=== PATIENT | male | born 1950 | race Caucasian/White ===

== ENCOUNTER → 2023-10-17 10:10 | Outpatient (REF) | payer MEDICARE, OTHER, SELFPAY ==
[2023-10-17 10:50] LABS: % Basophils 1.1 % (0-2); % Immature Granulocytes 0.3 % (0-0.5); % Lymphocytes 30.4 % (20.5-51.1); % Monocytes 10.3 % (1.7-9.3); % Neutrophils 55.9 % (42.2-75.2); Absolute Basophils 0.1 10^3/uL (0-0.2); Absolute Eosinophils 0.2 10^3/uL (0-0.7); Absolute Lymphocytes 2.2 10^3/uL (1.2-3.4); Absolute Monocytes 0.8 10^3/uL (0.1-0.6); Absolute Neutrophils 4.1 10^3/uL (1.4-6.5); Hematocrit 43.7 % (39.0-52.0); Hemoglobin 14.2 g/dL (13.0-18.0); Mean Corp Hgb Conc. 32.5 g/dL (33.0-37.0); Mean Corpuscular Hgb 28.7 pg (27.0-31.0); Mean Corpuscular Volume 88.5 fL (80.0-94.0); Mean Platelet Volume 11.5 fL (7.4-10.4); Nucleated Red Blood Cells % 0 % (-); Platelet Count 167 10^3/uL (130-400); Red Blood Cell Count 4.94 10^6/uL (4.70-6.10); Red Cell Dist. Width 14.4 % (11.5-14.5); White Blood Cell Count 7.4 10^3/uL (4.8-10.8)
[2023-10-17 11:21] LABS: Urine Albumin Negative (Neg - Trace); Urine Bilirubin Negative (Negative); Urine Color Yellow; Urine Glucose Negative (Negative); Urine Ketone Negative (Negative); Urine Leukocyte Negative (Negative); Urine Nitrite Negative (Negative); Urine Occult Blood Negative (Negative); Urine Specific Gravity 1.015 (<1.030); Urine Urobilinogen Negative (Neg - 1+)
[2023-10-17 12:15] LABS: Glycohemoglobin (HgbA1c) 6.5 % (4.0-5.6)
[2023-10-17 12:29] LABS: Urine Character Clear (Clear)
[2023-10-17 12:31] LABS: ALT (SGPT) 18 U/L (0-50); AST (SGOT) 31 U/L (17-59); Albumin 4.8 g/dl (3.5-5.0); Alkaline Phosphatase 62 U/L (38-126); Blood Urea Nitrogen 19 mg/dl (9-20); Calcium 10.4 mg/dl (8.4-10.2); Carbon Dioxide 28 mmol/L (22-30); Chloride 101 mmol/L (98-107); Glucose 103 mg/dl (70-99); HDL Cholesterol 46 mg/dl; LDL Cholesterol, Calculated 62 mg/dl; Phosphorus 4.3 mg/dl (2.5-4.5); Potassium 4.3 mmol/L (3.5-5.1); Sodium 140 mmol/L (135-145); Total Cholesterol 142 mg/dl (50-199); Total Protein 8.2 g/dl (6.3-8.2); Triglyceride 174 mg/dl (10-149); Very Low Density Lipoprotein 34 mg/dl (0-30); eGFR > 60.00
[2023-10-17 12:37] LABS: Vitamin D, 25-OH*** 59.8 ng/mL (30-80)
[2023-10-17 12:51] LABS: PSA, Total - Screen 1.89 ng/ml (0.0-4.0)
== END ==
LOC: REG 10:10
PROVIDERS: ATTENDING PHYSICIAN Internal Medicine
DX: E11.9 Type 2 diabetes mellitus without complications (principal); E78.2 Mixed hyperlipidemia; E78.00 Pure hypercholesterolemia, unspecified; I10 Essential (primary) hypertension; I48.91 Unspecified atrial fibrillation; D50.0 Iron deficiency anemia secondary to blood loss (chronic); Z00.00 Encounter for general adult medical examination without abnormal findings; Z12.5 Encounter for screening for malignant neoplasm of prostate
CPT/HCPCS: 36415; 80053; 80061; 81003; 82306; 83036; 84100; 85025; G0103

== ENCOUNTER 2024-10-23 15:18 | Inpatient (IN) | payer MEDICARE, OTHER, SELFPAY ==
[2024-10-23] VITALS (7 sets, daily range): BP systolic 88–145; BP diastolic 55–95
[2024-10-23 11:00] LABS: Glucose - Point of Care 266 mg/dl (70-99)
[2024-10-23 11:07] LABS: Hematocrit 48.4 % (39.0-52.0); Hemoglobin 15.3 g/dL (13.0-18.0); Mean Corp Hgb Conc. 31.6 g/dL (33.0-37.0); Mean Corpuscular Hgb 28.6 pg (27.0-31.0); Mean Corpuscular Volume 90.5 fL (80.0-94.0); Mean Platelet Volume 11.6 fL (7.4-10.4); Platelet Count 218 10^3/uL (130-400); Red Blood Cell Count 5.35 10^6/uL (4.70-6.10); White Blood Cell Count 15.2 10^3/uL (4.8-10.8)
--- NOTE | 2024-10-23 11:08 | CON.CAR ---
Addendum entered and electronically signed by Cherri Gutierrez PA-C 10/23/24 11:57:
also has history of KS in 1994 with stenting of unknown artery.
Addendum entered and electronically signed by Jorge Arita MD 10/23/24 11:53:
I saw and examined the patient.
The Shoder Filler's note was reviewed and I agree with the note.
Comment:
GEN: No distress, intubated/sedated
HEENT: supple, anicteric, mmm
LUNGS: CTA, no wheezes/rales
CV: Reg, S1/S2, 1/6 syst LSB, no gallop
ABD: soft, BS+, NT/ND
EXT: No edema
NEURO: unable to assess
SKIN: No rash
Plan:
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
Patient was having chest pain, called 911 and became unresponsive. Medics then arrived at his house and he was found to be in VF and received shocked x 1. He also received epinephrine and lidocaine at that time with return to spontaneous
circulation and was intubated.
Initial EKG with new right bundle branch block and marked ST abnormalities in the anterior leads and inferior leads.
Head CT with preliminary read of no acute bleed.
Repeat EKG reveals 1 to [address] elevation in the inferior leads with continued anterior ST depression.
Patient will now be urgently transferred to cardiac [facility] for coronary angiography. He is already on aspirin and Plavix chronically.
Will start IV heparin since head CT with no evidence of acute bleed.
Continue Coreg, ramipril, and rosuvastatin.
Check lipids.
Patient will be need to be admitted to hospitalist/ service for further management of ventilator.
Further cardiac care will be dependent upon patient's neurological status. ?ICD
Repeat Echo.
Original Note:
Consultation
Consultation Request
Date/Time Consultation Performed: 10/23/24
Requesting Provider: Dr. Figueroa
Performing Provider: Cherri Gutierrez PA-C for Dr. Arita
Reason for Consultation: cardiac arrest
Medical History
-
Chief Complaint: cardiac arrest
History of Present Illness:
Patient is a 73-year-old male with past medical history of CAD status post LAD PCI x 2, circumflex PCI in 2013, known ischemic cardiomyopathy with EF 35 to 40%, hypertension, hyperlipidemia, obesity, ELVIRA on CPAP, diabetes who presented to [place] [facility] as a cardiac arrest. Per patient's son he has been going to the [facility] several times per week for the last 5 years. He has not complained to patient of any recent chest pain or shortness of breath. Today patient called 911 on his own
complaining of chest tightness and shortness of breath. While on the phone, he stopped talking/responding and he was upgraded to a cardiac arrest. Medics feel as though he had limited downtime. Upon their arrival he was noted to be in VF and
underwent shock x 1. He received epi x 2 as well as 100 of lido. He had return of spontaneous circulation and remains in sinus rhythm at this time. He was intubated in the field. EKG with possible ST elevation in inferior leads with reciprocal
lateral ST depressions. Cardiology consulted urgently for evaluation.
PMH:
CAD s/p LAD PCI x2 2011, circ PCI 2013
ICM, EF 35-40%
HTN
HLD
DM2
Obesity
ELVIRA on CPAP
Past Medical History
Past Medical History: Other (in HPI)
Social History
Tobacco: Non-Smoker
Alcohol: None
Living: Alone
Family History
Family History: Unable to Obtain
Allergies / Home Medications
Allergy/AdvReac Type Severity Reaction Status Date / Time
levofloxacin Allergy Swelling Verified 02/02/22 19:03
Mold Allergy Unknown Unknown Uncoded 02/02/22 19:03
Dust, dog hair Allergy Sneezing, Uncoded 02/02/22 19:03
watery eyes
�Medication �Instructions �Recorded �Confirmed �Type
carvedilol 12.5 mg tablet 12.5 mg PO BID 01/26/11 02/02/18 History
tadalafil 20 mg tablet (Cialis) 20 mg PO DAILYPRN PRN erectile 12/07/11 02/02/18 History
dsyfunction
metformin 1,000 mg tablet 1,000 mg PO BID 05/18/12 02/02/18 History
clopidogrel 75 mg tablet 75 mg PO DAILY 05/05/13 02/02/18 History
aspirin 81 mg tablet,delayed 81 mg PO DAILY #30 tabs 05/07/13 02/02/18 Rx
release
rosuvastatin 40 mg tablet (Crestor) 40 mg PO DAILY 02/02/18 02/02/18 History
empagliflozin 10 mg tablet 10 mg PO DAILY 10/23/24 History
(Jardiance)
ramipril 5 mg capsule 10 mg PO DAILY 10/23/24 History
Review of Systems
-
Unable to obtain full review of systems at this time due to: Patient Intubation
Physical Exam
Vital Signs
Pulse Resp BP Pulse Ox
79 20 118/95 99
10/23/24 11:03 10/23/24 11:03 10/23/24 11:03 10/23/24 10:42
Lab Results
10/23/24 10:54
Physical Exam
General: No Apparent Distress and Intubated
HEENT: Normocephalic and Moist Mucous Membranes
Respiratory: Clear and Non Labored Respirations
Cardiac: S1/S2 and Regular Rhythm
GI: Soft, Non Tender and Non Distended
Musculoskeletal: No Clubbing, No Cyanosis and No Edema
Skin: Warm and Dry
Neuro: Sedated
Impression / Plan
-
Primary Communications Designer: Dr. Lui
Assessment:
Presentation with VF arrest s/p shock x1 with ROSC
Intubated in field
Chest tightness/SOB
CAD s/p LAD PCI x2 2011, circ PCI 2013
ICM, EF 35-40%
HTN
HLD
DM2
Obesity
ELVIRA on CPAP
ECHO 10/05/21: TDS, EF 35 to 40%, basal to mid inferior, inferolateral and basal septal akinesis, left atrial enlargement, mild MR
Plan:
- Patient presented with cardiac arrest, reported VF requiring shock x 1 as well as epi x 2 and 100 mg lidocaine with subsequent ROSC. felt to have limited downtime per EMS.
- Presently in sinus rhythm on review of telemetry
- He is intubated and sedated
- initiating lidocaine drip given good response in field
- EKG with concern for inferior ST elevation in 3 and aVF with reciprocal depression in lateral leads. Will repeat EKG now
- Awaiting labs. Trend troponin
- Head CT pending. If negative for bleed, would initiate IV heparin
- Chronically on aspirin and Plavix as an outpatient given history of stenting as above
- He has history of known ischemic cardiomyopathy with a EF by most recent echo in 2021 35 to 40%. It is noted that he previously refused ICD. repeat echo
- will plan for urgent cardiac catheterization
- d/w nursing and ER physician
- d/w patient's sons and significant others in family waiting area
- CCT 32 minutes
Data Reviewed
-
EKG: Tracing Personally Visualized and interpreted
CT Scan: Report Reviewed by me
Medical Tests (Nuc Med, Echo etc): Report Reviewed by me
Old Records: Reviewed
--- NOTE | 2024-10-23 11:08 | ED.GENMED ---
History of Present Illness
General
Chief Complaint: CODE
Source: ambulance crew
Time Seen by Provider: 10/23/24 10:46
History of Present Illness
History of Present Illness:
73-year-old male brought to the emergency by ambulance after suffering a cardiac arrest. Patient called 911 complaining of chest pain and shortness of breath. 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 When paramedics arrived they found
him down with agonal respirations and into V-fib. He was shocked into a perfusing rhythm which at 1 point degraded to asystole. He was given lidocaine in the 100 mg, at the end ultimately had return of spontaneous circulation which persisted. He
arrived to the emergency room in sinus rhythm with a good blood pressure. He has spontaneous respiratory effort. He has some movement of his hands and feet bilaterally. No further history available at this time.
Past History
Past History
ED Past Medical History: CAD, HTN, Hypercholesterolemia, NIDDM, RI and Other
ED Past Surgical History: Cardiac and Other
Social History
Tobacco: Non-smoker
Alcohol: Occasional
Drug: None
Personal:
Living: with family
Employment: Employed
Family History
Family History: Hypertension and CAD
Phy Exam
Physical Exam
Physical Exam:
General: Spontaneous respiratory effort but otherwise not responsive
Vitals: Sinus rhythm, adequate blood pressure
Head: Contusion right forehead
Eyes: Pupils equal at 4 mm
Throat: Intubated at 27 cm
Neck: Trachea midline
Lungs: Coarse breath sounds bilaterally
Heart: Regular rate, no murmurs
Abd: Soft, Nontender, No pulsatile mass
Neuro: Not responsive to verbal commands but appears to have some minimal movement bilaterally
Skin: Warm, dry, no rash
Extremities: pulses equal b/l, no edema
Course
Orders/Labs/Results
Orders:
Orders
10/23/24 10:41
Electrocardiogram (*1) Urgent
Reason for Study: Other
Other Reason for Exam: cardiac arrest-b ROSC
CXR Port [CR Chest Portable - 1 View] Urgent
Comment:
Reason For Exam: cardiac arrest
Reason Study Needs to be Portable: Unable to Transport
10/23/24 10:42
EKG- Treatment ONCE
10/23/24 10:[address] [CT Head W/o Iv Contrast] Stat
Comment:
Reason For Exam: post ROSC- hit head
10/23/24 10:53
CMP [Comprehensive Metabolic Panel] Urgent
PT/INR [Prothrombin Time] Urgent
Troponin I Urgent
10/23/24 10:54
Complete Blood Count/With Diff Urgent
Lactic Acid Urgent
10/23/24 10:56
Fentanyl Citrate/Pf [Sublimaze] 100 mcg .ROUTE .STK-MED ONE
10/23/24 11:02
Fentanyl Citrate/Pf [Sublimaze] 100 mcg IV NOW STA
10/23/24 11:15
Lidocaine 2 Gram/500 ml [Xylocaine 2 Gram] 2,000 mg in 500 ml IV ORDERED RATE
Propofol 1,000,000 Mcg/100 ml [Diprivan] 1,000,000 mcg in 100 ml IV PER PROTOCOL
10/23/24 11:20
Electrocardiogram (*1) Stat
Reason for Study: Abnormal EKG
10/23/24 11:22
PTT Urgent
Comment: Obtain baseline before beginning heparin infusion if not already collected
Heparin 4,000 units IV NOW STA
Nursing to Place Non Medication Order As Directed
Physician Order: PTT 6 hours after initial start of Heparin infusion
10/23/24 11:23
Aspirin Chewable [Low Strength Aspirin] 324 mg TUBE NOW STA
10/23/24 11:24
Add On- LAB Urgent
Tests Added?: ptt
10/23/24 11:28
Electrocardiogram (*1) Urgent
Reason for Study: Chest Pain
EKG- Treatment ONCE
Venous Blood Gas Urgent
%Oxygen/Room Air: 50
10/23/24 11:30
Heparin 22626 Units/250 ml 25,000 units in 250 ml IV PER PROTOCOL
Weight to be used for heparin protocol in kilograms (kg):: 107.9
Protocol:: Cardiac Tx/Acute Coronary
PTT Goal Range to be used:: PTT 73 to 111 seconds
Order type:: Initial
INITIAL Infusion Dose (UNITS/KG/hr) & then follow protocol:: 12 units/kg/hr
Infusion Dose in UNITS/hr & then follow protocol (UNITS/hr):: 1,000
INFUSION RATE in mL/hr & then follow protocol (mL/hr):: 10
PTT less than or equal to 64 seconds:: Increase rate by 200 units/hr (+ 2 mL/hr)
PTT 64.1 to 72.9 seconds:: Increase rate by 100 units/hr (+ 1 mL/hr)
PTT 73 to 111 seconds:: Target Range. No change in rate.
PTT 111.1 to 130.9 seconds:: Decrease rate by 100 units/hr (- 1 mL/hr)
PTT 131 to 199.9 seconds:: HOLD for 1 hr. Then decrease rate by 200 units/hr (- 2 mL/hr)
PTT greater than or equal to 200 seconds:: HOLD for 2 hrs & Notify Provider. Then decrease by 200 units/hr (-
2 mL/hr)
Lab follow-up:: Each change, PTT q6h until 2 consecutive are therapeutic. Then PTT
daily.
10/23/24 11:38
Fentanyl Citrate/Pf [Sublimaze] 100 mcg .ROUTE .STK-MED ONE
10/23/24 11:42
Heparin 1000 Units/500 ml [Heparin] 1,000 units in 500 ml .ROUTE .STK-MED
Heparin Sodium,Porcine/Ns/Pf [Heparin 2000 Units/1000 ml] 2,000 unit in 1,000 ml .ROUTE .STK-MED
Lidocaine HCl/Pf [Xylocaine-Mpf 1% Vial] 100 mg .ROUTE .STK-MED ONE
Nitroglycerin [Tridil] 1,500 mcg .ROUTE .STK-MED ONE
Verapamil Injectable [Isoptin/Verapamil Injection] 5 mg .ROUTE .STK-MED ONE
10/23/24 11:45
Fentanyl Citrate/Pf [Sublimaze] 100 mcg IV NOW STA
10/23/24 12:03
Fentanyl Citrate/Pf [Sublimaze] 100 mcg .ROUTE .STK-MED ONE
Heparin 10,000 units .ROUTE .STK-MED ONE
Midazolam HCl [Versed] 2 mg .ROUTE .STK-MED ONE
10/23/24 12:15
FentaNYL 1,000 MCG/100 ML [Sublimaze] 1,000 mcg in 100 ml IV ORDERED RATE
10/23/24 12:31
Arterial Blood Gas with Lytes Urgent
Comment: STEMI
Lactic Acid Urgent
Comment: STEMI
10/23/24 12:35
Eptifibatide [Integrilin] 20 ml .ROUTE .STK-MED
10/23/24 12:44
Heparin Sodium,Porcine/Ns/Pf [Heparin 2000 Units/1000 ml] 2,000 unit in 1,000 ml .ROUTE .STK-MED
Abnormal Lab Results
10/23/24 10/23/24 10/23/24
10:53 10:54 10:58
WBC 15.2 H 10^3/uL
(4.8-10.8)
MCHC 31.6 L g/dL
(33.0-37.0)
RDW 15.0 H %
(11.5-14.5)
MPV 11.6 H fL
(7.4-10.4)
Abs Immat Gran (auto) 0.3 H 10^3/uL
(0-0.05)
Absolute Neuts (auto) 7.3 H 10^3/uL
(1.4-6.5)
Absolute Lymphs (auto) 6.6 H 10^3/uL
(1.2-3.4)
Absolute Monos (auto) 0.8 H 10^3/uL
(0.1-0.6)
Immature Gran % 2.0 H %
(0-0.5)
pH
pCO2
pO2
ABG O2 Sat (Measured)
Sodium
Carbon Dioxide 18 L mmol/L
(22-30)
Glucose 278 H mg/dl
(70-99)
Lactic Acid 8.6 H* mmol/L
(0.7-2.0)
AST 206 H U/L
(17-59)
ALT 160 H U/L
(0-50)
Troponin I 0.061 H* ng/ml
POC Glucose 266 H mg/dl
(70-99)
POC ACT Low Range
10/23/24 10/23/24 10/23/24
12:13 12:31 12:48
WBC
MCHC
RDW
MPV
Abs Immat Gran (auto)
Absolute Neuts (auto)
Absolute Lymphs (auto)
Absolute Monos (auto)
Immature Gran %
pH 7.26 L
(7.35-7.45)
pCO2 49 H mmHg
(35-48)
pO2 213 H mmHg
(83-108)
ABG O2 Sat (Measured) 100.0 H %
(94-98)
Sodium 130 L mMOL/L
(136-145)
Carbon Dioxide
Glucose
Lactic Acid 4.0 H* mmol/L
(0.7-2.0)
AST
ALT
Troponin I
POC Glucose
POC ACT Low Range 263 H Seconds 244 H Seconds
(116-155) (116-155)
10/23/24
13:25
WBC
MCHC
RDW
MPV
Abs Immat Gran (auto)
Absolute Neuts (auto)
Absolute Lymphs (auto)
Absolute Monos (auto)
Immature Gran %
pH
pCO2
pO2
ABG O2 Sat (Measured)
Sodium
Carbon Dioxide
Glucose
Lactic Acid
AST
ALT
Troponin I
POC Glucose
POC ACT Low Range 221 H Seconds
(116-155)
10/23/24 10:54
10/23/24 10:53
Vital Signs
Initial and Last Documented VS:
Initial Vital Signs
Pulse Resp BP Pulse Ox
79 20 145/87 99
10/23/24 10:42 10/23/24 10:42 10/23/24 10:42 10/23/24 10:42
Last Documented Vital Signs
Pulse Resp BP Pulse Ox
81 17 88/55 99
10/23/24 11:45 10/23/24 11:45 10/23/24 11:45 10/23/24 10:42
MDM/Problems Addressed
Differential Diagnosis Includes:
STEMI, NSTEMI, primary ventricular dysrhythmia from previous scar
MDM/Problems Addressed:
Patient presents via ambulance after having a cardiac arrest at home. EKG here is clearly abnormal. Not clearly STEMI criteria. Sent an image of the EKG to Dr. Ballard who is on-call for interventional cardiology. Also included Dr. Doug hong who
is on-call for the patient's cardiology group. They will evaluate the patient now. Likely patient will go to the Business Excellence [facility] when the table is available. Patient has evidence of bumping his head and so we will obtain a head CT prior to starting
anticoagulation. Patient was given 100 mg of lidocaine as a bolus by medics. Will initiate a lidocaine drip at 1 mg/min.
Repeat EKG was obtained which now shows ST elevation in the inferior leads. Cardiology was down here in the emergency room and they alerted the Business Excellence Manager that the patient now has a STEMI. He was taken to the Business Excellence [facility] after receiving 5000 units of
heparin and 324 mg of baby aspirin. Consultation with cardiology will hold off on Brilinta because he does have a high likelihood of having multivessel disease and needing bypass surgery, additionally he took Plavix today.
Chronic conditions affecting care: DM, HTN, CAD and Cardiomyopathy
*Radiology
Radiology exam reviewed: preliminary read by ED provider (ET tube in adequate position, poor inspiratory effort)
*Pulse Oximetry
Patient hypoxic: no
*EKG
Interpreted by ED Provider?: Yes
Interpretation: abnormal
Comparison EKG: changes noted (New right bundle branch block)
Heart Rate: 92
Rate: normal
Rhythm: sinus and PVC's
QRS Pattern: right bundle branch block
Ischemia: other (There are ST abnormalities noted in 3 and aVF. Lead III certainly has potential ST elevation. aVF is less than 1 mm, lead to less than 1 mm. There is potential [address] depression laterally.)
*Boiler Setter Interpretation
Rate: normal
Interpretation: abnormal
Rhythm: sinus
*Critical Care Note
Total Time (30-74mins, 75-104mins- exclusive of procedures): 35 min
comment:
Critical care statement: A total of 35 minutes of critical care time was provided for this patient. This includes management of unstable vital signs, evaluation of the patient at bedside, reviewing the patient's pertinent medical records, discussion
with consultants, review of old EKGs and review of pertinent medical records. This time with separate from time utilized to perform the aforementioned documented procedures
Update Note
Update Note:
EKG 11:31 nsr @ 78, ST elevation no evident leads II, III and aVF with reciprocal changes.
ED Attending Note
-
Portions of this chart may have been created with voice recognition software.� Occasional wrong word or��sound alike� substitutions may have occurred due to the inherent limitations of voice recognition software.
Discharge Plan
Departure
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
Presentation/result/management discussed w/ accepting MD/DO: Hospitalist
Condition: Serious
Discharge Problem:
Cardiac arrest, Acute RI, inferior wall, Head injury
Interventions
Interventions:
*ED- Fall Risk Assessment Last Done: 10/23/24 11:01
*ED COVID-19 Vaccine History Last Done: 10/23/24 11:01
*Nursing Disposition Last Done: 10/23/24 11:54
ED- Cardiac Assessment Last Done: 10/23/24 11:00
ED- Pulmonary Assessment Last Done: 10/23/24 10:45
Discharge Date and Time
Discharge Date/Time: 10/23/24 11:55
[2024-10-23 11:14] LABS: INR 1.09; PT 14.6 Sec (11.4-14.6)
[2024-10-23 11:16] LABS: AST (SGOT) 206 U/L (17-59); Albumin 4.5 g/dl (3.5-5.0); Alkaline Phosphatase 92 U/L (38-126); Blood Urea Nitrogen 18 mg/dl (9-20); Calcium 9.4 mg/dl (8.4-10.2); Carbon Dioxide 18 mmol/L (22-30); Chloride 103 mmol/L (98-107); Glucose 278 mg/dl (70-99); Potassium 4.9 mmol/L (3.5-5.1); Sodium 140 mmol/L (135-145); Total Protein 7.6 g/dl (6.3-8.2); eGFR > 60.00
[2024-10-23] MEDS: DIPRIVAN 100 IV ×3 (11:22→22:14)
[2024-10-23] MEDS: SUBLIMAZE 100 MCG IV (11:22)
[2024-10-23 11:24] LABS: Lactic Acid 8.6 mmol/L (0.7-2.0)
[2024-10-23] MEDS: XYLOCAINE 2 GRAM 500 IV (11:25)
[2024-10-23 11:32] LABS: Troponin I 0.061 ng/ml
--- NOTE | 2024-10-23 11:36 | EDRN ---
Cherri speaking to family and pt is to go to laboratory clerk. Dr. Walsh at bedside.
[2024-10-23 11:46] LABS: ALT (SGPT) 160 U/L (0-50)
[2024-10-23 11:48] LABS: % Basophils 0.6 % (0-2); % Eosinophils 1.1 % (0-6); % Lymphocytes 43.3 % (20.5-51.1); % Monocytes 5.3 % (1.7-9.3); % Neutrophils 47.7 % (42.2-75.2); Absolute Basophils 0.1 10^3/uL (0-0.2); Absolute Eosinophils 0.2 10^3/uL (0-0.7); Absolute Immature Granulocytes 0.3 10^3/uL (0-0.05); Absolute Lymphocytes 6.6 10^3/uL (1.2-3.4); Absolute Monocytes 0.8 10^3/uL (0.1-0.6); Absolute Neutrophils 7.3 10^3/uL (1.4-6.5); Nucleated Red Blood Cells % 0 % (-)
--- NOTE | 2024-10-23 11:53 | EDRN ---
See STEMI SHEET for additional administered meds-
[2024-10-23 12:18] LABS: ACT-LR - POC 263 Seconds (116-155)
[2024-10-23 12:36] LABS: B.E. -5.4 mmol/L; PCO2 49 mmHg (35-48); PO2 213 mmHg (83-108); Sodium 130 mMOL/L (136-145); pH 7.26 (7.35-7.45)
[2024-10-23 12:54] LABS: ACT-LR - POC 244 Seconds (116-155)
[2024-10-23 13:30] LABS: ACT-LR - POC 221 Seconds (116-155)
[2024-10-23 13:52] LABS: ACT-LR - POC 190 Seconds (116-155)
[2024-10-23 14:19] LABS: ACT-LR - POC 181 Seconds (116-155)
[2024-10-23 14:24] LABS: B.E. -6.9 mmol/L; HCO3 21.9 mmol/L (21-28); O2 Saturation % 90.3 % (94-98); PCO2 56 mmHg (35-48); PO2 63 mmHg (83-108)
[2024-10-23 14:36] LABS: ACT-LR - POC 269 Seconds (116-155)
[2024-10-23 14:44] LABS: B.E. - POC -5.6 mmol/L; Blood Urea Nitrogen - POC 23 mg/dl (3-120); Chloride - POC 106 mmol/L (96-111); Creatinine - POC 1.11 mg/dl (0.3-1.0); Glucose - POC 230 mg/dl (70-99); HCO3 - POC 21 mmol/L (21-28); Hematocrit - POC 49 % PCV (42-52); Hemodilution- POC No; Hemoglobin Calculated - POC 16.6; Ionized Calcium - POC 1.16 mmol/L (1.15-1.33); Lactate - POC 3.12 mmol/L (0.36-0.75); O2 Saturation %Calculated-POC 97.3 % (94-98); PCO2 - POC 44 mmHg (35-48); PO2 - POC 105 mmHg (83-108); Potassium - POC 4.8 mmol/L (3.5-5.1); Sodium - POC 137 mmol/L (136-145); Specimen Type - POC Arterial; pH - POC 7.29 (7.35-7.45)
--- NOTE | 2024-10-23 14:45 | CON.INTV ---
Addendum entered and electronically signed by Rm Bright MD 10/23/24 16:35:
Temp >100 noted
- TTM already ordered
- Tylenol KS
- Blood cultures
- f/u CXR
- Start Broad spectrum antibiotics
- Fever likely due to arrest, CPR and infarction. Aspiration can not be ruled out.
Original Note:
Consultation
Consultation Request
Date/Time Consultation Requested: 10/23/2024
Date/Time Consultation Performed: 10/23/2024
Requesting Provider: Gretel Meng
Performing Provider: Rm Bright
Reason for Consultation: cardiac arrest
Medical History
-
Chief Complaint: Cardiac arrest
History of Present Illness:
Patient currently intubated, mechanically ventilated sedated. Reportedly patient is a 70-year-old gentleman with known history of coronary artery disease with previous PCI in the past, known ischemic cardiomyopathy with baseline EF 35 to 40%,
obstructive sleep apnea on CPAP, who called 911 for having chest pain and shortness of breath. While he was on the phone apparently he stopped talking and had a cardiac arrest. Once EMS arrived, patient was noted to be in ventricular fibrillation
and was shocked x 1, he also received epi and Afrin as well as lidocaine and had return of spontaneous circulation. He was intubated in the field and EKG was concerning for ST elevation in the inferior leads. Cardiology service evaluated the
patient in the emergency room and he was emergently taken to Patient Support Associate for further intervention. I initially saw the patient in the Patient Support Associate for persistent hypoxia despite being mechanically ventilated and later reevaluated again in CVICU.
PMH:
CAD s/p LAD PCI x2 2011, circ PCI 2013
ICM, EF 35-40%
HTN
HLD
DM2
Obesity
ELVIRA on CPAP
Past Medical History
Past Medical History: Other (in HPI)
Social History
Tobacco: Non-Smoker
Alcohol: None
Living: Alone
Family History
Family History: Unable to Obtain
Allergies / Home Medications
Allergies
Allergy/AdvReac Type Severity Reaction Status Date / Time
levofloxacin Allergy Swelling Verified 02/02/22 19:03
Mold Allergy Unknown Unknown Uncoded 02/02/22 19:03
Dust, dog hair Allergy Sneezing, Uncoded 02/02/22 19:03
watery eyes
Home Medications
�Medication �Instructions �Recorded �Confirmed �Last Taken �Type
carvedilol 12.5 mg tablet 12.5 mg PO BID 01/26/11 02/02/18 05/11/13 History
tadalafil 20 mg tablet (Cialis) 20 mg PO DAILYPRN PRN erectile 12/07/11 02/02/18 04/28/13 22:00 History
dsyfunction
metformin 1,000 mg tablet 1,000 mg PO BID 05/18/12 02/02/18 05/11/13 History
clopidogrel 75 mg tablet 75 mg PO DAILY 05/05/13 02/02/18 05/11/13 History
aspirin 81 mg tablet,delayed 81 mg PO DAILY #30 tabs 05/07/13 02/02/18 05/11/13 Rx
release
rosuvastatin 40 mg tablet (Crestor) 40 mg PO DAILY 02/02/18 02/02/18 Unknown History
empagliflozin 10 mg tablet 10 mg PO DAILY 10/23/24 Unknown History
(Jardiance)
ramipril 5 mg capsule 10 mg PO DAILY 10/23/24 Unknown History
Review of Systems
-
Unable to Obtain full review of systems at this time due to: Patient Intubation
Vitals / Labs / Diagnostic Testing
Vital Signs
Pulse Resp BP Pulse Ox
81 17 88/55 99
10/23/24 11:45 10/23/24 11:45 10/23/24 11:45 10/23/24 10:42
Lab Data
10/23/24 10:54
Laboratory Results
10/23/24 10/23/24 10/23/24
10:53 12:31 14:11
PT 14.6
INR 1.09
pH 7.26 L 7.20 L
pCO2 49 H 56 H
pO2 213 H 63 L
HCO3 22.0 21.9
O2 Delivery Level Not Reportable Not Reportable
10/23/24
14:15
PT
INR
pH Cancelled
pCO2 Cancelled
pO2 Cancelled
HCO3 Cancelled
O2 Delivery Level Cancelled
Diagnostic Testing:
Physical Exam
-
HEENT: Normocephalic
Cardiovascular: S1/S2
Respiratory: Rales
GI: Soft and Non Distended
Neurology: Other (On propofol, breathing above the vent )
Assessment
-
#1. STEMI complicated by out of hospital Cardiac Arrest, initial rhythm V. Fib
- S/p defibrillation x 1, ROSC achieved in the field. Estimated downtime reportedly around 15 minutes
- Patient emergently taken to Patient Support Associate, known history of coronary artery disease, s/p PCI more than 10 years ago
- Cardiology and cardiothoracic surgery service on case, s/p IABP. On ASA, heparin infusion and Statins
- CT head unremarkable, chest x-ray suggestive of pulmonary edema
- Target normothermia, avoid fever, avoid hypoglycemia, d/w Cardiology attending, start TTM
- Stat ABG, lactate, monitor electrolytes closely, continue telemetry monitoring
- Monitor renal and hepatic function
- Wean off sedation to evaluate patient's mental status
#2. Acute hypoxic respiratory failure
- Suspect related to pulmonary edema due to cardiogenic shock
- Continue levo as needed to keep MAP above 65
- Patient emergently evaluated in [facility] Support [facility] for hypoxia, PEEP increased up to 14, tidal volume 480 mL, patient breathing above the vent at around 30/min, peripheral saturation improved to 99%
- Stat chest x-ray to evaluate further, continue high PEEP for now
- Continue mechanical ventilation, volume assist-control 480/26/100%/14, will follow-up ABG and make adjustments accordingly
- Propofol and fentanyl for sedation, wean off to evaluate mental status
- X-ray not suggestive of pneumonia, hold off antibiotics for now. Will repeat chest x-ray to evaluate for any infiltrates
- If blood pressure tolerates, will initiate diuresis
- PE felt to be less likely with normal-appearing RV on echocardiogram. Patient anticoagulated with heparin
#3. Acute on chronic HFrEF with Cardiogenic Shock
- Management as #2
- Serial ABG, Lactate
#4. Acute encephalopathy
- Unclear if patient has any underlying anoxic brain injury
- Currently patient is sedated on propofol, recommend weaning it off
- Patient is triggering the ventilator and breathing above the set rate
- No meaningful response to stimulation or communication
- EEG
- CT head unremarkable
- Will reevaluate again once the patient is off sedation
- TTM being initiated after discussion with cardiology attending
Other medical diagnoses:
- h/o ELVIRA, on CPAP at home
- HTN
- HLD
- DM, type II
- Obesity
Critical Care time 65 mins -- The patient is admitted for acute critical illness for the treatment of vital organ failure and/or prevention of further life-threatening conditions. Total care includes time spent in review of history, physical exam,
medications, hemodynamic/ventilator parameters, laboratory data, imaging and discussion with house staff, pharmacy, respiratory therapy, supervisor finishing, and nursing.
Data:
CT Head 10/2024: Unremarkable
CXR. 10/2024: Suggestive of Pulmonary edema
ECHO 09/2021: Top normal left ventricular chamber size. Moderately reduced left ventricular
systolic function. Left ventricular ejection fraction is 35-40% by visual
assessment with basal - mid inferior, inferolateral and basal septal akinesis.
Top normal left ventricular wall thickness.
Left atrial enlargement.
Mild mitral regurgitation.
Compared to previous echo from September 2017, there is no significant change
Technically difficult study, consider Definity for better evaluation.
[facility] 04/2013: 1: 2 vessel coronary artery disease as described, patent RCA and LAD stents, new severe midcircumflex lesion.
2: Moderate to severe left ventricular dysfunction, EF 30%
3: Successful complex 3.0/12 mm Xience V drug eluting stent to the mid circumflex.
[2024-10-23 14:53] LABS: Lactic Acid 2.9 mmol/L (0.7-2.0)
[2024-10-23 15:52] LABS: Urine Albumin 3+ (Neg - Trace); Urine Bilirubin Negative (Negative); Urine Character Clear (Clear); Urine Color Yellow; Urine Glucose 4+ (Negative); Urine Ketone Negative (Negative); Urine Leukocyte Negative (Negative); Urine Nitrite Negative (Negative); Urine Occult Blood 3+ (Negative); Urine Urobilinogen Negative (Neg - 1+)
[2024-10-23 15:58] LABS: Urine Bacteria Moderate (Negative)
[2024-10-23 16:02] LABS: ALT (SGPT) 158 U/L (0-50); AST (SGOT) 208 U/L (17-59); Albumin 4.5 g/dl (3.5-5.0); Alkaline Phosphatase 98 U/L (38-126); Blood Urea Nitrogen 24 mg/dl (9-20); Calcium 8.8 mg/dl (8.4-10.2); Carbon Dioxide 15 mmol/L (22-30); Chloride 108 mmol/L (98-107); Glucose 214 mg/dl (70-99); Potassium 4.8 mmol/L (3.5-5.1); Sodium 140 mmol/L (135-145); Total Bilirubin 1.2 mg/dl (0.2-1.3); Total Protein 7.6 g/dl (6.3-8.2); eGFR > 60.00
--- NOTE | 2024-10-23 16:22 | HPS.HSE ---
Family Physician
-
Family Physician: INTERVIEWE UNKNOWN - PT NOT
Chief Complaint
-
post cath/code
History of Present Illness
73-year-old male with past medical history of ischemic cardiomyopathy, EF 35 to 40%, hypertension, lipidemia, diabetes mellitus, obesity, ELVIRA on CPAP, history of CAD status post PCI came to the hospital today after calling 911 for chest pain and
shortness of breath. Per documentation, patient was on the phone and apparently he stopped talking and had a cardiac arrest. When EMS arrived patient was noted to be in V-fib arrest and required shock and epinephrine. Patient was also intubated.
When arrived to the hospital patient was emergently taken to the [facility]. Per cardiology unable to stent RCA. Patient now has IVPA.
Medical History
Past Medical History
Past Medical History: Reports CAD, HTN, Hypercholesterolemia, NIDDM and Other (obesity,ELVIRA)
Past Surgical History: Reports Cardiac
Social History
Unable to obtain full social history at this time due to: Patient Intubation
Family History
Family History: Not pertinent
Allergies / Home Medications
Allergies reflects when Allergies were last updated in [employer].
Home Medications with original date entered in [employer]
Allergy/Medication List:
Allergies
Allergy/AdvReac Type Severity Reaction Status Date / Time
levofloxacin Allergy Swelling Verified 02/02/22 19:03
Mold Allergy Unknown Unknown Uncoded 02/02/22 19:03
Dust, dog hair Allergy Sneezing, Uncoded 02/02/22 19:03
watery eyes
Home Medications
carvedilol 12.5 mg tablet 12.5 mg PO BID 01/26/11
tadalafil 20 mg tablet (Cialis) 20 mg PO DAILYPRN PRN erectile dsyfunction 12/07/11
metformin 1,000 mg tablet 1,000 mg PO BID 05/18/12
clopidogrel 75 mg tablet 75 mg PO DAILY 05/05/13
aspirin 81 mg tablet,delayed release 81 mg PO DAILY #30 tabs 05/07/13
rosuvastatin 40 mg tablet (Crestor) 40 mg PO DAILY 02/02/18
empagliflozin 10 mg tablet (Jardiance) 10 mg PO DAILY 10/23/24
ramipril 5 mg capsule 10 mg PO DAILY 10/23/24
Review of Systems
-
Unable to obtain full review of systems at this time due to: Patient Intubation
History Source: Physician
Physical Exam
Vital Signs
Vital Signs
Temp Pulse Resp BP Pulse Ox
100.5 F H 81 26 88/55 95
10/23/24 16:00 10/23/24 11:45 10/23/24 16:00 10/23/24 11:45 10/23/24 16:00
Physical Exam
General: Intubated
HEENT: Anicteric
Respiratory: Rales
GI: Soft, Non Tender and Non Distended
Neuro: Sedated
Laboratory Results
-
10/23/24 10:54
10/23/24 14:15
Laboratory Results
PT 14.6 Sec (11.4-14.6) 10/23/24 10:53
INR 1.09 10/23/24 10:53
pH Cancelled 10/23/24 14:15
pCO2 Cancelled 10/23/24 14:15
pO2 Cancelled 10/23/24 14:15
HCO3 Cancelled 10/23/24 14:15
Lactic Acid 2.9 mmol/L (0.7-2.0) H 10/23/24 14:15
Total Bilirubin 1.2 mg/dl (0.2-1.3) 10/23/24 14:15
AST 208 U/L (17-59) H 10/23/24 14:15
ALT 158 U/L (0-50) H 10/23/24 14:15
Alkaline Phosphatase 98 U/L (38-126) 10/23/24 14:15
Troponin I 1.060 ng/ml H* D 10/23/24 14:15
Data Reviewed
-
Lab Data: Labs Reviewed by me and Discussed with Physician
Impression/Plan
-
STEMI [id number] cardiac arrest
Initial rhythm V-fib status post shock
Emergent cardiac catheterization, appears multivessel disease. Status post PCI in the past. Previous documentation had stenting to the LAD. Has refused AICD in the past
CT surgery consulted. Cardiology following. Status post IABP
On aspirin, statin, heparin
Initial chest x-ray with pulmonary edema, repeat chest x-ray per project builder
Cooling protocol. Target normothermia.
Trend lactate; improving
Wean off sedation as tolerated
Vent management per project builder
Unclear if developed anoxic brain injury, consulted neurology. EEG
initial CT unremarkable
Continue to trend troponin
Sepsis (fever,leukocytosis)
Could be secondary to postarrest, infarction
However cannot rule out aspiration, start broad-spectrum empiric antibiotics
Check blood culture
UA not suggestive of UTI
Follow fever curve
Acute hypoxic respiratory failure secondary to pulmonary edema with cardiogenic shock
Wean sedation as tolerated
Management per cardiology
started pressors; wean as tolerated
Elevated LFTs
Secondary to shock
Monitor
History of ELVIRA on CPAP
History of hypertension
Hyperlipidemia
Diabetes mellitus
ISS,accuchecks
morbid Obesity
DVTppx
heparin
Full code
Total Critical Care Time__52___ minutes. I was immediately available to the patient and staff. I personally examined, reviewed labs, diagnostic images/reports, interpretations, treatment plans, discussed patient care with other providers and
family or caregivers (if patient is unable to make decisions), entered orders as appropriate and documented the medical record.
[2024-10-23] MEDS: SODIUM CHLORIDE IV ×4 (16:30→19:33)
[2024-10-23] MEDS: [UNRECOGNIZED DRUG - OTHER] IV ×4 (16:30→19:33)
--- NOTE | 2024-10-23 16:33 | W.PN.INTV ---
Addendum entered and electronically signed by Rm Bright MD 10/24/24 13:39:
Levophed requirement up to 22 now. ABG 7.44/35/123
- Hold additional Diuresis (Saturating >95% on 40% FiO2)
- Add Vasopressin
- Continue Antibiotics, broad spectrum, f/u on cultures
- Add stress dose steroids, hydrocortisone 50 mg IV q 6hr
Original Note:
Today's Communication / Plan
Recommendations
- Lower PEEP to 8, target saturations 90 to 92%
- Wean FiO2 as tolerated
- Continue TTM
- Wean sedation once TTM completed
Assessment
-
Patient currently intubated, mechanically ventilated sedated. Reportedly patient is a 70-year-old gentleman with known history of coronary artery disease with previous PCI in the past, known ischemic cardiomyopathy with baseline EF 35 to 40%,
obstructive sleep apnea on CPAP, who called 911 for having chest pain and shortness of breath. While he was on the phone apparently he stopped talking and had a cardiac arrest. Once EMS arrived, patient was noted to be in ventricular fibrillation
and was shocked x 1, he also received epi and Afrin as well as lidocaine and had return of spontaneous circulation. He was intubated in the field and EKG was concerning for ST elevation in the inferior leads. Cardiology service evaluated the
patient in the emergency room and he was emergently taken to Guest Services Director for further intervention. I initially saw the patient in the Guest Services Director for persistent hypoxia despite being mechanically ventilated and later reevaluated again in CVICU.
#1. STEMI complicated by out of hospital Cardiac Arrest, initial rhythm V. Fib (10/23)
- S/p defibrillation x 1, ROSC achieved in the field. Estimated downtime reportedly around 15 minutes
- Patient emergently taken to Guest Services Director, balloon angioplasty performed, IABP placed. CT surgery consulted for possible CABG
- Known history of coronary artery disease, s/p PCI more than 10 years ago
- On ASA, heparin infusion and Statins
- CT head unremarkable, chest x-ray suggestive of pulmonary edema, follow-up x-ray this morning improving
- Target normothermia, avoid fever, avoid hypoglycemia, d/w Cardiology attending (10/23), continue TTM
- Monitor renal and hepatic function
- Once TTM completed, will wean down fentanyl and propofol to evaluate for patient's mental status
#2. Acute hypoxic respiratory failure
- Do to pulmonary edema due to cardiogenic shock
- 10/23, Patient emergently evaluated in Guest Services Director for hypoxia, PEEP was increased up to 14, tidal volume 480 mL, patient breathing above the vent at around 30/min, peripheral saturation improved to 99%
- Responded well to diuretics, follow-up chest x-ray this morning improved
- Continue volume assist mechanical ventilation, ABG, 7.44, 35, 123. On 480/28/50%/8.
- Propofol and fentanyl for sedation, wean off to evaluate mental status once TTM completed
- PE felt to be less likely with normal-appearing RV on echocardiogram. Patient anticoagulated with heparin
#3. Acute on chronic HFrEF with Cardiogenic Shock
- IABP on 121
- Continue Levophed at 11
- Follow-up chest x-ray shows improving pulmonary edema, fluid balance -1.2 L. 3 L urine output last 24 hours.
- Serial lactate improving, ABG reassuring
- Goal to keep even to slightly negative fluid balance
#4. Acute encephalopathy
- Unclear if patient has any underlying anoxic brain injury
- Currently patient is sedated on propofol, and fentanyl. Patient was having shivering on TTM and sedated
- Patient is triggering the ventilator and breathing above the set rate
- No meaningful response to stimulation or communication
- EEG
- CT head unremarkable
- Will reevaluate again once the patient is off sedation
- Currently on TTM
- Neurology consult
#5. CKD.
- Good urine output, stable creatinine
#6. Fever, 10/24
- X-ray is more suggestive of pulmonary edema rather than pneumonia
- Fever could be related to cardiac arrest, CPR and acute myocardial infarction
- Continue empiric antibiotics for now and follow-up on cultures
- TTM to be continued, avoid fever
Other medical diagnoses:
- h/o ELVIRA, on CPAP at home. Will resume CPAP once extubated
- HTN. Currently in shock so antihypertensives on hold
- HLD. On statins
- DM, type II. Low threshold to initiate insulin infusion if needed
- Obesity
Critical Care time 55 mins -- The patient is admitted for acute critical illness for the treatment of vital organ failure and/or prevention of further life-threatening conditions. Total care includes time spent in review of history, physical exam,
medications, hemodynamic/ventilator parameters, laboratory data, imaging and discussion with house staff, pharmacy, respiratory therapy, repair department manager, and nursing.
Data:
CT Head 10/2024: Unremarkable
CXR. 10/2024: Suggestive of Pulmonary edema
ECHO 09/2021: Top normal left ventricular chamber size. Moderately reduced left ventricular
systolic function. Left ventricular ejection fraction is 35-40% by visual
assessment with basal - mid inferior, inferolateral and basal septal akinesis.
Top normal left ventricular wall thickness.
Left atrial enlargement.
Mild mitral regurgitation.
Compared to previous echo from September 2017, there is no significant change
Technically difficult study, consider Definity for better evaluation.
[facility] 04/2013: 1: 2 vessel coronary artery disease as described, patent RCA and LAD stents, new severe midcircumflex lesion.
2: Moderate to severe left ventricular dysfunction, EF 30%
3: Successful complex 3.0/12 mm Xience V drug eluting stent to the mid circumflex.
Subjective Dataa
Subjective Data
Date of Service:
Date of Service: October 23, 2024
Subjective:
Patient currently intubated, mechanically ventilated and sedated
Review of Systems
General: Unobtainable - Sedation
Objective Data
Data Reviewed
Vital Signs / I&O / Oxygen:
Vital Signs
Temp Pulse Resp BP Pulse Ox
100.5 F H 81 26 88/55 95
10/23/24 16:00 10/23/24 11:45 10/23/24 16:00 10/23/24 11:45 10/23/24 16:00
Intake and Output
10/22/24 10/23/24 10/24/24
06:59 06:59 06:59
Intake Total 63.1 / 63.1
Output Total 135 / 135
Balance -71.9 / -71.9
SaO2 [A/C] 95
SaO2 95
Physical Exam
General: Comfortable
HEENT: Normocephalic
Cardiovascular: S1-S2
Respiratory: Clear
GI: Soft and Distended
Neurology: Other (Currently sedated on propofol and fentanyl. Brainstem reflexes preserved, triggering and breathing above the vent)
Skin: Warm
Labs/Micro/Reports
Laboratory Results
10/23/24 10/23/24 10/23/24
10:53 12:31 14:11
PT 14.6
INR 1.09
pH 7.26 L 7.20 L
pCO2 49 H 56 H
pO2 213 H 63 L
HCO3 22.0 21.9
O2 Delivery Level Not Reportable Not Reportable
10/23/24
14:15
PT
INR
pH Cancelled
pCO2 Cancelled
pO2 Cancelled
HCO3 Cancelled
O2 Delivery Level Cancelled
--- NOTE | 2024-10-23 16:51 | PTCARENOTE ---
Patient received from clinical laboratory aide at 1530; Sedated and intubated; Pupils +2 B/L and equal, reactive; NSR on monitor; VSS; IABP on 1:1 timing, max augmentation; +1 B/L DP and radial pulses; ETT 7.5 at 24 cm right lip; Ventilator settings A/C 26/480/14
FiO2 100%; Lungs diminished at bases; NGT at 65 cm at right nare draining brown drainage - connected to continuous low suction; Clear, yellow urine draining through hurt catheter; PIVx2; Lidocaine, propofol, levo, fentanyl, heparin, and tegarilin
infusing - see nursing flowsheets for further details; See nursing documentation for further information
[2024-10-23 16:58] LABS: Hematocrit 44.4 % (39.0-52.0); Hemoglobin 15.2 g/dL (13.0-18.0); Mean Corp Hgb Conc. 34.2 g/dL (33.0-37.0); Mean Corpuscular Hgb 29.3 pg (27.0-31.0); Mean Corpuscular Volume 85.7 fL (80.0-94.0); Mean Platelet Volume 11.3 fL (7.4-10.4); Platelet Count 218 10^3/uL (130-400); Red Blood Cell Count 5.18 10^6/uL (4.70-6.10); White Blood Cell Count 16.8 10^3/uL (4.8-10.8)
[2024-10-23 17:00] LABS: APTT 136.9 Sec (23.4-35.0)
[2024-10-23 17:02] LABS: ALT (SGPT) 155 U/L (0-50); AST (SGOT) 199 U/L (17-59); Albumin 4.2 g/dl (3.5-5.0); Alkaline Phosphatase 90 U/L (38-126); Blood Urea Nitrogen 27 mg/dl (9-20); Calcium 8.7 mg/dl (8.4-10.2); Carbon Dioxide 20 mmol/L (22-30); Chloride 106 mmol/L (98-107); Glucose 199 mg/dl (70-99); Magnesium 1.8 mg/dl (1.6-2.3); Potassium 4.5 mmol/L (3.5-5.1); Sodium 138 mmol/L (135-145); Total Bilirubin 1.5 mg/dl (0.2-1.3); Total Protein 7.2 g/dl (6.3-8.2); eGFR 58.01
--- NOTE | 2024-10-23 17:11 | W.PN.UPDATE ---
Update Note
Progress Note Update
Radial arterial line placement
A time-out was completed verifying correct patient, procedure, site, patient positioning, and special equipment. Patient was monitored with continuous bedside EKG, blood pressure, pulse ox readings.
Sean's test was performed to ensure adequate perfusion. The patient's left wrist was prepped and draped in sterile fashion.
Ultrasound was used in real time to localize the radial artery and guide introducer needle into the arterial lumen. The catheter was threaded over the guide wire and the needle was removed with appropriate pulsatile blood return. The catheter was
then secured in place to the skin and a biopatch and sterile dressing applied.
Perfusion to the extremity distal to the point of catheter insertion was checked and found to be unchanged.
Estimated Blood Loss: 3 mL
The patient tolerated the procedure well and there were no complications.
Remains in critical condition.
[2024-10-23 17:14] LABS: Lactic Acid 1.8 mmol/L (0.7-2.0)
[2024-10-23 17:21] LABS: B.E. -1.8 mmol/L; HCO3 23.1 mmol/L (21-28); Ionized Calcium 1.06 mMOL/L (1.15-1.33); PCO2 39 mmHg (35-48); PO2 220 mmHg (83-108); Potassium 4.2 mMOL/L (3.5-5.1); Sodium 134 mMOL/L (136-145); pH 7.38 (7.35-7.45)
--- NOTE | 2024-10-23 17:36 | PHA.VAN.IN ---
Assessment
- Assessment
Renal Function: SCR Appears Elevated from baseline (0.9)
Maximum Temperature: 100.6 F core 10/23 @ 1700
Concomitant Antimicrobials: piperacillin/tazobactam
Plan
- Plan
Initial / Loading Dose: vanc 2000mg pending administration
Maintenance Regimen: dosing by level
Monitoring: random level 6/6 AM
Pharmacokinetics Vancomycin I
- -
Patient Age: 73
Patient Sex: Male
Vancomycin Day #: 1
Indication: Bacteremia
Requesting Provider: Dr. Pearce
Pertinent Antimicrobial Allergies:
levofloxacin - ankle swelling
Height / Weight:
Actual Weight 107.9 kg
- Vital Signs / Lab Results
Temp Pulse Resp BP Pulse Ox
100.6 F H 92 26 88/55 100
10/23/24 17:00 10/23/24 16:45 10/23/24 17:00 10/23/24 11:45 10/23/24 17:00
Lab Results - Hematology
10/23/24 10/23/24
10:54 16:31
WBC 15.2 H 16.8 H
Lab Results - Chemistry
10/23/24 10/23/24 10/23/24
10:53 14:15 16:30
BUN 18 24 H 27 H
Creatinine 1.2 1.1 1.3
Albumin 4.5 4.5 4.2
10/23/24 10/23/24 10/23/24
10:54 12:31 14:15
Lactic Acid 8.6 H* 4.0 H* 2.9 H
10/23/24
16:34
Lactic Acid 1.8
Lab Results - Urine
10/23/24
15:44
Urine Nitrite (Reflex) Negative
Leukocyte Esterase Rfl Negative
Urine WBC (Reflex) 3-5
Ur Squamous Epith Cells 3-5
Urine Bacteria (Reflex) Moderate A
[2024-10-23] MEDS: SUBLIMAZE 50 MCG IV ×4 (17:56→20:22)
[2024-10-23] MEDS: INTEGRILIN 100 IV (18:17)
[2024-10-23] MEDS: NSS 500 VEN SHEATH (18:20)
[2024-10-23 18:27] LABS: ACT-LR - POC 179 Seconds (116-155)
--- NOTE | 2024-10-23 18:37 | W.PN.UPDATE ---
Update Note
Progress Note Update
Central line A time-out was completed verifying correct patient, procedure, site, patient positioning, and special equipment. Patient was monitored with continuous bedside EKG, blood pressure, pulse ox readings.
The patient was placed in a dependent position appropriate for central line placement based on the vein to be cannulated. The patient's left neck was prepped and draped in sterile fashion using chlorhexidine, maximum barrier precautions, sterile
gloves, Gown drapes and mask.
1% Lidocaine was used to anesthetize the surrounding skin area. Ultrasound was used in real time to localize vein and guide introducer needle. An introducer needle was placed into the left internal jugular vein using ultrasound guidance. A
guidewire was introduced without resistance. Under ultrasound guidance, confirmation of guidewire in vein was performed before dilation. Dilation was done over guidewire without complications. The 7 [place]ana 16 cm triple-lumen catheter was then
threaded smoothly over the guide wire and into the central venous system. The guidewire was removed and appropriate blood return was obtained from each lumen. Each lumen of the catheter was evacuated of any remaining air and flushed freely with
sterile saline. The catheter was then secured with a stat lock to the skin and a sterile occlusive dressing with Biopatch applied. An upright chest film was obtained after the procedure to assess for complications of insertion.
Estimated blood loss: 0 mL
Patient tolerated procedure well. Remains in critical condition.
Pre-procedure diagnosis
post procedure diagnosis
CPT code 21596
[2024-10-23] MEDS: VANCOCIN 540 MG IV (19:05)
[2024-10-23] MEDS: ZOSYN 50 IV ×2 (19:25→23:22)
--- NOTE | 2024-10-23 19:29 | PTCARENOTE ---
RIJ Triple lumen and left radial A-line inserted by KAYLA Chandler at bedside; TTM started at 1740; Fentanyl and Propofol infusions started; BC x2 drawn; Ventilator adjusted to FiO2 60% following ABG by Larry VALADEZ; IABP right femoral site oozing blood,
PTT out of range - MD Ballard notified and heparin restarted, Tegralin gtt time of infusion reduced, and hourly ACT's ordered; Report given to Dez AGUILAR
[2024-10-23 19:31] LABS: ACT-LR - POC 174 Seconds (116-155)
[2024-10-23 19:33] LABS: Mixed Venous O2 Saturation 66.1 %
[2024-10-23 19:33] LABS: Glucose - Point of Care 158 mg/dl (70-99)
[2024-10-23] MEDS: PROTONIX IV 40 MG IV (19:36)
[2024-10-23] MEDS: NSS (PRESERVATIVE FREE) 10 ML IV (19:37)
--- NOTE | 2024-10-23 19:57 | PTCARENOTE ---
act 174, heparin to [address] murrell. titrating off ACT while integrillin is on, then will switch to PTT
[2024-10-23] MEDS: CALCIUM CHLORIDE 10% SYRINGE 500 MG IV (20:00)
--- NOTE | 2024-10-23 20:00 | PTCARENOTE ---
assumed care of patient @ 1900. pt undergoing sedation vacation at shift change, did not appear to have any purposeful movements. does have contracted hands. shivering occasionally, titrating sedation back up. pupils reactive size 2 equal and round,
sluggish. NSR on tele with PVCs. Pt on artic sun with goal 96.8. BP unstable on/off levo. PAPs 70s/40s. Lungs diminished on ventilator AC 60 percent, 26, 480, 14. satting 97 percent. BS hypoactive. NGT at 65 thru R nare to suction with hurt
draining clear yellow urine. IABP through right groin 1:1 max augmentation. R fem arterial and venous sheath present, swan floated through right groin. R IJ triple lumen intact, PIV x2 intact. see flowsheet for meds and titrations.
--- NOTE | 2024-10-23 20:13 | ITS.CL.CATH ---
[employer] - Catheterization
Cardiac Catheterization
Procedure Report:
LEFT HEART CATHETERIZATION
Date of Procedure: October 23, 2024
Referring: [place] emergency department
PROCEDURES:
1. Coronary angiogram.
2. Moderate sedation.
3. Right heart catheterization with leaving [place]-Danial catheter.
4. Placement of intra-aortic balloon plan.
5. Plain old balloon angioplasty (POBA) of 3 serial 90% stenosis in the proximal, mid and distal RCA with KEYONA-3 flow restored into the distal vessel.
6. CPR
INDICATION: Post VF cardiac arrest, ROSC obtained, concern for inferior ST elevation NM
ACCESS: Right radial artery, 6Fr. sheath, under US guidance.
HEMODYNAMICS : (mmHg)
RA (m) : 23
RV (s/d,m) : 70/15, 22
PA (s/d, m) : 70/38, 50
PCWP (m) : 36
PA saturation: 52.0% on PEEP of 8, FiO2 of 100%
AO saturation: 88.0% on PEEP of 8, FiO2 of 100%
Mean arterial pressure: 89 mmHg
Cardiac Output : 3.7 L/min
Cardiac Index : 1.7 L/min/m-2
Systemic vascular resistance: 1427 dsc^(-5)
Pulmonary vascular resistance: 4 arias unit
AO (s/d) : 107/67
CORONARY FINDINGS
Dominance: Right
Left Main Trunk (LMT): The left main is a large-caliber vessel that gives off the left major descending artery and the left circumflex artery. The left main is severely calcified and hazy in appearance and diffusely disease with up to 70% stenosis.
Left Anterior Descending Artery (LAD): Large caliber vessel that gives off multiple small caliber diagonal branches as it courses along the anterior inter-ventricular groove before wrapping around the cardiac apex. There is mild diffuse
atherosclerotic plaque.
Left Circumflex Artery (LCx): The left circumflex artery is a medium caliber vessel which gives rise to 1 major obtuse marginal branch with moderate tortuosity in the midportion. Mid left circumflex just proximal to the takeoff of OM 1, proximal to
prior stent has heavily calcified 70 to 80% stenosis with OM1 appearing like a good bypass target.
Right Coronary Artery (RCA): The RCA is a large-caliber, dominant vessel that has diffuse severe calcified disease with 3 lesions up to 90% in the proximal, mid and distal vessel with a large thrombotic burden in the distal vessel. This is the
likely culprit for presenting ACS. POBA was performed as described below.
CORONARY INTERVENTION: The right coronary artery was selectively engaged using a JR4 guide initially with additional heparin given to maintain a therapeutic ACT throughout the case. Given a high thrombotic burden lesion in the distal RCA thought to
be the culprit for presenting ACS, Integrilin boluses were also given. Patient suddenly went into monomorphic ventricular tachycardia warranting a 200 J biphasic shock with successful return of normal sinus rhythm. We initially attempted
navigating the diffusely diseased RCA with a 190 cm 0.014 run-through wire however we could not be on the mid RCA tortuosity. At this point we brought in a second 300 cm airplane patrol pilot 50 coronary wire and with some difficulty we were eventually able to
navigate into the RPL branch. We tried to deliver a 2.5 x 12 mm Euphora semicompliant balloon over this into the distal vessel and could not advance past the mid RCA tortuosity. We reattempted using a 6 Angolan guide liner for support and despite
this we could not succeed and the guide liner could not be advanced past the obstructive proximal stenosis. We tried to bring in a fine cross microcatheter over the airplane patrol pilot 50 wire and the attempt to switch it out for a extra support wire however we
could not advance the microcatheter across the mid RCA tortuosity. At this point we decided to take everything out and put in a more supportive guide. We now brought in a 6 Angolan AL 0.75 guide catheter to selectively engage the RCA providing
additional support. We navigated the RCA using a 300 cm airplane patrol pilot 50 wire through the fine cross microcatheter and were able to successfully parked the wire in the RPDA and were able to successfully cross with the microcatheter. At this point we
brought out the airplane patrol pilot 50 wire and introduced the extra-support wire into the RPDA. Over this we brought in a 6 Angolan guide liner for additional support and reintroduced a 2.5 x 12 mm semicompliant balloon, initially performing plain old balloon
angioplasty to the proximal RCA stenosis which was 90% to allow for the guide liner to be brought in into the mid vessel for additional support. We were able to write the guideline over the balloon into the midportion and we dilated the mid RCA
with the same 2.5 x 12 mm Euphora semicompliant balloon at 14 carl with good expansion. Despite this we could not advance the 2.5 balloon into the distal RCA. Leaving the guide liner in the mid RCA we now brought in a 2.0 x 15 mm Euphora
semicompliant balloon and were able to navigate into the distal RCA performing serial balloon dilatations with full expansions at high pressures attaining KEYONA-3 flow into the distal vessel. However we could not further bring in any additional
equipment or larger balloons. At this time I had an offline discussion with my senior interventional partners as well as Dr. Amaury Briones from CT surgery and given KEYONA-3 flow was restored into the distal vessel with patient otherwise being
hemodynamically stable with concomitant severe left main stenosis, decision was made to abort any further attempts at PCI with overall plan being to optimize medications and mechanical support as warranted based on hemodynamics, await meaningful
neurologic recovery to then offer coronary artery bypass grafting with grafts to LAD, OM1, RPDA +/- RPL branches.
IABP PLACEMENT: Under fluoroscopic guidance after the 6 Angolan right common femoral arterial access was upsized to 8 Angolan sheath, a 50 cc intra-aortic balloon pump was successfully placed at one-to-one with an augmented blood pressure of 117 mmHg.
SEDATION: 106 minutes of procedural sedation was utilized. IV Midazolam and IV Fentanyl were administered. An independent medical assistant prn was present to assist with and help manage the patient's level of consciousness and physiologic status.
RADIATION SUMMARY: Fluoro Time (min): 28.0, Dose (mGy): 1412.7, DAP (Gy.cm2) : 95.57
Closure Device: There were no immediate intra-procedural complications. The sheath was pulled in the laboratory asst and a vascular-band applied to the right wrist for radial artery hemostasis using the patent hemostasis technique.
CONCLUSIONS
1. Successful Plain old balloon angioplasty (POBA) of 3 serial 90% stenosis in the proximal, mid and distal RCA with KEYONA-3 flow restored into the distal vessel.
2. Significantly elevated right and left-sided filling pressures with reduced cardiac output, consistent with cardiogenic shock and severe pulmonary hypertension.
3. Severe multivessel coronary artery disease with heavily calcified coronary arteries.
4. Successful placement of 50cc intra-aortic balloon pump.
RECOMMENDATIONS
1. Plan to continue daily baby aspirin via NG tube, IV unfractionated heparin drip, Integrilin drip along with high intensity statin.
2. Continue aggressive IV diuresis and mechanical ventilatory support.
3. Discussed with double backer in regards to TTM management to avoid hyperthermia
4. Aggressive management of cardiovascular risk factors.
5. Management of cardiogenic shock with intra-aortic balloon pump support and monitoring of lab work every 6 hours with pressors as warranted depending on hemodynamics.
6. Close monitoring for neurologic recovery with consideration for coronary artery bypass grafting if neurologic recovery is attained.
Gisell Ballard MD, FAC, [facility]
Copy to: Dr. Tra Lui
[2024-10-23 20:16] LABS: ALT (SGPT) 131 U/L (0-50); AST (SGOT) 178 U/L (17-59); Alkaline Phosphatase 80 U/L (38-126); Blood Urea Nitrogen 26 mg/dl (9-20); Calcium 8.4 mg/dl (8.4-10.2); Carbon Dioxide 19 mmol/L (22-30); Chloride 108 mmol/L (98-107); Glucose 208 mg/dl (70-99); Potassium 4.2 mmol/L (3.5-5.1); Sodium 140 mmol/L (135-145); Total Bilirubin 1.5 mg/dl (0.2-1.3); Total Protein 6.8 g/dl (6.3-8.2); eGFR > 60.00
[2024-10-23] MEDS: CALCIUM GLUCONATE 100 IV (20:20)
--- NOTE | 2024-10-23 20:30 | PTCARENOTE ---
integrillin turned off per CTPA
[2024-10-23 20:57] LABS: Lactic Acid 2.1 mmol/L (0.7-2.0)
[2024-10-23 21:09] LABS: Magnesium 1.7 mg/dl (1.6-2.3)
[2024-10-23 21:10] LABS: B.E. -6.5 mmol/L; HCO3 20.6 mmol/L (21-28); Ionized Calcium 1.31 mMOL/L (1.15-1.33); O2 Saturation % 98.8 % (94-98); PCO2 46 mmHg (35-48); PO2 107 mmHg (83-108); pH 7.26 (7.35-7.45)
[2024-10-23 21:11] LABS: Hematocrit 40.8 % (39.0-52.0); Hemoglobin 13.9 g/dL (13.0-18.0); Platelet Count 207 10^3/uL (130-400)
[2024-10-23] MEDS: REFRESH CELLUVISC GEL 1 DROPS BOTH EYES (21:14)
[2024-10-23 21:23] LABS: INR 1.19; PT 15.7 Sec (11.4-14.6)
[2024-10-23] MEDS: SODIUM BICARBONATE 100 MEQ IV (21:24)
[2024-10-23 21:28] LABS: APTT 85.1 Sec (23.4-35.0)
--- NOTE | 2024-10-23 21:44 | PTCARENOTE ---
integrillin restarted at [address] murrell, will check ACTs
--- NOTE | 2024-10-23 21:46 | PTCARENOTE ---
temp now 94.9, pt shivering, titrating sedation see worklist. Christopher hugger applied on low on skin to help stop shivering. will initiate paralytic if pt keeps shivering
[2024-10-23 21:53] LABS: ACT-LR - POC 174 Seconds (116-155)
[2024-10-23] MEDS: LASIX 80 MG IV (22:22)
[2024-10-23 22:57] LABS: B.E. -4.7 mmol/L; HCO3 20.4 mmol/L (21-28); O2 Saturation % 99.4 % (94-98); PCO2 37 mmHg (35-48); PO2 138 mmHg (83-108); Potassium 3.8 mMOL/L (3.5-5.1); pH 7.35 (7.35-7.45)
[2024-10-23 23:01] LABS: ACT-LR - POC 174 Seconds (116-155)
--- NOTE | 2024-10-23 23:20 | PTCARENOTE ---
heparin to 1200 per ctpa for repeat act 174
[2024-10-23] MEDS: MAGNESIUM SULFATE 50 IV (23:21)
[2024-10-23] MEDS: KCL 100 IV (23:21)
[2024-10-23] MEDS: SODIUM BICARBONATE 50 MEQ IV (23:21)
[2024-10-23] MEDS: BUSPAR 30 MG TUBE (23:22)
[2024-10-23] MEDS: NOVOLOG FLEXPEN-MODERATE RESISTANCE SC (23:22)
[2024-10-23] MEDS: TYLENOL ORAL SOLUTION 650 MG TUBE (23:22)
[2024-10-24] VITALS (23 sets, daily range): BP systolic 95–141; BP diastolic 47–108
[2024-10-24 00:39] LABS: ACT-LR - POC 176 Seconds (116-155)
[2024-10-24 00:41] LABS: B.E. -2.8 mmol/L; HCO3 21.9 mmol/L (21-28); Ionized Calcium 1.15 mMOL/L (1.15-1.33); O2 Saturation % 99.9 % (94-98); PCO2 37 mmHg (35-48); PO2 152 mmHg (83-108); pH 7.38 (7.35-7.45)
[2024-10-24 00:43] LABS: Glucose - Point of Care 220 mg/dl (70-99)
[2024-10-24] MEDS: DIPRIVAN 100 IV ×8 (00:57→22:59)
[2024-10-24 01:11] LABS: Lactic Acid 2.4 mmol/L (0.7-2.0)
[2024-10-24 01:12] LABS: ACT-LR - POC 187 Seconds (116-155)
[2024-10-24] MEDS: INTEGRILIN 100 IV (01:17)
[2024-10-24] MEDS: NOVOLOG FLEXPEN-MODERATE RESISTANCE 3 UNITS SC ×2 (01:21→05:57)
[2024-10-24] MEDS: CALCIUM GLUCONATE 100 IV (01:29)
[2024-10-24 01:39] LABS: ALT (SGPT) 104 U/L (0-50); AST (SGOT) 126 U/L (17-59); Albumin 3.5 g/dl (3.5-5.0); Alkaline Phosphatase 65 U/L (38-126); Blood Urea Nitrogen 28 mg/dl (9-20); Carbon Dioxide 20 mmol/L (22-30); Chloride 107 mmol/L (98-107); Glucose 222 mg/dl (70-99); Potassium 4.7 mmol/L (3.5-5.1); Sodium 141 mmol/L (135-145); Total Bilirubin 1.7 mg/dl (0.2-1.3); Total Protein 5.8 g/dl (6.3-8.2); eGFR 58.01
[2024-10-24] MEDS: SUBLIMAZE 100 IV ×3 (02:58→21:41)
[2024-10-24] MEDS: LEVOPHED 250 IV ×5 (03:00→20:12)
--- NOTE | 2024-10-24 03:00 | PTCARENOTE ---
labs drawn and sent . titrating heparin per ACTS per ctpa. now on 50 % fio2, rate 28. no shivering. no other change in assessment .
[2024-10-24 03:01] LABS: B.E. -3.8 mmol/L; HCO3 21.5 mmol/L (21-28); O2 Saturation % 99.1 % (94-98); PCO2 39 mmHg (35-48); PO2 95 mmHg (83-108); pH 7.35 (7.35-7.45)
[2024-10-24 03:06] LABS: Hematocrit 37.8 % (39.0-52.0); Mean Corp Hgb Conc. 34.4 g/dL (33.0-37.0); Mean Corpuscular Hgb 29.6 pg (27.0-31.0); Mean Corpuscular Volume 86.1 fL (80.0-94.0); Mean Platelet Volume 11.8 fL (7.4-10.4); Platelet Count 213 10^3/uL (130-400); Red Blood Cell Count 4.39 10^6/uL (4.70-6.10); Red Cell Dist. Width 14.7 % (11.5-14.5); White Blood Cell Count 22.1 10^3/uL (4.8-10.8)
[2024-10-24 03:30] LABS: ALT (SGPT) 98 U/L (0-50); AST (SGOT) 116 U/L (17-59); Albumin 3.6 g/dl (3.5-5.0); Alkaline Phosphatase 60 U/L (38-126); Blood Urea Nitrogen 28 mg/dl (9-20); Calcium 9.4 mg/dl (8.4-10.2); Carbon Dioxide 21 mmol/L (22-30); Chloride 107 mmol/L (98-107); Glucose 231 mg/dl (70-99); Sodium 141 mmol/L (135-145); Total Bilirubin 1.8 mg/dl (0.2-1.3); Total Protein 6.2 g/dl (6.3-8.2); eGFR 58.01
[2024-10-24 03:34] LABS: ACT-LR - POC 179 Seconds (116-155)
[2024-10-24 05:45] LABS: Glucose - Point of Care 222 mg/dl (70-99)
[2024-10-24 05:50] LABS: Mixed Venous O2 Saturation 68.2 %
[2024-10-24 05:54] LABS: ACT-LR - POC 187 Seconds (116-155)
[2024-10-24] MEDS: TYLENOL ORAL SOLUTION 650 MG TUBE ×3 (05:59→17:50)
[2024-10-24] MEDS: ZOSYN 50 IV ×3 (06:00→17:51)
[2024-10-24 06:08] LABS: INR 1.23
[2024-10-24 06:19] LABS: Lactic Acid 2.6 mmol/L (0.7-2.0)
[2024-10-24 06:22] LABS: Vancomycin Random 16.7 ug/ml
[2024-10-24 06:27] LABS: APTT 194.1 Sec (23.4-35.0)
[2024-10-24 06:30] LABS: NT-proBNP 2120 pg/ml
--- NOTE | 2024-10-24 06:30 | PTCARENOTE ---
integrillin off per ctpa
--- NOTE | 2024-10-24 07:23 | CONSULT.CT ---
Consultation
-
Date/Time Consultation Requested: 10/23/24 1515
Date/Time Consultation Performed: 10/24/24 725
Requesting Provider: Beto GRULLON
Performing Provider: Oracio GRULLON for Anali CASTANEDA
Reason for Consultation: CABG eval
Patient History
Physicians
Family Physician: unknown
Outpatient Receptionist/Telephone Operator: Dr. Tra Lui
Inpatient Receptionist/Telephone Operator: Juan J
History of Present Illness
73-year-old male with past medical history significant for CAD s/p PCI to LAD and circumflex, ICM with EF 35-40%, HTN, HLD, ELVIRA on CPAP, obesity presented to [facility] as a cardiac arrest. Yesterday patient was complaining of some chest
tightness and shortness of breath and called 911. However while on the phone patient stopped talking/responding and medics found him down on the field. Upon their arrival patient was found to be in V-fib and received 1 defibrillation. He also
received epinephrine and 100 mg of lidocaine and was intubated in the field. ROSC was achieved and patient was taken to the [employer] upon arrival to the emergency room. While in the cardiac [employer], patient was hypoxic and vent changes were made
by the windows server specialist and he received a POBA 3 serial 90% stenosis in the proximal, mid and distal RCA with KEYONA-3 flow restored into the distal vessel. LHC/RHC showed a reduced Cardiac output and MVD. A IABP was placed for cardiogenic shock and
patient was transferred to CVICU for the remainder of his management and TTM. CT Surgery was consulted for CABG evaluation.
Past Medical History
Past Medical History: Other
CAD s/p LAD PCI x2 2011, circ PCI 2013
ICM, EF 35-40%
HTN
HLD
DM2
Obesity
ELVIRA on CPAP
Past Surgical History
unknown d/t patient is sedated and intubated
Dental History
unable to obtain
Family History
Family Medical History: Unable to Obtain
Social History
Alcohol: Other (unknown)
Drug: Other (unknown)
Tobacco: Other (unknown)
Personal: Single
Living: Alone
Employment: Other (unknown)
Allergies
Allergy/AdvReac Type Severity Reaction Status Date / Time
dog dander Allergy Sneezing, Verified 10/23/24 22:24
watery eyes
house dust Allergy Sneezing, Verified 10/23/24 22:24
watery eyes
levofloxacin Allergy Swelling/ankle Verified 10/23/24 22:24
swelling
mold Allergy Unknown Verified 10/23/24 22:24
Home Medications
�Medication �Instructions �Recorded �Confirmed �Type
carvedilol 12.5 mg tablet 12.5 mg PO BID 01/26/11 02/02/18 History
tadalafil 20 mg tablet (Cialis) 20 mg PO DAILYPRN PRN erectile 12/07/11 02/02/18 History
dsyfunction
metformin 1,000 mg tablet 1,000 mg PO BID 05/18/12 02/02/18 History
clopidogrel 75 mg tablet 75 mg PO DAILY 05/05/13 02/02/18 History
aspirin 81 mg tablet,delayed 81 mg PO DAILY #30 tabs 05/07/13 02/02/18 Rx
release
rosuvastatin 40 mg tablet (Crestor) 40 mg PO DAILY 02/02/18 02/02/18 History
empagliflozin 10 mg tablet 10 mg PO DAILY 10/23/24 History
(Jardiance)
ramipril 5 mg capsule 10 mg PO DAILY 10/23/24 History
Review of Systems
-
Unable to obtain full review of systems at this time due to: Patient Intubation
Physical Exam
Vital Signs
Temp 96.5 F L 10/24/24 06:00
Temp route: Core 10/24/24 06:00
Pulse 59 10/24/24 06:20
Rhythm: Normal sinus rhythm 10/24/24 06:00
With- PVC's Monomorphic 10/23/24 20:00
Resp Rate 20 10/24/24 06:20
Blood pressure 140/86 10/24/24 06:00
Blood pressure extremity used: Right thigh 10/23/24 17:00
Position: Lying 10/24/24 06:00
MAP (cuff-Trever Monitor) 101 10/24/24 06:00
SaO2 100 10/24/24 06:20
Oxygen Mode of Delivery Ventilator 10/24/24 06:00
% Oxygen delivered 50 10/24/24 06:00
Can the patient verbally communicate their pain? No 10/23/24 20:00
Arterial Systolic Pressure 99 10/24/24 06:20
Arterial Diastolic Pressure 44 10/24/24 06:20
MAP (W-Agir-Guzxdzn Monitor) 66 10/24/24 06:20
Pulmonary Artery Systolic Pressure 41 10/24/24 06:20
Pulmonary Artery Diastolic Pressure 23 10/24/24 06:20
Right Atrial Pressure (RA) 10 10/24/24 06:20
Assisted Systolic Pressure 71 10/24/24 06:00
Assisted end diastolic pressure 42 10/24/24 06:00
Augmented Diastolic Pressure 98 10/24/24 06:00
IABP Augmentation max 10/24/24 06:00
Actual Weight 104.3 kg 10/24/24 06:00
etC02 value 25 10/24/24 06:20
Labs
10/24/24 02:53
PT 16.0 Sec (11.4-14.6) H 10/24/24 05:44
APTT 194.1 Sec (23.4-35.0) H* 10/24/24 05:44
Troponin I 5.010 ng/ml H* 10/24/24 05:44
Tmn-N-Oaviocxgink Pept 2120 pg/ml 10/24/24 05:44
Arterial Blood Gases
pH 7.35 (7.35-7.45) 10/24/24 02:53
pCO2 39 mmHg (35-48) 10/24/24 02:53
pO2 95 mmHg (83-108) 10/24/24 02:53
HCO3 21.5 mmol/L (21-28) 10/24/24 02:53
Base Excess -3.8 mmol/L 10/24/24 02:53
ABG O2 Sat (Measured) 99.1 % (94-98) H 10/24/24 02:53
Sodium 134 mMOL/L (136-145) L 10/23/24 17:05
Potassium 4.0 mMOL/L (3.5-5.1) 10/24/24 02:53
O2 Delivery Level 10/24/24 02:53
Urinalysis
Urine Color Yellow 10/23/24 15:44
Urine Clarity Clear (Clear) 10/23/24 15:44
Urine pH 6.0 (5.0-9.0) 10/23/24 15:44
Ur Specific [place] 1.010 (<1.030) 10/23/24 15:44
Urine Ketones Negative (Negative) 10/23/24 15:44
Ur Occult Blood Reflex 3+ (Negative) A 10/23/24 15:44
Urine Bilirubin Negative (Negative) 10/23/24 15:44
Leukocyte Esterase Rfl Negative (Negative) 10/23/24 15:44
Urine RBC 3-6 /HPF (0-2) A 10/23/24 15:44
Urine WBC (Reflex) 3-5 /HPF (0-5) 10/23/24 15:44
Ur Squamous Epith Cells 3-5 /LPF (Few) 10/23/24 15:44
Urine Bacteria (Reflex) Moderate (Negative) A 10/23/24 15:44
Urine Glucose 4+ (Negative) A 10/23/24 15:44
Urine Albumin (Reflex) 3+ (Neg - Trace) A 10/23/24 15:44
Exam
General: Intubated
HEENT: PERRLA (2RR)
Respiratory: Crackles, Rhonchi and Other (ventilated)
Cardiac: S1/S2
GI: Distended and Other (Obese)
Rectal: Deferred by Provider
Skin: Warm
Neuro: Other (intubated and sedated)
Lymph: No Lymphadenopathy
Psych: Other (sedated)
Assessment / Plan
-
73 y/o male with PMHX listed above presented to [facility] ER s/p cardiac arrest. LHC revealed MVD and CT surgery was consulted for CABG evaluation.
#CAD
#ICM
#Cardiac Arrest
- Cont IABP 1:1 and TTM protocol
- if patient achieves neuro recovery, CT will iniate CT workup for CABG. Until then, continue supportive care.
[2024-10-24 07:29] LABS: ALT (SGPT) 107 U/L (0-50); AST (SGOT) 125 U/L (17-59); Albumin 3.8 g/dl (3.5-5.0); Alkaline Phosphatase 71 U/L (38-126); Blood Urea Nitrogen 30 mg/dl (9-20); Calcium 9.3 mg/dl (8.4-10.2); Carbon Dioxide 21 mmol/L (22-30); Chloride 106 mmol/L (98-107); Glucose 218 mg/dl (70-99); Potassium 4.4 mmol/L (3.5-5.1); Sodium 141 mmol/L (135-145); Total Bilirubin 1.8 mg/dl (0.2-1.3); Total Protein 6.4 g/dl (6.3-8.2); eGFR 53.07
[2024-10-24 07:52] LABS: Prealbumin (Transthyretin) 24.9 mg/dl (17.6-36.0)
[2024-10-24] MEDS: LOW STRENGTH ASPIRIN 81 MG TUBE (07:52)
[2024-10-24] MEDS: BUSPAR 30 MG TUBE ×2 (07:52→16:30)
[2024-10-24] MEDS: CRESTOR 40 MG TUBE (07:52)
[2024-10-24] MEDS: PROTONIX IV 40 MG IV (07:53)
[2024-10-24] MEDS: NSS (PRESERVATIVE FREE) 10 ML IV (07:53)
[2024-10-24] MEDS: REFRESH CELLUVISC GEL 1 DROPS BOTH EYES ×2 (07:53→20:34)
--- NOTE | 2024-10-24 08:00 | PTCARENOTE ---
Assumed care of patient. Walking rounds completed with previous RN. Pt assessed while he was lying in bed. Pt intubated and sedated on fentanyl and propofol gtts. PERRLA 2mm sluggish. BIS 74. No movement at this time. BSAS 0 currently. +cough, No
gag. SB on tele with PVCs with rates in the 50s. BP supported with levophed gtt. Bilateral radial and DP pulses present with doppler. No edema noted. CVP 12 PA pressures 40s/20s. POX 100% 7.5 ETT 23cm at the lip. AC 50% 28 480 8. Not over breathing
the vent. Scant blood tinged secretions orally and through ETT. Lungs clear anteriorly. Abdomen soft, round, obese. Hypoactive BS. NGT to right nare to 66cm to LIS draining green/brown drainage. Singh catheter intact draining adequate amounts of
clear yellow urine. Right forehead lump and ecchymosis. Right IJ triple lumen CVC intact with CVP monitoring and propofol infusion. Right femoral arterial sheath with IABP intact set to 1:1 MAX augmentation. Left radial blanca intact. Right femoral
venous sheath infusing Fentanyl, Levo, Heparin & NSS KVO. Right AC 20g PIV intact infusing Lido. Right hand 18g PIV intact. Left forearm 18g PIV intact. All lines flushed, leveled, zeroed. See MAR for medication administration. See worklist for
complete nursing assessment. [id number] updated on overnight events and unchanged plan of care.
[2024-10-24 08:09] LABS: ACT-LR - POC 189 Seconds (116-155)
[2024-10-24] MEDS: NSS 500 VEN SHEATH (08:11)
[2024-10-24 08:24] LABS: B.E. 0.1 mmol/L; HCO3 23.8 mmol/L (21-28); O2 Saturation % 99.1 % (94-98); PCO2 35 mmHg (35-48); PO2 123 mmHg (83-108); pH 7.44 (7.35-7.45)
[2024-10-24 08:56] LABS: ACT-LR - POC > 397 Seconds (116-155)
[2024-10-24 08:56] LABS: ACT-LR - POC > 397 Seconds (116-155)
[2024-10-24 08:56] LABS: ACT-LR - POC > 397 Seconds (116-155)
[2024-10-24 09:00] LABS: Creatine Phosphokinase 378 U/L (55-170); Phosphorus 4.9 mg/dl (2.5-4.5)
--- NOTE | 2024-10-24 09:10 | PTCARENOTE ---
Dr. Bright notified of magnesium level of 2.0. No new orders at this time.
[2024-10-24 09:17] LABS: CKMB 16.7 ng/ml (0.0-3.4)
[2024-10-24 09:46] LABS: Glycohemoglobin (HgbA1c) 6.7 % (4.0-5.6)
--- NOTE | 2024-10-24 10:00 | PTCARENOTE ---
Confirmed with Dr. Ballard to use PTT to titrate heparin gtt rather than ACT since pt is off integrilin gtt. Next PTT due 1200.
--- NOTE | 2024-10-24 10:15 | PTCARENOTE ---
Per Verbal Order from Dr. Ballard, d/c lidocaine gtt at this time and monitor ectopy for possible need for amio infusion. Lidocain gtt d/c.
--- NOTE | 2024-10-24 10:35 | W.PN.CARDCBS ---
Today's Communication / Plan
-
Recommendations:
- Patient presented with cardiac arrest, reported VF requiring shock x 1 as well as epi x 2 and 100 mg lidocaine with subsequent ROSC. Unclear downtime, possibly 10 to 15 minutes per EMS. 1 shock for monomorphic VT during heart catheterization
- Status post plain old balloon angioplasty of 3 serial up to 90% heavily calcified stenoses in the proximal, mid and distal RCA with KEYONA-3 flow restored into the distal vessel aborting the inferior ST elevation CO. Concomitant significant left
main stenosis and mid left circumflex stenosis noted.
- He is intubated and sedated sedation per primary team. He is undergoing TTM protocol with plan to rewarm at 9 PM and therefore continues to remain sedated while under this protocol.
In regards to his cardiogenic shock,-his PA pressures are mid to high 40s over low to mid 20s, CVP of 11, maps of 65-67 with calculated cardiac output and cardiac index of 5.0 and 2.2, SVR of about 900, cardiac power output of 0.75.
- This is under one-to-one IABP support and 10 to 14 mcg of Levophed drip which we will continue.
- Concern based on numbers especially with low SVR despite 14 mcg of Levophed support is for possible septic shock in addition to cardiogenic shock especially in the setting of a WBC count of 22,000 and slow rising lactate when it had normalized
last night. Blood cultures were sent and agree with broad-spectrum antibiotics for now. Appreciate input from primary team and public address servicer.
- Continue to wean pressors for now. Will remain intubated especially while under TTM protocol.
-Continue with diuresis but we will slow down and aim for 80 mg IV Lasix daily for now to try and attain RA pressures of 7-10 and PA diastolic pressures of 15-20 while concern for septic shock.
- Though creatinine is slowly rising, no true RUSSELL yet but we will closely monitor. Keep electrolytes repleted with K over 4, mag over 2.
- Given amish of KEYONA-3 flow in the RCA, plan to discontinue lidocaine with close monitoring for ventricular ectopy and initiating either repeat lidocaine or amiodarone drip as needed for increased ventricular ectopy or NSVT.
- Continue daily aspirin via NG tube. IV heparin drip. He completed 12 hours of Integrilin drip. We discontinued at this morning. Will aim for PTTs per ACS protocol while on heparin.
- Main Future decisions hinge on meaningful neurologic recovery once he is rewarmed to assess if we could get him to possible coronary artery bypass grafting. CT surgery is involved.
- Formal full echocardiogram today given very limited views yesterday.
- Continue to check every 6 hour lab work including mixed venous sats and lactate.
- Chest x-ray reviewed with IABP and [place]-Danial catheter in good position.
- Discussed all of the above with nursing.
Gisell Ballard MD, [facility], [facility]
Total critical care time: 57 minutes
Impression / Plan
-
Primary Audio Visual Tech: Dr. Lui
Assessment:
Presentation with VF arrest s/p shock x1 with ROSC
Intubated in field
Chest tightness/SOB
CAD s/p LAD PCI x2 2011, circ PCI 2013
ICM, EF 35-40%
HTN
HLD
DM2
Obesity
ELVIRA on CPAP
ECHO 10/05/21: TDS, EF 35 to 40%, basal to mid inferior, inferolateral and basal septal akinesis, left atrial enlargement, mild MR
Limited bedside echocardiogram along the heart catheterization lab on 2024: Very limited views but RV function appears to be preserved. LV systolic function appears close to baseline with EF of about 35%, no pericardial effusion
Cath 10/23/2024: Plain old balloon angioplasty of 3 serial up to 90% stenoses in the proximal, mid and distal RCA which was heavily calcified. Successful placement of 50 cc intra-aortic balloon pump and [place]-Danial catheter via right common femoral
artery and vein, respectively. 1 shock for monomorphic VT during heart catheterization
Recommendations:
- Patient presented with cardiac arrest, reported VF requiring shock x 1 as well as epi x 2 and 100 mg lidocaine with subsequent ROSC. Unclear downtime, possibly 10 to 15 minutes per EMS. 1 shock for monomorphic VT during heart catheterization
- Status post plain old balloon angioplasty of 3 serial up to 90% heavily calcified stenoses in the proximal, mid and distal RCA with KEYONA-3 flow restored into the distal vessel aborting the inferior ST elevation CO. Concomitant significant left
main stenosis and mid left circumflex stenosis noted.
- He is intubated and sedated sedation per primary team. He is undergoing TTM protocol with plan to rewarm at 9 PM and therefore continues to remain sedated while under this protocol.
In regards to his cardiogenic shock,-his PA pressures are mid to high 40s over low to mid 20s, CVP of 11, maps of 65-67 with calculated cardiac output and cardiac index of 5.0 and 2.2, SVR of about 900, cardiac power output of 0.75.
- This is under one-to-one IABP support and 10 to 14 mcg of Levophed drip which we will continue.
- Concern based on numbers especially with low SVR despite 14 mcg of Levophed support is for possible septic shock in addition to cardiogenic shock especially in the setting of a WBC count of 22,000 and slow rising lactate when it had normalized
last night. Blood cultures were sent and agree with broad-spectrum antibiotics for now. Appreciate input from primary team and public address servicer.
- Continue to wean pressors for now. Will remain intubated especially while under TTM protocol.
-Continue with diuresis but we will slow down and aim for 80 mg IV Lasix daily for now to try and attain RA pressures of 7-10 and PA diastolic pressures of 15-20 while concern for septic shock.
- Though creatinine is slowly rising, no true RUSSELL yet but we will closely monitor. Keep electrolytes repleted with K over 4, mag over 2.
- Given amish of KEYONA-3 flow in the RCA, plan to discontinue lidocaine with close monitoring for ventricular ectopy and initiating either repeat lidocaine or amiodarone drip as needed for increased ventricular ectopy or NSVT.
- Continue daily aspirin via NG tube. IV heparin drip. He completed 12 hours of Integrilin drip. We discontinued at this morning. Will aim for PTTs per ACS protocol while on heparin.
- Main Future decisions hinge on meaningful neurologic recovery once he is rewarmed to assess if we could get him to possible coronary artery bypass grafting. CT surgery is involved.
- Formal full echocardiogram today given very limited views yesterday.
- Continue to check every 6 hour lab work including mixed venous sats and lactate.
- Chest x-ray reviewed with IABP and [place]-Danial catheter in good position.
- Discussed all of the above with nursing.
Gisell Ballard MD, [facility], [facility]
Total critical care time: 57 minutes
Progress Note - Audio Visual Tech
Subjective
Date of Service: October 24, 2024
Stable overnight with mildly uptrending lactate
Objective
Labs:
Labs
Hgb 13.0 g/dL (13.0-18.0) 10/24/24 02:53
Hct 37.8 % (39.0-52.0) L 10/24/24 02:53
Plt Count 213 10^3/uL (130-400) 10/24/24 02:53
PT 16.0 Sec (11.4-14.6) H 10/24/24 05:44
INR 1.23 10/24/24 05:44
APTT 194.1 Sec (23.4-35.0) H* 10/24/24 05:44
Sodium 141 mmol/L (135-145) 10/24/24 05:44
Potassium 4.4 mmol/L (3.5-5.1) 10/24/24 05:44
BUN 30 mg/dl (9-20) H 10/24/24 05:44
Creatinine 1.4 mg/dL (0.7-1.3) H 10/24/24 05:44
Glucose 218 mg/dl (70-99) H 10/24/24 05:44
Troponins
10/23/24 10/23/24 10/23/24
10:53 14:15 16:35
Troponin I 0.061 H* 1.060 H* D 3.210 H* D
10/24/24 10/24/24
02:53 05:44
Troponin I 5.020 H* 5.010 H*
Vital Signs and I&O:
Vital Signs
Temp Pulse Resp BP Pulse Ox
96.1 F L 62 28 100/52 99
10/24/24 10:00 10/24/24 10:05 10/24/24 10:00 10/24/24 10:00 10/24/24 10:05
Vital Signs
Temp Pulse Resp BP Pulse Ox
96.1 F L 62 28 100/52 99
10/24/24 10:00 10/24/24 10:05 10/24/24 10:00 10/24/24 10:00 10/24/24 10:05
Intake & Output
10/22/24 10/23/24 10/24/24 10/25/24
06:59 06:59 06:59 06:59
Intake Total 1535.9 / 1653.1 553.5 / 553.5
Output Total 2840 / 2925 360 / 360
Balance -1304.1 / -1271.9 193.5 / 193.5
Physical Exam
Physical Exam
Patient is intubated and sedated, on TTM protocol with [place] sun
Right IJ triple-lumen in place with CVP being transfused secured in place
Lungs with decreased breath sounds anteriorly
Regular rate, normal S1 and S2, no murmurs, rubs or gallops
Abdomen is obese, soft, nontender, nondistended with active bowel sounds
Right groin femoral artery and venous sheaths are in place, no hematoma
Warm extremities without significant edema
Singh catheter is in place
--- NOTE | 2024-10-24 10:53 | PTCARENOTE ---
Dr. Bright notified of elevated blood sugars. Orders to start insulin gtt.
[2024-10-24] MEDS: VANCOCIN 200 IV (10:58)
[2024-10-24] MEDS: HEPARIN 25000 UNITS/250 ML IV (10:59)
--- NOTE | 2024-10-24 11:25 | CM ---
Chart reviewed. Patient currently in critical condition. I spoke to patient's sister, Courtney, patient is independent of ADLS, lives alone in a apartment, elevator access, 0 DME. Patient has 5 sons. CM to assess patient's functional needs when
patient becomes stable. CM to follow
--- NOTE | 2024-10-24 11:39 | CARDSERVLU ---
Echocardiogram with Lumason completed after protocol screening completed. Allergies verified.
Patent IV site: _left FA____
IV site flushed with 0.9% NaCl pre and post administration.
Diluted bolus method utilized to enhance visualization of ventricular josé.
Total volume given: _5.0___ mL
Patient tolerated all procedures well without complications.
[2024-10-24 11:57] LABS: Glucose - Point of Care 234 mg/dl (70-99)
[2024-10-24] MEDS: NOVOLIN R INSULIN INFUSION 100 IV (11:58)
--- NOTE | 2024-10-24 12:00 | PTCARENOTE ---
Pt reassessed SR with frequent PVCs with rates in the 50s-60s. BP supported with levophed. POX 100%. AC 40% 28 480 8. Singh draining adequate amounts of clear yellow urine. IABP to right groin remains at 1:1, no alarms. Right groin oozy. Pulses
present via doppler. Right IJ CVC dressing changed. Lines remain intact. Turned per protocol. Gtts: Heparin, Fentany, Propofol, Levo. NGT continues to drain small amounts of green/brown fluid. Intermittent shivering noted via BSAS, protocol
followed. During one episode, pt lifted bilateral arms off the bed. Did not respond to commands. Sedation titrated per protocol.
[2024-10-24] MEDS: NOVOLIN R 4 UNITS IV (12:01)
[2024-10-24 12:06] LABS: Mixed Venous O2 Saturation 72.3 %
[2024-10-24 12:20] LABS: Hematocrit 36.6 % (39.0-52.0); Hemoglobin 12.7 g/dL (13.0-18.0); Mean Corp Hgb Conc. 34.7 g/dL (33.0-37.0); Mean Corpuscular Hgb 29.2 pg (27.0-31.0); Mean Corpuscular Volume 84.1 fL (80.0-94.0); Mean Platelet Volume 11.2 fL (7.4-10.4); Platelet Count 197 10^3/uL (130-400); Red Blood Cell Count 4.35 10^6/uL (4.70-6.10); Red Cell Dist. Width 15.1 % (11.5-14.5)
--- NOTE | 2024-10-24 12:22 | EEG.RPT ---
Electroencephalogram Report
Recording
Date of EE10/24/24
Type of EEG: Routine
Length of EEG recordin mins
Patient Status: Inpatient
Hyperventilation Performed: No
Photic Stimulation Performed: Yes
Report
Clinical Background:�cardiac arrest
Introduction: A routine bedside EEG was done using International 10-20 electrode placement protocol.
Background: In the most alert state, there is continuous generalized slowing, predominantly polymorphic theta with some admixed delta. there is spontaneous variability.
Sleep: No sleep architecture is seen.�
Focal/epileptiform: There were no focal or epileptiform discharges. No clinical or electrographic seizures occurred during this recording.
Photic stimulation: resulted in no change. There was no photo myogenic or photoparoxysmal response.�
Impression: mild generalized cerebral dysfunction
[2024-10-24 12:36] LABS: APTT 158.1 Sec (23.4-35.0)
[2024-10-24 12:44] LABS: Lactic Acid 2.5 mmol/L (0.7-2.0)
[2024-10-24 12:47] LABS: ALT (SGPT) 86 U/L (0-50); AST (SGOT) 95 U/L (17-59); Albumin 3.5 g/dl (3.5-5.0); Alkaline Phosphatase 58 U/L (38-126); Blood Urea Nitrogen 30 mg/dl (9-20); Calcium 8.8 mg/dl (8.4-10.2); Carbon Dioxide 25 mmol/L (22-30); Chloride 104 mmol/L (98-107); Estimated Creatinine Clearance 59 ml/min; Glucose 257 mg/dl (70-99); Magnesium 1.9 mg/dl (1.6-2.3); Phosphorus 4.1 mg/dl (2.5-4.5); Potassium 3.5 mmol/L (3.5-5.1); Sodium 137 mmol/L (135-145); Total Bilirubin 1.3 mg/dl (0.2-1.3); Total CK 302 U/L (55-170); Total Protein 6.4 g/dl (6.3-8.2); eGFR 53.07
--- NOTE | 2024-10-24 12:52 | W.PN.HOSP.TC ---
Today's Communication/Plan
-
Monitor vital signs and see plan
Echo
cw IABP per cardiology
wean pressors as tolerated
cw empiric abx for now; follow bcx
TTM protocol
cardiogenic shock
maintain hurt; monitor urine output
Monitor renal function
Assessment / Plan
Assessment / Plan
General: Intubated
HEENT: Anicteric,PEERL
Respiratory: Rales
GI: Soft, Non Tender and Non Distended
:hurt
Neuro: Sedated
STEMI [id number] cardiac arrest
Initial rhythm V-fib status post shock
Emergent cardiac catheterization, appears multivessel disease. Status post PCI in the past. Previous documentation had stenting to the LAD. Has refused AICD in the past
CT surgery consulted. Cardiology following. Status post IABP
On aspirin, statin, heparin
Initial chest x-ray with pulmonary edema, repeat chest x-ray noted
TTM protocol with plan to rewarm at 9 PM
Trend lactate
Wean off sedation as tolerated after TTM protocol
Vent management per screen printing machine operator helper
Unclear if developed anoxic brain injury, consulted neurology. EEG
initial CT unremarkable
Continue to trend troponin
Shock suspect cardiogenic
CT surgery involved; will initiate workup for CABG if patient achieves neurorecovery.
per cardiology; Status post plain old balloon angioplasty of 3 serial up to 90% heavily calcified stenoses in the proximal, mid and distal RCA with KEYONA-3 flow restored into the distal vessel aborting the inferior ST elevation CA. Concomitant
significant left main stenosis and mid left circumflex stenosis noted.
cw IABP per cardiology
diuresis as needed
Sepsis (fever,leukocytosis)
Could be secondary to postarrest, infarction
However cannot rule out aspiration, cw broad-spectrum empiric antibiotics for now
Check blood culture pending
UA not suggestive of UTI
Follow fever curve
currently on levophed; wean as tolerated
Acute hypoxic respiratory failure secondary to pulmonary edema with cardiogenic shock
Wean sedation as tolerated
Management per cardiology
started pressors; wean as tolerated
Elevated LFTs
Secondary to shock
Monitor
Renal insufficiency
Continue to monitor
Maintain Hurt, monitor urine output
History of ELVIRA on CPAP
History of hypertension
Hyperlipidemia
Diabetes mellitus
ISS,accuchecks
insulin gtt for now
A1c 6.7
morbid Obesity
DVTppx
heparin
Full code
I spent a total of 54 minutes with the patient or on the floor. More than 50% of this time involved counseling and coordination of care.
Anticipated Discharge: > 48 hours
Subjective/Interval History
-
Date of Service: October 24, 2024
Intubated and sedated
Objective Data
-
Labs:
Laboratory Results
10/24/24 10/24/24 10/24/24
00:22 01:00 02:53
WBC 22.1 H
Hgb 13.0
Hct 37.8 L
Plt Count 213
PT
INR
APTT Cancelled
HCO3 21.5
Sodium 141 141
Potassium 4.7 4.0
Chloride 107 107
Carbon Dioxide 20 L 21 L
BUN 28 H 28 H
Creatinine 1.3 1.3
Glucose 222 H 231 H
Calcium 9.0 9.4
Total Bilirubin 1.7 H 1.8 H
AST 126 H 116 H
ALT 104 H 98 H
Alkaline Phosphatase 65 60
10/24/24 10/24/24 10/24/24
05:44 08:03 11:55
WBC 21.0 H
Hgb 12.7 L
Hct 36.6 L
Plt Count 197
PT 16.0 H
INR 1.23
APTT 194.1 H* 158.1 H*
HCO3 23.8
Sodium 141 137
Potassium 4.4 3.5
Chloride 106 104
Carbon Dioxide 21 L 25
BUN 30 H 30 H
Creatinine 1.4 H 1.4 H
Glucose 218 H 257 H
Calcium 9.3 8.8
Total Bilirubin 1.8 H 1.3
AST 125 H 95 H
ALT 107 H 86 H
Alkaline Phosphatase 71 58
10/24/24
18:00
WBC Pending
Hgb Pending
Hct Pending
Plt Count Pending
PT
INR
APTT
HCO3
Sodium
Potassium
Chloride
Carbon Dioxide
BUN
Creatinine
Glucose
Calcium
Total Bilirubin
AST
ALT
Alkaline Phosphatase
Vital Signs:
Vital Signs
Temp Pulse Resp BP Pulse Ox
97.1 F 62 28 95/48 100
10/24/24 12:00 10/24/24 12:05 10/24/24 12:05 10/24/24 12:00 10/24/24 12:05
I&O
10/23/24 10/24/24 10/25/24
06:59 06:59 06:59
Intake Total 1535.9 / 1653.1 1124.8 / 1124.8
Output Total 2840 / 2925 520 / 520
Balance -1304.1 / -1271.9 604.8 / 604.8
--- NOTE | 2024-10-24 13:00 | PTCARENOTE ---
Heparin gtt paused per protocol and will resume at 1300units/hour in 1 hour.
--- NOTE | 2024-10-24 13:00 | PTCARENOTE ---
Dr. Bright notified of magnesium level 1.9 and potassium level 3.5, replacement orders received. Administered per orders. Also notified of increased levo requirements, orders to start vaso. Medication received and hung.
[2024-10-24 13:02] LABS: Absolute Neutrophils -Man Diff 16.1 10^3/uL (1.4-6.5); Band Neutrophils 18 % (0-3); Lymphocytes 18 % (20-51); Monocytes 5 % (2-9); Platelets Checked Yes; Segmented Neutrophils 59 % (42-75)
[2024-10-24 13:03] LABS: Normal RBC Morphology Yes; Total Cells Counted 100
--- NOTE | 2024-10-24 13:18 | PHA.VAN.FU ---
Vancomycin Assessment / Plan
- Assessment
Renal Function: SCR Increasing
WBC's are: Trending Up
In the past 24 hrs, patient has been: Afebrile
Concomitant Antimicrobials: piperacillin/tazobactam
- Assessment - Therapeutic Drug Monitoring
Random Level: R=16.7
- Dosing Plan
Dosing by Level: Re-dose today (vancomycin 1000mg x 1)
- Monitoring Plan
Random Level: 6 @ 0600
- Follow Up
Pharmacy will continue to follow.
Vancomycin Follow UP
- -
Patient Age: 73
Patient Sex: Male
Vancomycin Day #: 2
Indication: Bacteremia
Requesting Provider: Dr. Pearce
Pertinent Antimicrobial Allergies:
levofloxacin - ankle swelling
Height / Weight:
Height 6 ft
Actual Weight 104.3 kg
- Vital Signs / Lab Results
Temp Pulse Resp BP Pulse Ox
97.1 F 62 28 95/48 100
10/24/24 12:00 10/24/24 12:05 10/24/24 12:05 10/24/24 12:00 10/24/24 12:05
Lab Results - Hematology
10/23/24 10/23/24 10/24/24
10:54 16:31 02:53
WBC 15.2 H 16.8 H 22.1 H
Band Neutrophils
10/24/24
11:55
WBC 21.0 H
Band Neutrophils 18 H
Lab Results - Chemistry
10/23/24 10/23/24 10/23/24
10:53 14:15 16:30
BUN 18 24 H 27 H
Creatinine 1.2 1.1 1.3
Estimated Creat Clear
Albumin 4.5 4.5 4.2
10/23/24 10/24/24 10/24/24
19:24 00:22 02:53
BUN 26 H 28 H 28 H
Creatinine 1.2 1.3 1.3
Estimated Creat Clear
Albumin 4.0 3.5 3.6
10/24/24 10/24/24
05:44 11:55
BUN 30 H 30 H
Creatinine 1.4 H 1.4 H
Estimated Creat Clear 59
Albumin 3.8 3.5
10/23/24 10/23/24 10/23/24
10:54 12:31 14:15
Lactic Acid 8.6 H* 4.0 H* 2.9 H
10/23/24 10/23/24 10/24/24
16:34 19:24 00:22
Lactic Acid 1.8 2.1 H 2.4 H
10/24/24 10/24/24
05:44 11:55
Lactic Acid 2.6 H 2.5 H
Lab Results - Urine
10/23/24
15:44
Urine Nitrite (Reflex) Negative
Leukocyte Esterase Rfl Negative
Ur Squamous Epith Cells 3-5
Microbiology Results
10/23/24 15:44 Urine Culture - Final
Urine NO GROWTH
Therapeutic Drug Monitoring
Random Vancomycin 16.7 ug/ml 10/24/24 05:44
[2024-10-24] MEDS: SUBLIMAZE 50 MCG IV ×2 (13:23→21:08)
[2024-10-24] MEDS: SOLU-CORTEF 50 MG IV ×2 (13:28→17:50)
[2024-10-24] MEDS: KCL 100 IV (13:29)
[2024-10-24] MEDS: MAGNESIUM SULFATE 102 GRAMS IV (13:41)
[2024-10-24] MEDS: PITRESSIN 100 IV (13:41)
--- NOTE | 2024-10-24 13:45 | PTCARENOTE ---
Cardiology PA notified of increased pressor requirements, addition of vaso, holing lasix per Dr. Bright d/t increased pressor requirements. Notified of increased ectopy including 7 beat run VT. Amio gtt ordered. Augustine per orders. Also notified of
right groin oozing.
[2024-10-24 13:55] LABS: Glucose - Point of Care 185 mg/dl (70-99)
[2024-10-24] MEDS: CORDARONE 518 MG IV (13:59)
--- NOTE | 2024-10-24 14:30 | PTCARENOTE ---
Cardiology PA notified of bleeding from right groin iabp/sheath sites. Redressed in sterile fashion. Orders to hold heparin gtt at this time and to resume at 1600.
[2024-10-24 15:08] LABS: CKMB 14.2 ng/ml (0.0-3.4)
[2024-10-24 15:25] LABS: Glucose - Point of Care 157 mg/dl (70-99)
--- NOTE | 2024-10-24 15:30 | PTCARENOTE ---
CT SENIOR WIND ENERGY CONSULTANT, Cardiology SENIOR WIND ENERGY CONSULTANT, Dr. Arita, and 2 RNs at bedside, observing leaking from right venous sheath. Per Dr. Arita, remove PA/swan line. CT SENIOR WIND ENERGY CONSULTANT removed. No additional leaking noted. Oozing noted from arterial sheath, IABP secured in arterial
sheath, no additional bleeding noted. CT SENIOR WIND ENERGY CONSULTANT placed 2 sutures to ensure stability of IABP. Cleansed with CHG and new dressing applied. Per CT PA, resume heparin infusion at previous dose at 1600.
--- NOTE | 2024-10-24 15:31 | W.PN.UPDATE ---
Update Note
Progress Note Update
Called to bedside by nursing about back bleed from hemostasis valve on venous sheath. SGC was through the valve and was positional. Discussed with cardiology and it was decided that it would be best to remove. I removed the swan and did not observe
any further bleeding. Site was cleanesed.
Patient was also noted to have bleeding from the arterial sheath from the IABP. This was likely due to movement of the IABP, so 2 sutures were added to keep the device in place.
--- NOTE | 2024-10-24 16:00 | PTCARENOTE ---
Pt reassessed. Pt remains intubated and sedated on propofol, and fentanyl. PERRLA 2mm sluggish. No shivering per BSAS. SB with frequent PVCs, increasing ectopy. BP supported with levo gtt, titrating down as able. IABP remains 1:1. POX 99% Singh
draining adequate amounts of clear yellow urine. Gtts: Levo, Heparin, Propofol, Fentanyl, Amio, Insulin. PIV x3. Right IJ triple lumen CVC, Left radial blanca, right femoral arterial sheath with IABP, right femoral venous sheath intact.
[2024-10-24 16:18] LABS: Glucose - Point of Care 137 mg/dl (70-99)
--- NOTE | 2024-10-24 17:00 | PTCARENOTE ---
square dance caller Termite Control Technician notified of increasing ectopy, PVCs, ventricular rhythms. 1830 Dr. Mckeon at bedside. Orders to d/c amio gtt and Resume lidocaine gtt at 1 (previous dose).
--- NOTE | 2024-10-24 17:12 | PN.CDI ---
CDI
- -
CDI:
Physician Documentation Request
Admit Date: 10/23/24 15:18
Dear Doctor Ramses,
Please review the following and provide your response in the progress notes.
Clinical Indicators:
Pt admitted with Cardiac arrest out of hospital/Ventricular fibrillation /STEMI /Vented in field /Cardiogenic Shock on Levophed
Documented per H&P and progress note 10/24 ,' Elevated LFTs Secondary to shock Monitor...'
10/23/24 10/23/24 10/23/24
10:53 14:15 16:30
AST 206 H 208 H 199 H
ALT 160 H 158 H 155 H
10/23/24 10/24/24 10/24/24
19:24 00:22 02:53
AST 178 H 126 H 116 H
ALT 131 H 104 H 98 H
10/24/24 10/24/24
05:44 11:55
AST 125 H 95 H
ALT 107 H 86 H
Based on the above, could you clarify in the progress notes, the appropriate diagnosis, if significant, that supports the above abnormalities and additional evaluation, monitoring and/or treatment rendered:
Shock Liver
Elevated LFTs only
Other ( please specify)
Use of terms such as suspected, likely, concern for, or probable (associated with a specific diagnosis that is being evaluated, monitored, or treated as if it exists) are acceptable and can be coded in the inpatient setting, when documented at the
time of discharge.
Thank you,
Estela Calvillo RN
CDI Specialist
[place] [facility]
Please use your independent medical judgment in providing your response.
--- NOTE | 2024-10-24 17:16 | PN.CDI ---
CDI
- -
CDI:
Physician Documentation Request
Admit Date: 10/23/24 15:18
Dear Doctor Ramses,
Please review the following and provide your response in the progress notes.
Clinical Indicators:
Pt admitted with Cardiac arrest out of hospital/Ventricular fibrillation /STEMI /Vented in field /Cardiogenic Shock on Levophed
Documented per h&P and progress note 10/24,' Sepsis (fever,leukocytosis) Could be secondary to postarrest, infarction However cannot rule out aspiration, cw broad-spectrum empiric antibiotics for now...'
CXR 10/24,' Increased central pulmonary opacities bilaterally which although may be inflammatory/infectious...'
Please further specify the suspected infection that you are treating :
Aspiration Pneumonia
Aspiration Pneumonitis
Other ( please specify)
Use of terms such as suspected, likely, concern for, or probable (associated with a specific diagnosis that is being evaluated, monitored, or treated as if it exists) are acceptable and can be coded in the inpatient setting, when documented at the
time of discharge.
Thank you,
Estela Calvillo RN
CDI Specialist
[place] [facility]
Please use your independent medical judgment in providing your response.
--- NOTE | 2024-10-24 18:00 | PTCARENOTE ---
[place]/PA line no longer present. MVO2 drawn from right femoral venous sheath.
[2024-10-24 18:17] LABS: Glucose - Point of Care 155 mg/dl (70-99)
[2024-10-24 18:23] LABS: Mixed Venous O2 Saturation 55.4 %
[2024-10-24 18:24] LABS: Hematocrit 34.1 % (39.0-52.0); Hemoglobin 11.9 g/dL (13.0-18.0); Mean Corp Hgb Conc. 34.9 g/dL (33.0-37.0); Mean Corpuscular Hgb 29.5 pg (27.0-31.0); Mean Corpuscular Volume 84.4 fL (80.0-94.0); Mean Platelet Volume 11.8 fL (7.4-10.4); Platelet Count 188 10^3/uL (130-400); Red Blood Cell Count 4.04 10^6/uL (4.70-6.10); Red Cell Dist. Width 14.9 % (11.5-14.5); White Blood Cell Count 20.8 10^3/uL (4.8-10.8)
--- NOTE | 2024-10-24 18:29 | W.PN.UPDATE ---
Update Note
Progress Note Update
Called to evaluate patient at bedside by CVICU nurse due to rhythm change
IV lidocaine discontinued
Patient then having more PVCs on telemetry this afternoon and amiodarone drip was started
Since that time has been largely in AIVR on review telemetry
No change in pressor requirement or need to increase Impella support
Remains intubated and sedated on cooling protocol
As patient was previously tolerating lidocaine plan to stop amiodarone and start lidocaine at prior rate of 1 mg/min
Replete K>4 and Mg>2
Monitor on telemetry
ZOLL pads in place
Discussed with nursing and rounding electronic sales and service technician
CC: 32 minutes
[2024-10-24 18:36] LABS: Lactic Acid 2.1 mmol/L (0.7-2.0)
[2024-10-24 18:38] LABS: Absolute Neutrophils -Man Diff 18.7 10^3/uL (1.4-6.5); Band Neutrophils 25 % (0-3); Lymphocytes 7 % (20-51); Metamyelocytes 1 % (-); Monocytes 2 % (2-9); Platelets Checked Yes; Segmented Neutrophils 65 % (42-75)
[2024-10-24 18:39] LABS: Normal RBC Morphology Yes; Total Cells Counted 100
[2024-10-24] MEDS: XYLOCAINE 2 GRAM 500 IV (18:41)
[2024-10-24 19:50] LABS: ALT (SGPT) 78 U/L (0-50); AST (SGOT) 75 U/L (17-59); Albumin 3.3 g/dl (3.5-5.0); Alkaline Phosphatase 58 U/L (38-126); Blood Urea Nitrogen 29 mg/dl (9-20); Calcium 8.6 mg/dl (8.4-10.2); Carbon Dioxide 23 mmol/L (22-30); Chloride 107 mmol/L (98-107); Estimated Creatinine Clearance 63 ml/min; Glucose 151 mg/dl (70-99); Magnesium 2.3 mg/dl (1.6-2.3); Phosphorus 3.1 mg/dl (2.5-4.5); Potassium 4.2 mmol/L (3.5-5.1); Sodium 139 mmol/L (135-145); Total Bilirubin 1.2 mg/dl (0.2-1.3); Total CK 274 U/L (55-170); Total Protein 5.8 g/dl (6.3-8.2); eGFR 58.01
--- NOTE | 2024-10-24 20:00 | PTCARENOTE ---
assumed care of patient @ 1900. received pt intubated, sedated. Pupils 2 and reactive, sluggish. GCS 3. Sinus alissa on tele with frequent polymorphic PVCs and occasional accelerated idioventricular rhythm. BP 100s/50s MAP ~70. CVP ~ 10-12. doppler
pulses present. no edema noted. Heart tones distant. IABP present through R groin on 1:1 timing, max augmentation. Balloon working appropriately. 7.5 ET tube present 24 @ lip. 40% , 28, 480, 5 psv 8 peep. Synchronous with ventilator, satting 99
percent. suctioned for thin bloody secretions. NGT present in R nare to low intermittent wall suction with brown/green drainage. temperature sensing indwelling hurt catheter present draining clear yellow urine. R IJ triple lumen, L radial A line, R
femoral venous and arterial sheaths all patent. central lines zeroed and flushed. R arterial sheath apparently clotted, OK to not be transduced per nurse staff community health. Arterial sheath stopcock closed. No bleeding noted from IABP site, dressing clean dry
and intact. Artic sun present and intact, cooling patient to 96.6. Artic sun with low work to cool. no shivering noted. Pt will be rewarmed per protocol starting at 2100. Reieved on Fent, prop, heparin, lido, levo. insulin. see worklist for drips
and detailed assessment. family updated on plan of care, emotional support provided.
[2024-10-24 20:01] LABS: Glucose - Point of Care 152 mg/dl (70-99)
[2024-10-24 20:11] LABS: CKMB 11.8 ng/ml (0.0-3.4)
--- NOTE | 2024-10-24 21:00 | PTCARENOTE ---
pt switched from cooling to rewarming per protocol at 2100. rewarming by .33 f every hour for a goal temp of 97.4. fentanyl bolus given for shivering.
[2024-10-24 22:17] LABS: Glucose - Point of Care 122 mg/dl (70-99)
[2024-10-24 22:25] LABS: APTT 110.4 Sec (23.4-35.0)
[2024-10-25] VITALS (24 sets, daily range): BP systolic 118–143; BP diastolic 42–90; BMI 31.8
--- NOTE | 2024-10-25 | PTCARENOTE ---
labs drawn and sent, no change in patient assessment .
[2024-10-25 00:06] LABS: Glucose - Point of Care 115 mg/dl (70-99)
[2024-10-25 00:20] LABS: Mixed Venous O2 Saturation 60.5 %
[2024-10-25] MEDS: TYLENOL ORAL SOLUTION 650 MG TUBE ×4 (00:34→18:19)
[2024-10-25] MEDS: SOLU-CORTEF 50 MG IV ×2 (00:34→06:15)
[2024-10-25] MEDS: ZOSYN 50 IV ×4 (00:34→18:19)
[2024-10-25] MEDS: BUSPAR 30 MG TUBE ×3 (00:34→15:53)
[2024-10-25 00:50] LABS: % Basophils 0.3 % (0-2); % Eosinophils 0.1 % (0-6); % Immature Granulocytes 1.8 % (0-0.5); % Lymphocytes 8.7 % (20.5-51.1); % Monocytes 5.6 % (1.7-9.3); % Neutrophils 83.5 % (42.2-75.2); Absolute Basophils 0.1 10^3/uL (0-0.2); Absolute Immature Granulocytes 0.3 10^3/uL (0-0.05); Absolute Lymphocytes 1.7 10^3/uL (1.2-3.4); Absolute Monocytes 1.1 10^3/uL (0.1-0.6); Absolute Neutrophils 16.1 10^3/uL (1.4-6.5); Hematocrit 33.5 % (39.0-52.0); Hemoglobin 11.6 g/dL (13.0-18.0); Mean Corp Hgb Conc. 34.6 g/dL (33.0-37.0); Mean Corpuscular Hgb 29.5 pg (27.0-31.0); Mean Corpuscular Volume 85.2 fL (80.0-94.0); Mean Platelet Volume 11.6 fL (7.4-10.4); Nucleated Red Blood Cells % 0 % (-); Platelet Count 170 10^3/uL (130-400); Red Blood Cell Count 3.93 10^6/uL (4.70-6.10); Red Cell Dist. Width 15.3 % (11.5-14.5); White Blood Cell Count 19.3 10^3/uL (4.8-10.8)
[2024-10-25 00:52] LABS: ALT (SGPT) 75 U/L (0-50); AST (SGOT) 78 U/L (17-59); Albumin 3.5 g/dl (3.5-5.0); Alkaline Phosphatase 54 U/L (38-126); Blood Urea Nitrogen 29 mg/dl (9-20); Calcium 8.8 mg/dl (8.4-10.2); Carbon Dioxide 27 mmol/L (22-30); Chloride 106 mmol/L (98-107); Estimated Creatinine Clearance 63 ml/min; Glucose 145 mg/dl (70-99); Magnesium 2.4 mg/dl (1.6-2.3); Phosphorus 3.6 mg/dl (2.5-4.5); Potassium 3.5 mmol/L (3.5-5.1); Sodium 141 mmol/L (135-145); Total Bilirubin 1.1 mg/dl (0.2-1.3); Total CK 210 U/L (55-170); Total Protein 6.5 g/dl (6.3-8.2); eGFR 58.01
[2024-10-25] MEDS: KCL 100 IV ×2 (01:14→21:34)
[2024-10-25 01:20] LABS: CKMB 8.7 ng/ml (0.0-3.4)
[2024-10-25] MEDS: LEVOPHED 250 IV ×2 (03:03→15:02)
[2024-10-25 03:07] LABS: Glucose - Point of Care 135 mg/dl (70-99)
[2024-10-25] MEDS: DIPRIVAN 100 IV ×4 (03:29→21:34)
--- NOTE | 2024-10-25 04:00 | PTCARENOTE ---
pt reached normothermia goal of 97.4 at 0400. titrating down on levo and sedation as BP and shivering allow. no other change in assessment
[2024-10-25 04:41] LABS: APTT 128.1 Sec (23.4-35.0)
[2024-10-25] MEDS: NSS 500 VEN SHEATH ×2 (05:02→18:19)
[2024-10-25 05:24] LABS: Glucose - Point of Care 112 mg/dl (70-99)
[2024-10-25 06:08] LABS: Hematocrit 32.2 % (39.0-52.0); Hemoglobin 11.2 g/dL (13.0-18.0); Mean Corp Hgb Conc. 34.8 g/dL (33.0-37.0); Mean Corpuscular Hgb 29.5 pg (27.0-31.0); Mean Corpuscular Volume 84.7 fL (80.0-94.0); Mean Platelet Volume 11.3 fL (7.4-10.4); Platelet Count 166 10^3/uL (130-400); Red Cell Dist. Width 15.3 % (11.5-14.5); White Blood Cell Count 18.7 10^3/uL (4.8-10.8)
[2024-10-25 06:39] LABS: ALT (SGPT) 66 U/L (0-50); AST (SGOT) 61 U/L (17-59); Albumin 3.2 g/dl (3.5-5.0); Alkaline Phosphatase 60 U/L (38-126); Blood Urea Nitrogen 27 mg/dl (9-20); Calcium 8.5 mg/dl (8.4-10.2); Carbon Dioxide 25 mmol/L (22-30); Chloride 109 mmol/L (98-107); Estimated Creatinine Clearance 64 ml/min; Glucose 143 mg/dl (70-99); Magnesium 2.2 mg/dl (1.6-2.3); Phosphorus 3.2 mg/dl (2.5-4.5); Potassium 3.8 mmol/L (3.5-5.1); Sodium 142 mmol/L (135-145); Total Bilirubin 1.1 mg/dl (0.2-1.3); Total CK 181 U/L (55-170); Total Protein 5.8 g/dl (6.3-8.2); Triglycerides 141 mg/dl (10-149); eGFR 58.01
[2024-10-25 06:42] LABS: NT-proBNP 861 pg/ml
[2024-10-25 06:46] LABS: Vancomycin Random 11.8 ug/ml
[2024-10-25 06:47] LABS: Prealbumin (Transthyretin) 18.9 mg/dl (17.6-36.0)
[2024-10-25 07:10] LABS: Glucose - Point of Care 148 mg/dl (70-99)
[2024-10-25] MEDS: SUBLIMAZE 100 IV ×3 (07:14→22:38)
[2024-10-25] MEDS: NOVOLIN R INSULIN INFUSION 100 IV (07:15)
--- NOTE | 2024-10-25 07:27 | PHA.VAN.FU ---
Vancomycin Assessment / Plan
- Assessment
Renal Function: Stable
WBC's are: Trending Down
Concomitant Antimicrobials: piperacillin/tazobactam
- Assessment - Therapeutic Drug Monitoring
Random Level: 11.8 - drawn ~19H after previous dose of 1g
specimen not protected from light - may have had additional degradation of sample
- Dosing Plan
Dosing by Level: Re-dose today (Vanc 1000mg)
- Monitoring Plan
Random Level: 10/26 599
- Follow Up
Pharmacy will continue to follow.
Vancomycin Follow UP
- -
Patient Age: 73
Patient Sex: Male
Vancomycin Day #: 3
Indication: Bacteremia
Requesting Provider: Dr. Pearce
Pertinent Antimicrobial Allergies:
levofloxacin - ankle swelling
Height / Weight:
Height 6 ft
Actual Weight 106.2 kg
Pertinent Past Medical History: BMI ~32
- Vital Signs / Lab Results
Temp Pulse Resp BP Pulse Ox
97.7 F 55 28 129/65 99
10/25/24 07:00 10/25/24 07:10 10/25/24 07:00 10/25/24 07:00 10/25/24 07:10
Lab Results - Hematology
10/23/24 10/23/24 10/24/24
10:54 16:31 02:53
WBC 15.2 H 16.8 H 22.1 H
Band Neutrophils
10/24/24 10/24/24 10/25/24
11:55 18:04 00:13
WBC 21.0 H 20.8 H 19.3 H
Band Neutrophils 18 H 25 H D
10/25/24
05:50
WBC 18.7 H
Band Neutrophils
Lab Results - Chemistry
10/23/24 10/23/24 10/23/24
10:53 14:15 16:30
BUN 18 24 H 27 H
Creatinine 1.2 1.1 1.3
Estimated Creat Clear
Albumin 4.5 4.5 4.2
10/23/24 10/24/24 10/24/24
19:24 00:22 02:53
BUN 26 H 28 H 28 H
Creatinine 1.2 1.3 1.3
Estimated Creat Clear
Albumin 4.0 3.5 3.6
10/24/24 10/24/24 10/24/24
05:44 11:55 18:04
BUN 30 H 30 H 29 H
Creatinine 1.4 H 1.4 H 1.3
Estimated Creat Clear 59 63
Albumin 3.8 3.5 3.3 L
10/25/24 10/25/24 10/25/24
00:13 05:50 05:50
BUN 29 H Cancelled 27 H
Creatinine 1.3 Cancelled
Estimated Creat Clear 63
Albumin 3.5
10/25/24 10/25/24 10/25/24
05:50 05:50 05:50
BUN
Creatinine 1.3
Estimated Creat Clear Cancelled 64
Albumin Cancelled 3.2 L
10/23/24 10/23/24 10/23/24
10:54 12:31 14:15
Lactic Acid 8.6 H* 4.0 H* 2.9 H
10/23/24 10/23/24 10/24/24
16:34 19:24 00:22
Lactic Acid 1.8 2.1 H 2.4 H
10/24/24 10/24/24 10/24/24
05:44 11:55 18:04
Lactic Acid 2.6 H 2.5 H 2.1 H
Microbiology Results
10/23/24 17:19 Blood Culture - Preliminary
Blood/Venous No Growth in 24 hours- Final report to follow
10/23/24 17:24 Blood Culture - Preliminary
Blood/Venous No Growth in 24 hours- Final report to follow
10/23/24 15:44 Urine Culture - Final
Urine NO GROWTH
Therapeutic Drug Monitoring
Random Vancomycin 11.8 ug/ml 10/25/24 05:50
--- NOTE | 2024-10-25 08:00 | PTCARENOTE ---
assumed care of pt from previous shift RN, pt sedated w fentanyl and propofol, Pupils +2 equally reactive to light, + cough +gag, CPOT 0, RASS-5, BIS 48. Sinus rhythm on tele w HR 50's, + peripheral pulses, +1 edema to bilateral upper and lower
extremities. Left radial blanca leveled and zeroed, Bp 120-130/ 50-60, CVP 14-18, Right femoral IABP maintained 1:1. #7.5 ETT/24cm at right lip, VENT SETTINGS: AC 40%/28/480/+8 PEEP, pox 100%. Right subclavian CVC flushing easily w slight ooze at
site, PIVs flush easily. Singh catheter draining yellow. TTM maintained in rewarm phase. Care provided and pt repositioned. Son updated via telephone.
[2024-10-25] MEDS: PROTONIX IV 40 MG IV (08:53)
[2024-10-25] MEDS: CRESTOR 40 MG TUBE (08:53)
[2024-10-25] MEDS: REFRESH CELLUVISC GEL 1 DROPS BOTH EYES ×2 (08:53→21:35)
[2024-10-25] MEDS: NSS (PRESERVATIVE FREE) 10 ML IV (08:53)
[2024-10-25] MEDS: LOW STRENGTH ASPIRIN 81 MG TUBE (08:53)
[2024-10-25 09:03] LABS: Glucose - Point of Care 104 mg/dl (70-99)
[2024-10-25] MEDS: HEPARIN 25000 UNITS/250 ML IV (09:13)
--- NOTE | 2024-10-25 09:21 | W.PN.CARDCBS ---
Today's Communication / Plan
-
Remains relatively stable and is finished cooling and is now being warmed.
Continue to replete electrolytes K greater than 4 and Mg greater than 2
Continue Levophed and vasopressin as needed for pressure support.
He is making excellent urine and creatinine overall stable at 1.3.
Will give Lasix 40 mg IV today and follow.
Hopeful to remove intra-aortic balloon pump on Sunday. Continue IV heparin
Continue neurologic exam regarding mental status and cardiac arrest.
Long-term plan depends on his ability to wake up.
Impression / Plan
-
Primary Grain Merchandiser: Dr. Lui
Assessment:
Presentation with VF arrest s/p shock x1 with ROSC
Intubated in field
Chest tightness/SOB
CAD s/p LAD PCI x2 2011, circ PCI 2013
ICM, EF 35-40%
HTN
HLD
DM2
Obesity
ELVIRA on CPAP
ECHO 10/05/21: TDS, EF 35 to 40%, basal to mid inferior, inferolateral and basal septal akinesis, left atrial enlargement, mild MR
Limited bedside echocardiogram along the heart catheterization lab on 2024: Very limited views but RV function appears to be preserved. LV systolic function appears close to baseline with EF of about 35%, no pericardial effusion
Echo October 24, 2024, EF 30 to 35%, moderate global hypokinesis, technically difficult study but no clear significant valve disease.
Cath 10/23/2024: Plain old balloon angioplasty of 3 serial up to 90% stenoses in the proximal, mid and distal RCA which was heavily calcified. Successful placement of 50 cc intra-aortic balloon pump and Patterson-Danial catheter via right common femoral
artery and vein, respectively. 1 shock for monomorphic VT during heart catheterization
Recommendations:
- Patient presented with cardiac arrest, reported VF requiring shock x 1 as well as epi x 2 and 100 mg lidocaine with subsequent ROSC. Unclear downtime, possibly 10 to 15 minutes per EMS. 1 shock for monomorphic VT during heart catheterization
- Status post plain old balloon angioplasty of 3 serial up to 90% heavily calcified stenoses in the proximal, mid and distal RCA with KEYONA-3 flow restored into the distal vessel aborting the inferior ST elevation AK. Concomitant significant left
main stenosis and mid left circumflex stenosis noted.
- He has finished the cooling protocol and is now being warmed. He had bleeding from his right femoral groin yesterday and Patterson-Danial catheter had to be removed. His bleeding has stopped.
- This is under one-to-one IABP support and 10 to 14 mcg of Levophed drip which we will continue. He is back on IV heparin.
- Blood pressure is overall stable. Continue support with Levophed and wean as tolerated. Continue vasopressin as needed.
- He was having more ventricular ectopy. He is now back on lidocaine we will continue for another 24 hours in the setting of AK. He had less rhythm issues on lidocaine then amiodarone.
- Creatinine overall stable at 1.3. We will continue diuresis. Due to bleeding we no longer have Patterson-Danial catheter to follow filling pressures but he is making excellent urine.
- Continue daily aspirin via NG tube. IV heparin drip. He completed 12 hours of Integrilin drip.
- Main Future decisions hinge on meaningful neurologic recovery once he is rewarmed to assess if we could get him to possible coronary artery bypass grafting. CT surgery is involved.
-LVEF by echo remains approximately 30%. No clear valve disease. Eventually start guideline directed medical therapy once off pressors.
- Plan will be to try to remove intrauterine balloon pump on Sunday.
- Discussed all of the above with nursing.
CC time 44 min
Progress Note - Grain Merchandiser
Subjective
Date of Service: October 25, 2024
Remains intubated but according to nursing somewhat responsive. He is now being warmed. Remains in sinus rhythm. On ventilator
Objective
Labs:
10/25/24 05:50
Labs
Hgb 11.2 g/dL (13.0-18.0) L 10/25/24 05:50
Hct 32.2 % (39.0-52.0) L 10/25/24 05:50
Plt Count 166 10^3/uL (130-400) 10/25/24 05:50
PT 16.0 Sec (11.4-14.6) H 10/24/24 05:44
INR 1.23 10/24/24 05:44
APTT 128.1 Sec (23.4-35.0) H 10/25/24 04:04
Sodium 142 mmol/L (135-145) 10/25/24 05:50
Sodium Cancelled 10/25/24 05:50
Potassium 3.8 mmol/L (3.5-5.1) 10/25/24 05:50
Potassium Cancelled 10/25/24 05:50
BUN 27 mg/dl (9-20) H 10/25/24 05:50
BUN Cancelled 10/25/24 05:50
Creatinine 1.3 mg/dL (0.7-1.3) 10/25/24 05:50
Creatinine Cancelled 10/25/24 05:50
Glucose 143 mg/dl (70-99) H 10/25/24 05:50
Glucose Cancelled 10/25/24 05:50
Troponins
10/23/24 10/23/24 10/23/24
10:53 14:15 16:35
Troponin I 0.061 H* 1.060 H* D 3.210 H* D
10/24/24 10/24/24 10/24/24
02:53 05:44 11:55
Troponin I 5.020 H* 5.010 H* 4.060 H*
10/24/24 10/25/24 10/25/24
18:04 00:13 05:50
Troponin I 3.360 H* 2.680 H* 2.070 H*
Vital Signs and I&O:
Vital Signs
Temp Pulse Resp BP Pulse Ox
97.2 F 58 25 130/63 97
10/25/24 09:00 10/25/24 09:01 10/25/24 09:01 10/25/24 09:01 10/25/24 09:01
Vital Signs
Temp Pulse Resp BP Pulse Ox
97.2 F 58 25 130/63 97
10/25/24 09:00 10/25/24 09:01 10/25/24 09:01 10/25/24 09:01 10/25/24 09:01
Intake & Output
10/23/24 10/24/24 10/25/24 10/26/24
06:59 06:59 06:59 06:59
Intake Total 1535.9 / 1653.1 4041.7 / 4142.8 305.7 / 305.7
Output Total 2840 / 2925 3155 / 3230 200 / 200
Balance -1304.1 / -1271.9 886.7 / 912.8 105.7 / 105.7
Physical Exam
Physical Exam
GEN: No distress, intubated and sedated
HEENT: supple, anicteric, mmm, et tube
LUNGS: scatt rhonchi
CV: Reg, S1/S2, 1/6 syst LSB, S3+
ABD: soft, BS+, NT/ND
EXT: No edema, RIABP
NEURO: unable to assess
SKIN: No rash
[2024-10-25] MEDS: KCL 20 MEQ PO (09:56)
[2024-10-25] MEDS: VANCOCIN 200 IV (09:57)
[2024-10-25] MEDS: LASIX 40 MG IV (09:57)
--- NOTE | 2024-10-25 10:35 | W.PN.INTV ---
Today's Communication / Plan
Recommendations
- DC stress dose steroids
- Continue to wean Levophed as tolerated
- Start Precedex infusion as needed and stay off propofol and fentanyl infusions
- If mental status continues to improve, will attempt SAT/SBT later today or tomorrow with the goal to extubate
Assessment
-
Patient currently intubated, mechanically ventilated sedated. Reportedly patient is a 70-year-old gentleman with known history of coronary artery disease with previous PCI in the past, known ischemic cardiomyopathy with baseline EF 35 to 40%,
obstructive sleep apnea on CPAP, who called 911 for having chest pain and shortness of breath. While he was on the phone apparently he stopped talking and had a cardiac arrest. Once EMS arrived, patient was noted to be in ventricular fibrillation
and was shocked x 1, he also received epi and Afrin as well as lidocaine and had return of spontaneous circulation. He was intubated in the field and EKG was concerning for ST elevation in the inferior leads. Cardiology service evaluated the
patient in the emergency room and he was emergently taken to [facility] for further intervention. I initially saw the patient in the [facility] for persistent hypoxia despite being mechanically ventilated and later reevaluated again in CVICU.
10/25 overview. Patient currently on mechanical ventilation, 480/28/40%/8, ABG 7.44, 35, 123. PF ratio more than 300
Currently MAP of 78, only on Levophed at 5, off vasopressin.
Currently on lidocaine infusion as well as insulin infusion along with heparin drip.
IABP on 1 is to 1
Off all sedation, saturating 99%
Patient actively being warmed, good urine output, 2.9 L over last 24 hours
#1. STEMI complicated by out of hospital Cardiac Arrest, initial rhythm V. Fib (10/23)
- S/p defibrillation x 1, ROSC achieved in the field. Estimated downtime reportedly around 15 minutes
- Patient emergently taken to [facility], balloon angioplasty performed, IABP placed. CT surgery consulted for possible CABG
- Known history of coronary artery disease, s/p PCI more than 10 years ago
- On ASA, heparin infusion and Statins
- CT head unremarkable, chest x-ray suggestive of pulmonary edema
- Completed TTM, currently rewarmed
- Monitor renal and hepatic function
- Once TTM completed, will wean down fentanyl and propofol to evaluate for patient's mental status
#2. Acute hypoxic respiratory failure
- Do to pulmonary edema due to cardiogenic shock
- 10/23, Patient emergently evaluated in [facility] for hypoxia, PEEP was increased up to 14, tidal volume 480 mL, patient breathing above the vent at around 30/min, peripheral saturation improved to 99%
- Responded well to diuretics, follow-up chest x-ray reviewed
- Currently on volume assist mechanical ventilation, FiO2 40% PEEP of 8, PO2 of 123, PF ratio 300, pulmonary mechanics significantly improved
- Weaned off propofol and fentanyl infusion. Start Precedex as needed and use as needed fentanyl pushes. Avoid propofol drip.
- PE felt to be less likely with normal-appearing RV on echocardiogram. Patient anticoagulated with heparin
#3. Acute on chronic HFrEF with Cardiogenic Shock
- IABP on 1:1
- Off vasopressin, Levophed down to 5, MAP of 78
- Good urine output, 2.9 L over last 24 hours
- Serial lactate improved
- IV Lasix started, agree with IV potassium supplementation
- DC stress dose steroids
#4. Acute encephalopathy
- Unclear if patient has any underlying anoxic brain injury
- Patient off all sedation now
- Wakes up with little stimulation, briefly made eye contact, moving all 4 extremities however no meaningful conversation for now
- EEG
- CT head unremarkable
- Will reevaluate again later today
- Completing TTM
- Neurology consult
#5. CKD.
- Good urine output, stable creatinine
#6. Fever, 10/24
- X-ray is more suggestive of pulmonary edema rather than pneumonia
- Fever could be related to cardiac arrest, CPR and acute myocardial infarction
- Continue empiric antibiotics for now and follow-up on cultures
- TTM completing
Other medical diagnoses:
- h/o ELVIRA, on CPAP at home. Will resume CPAP once extubated
- HTN. Currently in shock so antihypertensives on hold
- HLD. On statins
- DM, type II. Insulin infusion
- Obesity
Critical Care time 52 mins -- The patient is admitted for acute critical illness for the treatment of vital organ failure and/or prevention of further life-threatening conditions. Total care includes time spent in review of history, physical exam,
medications, hemodynamic/ventilator parameters, laboratory data, imaging and discussion with house staff, pharmacy, respiratory therapy, recreation program coordinator, and nursing.
Data:
CT Head 10/2024: Unremarkable
CXR. 10/2024: Suggestive of Pulmonary edema
ECHO 09/2021: Top normal left ventricular chamber size. Moderately reduced left ventricular
systolic function. Left ventricular ejection fraction is 35-40% by visual
assessment with basal - mid inferior, inferolateral and basal septal akinesis.
Top normal left ventricular wall thickness.
Left atrial enlargement.
Mild mitral regurgitation.
Compared to previous echo from September 2017, there is no significant change
Technically difficult study, consider Definity for better evaluation.
[facility] 04/2013: 1: 2 vessel coronary artery disease as described, patent RCA and LAD stents, new severe midcircumflex lesion.
2: Moderate to severe left ventricular dysfunction, EF 30%
3: Successful complex 3.0/12 mm Xience V drug eluting stent to the mid circumflex.
Subjective Dataa
Subjective Data
Date of Service:
Date of Service: October 25, 2024
Subjective:
Patient currently intubated, mechanically ventilated, off sedation, waking up
Review of Systems
General: Other (Patient intubated)
Objective Data
Data Reviewed
Vital Signs / I&O / Oxygen:
Vital Signs
Temp Pulse Resp BP Pulse Ox
97.2 F 55 0 143/52 100
10/25/24 09:00 10/25/24 10:00 10/25/24 10:00 10/25/24 10:00 10/25/24 10:00
Intake and Output
10/24/24 10/25/24 10/26/24
06:59 06:59 06:59
Intake Total 1535.9 / 1653.1 4041.7 / 4142.8 305.7 / 305.7
Output Total 2840 / 2925 3155 / 3230 200 / 200
Balance -1304.1 / -1271.9 886.7 / 912.8 105.7 / 105.7
SaO2 [A/C] 100
SaO2 100
Physical Exam
General: Comfortable
HEENT: Normocephalic
Cardiovascular: S1-S2
Respiratory: Clear
GI: Soft and Distended
Neurology: Other (Wakes up with little stimulation)
Skin: Warm
Labs/Micro/Reports
Lab Data
10/25/24 05:50
Laboratory Results
10/24/24 10/24/24 10/25/24
11:55 22:03 04:04
APTT 158.1 H* 110.4 H 128.1 H
Microbiology
10/23/24 17:19 Blood/Venous Blood Culture - Preliminary
No Growth in 24 hours- Final report to follow
10/23/24 17:24 Blood/Venous Blood Culture - Preliminary
No Growth in 24 hours- Final report to follow
10/23/24 15:44 Urine Urine Culture - Final
NO GROWTH
[2024-10-25 10:43] LABS: Glucose - Point of Care 105 mg/dl (70-99)
--- NOTE | 2024-10-25 10:50 | PTCARENOTE ---
sedation vacation preformed, pt spontaneously opened eyes, BA, unable to follow commands. Pt became agitated, resedated.
[2024-10-25] MEDS: SUBLIMAZE 50 MCG IV ×3 (11:08→20:54)
[2024-10-25] MEDS: PRECEDEX 100 IV (11:12)
--- NOTE | 2024-10-25 11:56 | W.PN.HOSP.TC ---
Today's Communication/Plan
-
Monitor vital signs see plan
Wean pressors as tolerated
Wean sedation as tolerated
Remains intubated
Monitor mental status closely
Intra-aortic balloon pump per cardiology
IV heparin
IV Lasix today
Monitor renal function
Assessment / Plan
Assessment / Plan
General: Intubated
HEENT: Anicteric,PEERL
Respiratory: Rales
GI: Soft, Non Tender and Non Distended
:hurt
Neuro: Sedated
STEMI [id number] cardiac arrest
Initial rhythm V-fib status post shock
Emergent cardiac catheterization, appears multivessel disease. Status post PCI in the past. Previous documentation had stenting to the LAD. Has refused AICD in the past
CT surgery consulted. Cardiology following. Status post IABP
On aspirin, statin, heparin
Initial chest x-ray with pulmonary edema, repeat chest x-ray noted
s/p TTM protocol; now being warmed
Trend lactate
Wean off sedation as tolerated after TTM protocol
Vent management per utility worker film processing
Unclear if developed anoxic brain injury, consulted neurology. EEG per neurology benign; wean sedation as tolerated.
initial CT unremarkable
Continue to trend troponin
Shock suspect cardiogenic
CT surgery involved; will initiate workup for CABG if patient achieves neurorecovery.
per cardiology; Status post plain old balloon angioplasty of 3 serial up to 90% heavily calcified stenoses in the proximal, mid and distal RCA with KEYONA-3 flow restored into the distal vessel aborting the inferior ST elevation NE. Concomitant
significant left main stenosis and mid left circumflex stenosis noted.
cw IABP per cardiology
diuresis as needed
Sepsis (fever,leukocytosis)
Could be secondary to postarrest, infarction
However cannot rule out aspiration pneumonitis, cw broad-spectrum empiric antibiotics for now. given severity of his symptoms will treat
Check blood culture pending
UA not suggestive of UTI
Follow fever curve
currently on levophed; wean as tolerated
Acute hypoxic respiratory failure secondary to pulmonary edema with cardiogenic shock
Wean sedation as tolerated
Management per cardiology;
started pressors; wean as tolerated
also on lidocaine
IV lasix
Elevated LFTs 2/2 cardiogenic shock and post code
Monitor
Renal insufficiency
Continue to monitor
Maintain Hurt, monitor urine output
History of ELVIRA on CPAP
History of hypertension
Hyperlipidemia
Diabetes mellitus
ISS,accuchecks
insulin gtt for now
A1c 6.7
morbid Obesity
DVTppx
heparin
Full code
I spent a total of 52 minutes with the patient or on the floor. More than 50% of this time involved counseling and coordination of care.
Anticipated Discharge: > 48 hours
Subjective/Interval History
-
Date of Service: October 25, 2024
Intubated
Objective Data
-
Labs:
Laboratory Results
10/25/24 10/25/24 10/25/24
00:13 04:04 05:50
WBC 19.3 H 18.7 H
Hgb 11.6 L 11.2 L
Hct 33.5 L 32.2 L
Plt Count 170 166
PT
INR
APTT 128.1 H
Sodium 141 Cancelled
Potassium 3.5
Chloride 106
Carbon Dioxide 27
BUN 29 H
Creatinine 1.3
Glucose 145 H
Calcium 8.8
Total Bilirubin 1.1
AST 78 H
ALT 75 H
Alkaline Phosphatase 54
10/25/24 10/25/24 10/25/24
05:50 05:50 05:50
WBC
Hgb
Hct
Plt Count
PT
INR
APTT
Sodium 142
Potassium Cancelled 3.8
Chloride Cancelled 109 H
Carbon Dioxide Cancelled
BUN
Creatinine
Glucose
Calcium
Total Bilirubin
AST
ALT
Alkaline Phosphatase
10/25/24 10/25/24 10/25/24
05:50 05:50 05:50
WBC
Hgb
Hct
Plt Count
PT
INR
APTT
Sodium
Potassium
Chloride
Carbon Dioxide 25
BUN Cancelled 27 H
Creatinine Cancelled 1.3
Glucose Cancelled
Calcium
Total Bilirubin
AST
ALT
Alkaline Phosphatase
10/25/24 10/25/24 10/25/24
05:50 05:50 05:50
WBC
Hgb
Hct
Plt Count
PT
INR
APTT
Sodium
Potassium
Chloride
Carbon Dioxide
BUN
Creatinine
Glucose 143 H
Calcium Cancelled 8.5
Total Bilirubin Cancelled 1.1
AST Cancelled
ALT
Alkaline Phosphatase
10/25/24 10/25/24 10/25/24
05:50 05:50 05:50
WBC
Hgb
Hct
Plt Count
PT
INR
APTT
Sodium
Potassium
Chloride
Carbon Dioxide
BUN
Creatinine
Glucose
Calcium
Total Bilirubin
AST 61 H
ALT Cancelled 66 H
Alkaline Phosphatase Cancelled 60
10/25/24 10/25/24 10/25/24
06:00 11:00 12:00
WBC Pending
Hgb Pending
Hct Pending
Plt Count Pending
PT Pending Pending
INR Pending Pending
APTT Pending Pending
Sodium
Potassium
Chloride
Carbon Dioxide
BUN
Creatinine
Glucose
Calcium
Total Bilirubin
AST
ALT
Alkaline Phosphatase
10/25/24
18:00
WBC Pending
Hgb Pending
Hct Pending
Plt Count Pending
PT
INR
APTT
Sodium
Potassium
Chloride
Carbon Dioxide
BUN
Creatinine
Glucose
Calcium
Total Bilirubin
AST
ALT
Alkaline Phosphatase
Vital Signs:
Vital Signs
Temp Pulse Resp BP Pulse Ox
97.7 F 76 28 141/76 99
10/25/24 11:00 10/25/24 11:00 10/25/24 11:00 10/25/24 11:00 10/25/24 11:01
I&O
10/24/24 10/25/24 10/26/24
06:59 06:59 06:59
Intake Total 1535.9 / 1653.1 4041.7 / 4142.8 504.5 / 504.5
Output Total 2840 / 2925 3155 / 3230 650 / 650
Balance -1304.1 / -1271.9 886.7 / 912.8 -145.5 / -145.5
--- NOTE | 2024-10-25 12:15 | PTCARENOTE ---
propofol discontinued, precedex started and titrated. PRN fentanyl administered as ordered. pt agitated, thrashing in the bed. Dr. Bright made aware. Precedex discontinued, Propofol restarted with good result.
[2024-10-25 12:31] LABS: Hematocrit 31.3 % (39.0-52.0); Hemoglobin 10.9 g/dL (13.0-18.0); Mean Corp Hgb Conc. 34.8 g/dL (33.0-37.0); Mean Corpuscular Hgb 29.4 pg (27.0-31.0); Mean Corpuscular Volume 84.4 fL (80.0-94.0); Mean Platelet Volume 11.8 fL (7.4-10.4); Platelet Count 152 10^3/uL (130-400); Red Blood Cell Count 3.71 10^6/uL (4.70-6.10); Red Cell Dist. Width 15.3 % (11.5-14.5); White Blood Cell Count 17.5 10^3/uL (4.8-10.8)
[2024-10-25 12:32] LABS: INR 1.23; PT 15.7 Sec (11.4-14.6)
[2024-10-25 12:34] LABS: APTT 88.5 Sec (23.4-35.0)
[2024-10-25 12:35] LABS: Lactic Acid 1.6 mmol/L (0.7-2.0)
[2024-10-25 12:45] LABS: Magnesium 2.2 mg/dl (1.6-2.3); Total CK 158 U/L (55-170)
[2024-10-25 12:58] LABS: Glucose - Point of Care 115 mg/dl (70-99)
[2024-10-25 13:06] LABS: % Basophils 0.2 % (0-2); % Eosinophils 0.1 % (0-6); % Immature Granulocytes 0.9 % (0-0.5); % Lymphocytes 6.3 % (20.5-51.1); % Monocytes 5.8 % (1.7-9.3); % Neutrophils 86.7 % (42.2-75.2); Absolute Immature Granulocytes 0.2 10^3/uL (0-0.05); Absolute Lymphocytes 1.1 10^3/uL (1.2-3.4); Absolute Neutrophils 15.2 10^3/uL (1.4-6.5); Nucleated Red Blood Cells % 0 % (-)
[2024-10-25 13:07] LABS: CKMB 3.9 ng/ml (0.0-3.4)
[2024-10-25 13:23] LABS: Phosphorus 3.7 mg/dl (2.5-4.5)
[2024-10-25 14:18] LABS: Glucose - Point of Care 137 mg/dl (70-99)
--- NOTE | 2024-10-25 14:43 | CON.NEURO ---
Neuro Assessment/Plan
Assessment
head CT imgs rev'd, normal for age
EEG gen slow
spoke with family that the EEG slowing is effect of anesthesia, the fact that he is requiring so much anesthetics is a very good sign as being hypothermic is very uncomfortable, and the neurological response would be shivering which would be
counterproductive, will only know extent after he is rewarmed 24 hrs
will follow
Consultation
Order
Date of Consultation: 10/25/24
Requesting Provider: Rm Bright
Reason for Consult: anoxic brain injury
Subjective/Objective
Subjective Data
Date of Service: October 24, 2024
seen yesterday and spoke with family, late note
from h&p:
73-year-old male with past medical history of ischemic cardiomyopathy, EF 35 to 40%, hypertension, lipidemia, diabetes mellitus, obesity, ELVIRA on CPAP, history of CAD status post PCI came to the hospital today after calling 911 for chest pain and
shortness of breath. Per documentation, patient was on the phone and apparently he stopped talking and had a cardiac arrest. When EMS arrived patient was noted to be in V-fib arrest and required shock and epinephrine. Patient was also intubated.
When arrived to the hospital patient was emergently taken to the Sleep Medicine Physician. Per cardiology unable to stent RCA. Patient now has IVPA.
patient seen during hypothermia, requiring propofol 50, fentanyl 150
Objective Data
Vital Signs
Temp Pulse Resp BP Pulse Ox
36.4 C 63 28 139/61 98
10/25/24 14:00 10/25/24 14:00 10/25/24 14:00 10/25/24 14:00 10/25/24 14:00
Lab Results
10/25/24 05:50
PT 15.7 Sec (11.4-14.6) H 10/25/24 12:02
INR 1.23 10/25/24 12:02
APTT 88.5 Sec (23.4-35.0) H 10/25/24 12:02
Sodium 142 mmol/L (135-145) 10/25/24 05:50
Sodium Cancelled 10/25/24 05:50
Potassium 3.8 mmol/L (3.5-5.1) 10/25/24 05:50
Potassium Cancelled 10/25/24 05:50
BUN 27 mg/dl (9-20) H 10/25/24 05:50
BUN Cancelled 10/25/24 05:50
Glucose 143 mg/dl (70-99) H 10/25/24 05:50
Glucose Cancelled 10/25/24 05:50
Calcium 8.5 mg/dl (8.4-10.2) 10/25/24 05:50
Calcium Cancelled 10/25/24 05:50
Phosphorus 3.7 mg/dl (2.5-4.5) 10/25/24 12:02
Oji-Q-Btbtcmganuu Pept 861 pg/ml 10/25/24 05:50
Patient Allergies
dog dander Allergy (Verified 10/23/24 22:24)
Sneezing, watery eyes
house dust Allergy (Verified 10/23/24 22:24)
Sneezing, watery eyes
levofloxacin Allergy (Verified 10/23/24 22:24)
Swelling/ankle swelling
mold Allergy (Verified 10/23/24 22:24)
Unknown
Physical Exam
-
coma hypothermic
pupils sluggish, +cough
no response noxious stim x4
Medications
-
Active Medications
Generic Name Dose Route Start Last Admin
Trade Name Freq PRN Reason Stop Dose Admin
Acetaminophen 650 mg 10/24/24 00:00 10/25/24 12:21
Acetaminophen (Oral Solution) 650 Mg/20.3 Ml Cup TUBE 11/21/24 00:00 650 mg
Q6 MELANY Administration
Acetaminophen 650 mg 10/23/24 16:25
Acetaminophen 650 Mg Rectal Suppository RECTAL 10/27/24 16:24
Q6HPRN PRN
if cannot be given via tube
Aspirin 81 mg 10/24/24 08:00 10/25/24 08:53
Aspirin 81 Mg Chewable Tablet TUBE 11/21/24 07:59 81 mg
DAILY MELANY Administration
Buspirone HCl 30 mg 10/24/24 00:00 10/25/24 08:53
Buspirone 15 Mg Tablet TUBE 11/21/24 00:00 30 mg
Q8 MELANY Administration
Carboxymethylcellulose Sodium 1 drops 10/23/24 20:00 10/25/24 08:53
Carboxymethylcellulose Ophth Gel (Celluvisc) Droperette BOTH EYES 11/20/24 19:59 1 drops
BID MELANY Administration
Dextrose 12.5 grams 10/24/24 12:00
Dextrose 50% (0.5 Grams/Ml) 50 Ml Syringe IV 11/21/24 11:59
[id number] PRN
Blood Glucose < 70 mg/dL
Fentanyl Citrate 50 mcg 10/23/24 16:25 10/25/24 14:15
Fentanyl (50 Mcg/Ml) 100 Mcg/2 Ml Ampul IV 11/06/24 16:24 50 mcg
[id number] PRN Administration
see protocol
Protocol
Furosemide 40 mg 10/25/24 10:00 10/25/24 09:57
Furosemide 40 Mg (10 Mg/Ml) 4 Ml Vial IV 11/22/24 09:59 40 mg
DAILY MELANY Administration
Sodium Chloride 500 mls @ 30 mls/hr 10/23/24 16:00 10/25/24 05:02
Nss OSWALDO SHEATH 500 mls
[id number] MELANY Administration
Vecuronium [place] 60 mg/ 250 mls @ 0 mls/hr 10/23/24 17:00
Sodium Chloride IV
PER PROTOCOL MELANY
Protocol
Per Protocol
Heparin Sodium 25,000 units in 250 mls @ 0 mls/hr 10/23/24 16:45 10/25/24 09:13
Heparin 14625 Units/250 Ml IV 250 mls
PER PROTOCOL MELANY Administration
Protocol
Per Protocol
Vancomycin HCl 1 each/ Device 0 mls @ 0 mls/hr 10/23/24 16:40
IV
PER PROTOCOL MELANY
Protocol
As Directed
Piperacillin Sod/Tazobactam Sod 3.375 gram in 50 mls @ 100 mls/hr 10/23/24 18:00 10/25/24 12:21
Zosyn IV 50 mls
Q6H MELANY Administration
Fentanyl Citrate 1,000 mcg in 100 mls @ 0 mls/hr 10/23/24 18:00 10/25/24 07:14
Sublimaze IV 100 mls
PER PROTOCOL MELANY Administration
Protocol
Per Protocol
Propofol 1,000,000 mcg in 100 mls @ 0 mls/hr 10/23/24 18:30 10/25/24 09:12
Diprivan IV 100 mls
PER PROTOCOL MELANY Administration
Protocol
Per Protocol
Vasopressin 20 units in 100 mls @ 0 mls/hr 10/23/24 22:30 10/24/24 13:41
Pitressin IV 100 mls
PER PROTOCOL MELANY Administration
Protocol
Per Protocol
Norepinephrine Bitartrate 4 mg in 250 mls @ 0 mls/hr 10/24/24 01:30 10/25/24 03:03
Levophed IV 250 mls
PER PROTOCOL MELANY Administration
Protocol
Per Protocol
Insulin Human Regular 100 units in 100 mls @ 0 mls/hr 10/24/24 12:00 10/25/24 07:15
Novolin R Insulin Infusion IV 100 mls
PER PROTOCOL MELANY Administration
Protocol
Per Protocol
Lidocaine HCl/Dextrose 2,000 mg in 500 mls @ 15 mls/hr 10/24/24 18:45 10/24/24 18:41
Xylocaine 2 Gram IV 500 mls
ORDERED RATE MELANY Administration
1 MG/MIN
Potassium Chloride 40 meq in 100 mls @ 50 mls/hr 10/25/24 09:56
Kcl IV 11/22/24 09:55
PRN PRN
Hypokalemia
Dexmedetomidine HCl 400 mcg in 100 mls @ 0 mls/hr 10/25/24 10:45 10/25/24 11:12
Precedex IV 100 mls
PER PROTOCOL MELANY Administration
Protocol
Per Protocol
Insulin Aspart 0 units 10/24/24 16:30 10/25/24 09:57
Insulin Aspart (Novolog) 100 Units/Ml 3 Ml Flexpen SC 11/21/24 16:29 Not Given
AC MELANY
Protocol
Pantoprazole Sodium 40 mg 10/23/24 17:00 10/25/24 08:53
Pantoprazole Sodium 40 Mg/10 Ml Vial IV 11/20/24 16:59 40 mg
DAILY MELANY Administration
Rosuvastatin Calcium 40 mg 10/24/24 08:00 10/25/24 08:53
Rosuvastatin (Crestor) 40 Mg Tablet TUBE 11/21/24 07:59 40 mg
DAILY MELANY Administration
Sodium Chloride 0 flush 10/23/24 16:00
Sodium Chloride 0.9% (Flush) Syringe IV 11/20/24 15:59
PER PROTOCOL MELANY
Sodium Chloride 10 ml 10/23/24 17:00 10/25/24 08:53
Sodium Chloride 0.9% (Preservative Free) 10 Ml Vial IV 11/20/24 16:59 10 ml
DAILY MELANY Administration
Vecuronium [place] 10 mg 10/23/24 16:25
Vecuronium [place] (1 Mg/Ml) 10 Mg/10 Ml IV 10/26/24 16:27
Q1HPRN PRN
BSAS >/= 1
Protocol
Home Medications
�Medication �Instructions �Recorded
carvedilol 12.5 mg tablet 12.5 mg PO BID Heart Failure 01/26/11
tadalafil 20 mg tablet (Cialis) 20 mg PO DAILYPRN PRN erectile 12/07/11
dsyfunction
metformin 1,000 mg tablet 1,000 mg PO BID Diabetes 05/18/12
clopidogrel 75 mg tablet 75 mg PO DAILY Blood Clot 05/05/13
Prevention/Tx
rosuvastatin 40 mg tablet (Crestor) 40 mg PO DAILY High Cholesterol 02/02/18
empagliflozin 10 mg tablet 10 mg PO DAILY Heart Failure 10/23/24
(Jardiance)
ramipril 5 mg capsule 10 mg PO DAILY Heart Failure 10/23/24
aspirin 81 mg tablet,delayed 81 mg PO DAILY Blood Clot 10/24/24
release Prevention/Tx
--- NOTE | 2024-10-25 14:50 | W.PN.NEURO.1 ---
Today's Communication / Plan
-
will follow for assessing neuro function
Neuro Assessment/Plan
Assessment
head CT imgs rev'd, normal for age
EEG gen slow
starting to wake up, will need to see how he does over the next 24 hrs
will follow
Subjective/Objective
Subjective Data
Date of Service: October 25, 2024
seen this morning, now rewarmed. propofol 0-20, fentanyl 150-->prn
Objective Data
Vital Signs
Temp Pulse Resp BP Pulse Ox
36.4 C 63 28 139/61 98
10/25/24 14:00 10/25/24 14:00 10/25/24 14:00 10/25/24 14:00 10/25/24 14:00
Lab Results
10/25/24 05:50
PT 15.7 Sec (11.4-14.6) H 10/25/24 12:02
INR 1.23 10/25/24 12:02
APTT 88.5 Sec (23.4-35.0) H 10/25/24 12:02
Sodium 142 mmol/L (135-145) 10/25/24 05:50
Sodium Cancelled 10/25/24 05:50
Potassium 3.8 mmol/L (3.5-5.1) 10/25/24 05:50
Potassium Cancelled 10/25/24 05:50
BUN 27 mg/dl (9-20) H 10/25/24 05:50
BUN Cancelled 10/25/24 05:50
Glucose 143 mg/dl (70-99) H 10/25/24 05:50
Glucose Cancelled 10/25/24 05:50
Calcium 8.5 mg/dl (8.4-10.2) 10/25/24 05:50
Calcium Cancelled 10/25/24 05:50
Phosphorus 3.7 mg/dl (2.5-4.5) 10/25/24 12:02
Bvu-T-Buczikbusgp Pept 861 pg/ml 10/25/24 05:50
Patient Allergies
dog dander Allergy (Verified 10/23/24 22:24)
Sneezing, watery eyes
house dust Allergy (Verified 10/23/24 22:24)
Sneezing, watery eyes
levofloxacin Allergy (Verified 10/23/24 22:24)
Swelling/ankle swelling
mold Allergy (Verified 10/23/24 22:24)
Unknown
Physical Exam
-
intubated on MV
awake eyes open, attends bilaterally, some nonpurposeful movements
does not follow commands
--- NOTE | 2024-10-25 15:06 | PTCARENOTE ---
patient woke spontaneously, was able to squeeze my hands using his bilateral hands. Family at bedside and updated.
[2024-10-25 16:18] LABS: Glucose - Point of Care 135 mg/dl (70-99)
--- NOTE | 2024-10-25 16:37 | PTCARENOTE ---
pt noted to have shivering VS seizure activity. Pt remains arousable to verbal stimuli, no change in pupil assessment. Dr. Euceda from neurology notified and to bedside to assess patient. Per Dr. Euceda this is shivering activity and pt needs to be sedated.
Sedation adjusted. Will monitor.
[2024-10-25 18:19] LABS: Glucose - Point of Care 103 mg/dl (70-99)
[2024-10-25 18:40] LABS: % Basophils 0.2 % (0-2); % Eosinophils 0.1 % (0-6); % Immature Granulocytes 0.9 % (0-0.5); % Lymphocytes 8.7 % (20.5-51.1); % Monocytes 5.9 % (1.7-9.3); % Neutrophils 84.2 % (42.2-75.2); Absolute Immature Granulocytes 0.2 10^3/uL (0-0.05); Absolute Lymphocytes 1.5 10^3/uL (1.2-3.4); Absolute Neutrophils 14.8 10^3/uL (1.4-6.5); Hematocrit 31.1 % (39.0-52.0); Hemoglobin 10.9 g/dL (13.0-18.0); Mean Corpuscular Hgb 29.8 pg (27.0-31.0); Nucleated Red Blood Cells % 0 % (-); Platelet Count 158 10^3/uL (130-400); Red Blood Cell Count 3.66 10^6/uL (4.70-6.10); Red Cell Dist. Width 15.5 % (11.5-14.5); White Blood Cell Count 17.6 10^3/uL (4.8-10.8)
[2024-10-25 18:47] LABS: APTT 82.6 Sec (23.4-35.0)
[2024-10-25 19:00] LABS: Magnesium 2.3 mg/dl (1.6-2.3); Phosphorus 3.2 mg/dl (2.5-4.5); Total CK 140 U/L (55-170)
[2024-10-25 19:22] LABS: CKMB 2.6 ng/ml (0.0-3.4)
--- NOTE | 2024-10-25 20:00 | PTCARENOTE ---
assumed care of patient @ 1900. received pt intubated, sedated. Pupils 2 and reactive, sluggish. GCS 3. occasionally opens eyes however does not follow commands. Sinus alissa on tele with frequent polymorphic PVCs and occasional accelerated
idioventricular rhythm. BP 110s/50s map ~ 80.. CVP ~ 10-12. doppler pulses present. +1 edema to uppers and lowers.. Heart tones distant. IABP present through R groin on 1:1 timing, max augmentation. Balloon working appropriately. 7.5 ET tube present
24 @ lip. 40% , 28, 480, 5 psv 5 peep. Synchronous with ventilator, satting 99 percent. suctioned for thin bloody secretions. NGT present in R nare to low intermittent wall suction with brown/green drainage. temperature sensing indwelling hurt
catheter present draining clear yellow urine. R IJ triple lumen, L radial A line, R femoral venous and arterial sheaths all patent. central lines zeroed and flushed. R arterial sheath apparently clotted, OK to not be transduced per heating unit installer.
Arterial sheath stopcock closed. No bleeding noted from IABP site, dressing clean dry and intact. Artic sun present and intact, controlling patient at 97.4. Artic sun with low work to cool. no shivering noted. pt will continue at this setting untill
10/27 0400. Reieved on Fent, prop, heparin, lido, levo. insulin. see worklist for drips and detailed assessment.
[2024-10-25 20:09] LABS: Glucose - Point of Care 107 mg/dl (70-99)
[2024-10-25 20:38] LABS: Ionized Calcium 1.08 mMOL/L (1.15-1.33)
[2024-10-25 21:26] LABS: Blood Urea Nitrogen 25 mg/dl (9-20); Calcium 8.3 mg/dl (8.4-10.2); Carbon Dioxide 25 mmol/L (22-30); Chloride 109 mmol/L (98-107); Estimated Creatinine Clearance 64 ml/min; Glucose 148 mg/dl (70-99); Magnesium 2.2 mg/dl (1.6-2.3); Potassium 3.3 mmol/L (3.5-5.1); Sodium 141 mmol/L (135-145); eGFR 58.01
[2024-10-25] MEDS: CALCIUM GLUCONATE 290 MG IV (22:04)
--- NOTE | 2024-10-25 22:16 | PTCARENOTE ---
pt with frequent PVCs and 1 run of VT - electrolytes checked, K and Ca repleted
--- NOTE | 2024-10-25 23:24 | PTCARENOTE ---
levo titrated off . no other change in patient assessment
[2024-10-26] VITALS (25 sets, daily range): BP systolic 107–137; BP diastolic 42–80; BMI 31.8
[2024-10-26] MEDS: BUSPAR 30 MG TUBE ×4 (00:56→23:51)
[2024-10-26] MEDS: ZOSYN 50 IV ×5 (00:56→23:51)
[2024-10-26] MEDS: TYLENOL ORAL SOLUTION 650 MG TUBE ×5 (00:56→23:51)
[2024-10-26 01:07] LABS: Glucose - Point of Care 105 mg/dl (70-99)
[2024-10-26 01:07] LABS: Glucose - Point of Care 97 mg/dl (70-99)
[2024-10-26 01:19] LABS: Glucose - Point of Care 85 mg/dl (70-99)
[2024-10-26] MEDS: SUBLIMAZE 50 MCG IV (01:30)
--- NOTE | 2024-10-26 01:49 | PTCARENOTE ---
pt arousing and shivering/biting on tube making sats go to low 90s. fentanyl bolus given and bite block placed by RT.
[2024-10-26] MEDS: DIPRIVAN 100 IV ×5 (02:20→23:45)
[2024-10-26 02:26] LABS: Glucose - Point of Care 87 mg/dl (70-99)
[2024-10-26 02:58] LABS: Glucose - Point of Care 93 mg/dl (70-99)
[2024-10-26] MEDS: XYLOCAINE 2 GRAM 500 IV (03:23)
[2024-10-26 04:11] LABS: Glucose - Point of Care 79 mg/dl (70-99)
--- NOTE | 2024-10-26 04:21 | PTCARENOTE ---
pt still having oxygenation issues , requiring frequent suctioning brining up thick blood tinged secretions and plugs by this RN and CTPA. 02 sats coming up to 100 with suctioning and temporary 100% fi02 however dipping back down to high 80s/low 90s
with good pleth. will do ABG this AM
[2024-10-26 05:08] LABS: Glucose - Point of Care 129 mg/dl (70-99)
[2024-10-26 05:13] LABS: Glucose - Point of Care 90 mg/dl (70-99)
[2024-10-26 05:18] LABS: B.E. 0.2 mmol/L; Ionized Calcium 1.21 mMOL/L (1.15-1.33); O2 Saturation % 98.4 % (94-98); PCO2 46 mmHg (35-48); PO2 88 mmHg (83-108); pH 7.36 (7.35-7.45)
[2024-10-26] MEDS: SUBLIMAZE 100 IV ×3 (05:27→18:37)
[2024-10-26] MEDS: HEPARIN 25000 UNITS/250 ML IV (05:28)
[2024-10-26 05:35] LABS: INR 1.17; PT 15.2 Sec (11.4-14.6)
[2024-10-26 05:37] LABS: APTT 64.9 Sec (23.4-35.0)
[2024-10-26 05:52] LABS: NT-proBNP 751 pg/ml
[2024-10-26 05:57] LABS: Prealbumin (Transthyretin) 18.7 mg/dl (17.6-36.0)
[2024-10-26 06:06] LABS: ALT (SGPT) 46 U/L (0-50); AST (SGOT) 35 U/L (17-59); Albumin 3.2 g/dl (3.5-5.0); Alkaline Phosphatase 57 U/L (38-126); Blood Urea Nitrogen 26 mg/dl (9-20); Calcium 8.7 mg/dl (8.4-10.2); Carbon Dioxide 22 mmol/L (22-30); Chloride 112 mmol/L (98-107); Estimated Creatinine Clearance 69 ml/min; Glucose 127 mg/dl (70-99); Potassium 3.8 mmol/L (3.5-5.1); Sodium 143 mmol/L (135-145); Total Bilirubin 0.9 mg/dl (0.2-1.3); Total Protein 5.7 g/dl (6.3-8.2); eGFR > 60.00
[2024-10-26] MEDS: KCL 100 IV ×2 (06:20→14:36)
[2024-10-26 07:12] LABS: Glucose - Point of Care 100 mg/dl (70-99)
--- NOTE | 2024-10-26 07:18 | PTCARENOTE ---
assumed care of pt from previous shift RN, pt sedated w fentanyl and propofol, Pupils +2 equally reactive to light, + cough +gag, CPOT 0, RASS-3, Sinus rhythm on tele w HR 70's, + peripheral pulses, +1 edema to bilateral upper and lower extremities.
Left radial blanca leveled and zeroed, Bp 120-130/ 50-60, CVP 14-18, Right femoral IABP maintained 1:1. #7.5 ETT/24cm at left lip, VENT SETTINGS: AC 40%/28/480/+5 PEEP, pox 100%. Right subclavian CVC flushing easily w slight ooze at site, PIVs flush
easily. Singh catheter draining yellow. TTM maintained in rewarm phase. Care provided and pt repositioned.
DRIPS:
Fentanyl 150 mcg
Heparin 1300 unit
Levophed 2mcg
Insulin off per glycemic protocol
Propofol 30mcg
Lidocaine 1 mg
[2024-10-26] MEDS: LOW STRENGTH ASPIRIN 81 MG TUBE (08:08)
[2024-10-26] MEDS: CRESTOR 40 MG TUBE (08:08)
[2024-10-26] MEDS: NSS (PRESERVATIVE FREE) 10 ML IV (08:08)
[2024-10-26] MEDS: REFRESH CELLUVISC GEL 1 DROPS BOTH EYES ×2 (08:08→19:34)
[2024-10-26] MEDS: PROTONIX IV 40 MG IV (08:09)
[2024-10-26] MEDS: LASIX 40 MG IV (08:09)
[2024-10-26 09:15] LABS: Glucose - Point of Care 94 mg/dl (70-99)
--- NOTE | 2024-10-26 09:42 | W.PN.CARDCBS ---
Today's Communication / Plan
-
Continue to wean Levophed. His pressor requirement has decreased significantly.
Continue intra-aortic balloon pump at one-to-one. Continue IV heparin. Hopefully DC balloon pump in a.m.
Continue IV Lasix. He is diuresing well. Creatinine stable at 1.2.
If blood pressure stable would try to add low-dose carvedilol 3.125 q12 via tube tonight.
Continue aspirin
Appreciate neurology's continued evaluation. It remains unclear whether he will wake up from this event or will have significant anoxic encephalopathy.
K>4
Impression / Plan
-
Primary Measurement Advisor: Dr. Lui
Assessment:
Presentation with VF arrest s/p shock x1 with ROSC
Intubated in field
Chest tightness/SOB
CAD s/p LAD PCI x2 2011, circ PCI 2013
ICM, EF 35-40%
HTN
HLD
DM2
Obesity
ELVIRA on CPAP
ECHO 10/05/21: TDS, EF 35 to 40%, basal to mid inferior, inferolateral and basal septal akinesis, left atrial enlargement, mild MR
Limited bedside echocardiogram along the heart catheterization lab on 2024: Very limited views but RV function appears to be preserved. LV systolic function appears close to baseline with EF of about 35%, no pericardial effusion
Echo October 24, 2024, EF 30 to 35%, moderate global hypokinesis, technically difficult study but no clear significant valve disease.
Cath 10/23/2024: Plain old balloon angioplasty of 3 serial up to 90% stenoses in the proximal, mid and distal RCA which was heavily calcified. Successful placement of 50 cc intra-aortic balloon pump and [place]-Danial catheter via right common femoral
artery and vein, respectively. 1 shock for monomorphic VT during heart catheterization
Recommendations:
- Patient presented with cardiac arrest, reported VF requiring shock x 1 as well as epi x 2 and 100 mg lidocaine with subsequent ROSC. Unclear downtime, possibly 10 to 15 minutes per EMS. 1 shock for monomorphic VT during heart catheterization
- Status post plain old balloon angioplasty of 3 serial up to 90% heavily calcified stenoses in the proximal, mid and distal RCA with KEYONA-3 flow restored into the distal vessel aborting the inferior ST elevation ND. Concomitant significant left
main stenosis and mid left circumflex stenosis noted.
- He has finished the cooling protocol and is now warmed. He had bleeding from his right femoral groin yesterday and [place]-Danial catheter had to be removed. His bleeding has stopped.
- This is under one-to-one IABP support. Would likely remove balloon pump on Sunday. He is back on IV heparin.
- Blood pressure is overall stable. Now almost completely off Levophed.
- Still having some occasional nonsustained VT and AIVR. Continue IV lidocaine for another 24 hours then start decreasing dose. He had less rhythm issues on lidocaine then amiodarone.
- Creatinine overall stable at 1.2. We will continue diuresis. He continues to make excellent urine
- Continue daily aspirin via NG tube. IV heparin drip. He completed 12 hours of Integrilin drip.
- Main Future decisions hinge on meaningful neurologic recovery once he is rewarmed to assess if we could get him to possible coronary artery bypass grafting. CT surgery is involved. Neurology is following.
-LVEF by echo remains approximately 30%. No clear valve disease. Eventually start guideline directed medical therapy once off pressors.
- Plan will be to try to remove intrauterine balloon pump on Sunday.
CC time 33 min
Progress Note - Measurement Advisor
Subjective
Date of Service: October 26, 2024
Remains intubated and sedated. He is now warmed. Still having some AIVR and brief nonsustained VT on telemetry
Objective
Labs:
10/25/24 18:13
10/26/24 05:07
Labs
Hgb 10.9 g/dL (13.0-18.0) L 10/25/24 18:13
Hct 31.1 % (39.0-52.0) L 10/25/24 18:13
Plt Count 158 10^3/uL (130-400) 10/25/24 18:13
PT 15.2 Sec (11.4-14.6) H 10/26/24 05:07
INR 1.17 10/26/24 05:07
APTT 64.9 Sec (23.4-35.0) H 10/26/24 05:07
Sodium 143 mmol/L (135-145) 10/26/24 05:07
Potassium 3.8 mmol/L (3.5-5.1) 10/26/24 05:07
BUN 26 mg/dl (9-20) H 10/26/24 05:07
Creatinine 1.2 mg/dL (0.7-1.3) 10/26/24 05:07
Glucose 127 mg/dl (70-99) H 10/26/24 05:07
Troponins
10/23/24 10/23/24 10/23/24
10:53 14:15 16:35
Troponin I 0.061 H* 1.060 H* D 3.210 H* D
10/24/24 10/24/24 10/24/24
02:53 05:44 11:55
Troponin I 5.020 H* 5.010 H* 4.060 H*
10/24/24 10/25/24 10/25/24
18:04 00:13 05:50
Troponin I 3.360 H* 2.680 H* 2.070 H*
10/25/24 10/25/24
12:02 18:13
Troponin I 2.240 H* 1.860 H*
Vital Signs and I&O:
Vital Signs
Temp Pulse Resp BP Pulse Ox
98.1 F 74 18 119/47 98
10/26/24 09:00 10/26/24 09:00 10/26/24 09:00 10/26/24 09:00 10/26/24 09:00
Vital Signs
Temp Pulse Resp BP Pulse Ox
98.1 F 74 18 119/47 98
10/26/24 09:00 10/26/24 09:00 10/26/24 09:00 10/26/24 09:00 10/26/24 09:00
Intake & Output
10/24/24 10/25/24 10/26/24 10/27/24
06:59 06:59 06:59 06:59
Intake Total 1535.9 / 1653.1 4041.7 / 4142.8 2854.8 / 2965.0 328.6 / 328.6
Output Total 2840 / 2925 3155 / 3230 2670 / 2770 475 / 475
Balance -1304.1 / -1271.9 886.7 / 912.8 184.8 / 195.0 -146.4 / -146.4
Physical Exam
Physical Exam
GEN: No distress, intubated/sedated
HEENT: supple, anicteric, mmm
LUNGS: scatt rhonchi
CV: Reg, S1/S2, 1/6 syst LSB, S3+
ABD: soft, BS+, NT/ND
EXT: No edema
NEURO: sedated
SKIN: No rash
--- NOTE | 2024-10-26 10:00 | PTCARENOTE ---
pt's family updated via telephone. Emotional support provided.
--- NOTE | 2024-10-26 10:11 | W.PN.INTV ---
Today's Communication / Plan
Recommendations
- Start Precedex after completing TTM on 10/27
- SAT/SBT on 10/27
- If cultures stay negative, plan to discontinue antibiotics on 10/27
Assessment
-
Patient currently intubated, mechanically ventilated sedated. Reportedly patient is a 70-year-old gentleman with known history of coronary artery disease with previous PCI in the past, known ischemic cardiomyopathy with baseline EF 35 to 40%,
obstructive sleep apnea on CPAP, who called 911 for having chest pain and shortness of breath. While he was on the phone apparently he stopped talking and had a cardiac arrest. Once EMS arrived, patient was noted to be in ventricular fibrillation
and was shocked x 1, he also received epi and Afrin as well as lidocaine and had return of spontaneous circulation. He was intubated in the field and EKG was concerning for ST elevation in the inferior leads. Cardiology service evaluated the
patient in the emergency room and he was emergently taken to [facility] for further intervention. I initially saw the patient in the [facility] for persistent hypoxia despite being mechanically ventilated and later reevaluated again in CVICU.
10/26 overview. Patient currently on mechanical ventilation, 480/28/40%/8, ABG 7.36, 46, 88.
Currently MAP of 67, off all pressors
Currently on lidocaine infusion and heparin drip. Insulin infusion on hold
IABP on 1 is to 1
Fentanyl and propofol infusing at 150 and 30 respectively
Patient in the warming phase of TTM, good urine output 2.6 L over last 24 hours
#1. STEMI complicated by out of hospital Cardiac Arrest, initial rhythm V. Fib (10/23)
- S/p defibrillation x 1, ROSC achieved in the field. Estimated downtime reportedly around 15 minutes
- Patient emergently taken to [facility], balloon angioplasty performed, IABP placed. CT surgery consulted for possible CABG
- Known history of coronary artery disease, s/p PCI more than 10 years ago
- On ASA, heparin infusion and Statins
- CT head unremarkable, chest x-ray suggestive of pulmonary edema
- Completed TTM, currently rewarmed
- Monitor renal and hepatic function
#2. Acute hypoxic respiratory failure
- Do to pulmonary edema due to cardiogenic shock
- 10/23, Patient emergently evaluated in [facility] for hypoxia, PEEP was increased up to 14, tidal volume 480 mL, patient breathing above the vent at around 30/min, peripheral saturation improved to 99%
- Responded well to diuretics, follow-up chest x-ray improving
- Currently on volume assist mechanical ventilation, FiO2 40% pO2 88, PF ratio more than 200, pulmonary mechanics significantly improved
- PE felt to be less likely with normal-appearing RV on echocardiogram. Patient anticoagulated with heparin
- Once TTM finishes on 10/27, will start Precedex infusion and perform SAT SBT
#3. Acute on chronic HFrEF with Cardiogenic Shock
- IABP on 1:1
- Off vasopressin, Levophed weaned off
- Good urine output,
- Serial lactate improved
- Intermittent IV Lasix
- Off stress dose steroids
- Broad-spectrum antibiotics were started empirically, if no growth on cultures by 608 will favor discontinuing antibiotics
#4. Acute encephalopathy
- CT head negative. Patient waking up.
- Completing TTM
- Neurology consult
- Plan for SAT SBT on 10/27
#5. CKD.
- Good urine output, stable creatinine
#6. Fever, 10/24
- X-ray is more suggestive of pulmonary edema rather than pneumonia
- Fever could be related to cardiac arrest, CPR and acute myocardial infarction
- Continue empiric antibiotics for now and follow-up on cultures, if negative consider discontinuing antibiotic 10/27
- TTM completing
Other medical diagnoses:
- h/o ELVIRA, on CPAP at home. Will resume CPAP once extubated
- HTN. Currently in shock so antihypertensives on hold
- HLD. On statins
- DM, type II. Insulin infusion
- Obesity
Critical Care time 42 mins -- The patient is admitted for acute critical illness for the treatment of vital organ failure and/or prevention of further life-threatening conditions. Total care includes time spent in review of history, physical exam,
medications, hemodynamic/ventilator parameters, laboratory data, imaging and discussion with house staff, pharmacy, respiratory therapy, lead tinner, and nursing.
Data:
CT Head 10/2024: Unremarkable
CXR. 10/2024: Suggestive of Pulmonary edema
ECHO 09/2021: Top normal left ventricular chamber size. Moderately reduced left ventricular
systolic function. Left ventricular ejection fraction is 35-40% by visual
assessment with basal - mid inferior, inferolateral and basal septal akinesis.
Top normal left ventricular wall thickness.
Left atrial enlargement.
Mild mitral regurgitation.
Compared to previous echo from September 2017, there is no significant change
Technically difficult study, consider Definity for better evaluation.
[facility] 04/2013: 1: 2 vessel coronary artery disease as described, patent RCA and LAD stents, new severe midcircumflex lesion.
2: Moderate to severe left ventricular dysfunction, EF 30%
3: Successful complex 3.0/12 mm Xience V drug eluting stent to the mid circumflex.
Subjective Dataa
Subjective Data
Date of Service:
Date of Service: October 26, 2024
Subjective:
Patient currently mechanically ventilated, intubated and sedated, in the rewarming phase of TTM
Review of Systems
General: Unobtainable - Sedation
Objective Data
Data Reviewed
Vital Signs / I&O / Oxygen:
Vital Signs
Temp Pulse Resp BP Pulse Ox
98.1 F 74 18 119/47 98
10/26/24 09:00 10/26/24 09:00 10/26/24 09:00 10/26/24 09:00 10/26/24 09:00
Intake and Output
10/25/24 10/26/24 10/27/24
06:59 06:59 06:59
Intake Total 4041.7 / 4142.8 2854.8 / 2965.0 328.6 / 328.6
Output Total 3155 / 3230 2670 / 2770 475 / 475
Balance 886.7 / 912.8 184.8 / 195.0 -146.4 / -146.4
SaO2 [A/C] 98
SaO2 98
Physical Exam
General: Comfortable
HEENT: Normocephalic
Cardiovascular: S1-S2
Respiratory: Clear
GI: Soft and Distended
Neurology: Other (Sedated)
Skin: Warm
Labs/Micro/Reports
Lab Data
10/25/24 18:13
10/26/24 05:07
Laboratory Results
10/25/24 10/25/24 10/25/24
06:00 12:02 18:13
PT Cancelled 15.7 H
INR Cancelled 1.23
APTT Cancelled 88.5 H 82.6 H
pH
pCO2
pO2
HCO3
O2 Delivery Level
10/26/24
05:07
PT 15.2 H
INR 1.17
APTT 64.9 H
pH 7.36
pCO2 46
pO2 88
HCO3 26.0
O2 Delivery Level
Microbiology
10/23/24 17:24 Blood/Venous Blood Culture - Preliminary
No Growth in 48 hours- Final report to follow
10/23/24 17:19 Blood/Venous Blood Culture - Preliminary
No Growth in 48 hours- Final report to follow
10/23/24 15:44 Urine Urine Culture - Final
NO GROWTH
--- NOTE | 2024-10-26 11:00 | SUR.PHASEI ---
ETT repostioned w RT, Bedside rounds completed with Dr. Bright, plan of care discussed.
--- NOTE | 2024-10-26 11:00 | PHA.VAN.FU ---
Vancomycin Assessment / Plan
- Assessment
Renal Function: Stable
WBC's are: Stable
Concomitant Antimicrobials: piperacillin/tazobactam
- Dosing Plan
Dosing by Level: Re-dose today (Vanc 1000mg)
- Monitoring Plan
Random Level: 10/27 599
- Follow Up
Pharmacy will continue to follow.
Vancomycin Follow UP
- -
Patient Age: 73
Patient Sex: Male
Vancomycin Day #: 4
Indication: Bacteremia
Requesting Provider: Dr. Pearce
Pertinent Antimicrobial Allergies:
levofloxacin - ankle swelling
Height / Weight:
Height 6 ft
Actual Weight 106.3 kg
Pertinent Past Medical History: BMI ~32
- Vital Signs / Lab Results
Temp Pulse Resp BP Pulse Ox
97.7 F 69 28 117/52 97
10/26/24 10:00 10/26/24 10:00 10/26/24 10:00 10/26/24 10:00 10/26/24 10:00
Lab Results - Hematology
10/23/24 10/23/24 10/24/24
10:54 16:31 02:53
WBC 15.2 H 16.8 H 22.1 H
Band Neutrophils
10/24/24 10/24/24 10/25/24
11:55 18:04 00:13
WBC 21.0 H 20.8 H 19.3 H
Band Neutrophils 18 H 25 H D
10/25/24 10/25/24 10/25/24
05:50 12:02 18:13
WBC 18.7 H 17.5 H 17.6 H
Band Neutrophils
Lab Results - Chemistry
10/23/24 10/23/24 10/23/24
10:53 14:15 16:30
BUN 18 24 H 27 H
Creatinine 1.2 1.1 1.3
Estimated Creat Clear
Albumin 4.5 4.5 4.2
10/23/24 10/24/24 10/24/24
19:24 00:22 02:53
BUN 26 H 28 H 28 H
Creatinine 1.2 1.3 1.3
Estimated Creat Clear
Albumin 4.0 3.5 3.6
10/24/24 10/24/24 10/24/24
05:44 11:55 18:04
BUN 30 H 30 H 29 H
Creatinine 1.4 H 1.4 H 1.3
Estimated Creat Clear 59 63
Albumin 3.8 3.5 3.3 L
10/25/24 10/25/24 10/25/24
00:13 05:50 05:50
BUN 29 H Cancelled 27 H
Creatinine 1.3 Cancelled
Estimated Creat Clear 63
Albumin 3.5
10/25/24 10/25/24 10/25/24
05:50 05:50 05:50
BUN
Creatinine 1.3
Estimated Creat Clear Cancelled 64
Albumin Cancelled 3.2 L
10/25/24 10/26/24
20:29 05:07
BUN 25 H 26 H
Creatinine 1.3 1.2
Estimated Creat Clear 64 69
Albumin 3.2 L
10/23/24 10/23/24 10/23/24
10:54 12:31 14:15
Lactic Acid 8.6 H* 4.0 H* 2.9 H
10/23/24 10/23/24 10/24/24
16:34 19:24 00:22
Lactic Acid 1.8 2.1 H 2.4 H
10/24/24 10/24/24 10/24/24
05:44 11:55 18:04
Lactic Acid 2.6 H 2.5 H 2.1 H
10/25/24
12:06
Lactic Acid 1.6
Microbiology Results
10/25/24 18:13 Nasal Screen MRSA (PCR) - Final
Nose MRSA not detected - performed by PCR methodology.
10/23/24 17:24 Blood Culture - Preliminary
Blood/Venous No Growth in 48 hours- Final report to follow
10/23/24 17:19 Blood Culture - Preliminary
Blood/Venous No Growth in 48 hours- Final report to follow
10/23/24 15:44 Urine Culture - Final
Urine NO GROWTH
Therapeutic Drug Monitoring
Random Vancomycin 11.8 ug/ml 10/25/24 05:50
[2024-10-26 11:08] LABS: Glucose - Point of Care 93 mg/dl (70-99)
[2024-10-26] MEDS: VANCOCIN 200 IV (11:14)
[2024-10-26] MEDS: NSS 500 VEN SHEATH (12:13)
--- NOTE | 2024-10-26 12:14 | W.PN.HOSP.TC ---
Today's Communication/Plan
-
Monitor vitals
See plan
Continues to be intubated and sedated
IV Lasix
Antibiotics for now
Monitor renal function
Assessment / Plan
Assessment / Plan
General: Intubated
HEENT: Anicteric,PEERL
Respiratory: Rales
GI: Soft, Non Tender and Non Distended
:hurt
Neuro: Sedated
STEMI [id number] cardiac arrest
Initial rhythm V-fib status post shock
Emergent cardiac catheterization, appears multivessel disease. Status post PCI in the past. Previous documentation had stenting to the LAD. Has refused AICD in the past
CT surgery consulted. Cardiology following. Status post IABP
On aspirin, statin, heparin
Initial chest x-ray with pulmonary edema, repeat chest x-ray noted
TTM protocol
Trend lactate; improving
Wean off sedation as tolerated after TTM protocol
Vent management per inspector eyeglass
Unclear if developed anoxic brain injury, consulted neurology. EEG per neurology benign; wean sedation as tolerated.
initial CT unremarkable
Continue to trend troponin
Shock suspect cardiogenic
CT surgery involved; will initiate workup for CABG if patient achieves neurorecovery.
per cardiology; Status post plain old balloon angioplasty of 3 serial up to 90% heavily calcified stenoses in the proximal, mid and distal RCA with KEYONA-3 flow restored into the distal vessel aborting the inferior ST elevation SD. Concomitant
significant left main stenosis and mid left circumflex stenosis noted.
cw IABP per cardiology
diuresis as needed
Sepsis (fever,leukocytosis)
Could be secondary to postarrest, infarction
However cannot rule out aspiration pneumonitis, cw broad-spectrum empiric antibiotics for now. Agree with inspector eyeglass, if continues to be afebrile tomorrow and culture stays negative then can discontinue antibiotics and observe
Check blood culture NGTD
UA not suggestive of UTI
Follow fever curve
currently on levophed; wean as tolerated
Acute hypoxic respiratory failure secondary to pulmonary edema with cardiogenic shock
Wean sedation as tolerated
Management per cardiology;
started pressors; wean as tolerated
also on lidocaine
IV lasix
Elevated LFTs 2/2 cardiogenic shock and post code
Monitor
Renal insufficiency
Continue to monitor
Maintain Hurt, monitor urine output
History of ELVIRA on CPAP
History of hypertension
Hyperlipidemia
Diabetes mellitus
ISS,accuchecks
insulin gtt for now
A1c 6.7
morbid Obesity
DVTppx
heparin
Full code
I spent a total of 53 minutes with the patient or on the floor. More than 50% of this time involved counseling and coordination of care.
Anticipated Discharge: > 48 hours
Subjective/Interval History
-
Date of Service: October 26, 2024
Continues to be intubated
Objective Data
-
Labs:
Laboratory Results
10/26/24 10/26/24
05:07 12:00
PT 15.2 H
INR 1.17
APTT 64.9 H Pending
HCO3 26.0
Sodium 143
Potassium 3.8
Chloride 112 H
Carbon Dioxide 22
BUN 26 H
Creatinine 1.2
Glucose 127 H
Calcium 8.7
Total Bilirubin 0.9
AST 35
ALT 46
Alkaline Phosphatase 57
Vital Signs:
Vital Signs
Temp Pulse Resp BP Pulse Ox
97.1 F 78 19 125/48 98
10/26/24 12:00 10/26/24 12:00 10/26/24 12:00 10/26/24 12:00 10/26/24 12:00
I&O
10/25/24 10/26/24 10/27/24
06:59 06:59 06:59
Intake Total 4041.7 / 4142.8 2854.8 / 2957.5 861.2 / 861.2
Output Total 3155 / 3230 2670 / 2770 1225 / 1225
Balance 886.7 / 912.8 184.8 / 187.5 -363.8 / -363.8
[2024-10-26 13:15] LABS: Glucose - Point of Care 106 mg/dl (70-99)
--- NOTE | 2024-10-26 13:28 | PTCARENOTE ---
F/U labs drawn and sent.
[2024-10-26 13:42] LABS: APTT 87.8 Sec (23.4-35.0)
[2024-10-26 13:58] LABS: Blood Urea Nitrogen 25 mg/dl (9-20); Carbon Dioxide 23 mmol/L (22-30); Chloride 110 mmol/L (98-107); Estimated Creatinine Clearance 64 ml/min; Glucose 158 mg/dl (70-99); Sodium 142 mmol/L (135-145); eGFR 58.01
[2024-10-26 14:06] LABS: Potassium 3.8 mmol/L (3.5-5.1)
[2024-10-26 15:08] LABS: % Basophils 0.4 % (0-2); % Eosinophils 0.9 % (0-6); % Immature Granulocytes 0.7 % (0-0.5); % Lymphocytes 16.2 % (20.5-51.1); % Monocytes 6.4 % (1.7-9.3); % Neutrophils 75.4 % (42.2-75.2); Absolute Eosinophils 0.1 10^3/uL (0-0.7); Absolute Immature Granulocytes 0.1 10^3/uL (0-0.05); Absolute Lymphocytes 1.7 10^3/uL (1.2-3.4); Absolute Monocytes 0.7 10^3/uL (0.1-0.6); Absolute Neutrophils 8.1 10^3/uL (1.4-6.5); Hematocrit 30.3 % (39.0-52.0); Hemoglobin 10.3 g/dL (13.0-18.0); Mean Corpuscular Hgb 29.5 pg (27.0-31.0); Mean Corpuscular Volume 86.8 fL (80.0-94.0); Nucleated Red Blood Cells % 0 % (-); Platelet Count 141 10^3/uL (130-400); Red Blood Cell Count 3.49 10^6/uL (4.70-6.10); Red Cell Dist. Width 15.6 % (11.5-14.5); White Blood Cell Count 10.7 10^3/uL (4.8-10.8)
[2024-10-26 19:50] LABS: APTT 79.3 Sec (23.4-35.0)
--- NOTE | 2024-10-26 20:00 | PTCARENOTE ---
Assumed care of patient at 1900. Patient found resting in bed at time of assessment. Patient is sedated and intubated arouses to verbal stimulus withdraws from painful tactile stimulus. Lung sounds are diminished throughout with rhonci present in
the bases. Deep suctioning provided large thick neal sputum. There is a 7.5 ETT sitting 24 cm at the lip with volume ac settings see worklist item for details. Heart sounds are audible, patient has IABP in placed provided 1:1 max augmentation.
Patient is SR with frequent pvcs on the monitor. Patient has normal palpable pulses and +1 edema present in BLE and bilateral hands. Patient has TTM post rewarming with goal temperature of 97.4 machine to be discontinued at 0400. Patient has
hypoactive BS throughout, there is an NGT sitting 66cm at the nares set to low intermittent suction with brown drainage. Patient has hurt catheter draining clear yellow urine. Patient has a sterile dressing over R groin site where IABP and venous
sheath are present that is CDI. Patient has bruise on the R forehead that purple/black ecchymotic, swollen and DOLORES. There is some ecchymosis around R eye as well. Patient has fiber filled boots and sacral foam for preventive measures. Patient has R
IJ triple lumen, R FA blanca, R FV venous sheath, L radial blanca, R hand 18G, R AC 20G and L arm 18G for lines. Patient receiving the following gtts: R IJ KVO, Venous sheath KVO, Fentanyl@150, Heparin@1300, Propofol@30, Lidocaine@1, Levo@4. Vital
signs as follows: P-70, CVP-14, BP-133/61, RR-28, saO2-98%, T-97.6 etCO2-36.
[2024-10-27] VITALS (26 sets, daily range): BP systolic 101–150; BP diastolic 42–125; BMI 32.0
[2024-10-27 00:14] LABS: Glucose - Point of Care 92 mg/dl (70-99)
--- NOTE | 2024-10-27 01:09 | PTCARENOTE ---
Patient reassessed. Remains SR with PVCs on the monitor. Levo tapered to off BP stable MAP>65.
[2024-10-27] MEDS: HEPARIN 25000 UNITS/250 ML IV (01:15)
[2024-10-27] MEDS: SUBLIMAZE 100 IV ×2 (02:14→18:30)
[2024-10-27 03:29] LABS: B.E. 0.7 mmol/L; HCO3 25.4 mmol/L (21-28); Ionized Calcium 1.15 mMOL/L (1.15-1.33); PCO2 40 mmHg (35-48); PO2 112 mmHg (83-108); pH 7.41 (7.35-7.45)
[2024-10-27 03:55] LABS: APTT 88.5 Sec (23.4-35.0)
[2024-10-27 04:20] LABS: % Basophils 0.5 % (0-2); % Eosinophils 1.7 % (0-6); % Immature Granulocytes 0.8 % (0-0.5); % Lymphocytes 16.8 % (20.5-51.1); % Monocytes 9.2 % (1.7-9.3); Absolute Eosinophils 0.1 10^3/uL (0-0.7); Absolute Immature Granulocytes 0.1 10^3/uL (0-0.05); Absolute Lymphocytes 1.4 10^3/uL (1.2-3.4); Absolute Monocytes 0.8 10^3/uL (0.1-0.6); Hematocrit 29.4 % (39.0-52.0); Hemoglobin 9.9 g/dL (13.0-18.0); Mean Corp Hgb Conc. 33.7 g/dL (33.0-37.0); Mean Corpuscular Hgb 29.4 pg (27.0-31.0); Mean Corpuscular Volume 87.2 fL (80.0-94.0); Mean Platelet Volume 11.5 fL (7.4-10.4); Nucleated Red Blood Cells % 0 % (-); Platelet Count 127 10^3/uL (130-400); Red Blood Cell Count 3.37 10^6/uL (4.70-6.10); Red Cell Dist. Width 15.2 % (11.5-14.5); White Blood Cell Count 8.4 10^3/uL (4.8-10.8)
[2024-10-27 04:24] LABS: ALT (SGPT) 38 U/L (0-50); AST (SGOT) 33 U/L (17-59); Alkaline Phosphatase 55 U/L (38-126); Blood Urea Nitrogen 24 mg/dl (9-20); Calcium 8.1 mg/dl (8.4-10.2); Carbon Dioxide 22 mmol/L (22-30); Chloride 111 mmol/L (98-107); Estimated Creatinine Clearance 69 ml/min; Glucose 117 mg/dl (70-99); Potassium 3.8 mmol/L (3.5-5.1); Sodium 141 mmol/L (135-145); Total Bilirubin 1.1 mg/dl (0.2-1.3); Total Protein 5.6 g/dl (6.3-8.2); eGFR > 60.00
[2024-10-27] MEDS: NSS VEN SHEATH ×2 (05:04→19:38)
[2024-10-27] MEDS: KCL 100 IV (05:16)
[2024-10-27] MEDS: ZOSYN 50 IV ×2 (05:16→12:11)
[2024-10-27] MEDS: TYLENOL ORAL SOLUTION 650 MG TUBE ×3 (05:16→18:31)
--- NOTE | 2024-10-27 05:26 | PTCARENOTE ---
Addendum entered by Raman Fragoso RN 10/27/24 05:28:
K to be repleted
Original Note:
Patient reassessed. Remains in SR with PVCs on the monitor. AM labs obtained. AM hygiene care provided. TTM discontinued at 0400 per protocol patient's temperature currently 97.9.
[2024-10-27 05:35] LABS: Glucose - Point of Care 90 mg/dl (70-99)
[2024-10-27 07:39] LABS: Vancomycin Random 10.1 ug/ml
--- NOTE | 2024-10-27 07:48 | W.PN.HOSP.TC ---
Documented by User: Arlen Jerome MD, Resident 10/27/24 13:20
Today's Communication/Plan
-
;/
Assessment / Plan
Assessment / Plan
#STEMI erh-pz-rduccmma cardiac arrest
-Initial rhythm V-fib status post shock
-Emergent cardiac catheterization, appears multivessel disease. Status post PCI in the past. Previous documentation had stenting to the LAD. Has refused AICD in the past
-CT surgery consulted. Cardiology following. Status post IABP
-On aspirin, statin, heparin
-Initial chest x-ray with pulmonary edema, repeat chest x-ray today
-Completed TTM, currently rewarmed
-Trend lactate; improving
-Wean off sedation as tolerated
-Vent management per talent consultant
-Unclear if developed anoxic brain injury, consulted neurology. EEG per neurology benign; wean sedation as tolerated.
-initial CT unremarkable
-CT surgery involved; will initiate workup for CABG if patient achieves neurorecovery.
-per cardiology; Status post plain old balloon angioplasty of 3 serial up to 90% heavily calcified stenoses in the proximal, mid and distal RCA with KEYONA-3 flow restored into the distal vessel aborting the inferior ST elevation NC. Concomitant
significant left main stenosis and mid left circumflex stenosis noted.
-cw IABP per cardiology
-diuresis as needed
- SBT trial
#Sepsis (fever on 10/23, leukocytosis)
-Could be secondary to postarrest, infarction
-Continue with broad-spectrum empiric antibiotics for now. If culture stays negative then can discontinue antibiotics and observe
-Check blood culture NGTD
-UA not suggestive of UTI
-Monitor temperature, follow fever curve
-Weaned off pressors
#Acute hypoxic respiratory failure secondary to pulmonary edema with cardiogenic shock
-Wean sedation as tolerated
-Management per cardiology;
-Weaned off pressors
-IV lasix
#Transaminitis secondary to cardiogenic shock and post code
-Resolved
#Renal insufficiency
-Continue to monitor
-Maintain Singh, monitor urine output
#History of ELVIRA on CPAP
#History of hypertension
#Hyperlipidemia
#Diabetes mellitus
ISS,accuchecks
insulin gtt for now
A1c 6.7
#morbid Obesity
CODE STATUS full code
DVT prophylaxis heparin
Anticipated Discharge: > 48 hours
Subjective/Interval History
-
Date of Service: October 27, 2024
Objective Data
-
Labs:
Laboratory Results
10/26/24 10/27/24
19:28 03:21
WBC 8.4
Hgb 9.9 L
Hct 29.4 L
Plt Count 127 L
APTT 79.3 H 88.5 H
HCO3 25.4
Sodium 141
Potassium 3.8
Chloride 111 H
Carbon Dioxide 22
BUN 24 H
Creatinine 1.2
Glucose 117 H
Calcium 8.1 L
Total Bilirubin 1.1
AST 33
ALT 38
Alkaline Phosphatase 55
Vital Signs:
Vital Signs
Temp Pulse Resp BP Pulse Ox
97.5 F 63 28 128/52 98
10/27/24 07:00 10/27/24 07:30 10/27/24 07:30 10/27/24 07:00 10/27/24 07:30
I&O
10/26/24 10/27/24 10/28/24
06:59 06:59 06:59
Intake Total 2854.8 / 2957.5 2951.9 / 3053.6 101.7 / 101.7
Output Total 2670 / 2770 2445 / 2650 205 / 205
Balance 184.8 / 187.5 506.9 / 403.6 -103.3 / -103.3
Review of Systems
-
Unable to obtain full review of systems at this time due to: Acuity
Physical Exam
-
General: Intubated
Respiratory: Rales
Cardiac: S1/S2
GI: Soft and Nondistended
Genito-urinary: Singh
Skin: Warm
Neuro: Sedated

Documented by User: Tra Khan DO 10/27/24 14:10
Subjective/Interval History
-
Date of Service: October 27, 2024
Seen and examined at the bedside. ROS limited by intubated status
--- NOTE | 2024-10-27 08:00 | PTCARENOTE ---
Resumed care of patient from previous RN. Walking rounds completed. Patient is sedated and intubated. Occasionally opens eyes when moved or touched. moving arms and head. responds to painful tactile stimulus. NSR on monitor with PVCs. HR 60-70s.
IABP remains in place. and set to 1:1 max augmentation. + pulses and +1 edema. hypoactive BS. NGT in R nare set to low intermittent suction with brown drainage. hurt draining clear yellow urine. forehead with purple/black bruise and swollen.
Patient has R IJ triple lumen, R FA blanca, R FV venous sheath, L radial blanca, and PIVx3. Fentanyl@125, Heparin@1300, Propofol@30, Lidocaine@1. VSS on these. Not requiring levo at this time. steve continue to monitor.
--- NOTE | 2024-10-27 08:09 | W.PN.NEURO.1 ---
Today's Communication / Plan
-
Continue supportive care
No indication for antiseizure medication
Neuro Assessment/Plan
Assessment
head CT imgs rev'd, normal for age
EEG gen slow
Anoxic encephalopathy with toxic metabolic encephalopathy
Plan
Continue supportive care
No indication for antiseizure medication
We will follow as needed
Subjective/Objective
Subjective Data
Date of Service: October 27, 2024
Objective Data
Vital Signs
Temp Pulse Resp BP Pulse Ox
36.4 C 63 28 128/52 98
10/27/24 07:00 10/27/24 07:30 10/27/24 07:30 10/27/24 07:00 10/27/24 07:30
Lab Results
10/27/24 03:21
10/27/24 03:21
PT 15.2 Sec (11.4-14.6) H 10/26/24 05:07
INR 1.17 10/26/24 05:07
APTT 88.5 Sec (23.4-35.0) H 10/27/24 03:21
Sodium 141 mmol/L (135-145) 10/27/24 03:21
Potassium 3.8 mmol/L (3.5-5.1) 10/27/24 03:21
BUN 24 mg/dl (9-20) H 10/27/24 03:21
Glucose 117 mg/dl (70-99) H 10/27/24 03:21
Calcium 8.1 mg/dl (8.4-10.2) L 10/27/24 03:21
Phosphorus 3.2 mg/dl (2.5-4.5) 10/25/24 18:13
Mbd-V-Pyzxwsobihg Pept 751 pg/ml 10/26/24 05:07
Patient Allergies
dog dander Allergy (Verified 10/23/24 22:24)
Sneezing, watery eyes
house dust Allergy (Verified 10/23/24 22:24)
Sneezing, watery eyes
levofloxacin Allergy (Verified 10/23/24 22:24)
Swelling/ankle swelling
mold Allergy (Verified 10/23/24 22:24)
Unknown
Data Reviewed
-
CT Head: Report Reviewed
Reviewed with: Physician
Old Records: Summarized
--- NOTE | 2024-10-27 08:17 | W.PN.INTV ---
Today's Communication / Plan
Recommendations
Would start SAT + SBT once IABP has been removed
Defer IABP removal to interventional cardiology
Continue with IV Lasix and maintain net negative fluid balance as tolerated
Strict I/O with daily weight
Narrow antibiotics from Vanco/Zosyn to Unasyn
Continue course sensing temperature probe for at least 48 hours after reaching normothermia to ensure no fevers occur
Once patient can have sedation holiday, monitor for appropriate awakening otherwise will need brain imaging with repeat CT head +/- MRI brain
Defer surgical coronary revascularization to CT surgery
Continue ICU level of care for this critically ill patient
Assessment
-
Patient currently intubated, mechanically ventilated sedated. Reportedly patient is a 70-year-old gentleman with known history of coronary artery disease with previous PCI in the past, known ischemic cardiomyopathy with baseline EF 35 to 40%,
obstructive sleep apnea on CPAP, who called 911 for having chest pain and shortness of breath. While he was on the phone apparently he stopped talking and had a cardiac arrest. Once EMS arrived, patient was noted to be in ventricular fibrillation
and was shocked x 1, he also received epi and Afrin as well as lidocaine and had return of spontaneous circulation. He was intubated in the field and EKG was concerning for ST elevation in the inferior leads. Cardiology service evaluated the
patient in the emergency room and he was emergently taken to [facility] for further intervention. I initially saw the patient in the [facility] for persistent hypoxia despite being mechanically ventilated and later reevaluated again in CVICU.
#1. Inferior wall STEMI complicated by out of hospital Cardiac Arrest, initial rhythm V. Fib (10/23)
- S/p defibrillation x 1, ROSC achieved in the field. Estimated downtime reportedly around 15 minutes
- Patient emergently taken to [facility], s/p POBA x3 in the RCA - -> IABP placed. CT surgery consulted for possible CABG --> following peripherally and will intervene depending on patient's neurological recovery
- Known history of coronary artery disease, s/p PCI more than 10 years ago
- On ASA, heparin infusion and crestor
- Continue lidocaine gtt
- CT head unremarkable, chest x-ray suggestive of pulmonary edema
- Completed TTM, currently rewarmed -maintain course and send temperature probe for at least 48 hours s/p reaching normothermia to ensure no fevers occur
- Monitor renal and hepatic function
#2. Acute hypoxic respiratory failure requiring mechanical ventilator (intubated in the field)
- Do to pulmonary edema from cardiogenic shock
- Unable to rule out component of pneumonia especially given the retrocardiac opacification which was not seen on initial CXR from this admission
- 10/23, Patient emergently evaluated in [facility] for hypoxia, PEEP was increased up to 14, tidal volume 480 mL, patient breathing above the vent at around 30/min, peripheral saturation improved to 99%
- Responded well to diuretics, follow-up chest x-ray improving
- Currently on volume assist mechanical ventilation, FiO2 40% PEEP of 5 with pulmonary mechanics significantly improved
- PE felt to be less likely with normal-appearing RV on echocardiogram. Patient anticoagulated with heparin
- TTM now complete - ideally want to do SAT and SBT, but need to first have the IABP removed as per the RN, when sedation lowered or when the pt is stimulated he gets very agitated and is not redirectable. Hence, a SAT would not be safe with the
IABP in place.
#3. Acute on chronic HFrEF with Cardiogenic Shock
- IABP on 1:1 augmentation
- Keep MAP>65
- Monitor urine output with goal >0.5-1cc/kg/hr; continues on IV lasix; cardiology following
- Defer removal of IABP to interventional cardiology
- Lactic acidosis resolved since 10/25
- Continue with 40 mg IV Lasix daily (since 10/25)
- Off stress dose steroids (s/p solu-cortef 10/24 - 10/25)
- Broad-spectrum antibiotics were started empirically with vanc/zosyn --> patient has been afebrile with normal WBC since 10/26; all cultures have also been negative. Given concern for left-sided basilar pneumonia, would not stop antibiotics
entirely, but will change Vanco/Zosyn to Unasyn and stop IV vancomycin given negative MRSA swab
- Would plan for 10-14 days antibiotics given shock state with pneumonia
#4. Acute encephalopathy
- CT head negative. Patient waking up per RN but still unclear if he is following commands; per the RN, the patient does get agitated when he is stimulated. Due to IABP, would not awaken yet
- s/p TTM (rewarmed to normothermia overnight at 430AM on 10/27/2024)
- Neurology consulted - recs appreciated
#5. CKD.
- Good urine output, stable creatinine
Other medical diagnoses:
- h/o ELVIRA, on CPAP at home. Will resume CPAP once extubated
- HTN. Need to confirm home medications; would resume as BP tolerates: 4
- HLD. On statin
- DM, type II. s/p Insulin infusion; would now use ISS and continue BG q6hr with goal BG 140-180
- Obesity
Critical care statement: A total of 38 minutes of critical care time was provided for this patient today. This includes management of unstable vital signs, evaluation of the patient at bedside, reviewing the patient's pertinent medical records
including radiographs, microbiology, laboratory evaluations, and discussion with primary team, consultants, pharmacy, nutrition, physical therapy, case management, charge nurse, critical care nursing, and respiratory therapy.
Data:
CT Head 10/23/2024: Unremarkable
CXR. 10/23/2024: Suggestive of Pulmonary edema
CXR 10/27/2024: There is slightly increased size of the left basilar opacity which likely represents a moderate pleural effusion with adjacent atelectasis, however pneumonia cannot be excluded. Stable appearance of the support lines and tubes.
ECHO 09/2021: Top normal left ventricular chamber size. Moderately reduced left ventricular
systolic function. Left ventricular ejection fraction is 35-40% by visual
assessment with basal - mid inferior, inferolateral and basal septal akinesis.
Top normal left ventricular wall thickness.
Left atrial enlargement.
Mild mitral regurgitation.
Compared to previous echo from September 2017, there is no significant change
Technically difficult study, consider Definity for better evaluation.
[facility] 04/2013: 1: 2 vessel coronary artery disease as described, patent RCA and LAD stents, new severe midcircumflex lesion.
2: Moderate to severe left ventricular dysfunction, EF 30%
3: Successful complex 3.0/12 mm Xience V drug eluting stent to the mid circumflex.
Subjective Dataa
Subjective Data
Date of Service:
Date of Service: October 27, 2024
Chief Complaint: [employer] Doc[employer] Follow Up and Vent Management Follow Up
Subjective:
Patient seen and evaluated this morning. Remains intubated on AC/CMV at 28/480/40%/5, with PIP 25 cmH2O, VTe 476 cc and breathing at 20 breaths/min. IABP in place at 1: 1 augmentation. BP via IABP: 82/46 (although on box stapler BP reads
108/47). Heart rate 69, BP via left radial A-line: 101/47, BP via NIBP: 120/69, SPO2 96% with end-tidal CO2: 27. Currently on lidocaine drip at 1 mg/min, and sedated with fentanyl drip at 125 mcg/hr + propofol at 30 mcg/kg/min. Singh catheter in
place.
Review of Systems
General: Unobtainable - Sedation (+ Intubated)
Objective Data
Data Reviewed
Vital Signs / I&O / Oxygen:
Vital Signs
Temp Pulse Resp BP Pulse Ox
97.9 F 66 28 109/50 98
10/27/24 08:00 10/27/24 08:41 10/27/24 08:00 10/27/24 08:41 10/27/24 08:00
Intake and Output
10/26/24 10/27/24 10/28/24
06:59 06:59 06:59
Intake Total 2854.8 / 2957.5 2951.9 / 3053.6 183.4 / 183.4
Output Total 2670 / 2770 2445 / 2650 275 / 275
Balance 184.8 / 187.5 506.9 / 403.6 -91.6 / -91.6
SaO2 [A/C] 98
SaO2 98
Physical Exam
General: Respiratory Distress (negative), Comfortable and Other (Intubated/sedated)
HEENT: Normocephalic, Anicteric and Other (ETT in place)
Cardiovascular: S1-S2 and Peripheral Edema (negative)
Respiratory: Wheeze (negative), Rhonchi (negative), Non-Labored Respirations and ET Tube (Mechanical breath sounds heard bilaterally)
GI: Soft, Non Distended, Non Tender and Normal Bowel Sounds
Neurology: Tremors (negative) and Other (Sedated; pupils 2 mm bilaterally and brisk; intact gag + corneal reflexes)
Skin: Warm, Dry, Cyanosis (negative) and Jaundice (negative)
Labs/Micro/Reports
Lab Data
10/27/24 03:21
10/27/24 03:21
Laboratory Results
10/26/24 10/26/24 10/27/24
13:21 19:28 03:21
APTT 87.8 H 79.3 H 88.5 H
pH 7.41
pCO2 40
pO2 112 H
HCO3 25.4
O2 Delivery Level
Microbiology
10/23/24 17:24 Blood/Venous Blood Culture - Preliminary
No Growth in 72 hours- Final report to follow
10/23/24 17:19 Blood/Venous Blood Culture - Preliminary
No Growth in 72 hours- Final report to follow
10/25/24 18:13 Nose Nasal Screen MRSA (PCR) - Final
MRSA not detected - performed by PCR methodology.
10/23/24 15:44 Urine Urine Culture - Final
NO GROWTH
[2024-10-27] MEDS: LASIX 40 MG IV (08:41)
[2024-10-27] MEDS: REFRESH CELLUVISC GEL 1 DROPS BOTH EYES (08:41)
[2024-10-27] MEDS: CRESTOR 40 MG TUBE (08:43)
[2024-10-27] MEDS: BUSPAR 30 MG TUBE (08:43)
[2024-10-27] MEDS: LOW STRENGTH ASPIRIN 81 MG TUBE (08:43)
[2024-10-27] MEDS: PROTONIX IV 40 MG IV (08:50)
[2024-10-27] MEDS: NSS (PRESERVATIVE FREE) 10 ML IV (08:51)
[2024-10-27] MEDS: DIPRIVAN 100 IV ×3 (08:59→23:11)
--- NOTE | 2024-10-27 09:18 | W.PN.CARDCBS ---
Addendum entered and electronically signed by Junie Allen DO 10/27/24 11:58:
I saw and examined the patient.
The Access Consultant's note was reviewed and I agree with the note.
Comment: Patient was seen and examined. Chart/telemetry reviewed. Remains intubated and sedated status post targeted temperature protocol rewarmed at 4 AM. Levophed discontinued this morning at 1 AM. Lidocaine drip remains at 1mg/min remaining
in sinus rhythm with PVC/NSVT. Patient remains with balloon pump at one-to-one with IV heparin drip. Current vitals: Heart rate 69, [place] 105/48 with a MAP of 75, CVP 8. u.o had been around 60 cc/h now 450 cc after in last hour after IV Lasix this
morning
General: Sedated and intubated. ET tube. OGT
Heart: Regular. Positive S1-S2. Balloon pump click
Lungs: Ventilated. Clear to auscultation
Abd: Distended. Positive bowel sounds. Positive balloon pump sounds.
Ext: + edema. R femoral IABP
Neuro: sedated
Plan:
Critically ill, medically complex 73-year-old gentleman who presented 10/23/2024 initially with chest pain/shortness of breath with [id number] VF arrest status post shock followed by asystole. ROSC achieved by EMS in the field after
approximately 10 minutes of resuscitation efforts and intubated in the field. Patient brought to [facility] ER in [place] with BP 145/87. ECG on arrival did not meet STEMI criteria. Patient taken to solar lab technician and had POBA of RCA lesion and IABP was placed for
cardiogenic shock.
-TTM protocol initiated 10/23/24 and patient rewarmed to normothermia by early AM 10/27/24. Neurology is following closely
-Ventilator/sedation management per cafeteria counter attendant.
-Levophed discontinued around 1 AM this morning.
-IABP remains at one-to-one with IV heparin. Call placed to interventional cardiology and will work to discontinue balloon pump today
- [place] Danial removed for bleeding 10/24/24.
-Will repeat limited 2D echocardiogram once balloon pump has been discontinued either later today or tomorrow morning.
-Lactic acid was 8.6 on admission and at last check on 10/25/24 it was 1.6
-Cre peaked at 1.4 on 10/24/24 and improved to 1.2 on labs reviewed by me 10/27/24
-CK-MB peaked at 16.7, TCK 302 on 10/24/24. No Troponin levels.
-Patient is s/p POBA of 3 serial up to 90% heavily calcified stenoses in the proximal, mid and distal RCA with KEYONA-3 flow restored into the distal vessel aborting the inferior ST elevation [place]. Concomitant significant left main stenosis and mid
left circumflex stenosis noted. CT surgery consulted and if patient achieves neurologic recovery then he can be evaluated for CABG
-Last dose of Plavix was 10/23/24.
-Aspirin 81 mg daily via NT tube
-LDL 62 and outpatient dose of Crestor 40 mg daily has been continued
-Patient with known ICM and EF was 35-40% by echo 10/05/21 and now 30-35% by echo 10/24/24
-Outpatient dose of Coreg 12.5 mg BID has been on hold since admission due to hypotension
-Outpatient dose of ramipril 10 mg daily has been on hold since admission due to RUSSELL and hypotension
-pro-BNP 2120 on 10/24/24 and improved to 751 on 10/26/24. Patient was not taking a loop diuretic prior to admission and now ordered Lasix 40 mg IV daily. Overall weight is up 6 lbs from admission. Follow weights and pending SBT might need to more
aggressively diurese
- CT surgery consulted and following peripherally
Original Note:
Today's Communication / Plan
-
IABP running at 1:1
Levo off
Normothermia since early AM
Work to remove IABP today and then hopefully SBT and extubation
Pending neurologic recovery will pursue CABG evaluation
Impression / Plan
-
PCP: Dr. Dye
Primary Project Archivist: Dr. Lui
Assessment:
Presentation with VF arrest s/p shock x1 with ROSC 10/23/24
VDRF
Intubated in field 10/23/24
Cardiogenic shock
Chest pain
CAD
h/o [place] and unknown vessel PCI 1994
s/p LAD PCI x2 2011
s/p Circ PCI 2013
s/p POBA RCA 10/23/24
ICM, EF 35-40% by echo 10/05/21 and then EF 30-35% by echo 10/24/24
HTN
HLD
DM2
Obesity
ELVIRA on CPAP
Cath 10/23/2024: Plain old balloon angioplasty of 3 serial up to 90% stenoses in the proximal, mid and distal RCA which was heavily calcified. Successful placement of 50 cc intra-aortic balloon pump and [place]-Danial catheter via right common femoral
artery and vein, respectively. 1 shock for monomorphic VT during heart catheterization
ECHO 10/05/21: TDS, EF 35 to 40%, basal to mid inferior, inferolateral and basal septal akinesis, left atrial enlargement, mild MR
Echo 10/23/24: Limited bedside echo at time of [facility], very limited views but RV function appears to be preserved. LV systolic function appears close to baseline with EF of about 35%, no pericardial effusion
Echo 10/24/24: EF 30 to 35%, moderate global hypokinesis, technically difficult study but no clear significant valve disease.
Plan:
-Summary of admission thus far: Patient called 911 with chest pain and SOB 10/23/24 and then unresponsive on the phone with 911 operators and when paramedics arrived to find patient with agonal respirations and VF. Patient shocked x1 and then asystole
and given lidocaine bolus with ROSC. Patient intubated in the field. Patient brought to [facility] ER in [place] with BP 145/87. ECG on arrival did not meet STEMI criteria. Patient taken to solar lab technician and had POBA of RCA lesion and IABP was placed for
cardiogenic shock. Case was referred to CT surgery service for evaluation for CABG. Patient admitted to CVICU and radial artery line placed along with central line. TTM protocol initiated 10/23/24 and patient rewarmed to normothermia by early AM
10/27/24. On 10/24/24 patient's Lidocaine gtt was stopped and patient started to have frequent PVCs and amiodarone gtt was started and then AIVR so amio gtt was stopped and Lidocaine gtt restarted and has been running since 10/24/24. Neurology following
and EEG waves slow due to sedation. [place] Danial removed for bleeding 10/24/24.
-Yard Supervisor [employer] Gin and neurology notes reviewed by ct. Yard Supervisor [employer] G[employer] plan as of 10/26/24 was to change to Precedex 10/27/24 and SBT 10/27/24.
-Will work to d/c IABP 10/27/24. IABP running at 1:[address] 10/27/24. Levo gtt off since early AM 10/27/24 and IABP 103/[address] on [address] reviewed by ct 10/27/24
-Eventually repeat echo once IABP d/c'd
-Lactic acid was 8.6 on admission and at last check on 10/25/24 it was 1.6
-Cre peaked at 1.4 on 10/24/24 and improved to 1.2 on labs reviewed by ct 10/27/24
-CK-MB peaked at 16.7, TCK 302 on 10/24/24. No Troponin levels.
-Patient is s/p POBA of 3 serial up to 90% heavily calcified stenoses in the proximal, mid and distal RCA with KEYONA-3 flow restored into the distal vessel aborting the inferior ST elevation [place]. Concomitant significant left main stenosis and mid
left circumflex stenosis noted. CT surgery consulted and if patient achieves neurologic recovery then he can be evaluated for CABG
-Last dose of Plavix was 10/23/24.
-Aspirin 81 mg daily via NT tube
-LDL 62 and outpatient dose of Crestor 40 mg daily has been continued
-Patient with known ICM and EF was 35-40% by echo 10/05/21 and now 30-35% by echo 10/24/24
-Outpatient dose of Coreg 12.5 mg BID has been on hold since admission due to hypotension
-Outpatient dose of ramipril 10 mg daily has been on hold since admission due to RUSSELL and hypotension
-pro-BNP 2120 on 10/24/24 and improved to 751 on 10/26/24. Patient was not taking a loop diuretic prior to admission and now ordered Lasix 40 mg IV daily. Overall weight is up 6 lbs from admission. Follow weights and pending SBT might need to more
aggressively diurese
Progress Note - Project Archivist
Subjective
Date of Service: October 27, 2024
Intubated and sedated
Objective
Labs:
10/27/24 03:21
10/27/24 03:21
Labs
Hgb 9.9 g/dL (13.0-18.0) L 10/27/24 03:21
Hct 29.4 % (39.0-52.0) L 10/27/24 03:21
Plt Count 127 10^3/uL (130-400) L 10/27/24 03:21
PT 15.2 Sec (11.4-14.6) H 10/26/24 05:07
INR 1.17 10/26/24 05:07
APTT 88.5 Sec (23.4-35.0) H 10/27/24 03:21
Sodium 141 mmol/L (135-145) 10/27/24 03:21
Potassium 3.8 mmol/L (3.5-5.1) 10/27/24 03:21
BUN 24 mg/dl (9-20) H 10/27/24 03:21
Creatinine 1.2 mg/dL (0.7-1.3) 10/27/24 03:21
Glucose 117 mg/dl (70-99) H 10/27/24 03:21
Troponins
10/24/24 10/24/24 10/25/24
11:55 18:04 00:13
Troponin I 4.060 H* 3.360 H* 2.680 H*
10/25/24 10/25/24 10/25/24
05:50 12:02 18:13
Troponin I 2.070 H* 2.240 H* 1.860 H*
Vital Signs and I&O:
Vital Signs
Temp Pulse Resp BP Pulse Ox
97.9 F 66 28 109/50 98
10/27/24 08:00 10/27/24 08:41 10/27/24 08:00 10/27/24 08:41 10/27/24 08:00
Vital Signs
Temp Pulse Resp BP Pulse Ox
97.9 F 66 28 109/50 98
10/27/24 08:00 10/27/24 08:41 10/27/24 08:00 10/27/24 08:41 10/27/24 08:00
Intake & Output
10/25/24 10/26/24 10/27/24 10/28/24
06:59 06:59 06:59 06:59
Intake Total 4041.7 / 4142.8 2854.8 / 2957.5 2951.9 / 3053.6 183.4 / 183.4
Output Total 3155 / 3230 2670 / 2770 2445 / 2650 275 / 275
Balance 886.7 / 912.8 184.8 / 187.5 506.9 / 403.6 -91.6 / -91.6
Physical Exam
Physical Exam
GEN: Intubated and sedated
LUNGS: Intubated and on the ventilator, coarse BS anterolaterally
CV: SR on tele. Reg, S1/S2, 1/6 syst LSB
ABD: ND
EXT: Right groin access without hematoma or bleeding. Trace B/L LE edema. Overgrown and thickened toenails
NEURO: Sedated
SKIN: No rash
--- NOTE | 2024-10-27 11:22 | CM ---
CM following for DC planning needs.
Reviewed initial assessment. Pt. resides alone in an apartment with elevator access. Pt. is functionally indep. at baseline w/ ADLs, mobility.
At this time, patient remains intubated/sedated.
Will cont. to follow closely. DC needs will depend on medical progress and functional status.
I anticipate that patient may require some rehab (?acute rehab) upon DC. Will need PT-OT evaluations once medically stable to participate.
Will follow.
--- NOTE | 2024-10-27 12:07 | PTCARENOTE ---
placed patient on 1:2 per orders. bedside cxr done. pt opening eyes and moving arms
[2024-10-27 12:48] LABS: Lactic Acid 1.1 mmol/L (0.7-2.0)
[2024-10-27 13:38] LABS: Glucose - Point of Care 130 mg/dl (70-99)
[2024-10-27] MEDS: XYLOCAINE 2 GRAM 500 IV (14:20)
[2024-10-27 14:47] LABS: Triglycerides 287 mg/dl (10-149)
--- NOTE | 2024-10-27 15:55 | W.PN.UPDATE ---
Update Note
Progress Note Update
Updated patient's sons in the atrium. Reviewed admission thus far and plans for today including weaning IABP and how we plan to do that, explaining monitoring of labs and hemodynamics. Also reviewed plans for eventual extubation and longer terms
plans for possible coronary revascularization pending neurologic status. Ongoing management of lactic acid and titration of IABP. 31 min critical care time.
[2024-10-27 16:55] LABS: ACT-LR - POC 152 Seconds (116-155)
--- NOTE | 2024-10-27 17:12 | W.PN.CARD.SR ---
Sheath/IABP Sheath Removal
IABP Sheath Removal
Right Arterial Femoral:
Site appearance prior to IABP sheath removal: Intact
Size of hematoma in cm: 0
IABP sheath removed by:: Registered nurse (Nurse Practitioner)
Name of associate removing IABP sheath: Jewell GRULLON
Time of IABP sheath removal: 17:05
Site appearance post IABP sheath removal: Intact
Size of hematoma in cm: 0
Method of Hemostasis Post IABP Sheath Removal: Manual Pressure
Name of device: IABP
Dressing dry and intact?: Yes
Comment: IABP was removed by me and 5 mins of manual pressure was applied by me. After that manual pressure was applied by cath labs RNs
[2024-10-27] MEDS: UNASYN IV (18:00)
--- NOTE | 2024-10-27 18:05 | PTCARENOTE ---
IABP pulled by XUAN Lawson and concrete laborer RNs holding pressure. VSS. will continue to monitor.
[2024-10-27] MEDS: NOVOLOG FLEXPEN-MODERATE RESISTANCE SC (18:41)
[2024-10-27 18:42] LABS: Glucose - Point of Care 119 mg/dl (70-99)
--- NOTE | 2024-10-27 20:00 | PTCARENOTE ---
Assumed care of patient @1900. Patient remains sedated and intubated 7.5 ETT 24 @lip, Vent settings Rate 28 TV 480 Peep 5 40% O2 A/C. Lung sounds course and diminished at bases. Has minimal secretions on suction. Patien is flat s/p right
femoral Sheath removal. Site check completed per protocol. Dressing CDI. Has R IJ TLC, on Propofol @ 35 mcg/kg/min, Lidocaine 1 mg/min and Fentanyl 120 mcg/hr. Pulses normal and palpitated. +1 edema in hands and feet. BP stable. patient opens
eye spontaneously. Pupils are sluggish 1mm, PERRLA, does not follow commands at this time. Moves upper extremities, Soft restraints in place. Abdomen is round and distended. NG tube in Right nare, Tube feeds running at 20cl/hr with hourly 25 ml
water flushes. minimal residual noted in NG tube. Bowel sounds hypoactive. Patient has hurt in place voiding clear yellow urine. Hurt care completed, CHG bath done. skin tear noted in mid sternum. cleaned and open to air. SCD in place. skin
CDI. Large bruise on forehead and right eye healing. please see worklist for full assessment and details.
[2024-10-28] VITALS (52 sets, daily range): BP systolic 102–175; BP diastolic 48–105; BMI 31.2
[2024-10-28] MEDS: TYLENOL ORAL SOLUTION 650 MG TUBE ×4 (00:03→17:10)
[2024-10-28] MEDS: UNASYN IV ×3 (00:04→11:47)
--- NOTE | 2024-10-28 00:14 | PTCARENOTE ---
patient remains sedated and intubated, suctioned small amount of neal suptum, patient tolerated well. moves upper extremities, opens eyes, vital sign stable. RASS -2 will grimace to pain and withdrawal.
[2024-10-28 00:21] LABS: Glucose - Point of Care 110 mg/dl (70-99)
[2024-10-28] MEDS: NOVOLOG FLEXPEN-MODERATE RESISTANCE SC ×3 (00:23→18:48)
[2024-10-28] MEDS: SUBLIMAZE 100 IV ×2 (02:59→12:54)
[2024-10-28] MEDS: DIPRIVAN 100 IV ×3 (03:37→12:31)
[2024-10-28 03:57] LABS: B.E. 1.9 mmol/L; HCO3 25.5 mmol/L (21-28); Ionized Calcium 1.12 mMOL/L (1.15-1.33); O2 Saturation % 98.8 % (94-98); PCO2 35 mmHg (35-48); PO2 87 mmHg (83-108); pH 7.47 (7.35-7.45)
--- NOTE | 2024-10-28 04:03 | PTCARENOTE ---
Addendum entered by Linsey Luz RN 10/28/24 06:56:
80 residual from tube feed.
Addendum entered by Linsey Luz RN 10/28/24 04:45:
K+ 3.8 , replace with 40 Meq of KCL, all line and tubing changed.
Original Note:
pTIENT OPENING EYE MORE FREQUENTLY, MOVING ARMS AND HANDS. STILL NOT FOLLOWING CAM[place]ANDS.LABS DRAWN,
[2024-10-28 04:11] LABS: APTT 33.2 Sec (23.4-35.0)
[2024-10-28 04:21] LABS: ALT (SGPT) 28 U/L (0-50); AST (SGOT) 28 U/L (17-59); Albumin 2.9 g/dl (3.5-5.0); Alkaline Phosphatase 50 U/L (38-126); Blood Urea Nitrogen 20 mg/dl (9-20); Calcium 8.1 mg/dl (8.4-10.2); Carbon Dioxide 26 mmol/L (22-30); Chloride 111 mmol/L (98-107); Estimated Creatinine Clearance 64 ml/min; Glucose 135 mg/dl (70-99); Magnesium 1.9 mg/dl (1.6-2.3); Potassium 3.2 mmol/L (3.5-5.1); Sodium 141 mmol/L (135-145); Total Bilirubin 0.8 mg/dl (0.2-1.3); Total Protein 5.4 g/dl (6.3-8.2); eGFR 58.01
[2024-10-28] MEDS: KCL 100 IV (04:36)
[2024-10-28] MEDS: CALCIUM GLUCONATE 100 IV (05:59)
[2024-10-28 06:02] LABS: Glucose - Point of Care 128 mg/dl (70-99)
--- NOTE | 2024-10-28 07:06 | W.PN.HOSP.TC ---
Today's Communication/Plan
-
;/
Assessment / Plan
Assessment / Plan
#STEMI [id number] cardiac arrest
-Initial rhythm V-fib status post shock
-Emergent cardiac catheterization, appears multivessel disease. Status post PCI in the past. Previous documentation had stenting to the LAD. Has refused AICD in the past
-CT surgery consulted. Cardiology following. s/p IABP
-On aspirin, statin, heparin
-Initial chest x-ray with pulmonary edema
-repeat chest x-ray New findings concerning for mild right upper lobe pneumonia. Stable findings concerning for moderate left lower lobe pneumonia.
-Completed TTM, currently rewarmed
-Trend lactate; improving
-Wean off sedation as tolerated
-Vent management per barrel rib matting machine operator
-Unclear if developed anoxic brain injury, consulted neurology. EEG per neurology benign; wean sedation as tolerated.
-initial CT unremarkable
-CT surgery involved; will initiate workup for CABG if patient achieves neurorecovery.
-per cardiology; Status post plain old balloon angioplasty of 3 serial up to 90% heavily calcified stenoses in the proximal, mid and distal RCA with KEYONA-3 flow restored into the distal vessel aborting the inferior ST elevation MD. Concomitant
significant left main stenosis and mid left circumflex stenosis noted.
-diuresis as needed
- SBT trial
#Sepsis (fever on 10/23, leukocytosis)
-Could be secondary to postarrest, infarction
-MRSA negative. Antibiotics narrowed to Unasyn 3g every 6 hour. If culture stays negative then can discontinue antibiotics and observe
-Check blood culture NGTD
-UA not suggestive of UTI
-Monitor temperature, follow fever curve
-Weaned off pressors
#Acute hypoxic respiratory failure secondary to pulmonary edema with cardiogenic shock
-Wean sedation as tolerated
-Management per cardiology, barrel rib matting machine operator;
-Weaned off pressors
-IV lasix
#Hypocalcemia
#Hypokalemia
-Replete
#Transaminitis secondary to cardiogenic shock and post code
-Resolved
#Renal insufficiency
-Continue to monitor
-Maintain Singh, monitor urine output
#History of ELVIRA on CPAP
#History of hypertension
#Hyperlipidemia
#Diabetes mellitus
ISS,accuchecks
A1c 6.7
#morbid Obesity
Tube feeds with Jevity
CODE STATUS full code
DVT prophylaxis heparin
Anticipated Discharge: > 48 hours
Subjective/Interval History
-
Seen and examined at bedside
Objective Data
-
Labs:
Laboratory Results
10/28/24
03:12
APTT 33.2
HCO3 25.5
Sodium 141
Potassium 3.2 L
Chloride 111 H
Carbon Dioxide 26
BUN 20
Creatinine 1.3
Glucose 135 H
Calcium 8.1 L
Total Bilirubin 0.8
AST 28
ALT 28
Alkaline Phosphatase 50
Vital Signs:
Vital Signs
Temp Pulse Resp BP Pulse Ox
100.2 F 87 25 135/69 96
10/28/24 06:57 10/28/24 06:10 10/28/24 06:10 10/28/24 06:10 10/28/24 06:57
I&O
10/27/24 10/28/24 10/29/24
06:59 06:59 06:59
Intake Total 2951.9 / 3053.6 2817.3 / 2817.3
Output Total 2445 / 2650 3895 / 3895
Balance 506.9 / 403.6 -1077.7 / -1077.7
Review of Systems
-
Unable to obtain full review of systems at this time due to: Patient Intubation
Physical Exam
-
General: Intubated
Respiratory: Rales
Cardiac: S1/S2
GI: Soft and Nondistended
Genito-urinary: Singh
Skin: Warm
Neuro: Sedated
--- NOTE | 2024-10-28 08:00 | PTCARENOTE ---
Resumed care of patient from previous RN. Walking rounds completed. Patient is sedated and intubated. opens eyes to sound of his name being called. drowsy. moving arms and head. responds to painful stimulus. NSR on monitor with PVCs. HR 80s. +
pulses and +1-2 edema. scrotal and scleral edema noted as well. hypoactive BS. NGT in R nare with TF infusing at ordered rate. residual 125. hurt draining clear yellow urine. R groin IABP site c/d/i. no hematoma. Sacral foam for protective
measures. Patient has R IJ triple lumen, L radial blanca, and PIVx4. Fentanyl@120, Propofol@30, Lidocaine@1. VSS. will lighten sedatives for attempt to SBT. steve continue to monitor.
--- NOTE | 2024-10-28 08:10 | W.PN.INTV ---
Addendum entered and electronically signed by Patrick Whippel MD 10/28/24 19:43:
CDI inquiry response: CKD stage 3a
Original Note:
Today's Communication / Plan
Recommendations
SAT/SBT today
Check CT chest to assess retrocardiac opacity to see if effusion versus atelectasis versus pneumonia
Having large amounts of thick secretions from ETT � send off respiratory culture
IABP removed yesterday by CT surgery WHEEL POLISHER
Continue with IV Lasix and maintain net negative fluid balance as tolerated
Give additional dose of Lasix today given concern for worsening volume overload per CXR today (10/28)
Strict I/O with daily weight
Broaden antibiotics back to Zosyn today given fevers overnight into this morning
Continue core-sensing temperature probe for at least 48 hours after reaching normothermia to ensure no fevers occur
Check CT head given he continues to awaken with agitation
Defer surgical coronary revascularization to CT surgery
Continue ICU level of care for this critically ill patient
Assessment
-
Patient currently intubated, mechanically ventilated sedated. Reportedly patient is a 70-year-old gentleman with known history of coronary artery disease with previous PCI in the past, known ischemic cardiomyopathy with baseline EF 35 to 40%,
obstructive sleep apnea on CPAP, who called 911 for having chest pain and shortness of breath. While he was on the phone apparently he stopped talking and had a cardiac arrest. Once EMS arrived, patient was noted to be in ventricular fibrillation
and was shocked x 1, he also received epi and Afrin as well as lidocaine and had return of spontaneous circulation. He was intubated in the field and EKG was concerning for ST elevation in the inferior leads. Cardiology service evaluated the
patient in the emergency room and he was emergently taken to [facility] for further intervention. I initially saw the patient in the [facility] for persistent hypoxia despite being mechanically ventilated and later reevaluated again in CVICU.
#1. Inferior wall STEMI complicated by out of hospital Cardiac Arrest, initial rhythm V. Fib (10/23)
- S/p defibrillation x 1, ROSC achieved in the field. Estimated downtime reportedly around 15 minutes
- Patient emergently taken to [facility], s/p POBA x3 in the RCA - -> IABP placed --> removed on 10/27 with heparin drip stopped prior. CT surgery consulted for possible CABG --> following peripherally and will intervene depending on patient's
neurological recovery
- Known history of coronary artery disease, s/p PCI more than 10 years ago
- On ASA and crestor
- Continue lidocaine gtt
- CT head unremarkable, chest x-ray suggestive of pulmonary edema
- Completed TTM, currently rewarmed -maintain core-temperature sensing temperature probe for at least 48 hours s/p reaching normothermia to ensure no fevers occur
- Unfortunately he has been spiking fevers overnight to 100.4 �F --> continue q6hr tylenol with cooling blankets
- Monitor renal and hepatic function
#2. Acute hypoxic respiratory failure requiring mechanical ventilator (intubated in the field)
- Do to pulmonary edema from cardiogenic shock
- Unable to rule out component of pneumonia especially given the retrocardiac opacification which was not seen on initial CXR from this admission
- 10/23, Patient emergently evaluated in [facility] for hypoxia, PEEP was increased up to 14, tidal volume 480 mL, patient breathing above the vent at around 30/min, peripheral saturation improved to 99%
- Responded well to diuretics
- Currently on volume assist mechanical ventilation, FiO2 40% PEEP of 5 with pulmonary mechanics significantly improved
- PE felt to be less likely with normal-appearing RV on echocardiogram. Patient anticoagulated with heparin
- TTM now complete - will trial SAT and SBT today. He unfortunately gets very agitated and is not redirectable when sedation is lowered
- Check CT chest to assess if retrocardiac opacity is atelectasis versus pneumonia versus pleural effusion
#3. Acute on chronic HFrEF with Cardiogenic Shock
- IABP now removed as of 10/27
- Keep MAP>65
- Monitor urine output with goal >0.5-1cc/kg/hr; continues on IV lasix; cardiology following
- Lactic acidosis resolved since 10/25
- Continue with 40 mg IV Lasix daily (since 10/25)
- Off stress dose steroids (s/p solu-cortef 10/24 - 10/25)
- Broad-spectrum antibiotics were started empirically with vanc/zosyn --> patient was changed to Unasyn on 10/27 however given that he has been spiking fevers, Unasyn now changed back to Zosyn which I agree with
- IV vanco stopped due to negative MRSA swab
- Would plan for 10-14 days antibiotics given shock state with pneumonia
#4. Acute encephalopathy
- CT head negative. Patient waking up per RN but still not following commands; per the RN, the patient does get agitated when he is stimulated.
- Check CT head once stable to travel off floor
- s/p TTM (rewarmed to normothermia overnight at 430AM on 10/27/2024)
- Neurology consulted - recs appreciated
#5. CKD.
- Good urine output, stable creatinine
Other medical diagnoses:
- h/o ELVIRA, on CPAP at home. Will resume CPAP once extubated
- HTN
- HLD. On statin
- DM, type II. s/p Insulin infusion; would now use ISS and continue BG q6hr with goal BG 140-180
- Obesity
Critical care statement: A total of 41 minutes of critical care time was provided for this patient today. This includes management of unstable vital signs, evaluation of the patient at bedside, reviewing the patient's pertinent medical records
including radiographs, microbiology, laboratory evaluations, and discussion with primary team, consultants, pharmacy, nutrition, physical therapy, case management, charge nurse, critical care nursing, and respiratory therapy.
Data:
CT Head 10/23/2024: Unremarkable
CXR. 10/23/2024: Suggestive of Pulmonary edema
CXR 10/27/2024: There is slightly increased size of the left basilar opacity which likely represents a moderate pleural effusion with adjacent atelectasis, however pneumonia cannot be excluded. Stable appearance of the support lines and tubes.
ECHO 09/2021: Top normal left ventricular chamber size. Moderately reduced left ventricular
systolic function. Left ventricular ejection fraction is 35-40% by visual
assessment with basal - mid inferior, inferolateral and basal septal akinesis.
Top normal left ventricular wall thickness.
Left atrial enlargement.
Mild mitral regurgitation.
Compared to previous echo from September 2017, there is no significant change
Technically difficult study, consider Definity for better evaluation.
[facility] 04/2013: 1: 2 vessel coronary artery disease as described, patent RCA and LAD stents, new severe midcircumflex lesion.
2: Moderate to severe left ventricular dysfunction, EF 30%
3: Successful complex 3.0/12 mm Xience V drug eluting stent to the mid circumflex.
Subjective Dataa
Subjective Data
Date of Service:
Date of Service: October 28, 2024
Chief Complaint: Mental Measurements Teacher Follow Up and Vent Management Follow Up
Subjective:
Patient seen this morning. Remains intubated. Having thick/neal secretions. Sedated on fentanyl at 125 mcg/h and propofol. Appears calm.
Review of Systems
General: Unobtainable - Sedation (+ Intubated)
Objective Data
Data Reviewed
Vital Signs / I&O / Oxygen:
Vital Signs
Temp Pulse Resp BP Pulse Ox
100.8 F H 90 25 168/75 97
10/28/24 16:00 10/28/24 16:00 10/28/24 16:00 10/28/24 11:46 10/28/24 16:00
Intake and Output
10/27/24 10/28/24 10/29/24
06:59 06:59 06:59
Intake Total 2951.9 / 3053.6 2817.3 / 2817.3 828.6 / 828.6
Output Total 2445 / 2650 3895 / 3895 2485 / 2485
Balance 506.9 / 403.6 -1077.7 / -1077.7 -1656.4 / -1656.4
SaO2 [A/C] 96
SaO2 97
Physical Exam
General: Respiratory Distress (negative), Comfortable and Other (Intubated/sedated)
HEENT: Normocephalic, Anicteric and Other (ETT in place)
Cardiovascular: S1-S2 and Peripheral Edema (negative)
Respiratory: Wheeze (negative), Rhonchi (negative), Non-Labored Respirations and ET Tube (Mechanical breath sounds heard bilaterally)
GI: Soft, Non Distended, Non Tender and Normal Bowel Sounds
Neurology: Tremors (negative) and Other (Sedated; pupils 2 mm bilaterally and brisk; intact gag + corneal reflexes)
Skin: Warm, Dry, Cyanosis (negative) and Jaundice (negative)
Labs/Micro/Reports
Lab Data
10/28/24 10:23
Laboratory Results
10/28/24
03:12
APTT 33.2
pH 7.47 H
pCO2 35
pO2 87
HCO3 25.5
O2 Delivery Level
Microbiology
10/23/24 17:19 Blood/Venous Blood Culture - Preliminary
No Growth in 4 days- Final report to follow
10/23/24 17:24 Blood/Venous Blood Culture - Preliminary
No Growth in 4 days- Final report to follow
10/25/24 18:13 Nose Nasal Screen MRSA (PCR) - Final
MRSA not detected - performed by PCR methodology.
[2024-10-28] MEDS: PROTONIX IV 40 MG IV (09:25)
[2024-10-28] MEDS: CRESTOR 40 MG TUBE (09:25)
[2024-10-28] MEDS: MIRALAX 17 GRAMS TUBE (09:25)
[2024-10-28] MEDS: LOW STRENGTH ASPIRIN 81 MG TUBE (09:25)
[2024-10-28] MEDS: NSS (PRESERVATIVE FREE) 10 ML IV (09:25)
[2024-10-28] MEDS: LASIX 40 MG IV ×2 (09:25→17:10)
--- NOTE | 2024-10-28 10:55 | W.PN.CARDCBS ---
Addendum entered and electronically signed by Jayro Franklin MD 10/28/24 20:17:
Late entry, patient evaluated earlier today at 12:15 PM. 73-year-old man with PCI dating back to 1994, [id number] cardiac arrest October 23 with balloon angioplasty only to RCA, underwent targeted temperature protocol, intra-aortic balloon pump
removed yesterday, EF 30-35% by echo October 2024. Had prolonged episode of VT on lidocaine 1 mg/min later in the afternoon, spontaneous conversion to normal sinus rhythm. Currently on vent, propofol increased, had been receiving tube feeds despite
episode of nausea and vomiting, had received Zofran
PMH: PCI 1994, LAD 2011, circumflex 2013, ischemic cardiomyopathy EF 35-40% 2021, hypertension, hyperlipidemia, diabetes, obesity, obstructive sleep apnea
Current medications: Norepinephrine, aspirin 81 mg a day, acetaminophen, pantoprazole, rosuvastatin, furosemide 40 mg IV daily, MiraLAX, fentanyl, propofol, carvedilol 3.125 mg twice daily, piperacillin, IV heparin
168/75, pulse 84, respiratory 25, temp is 38.2, was following simple commands prior to his arrest, intubated, did not appear to be in distress, could not rule out visual field defect, diminished breath sounds regular rate and rhythm, JVD hard to
assess, some edema
Hemoglobin 9.8 platelets 146, BUN/creatinine 21.3, potassium 3.9, peak troponin was 5, proBNP was 751 on October 27, 1999 120 on October 24, magnesium was 1.9
Echo today: Mildly dilated LV, EF 25%, moderate LVH, normal RV, normal atria, mild MR
Chest x-ray today, cardiomegaly, left effusion, some vascular congestion
Impression:
As noted below per Bibiana Lees. Reviewed in detail and agree, unless specifically noted below.
Prolonged episode of monomorphic VT earlier today, on lidocaine
Plan:
Given recurrent sustained monomorphic VT, efforts regarding extubation are now deferred.
Lidocaine now at 2 mg/min, he is at risk for toxicity. Will add amiodarone back and continue lidocaine. Will not bolus with amiodarone at present. Amiodarone was not switched to lidocaine for toxicity, but rather for relative ineffectiveness.
Hopefully, Tatian therapy will be effective.
Continue supportive hemodynamic care.
Likely discontinue heparin in AM.
Check troponin, ECG follow proBNP.
Original Note:
Today's Communication / Plan
-
Agree with restarting a lower dose of Coreg
Check pro-BNP in AM
Zofran for vomiting
Sedation weaning, awakens, but not tracking or following commands
Impression / Plan
-
PCP: Dr. Dye
Primary Elastic Yarn Twister Helper: Dr. Lui
Assessment:
Presentation with VF arrest s/p shock x1 with ROSC 10/23/24
VDRF
Intubated in field 10/23/24
Cardiogenic shock
Chest pain
CAD
h/o WI and unknown vessel PCI 1994
s/p LAD PCI 2011
s/p Circ PCI 2013
s/p POBA RCA 10/23/24
ICM, EF 35-40% by echo 10/05/21 and then EF 30-35% by echo 10/24/24
HTN
HLD
DM2
Obesity
ELVIRA on CPAP
Hypokalemia
Cath 10/23/2024: Plain old balloon angioplasty of 3 serial up to 90% stenoses in the proximal, mid and distal RCA which was heavily calcified. Successful placement of 50 cc intra-aortic balloon pump and [place]-Danial catheter via right common femoral
artery and vein, respectively. 1 shock for monomorphic VT during heart catheterization
ECHO 10/05/21: TDS, EF 35 to 40%, basal to mid inferior, inferolateral and basal septal akinesis, left atrial enlargement, mild MR
Echo 10/23/24: Limited bedside echo at time of [facility], very limited views but RV function appears to be preserved. LV systolic function appears close to baseline with EF of about 35%, no pericardial effusion
Echo 10/24/24: EF 30 to 35%, moderate global hypokinesis, technically difficult study but no clear significant valve disease.
Echo 10/28/24: Study pending
Plan:
-IABP successfully removed 10/27/24. Remains HD stable off pressors.
-BP 168/75 and HR 99, but up to 120 with awakening and agitation. Outpatient dose of Coreg 12.5 mg BID has been on hold since admission, but agree with restarting lower dose of Coreg 3.125 mg BID 10/28/2024.
-Sedation lightened 10/28/24 and patient opening eyes, but not tracking and not following commands. Vomited x1 and Zofran 4 mg IV x1 ordered by me.
-Repeat echo ordered 10/28/2024 by me to reassess EF now that Impella has been removed
-Cre stable at 1.3 on labs reviewed by me 10/28/2024.
-Continue Lasix 40 mg IV daily and recheck proBNP in AM, ordered by me
-CK-MB peaked at 16.7, TCK 302 on 10/24/24. No Troponin levels.
-Patient is s/p POBA of 3 serial up to 90% heavily calcified stenoses in the proximal, mid and distal RCA with KEYONA-3 flow restored into the distal vessel aborting the inferior ST elevation WI. Concomitant significant left main stenosis and mid
left circumflex stenosis noted. CT surgery consulted and if patient achieves neurologic recovery then he can be evaluated for CABG
-Heparin gtt stopped when IABP stopped 10/27/24
-Last dose of Plavix was 10/23/24.
-Aspirin 81 mg daily via NT tube
-LDL 62 and outpatient dose of Crestor 40 mg daily has been continued
-Patient with known ICM and EF was 35-40% by echo 10/05/21 and now 30-35% by echo 10/24/24
-Coreg as above
-Outpatient dose of ramipril 10 mg daily has been on hold since admission due to RUSSELL and hypotension
Summary of admission thus far: Patient called 911 with chest pain and SOB 10/23/24 and then unresponsive on the phone with 911 operators and when paramedics arrived to find patient with agonal respirations and VF. Patient shocked x1 and then asystole
and given lidocaine bolus with ROSC. Patient intubated in the field. Patient brought to [facility] ER in [place] with BP 145/87. ECG on arrival did not meet STEMI criteria. Patient taken to computer lab assistant and had POBA of RCA lesion and IABP was placed for
cardiogenic shock. Case was referred to CT surgery service for evaluation for CABG. Patient admitted to CVICU and radial artery line placed along with central line. TTM protocol initiated 10/23/24 and patient rewarmed to normothermia by early AM
10/27/24. On 10/24/24 patient's Lidocaine gtt was stopped and patient started to have frequent PVCs and amiodarone gtt was started and then AIVR so amio gtt was stopped and Lidocaine gtt restarted and has been running since 10/24/24. Neurology following
and EEG waves slow due to sedation. [place] Danial removed for bleeding 10/24/24. IABP removed 10/27/24. Right arterial femoral line removed 10/27/24.
Progress Note - Elastic Yarn Twister Helper
Subjective
Date of Service: October 28, 2024
Awakens, not following commands
Objective
Labs:
10/28/24 03:12
Labs
Hgb 9.9 g/dL (13.0-18.0) L 10/27/24 03:21
Hct 29.4 % (39.0-52.0) L 10/27/24 03:21
Plt Count 127 10^3/uL (130-400) L 10/27/24 03:21
PT 15.2 Sec (11.4-14.6) H 10/26/24 05:07
INR 1.17 10/26/24 05:07
APTT 33.2 Sec (23.4-35.0) 10/28/24 03:12
Sodium 141 mmol/L (135-145) 10/28/24 03:12
Potassium 3.2 mmol/L (3.5-5.1) L 10/28/24 03:12
BUN 20 mg/dl (9-20) 10/28/24 03:12
Creatinine 1.3 mg/dL (0.7-1.3) 10/28/24 03:12
Glucose 135 mg/dl (70-99) H 10/28/24 03:12
Troponins
10/25/24 10/25/24
12:02 18:13
Troponin I 2.240 H* 1.860 H*
Vital Signs and I&O:
Vital Signs
Temp Pulse Resp BP Pulse Ox
100.3 F 82 25 116/61 95
10/28/24 09:00 10/28/24 09:00 10/28/24 09:00 10/28/24 09:00 10/28/24 09:00
Vital Signs
Temp Pulse Resp BP Pulse Ox
100.3 F 82 25 116/61 95
10/28/24 09:00 10/28/24 09:00 10/28/24 09:00 10/28/24 09:00 10/28/24 09:00
Intake & Output
10/26/24 10/27/24 10/28/24 10/29/24
06:59 06:59 06:59 06:59
Intake Total 2854.8 / 2957.5 2951.9 / 3053.6 2817.3 / 2817.3 130.4 / 130.4
Output Total 2670 / 2770 2445 / 2650 3895 / 3895 230 / 230
Balance 184.8 / 187.5 506.9 / 403.6 -1077.7 / -1077.7 -99.6 / -99.6
Physical Exam
Physical Exam
GEN: Intubated and opens eyes, but not following commands
LUNGS: Intubated and on the ventilator, coarse BS anterolaterally
CV: SR on tele. Reg, S1/S2, 05/26 syst LSB
ABD: ND
EXT: Right groin without hematoma or bleeding. Trace B/L LE edema. Overgrown and thickened toenails
NEURO: Sedated
SKIN: No rash
[2024-10-28 11:01] LABS: % Basophils 0.4 % (0-2); % Eosinophils 1.3 % (0-6); % Lymphocytes 18.1 % (20.5-51.1); % Monocytes 11.7 % (1.7-9.3); % Neutrophils 65.5 % (42.2-75.2); Absolute Eosinophils 0.1 10^3/uL (0-0.7); Absolute Immature Granulocytes 0.2 10^3/uL (0-0.05); Absolute Lymphocytes 1.3 10^3/uL (1.2-3.4); Absolute Monocytes 0.8 10^3/uL (0.1-0.6); Absolute Neutrophils 4.6 10^3/uL (1.4-6.5); Hematocrit 29.2 % (39.0-52.0); Hemoglobin 9.8 g/dL (13.0-18.0); Mean Corp Hgb Conc. 33.6 g/dL (33.0-37.0); Mean Corpuscular Hgb 29.3 pg (27.0-31.0); Mean Corpuscular Volume 87.2 fL (80.0-94.0); Mean Platelet Volume 11.5 fL (7.4-10.4); Nucleated Red Blood Cells % 0.3 % (-); Platelet Count 146 10^3/uL (130-400); Red Blood Cell Count 3.35 10^6/uL (4.70-6.10); Red Cell Dist. Width 15.4 % (11.5-14.5)
--- NOTE | 2024-10-28 11:04 | PN.CDI ---
CDI
- -
CDI:
Physician Documentation Request
Admit Date: 10/23/24 15:18
Dear Doctor,
Please review the following and provide your response in the progress notes.
Clinical Indicators:
Pt admitted with Cardiac arrest out of hospital/Ventricular fibrillation /STEMI /Vented in field /Cardiogenic Shock on Levophed
Shank Scourer progress note 10/23-10/27,' CKD. Good urine output, stable creatinine...'
10/23/24 10/24/24 10/28/24
10:53 05:44 03:12
Creatinine 1.2 1.4 H 1.3
eGFR > 60.00 53.07 58.01
Please clarify the suspected stage of CKD:
Stages of Chronic Kidney Disease*
Level Description GFR
G1 Normal or High >90
G2 Mildly decreased 60-89
G3a Mildly to moderately decreased 45-59
G3b Moderately to severely decreased 30-44
G4 Severely decreased 15-29
G5 Kidney failure <15
Use of terms such as suspected, likely, concern for, or probable (associated with a specific diagnosis that is being evaluated, monitored, or treated as if it exists) are acceptable and can be coded in the inpatient setting, when documented at the
time of discharge.
Thank you,
Estela Calvillo RN
CDI Specialist
[place] [facility]
Please use your independent medical judgment in providing your response.
*Source: Kidney Disease: Improving Global Outcomes (KDIGO) 2012
--- NOTE | 2024-10-28 11:37 | PTCARENOTE ---
sedation lightened. patient opens eyes. does not look at me but seems to respond to name and opens eyes when i ask him too. nodded head no when i asked him to try to relax. Vomitted x1. mouth suctioed and down ETT as well. pupils 2mm. sluggish.
[2024-10-28] MEDS: NSS VEN SHEATH (11:41)
[2024-10-28] MEDS: COREG 3.125 MG TUBE ×2 (11:46→19:39)
[2024-10-28] MEDS: ZOFRAN 4 MG IV (11:48)
[2024-10-28 12:02] LABS: Glucose - Point of Care 158 mg/dl (70-99)
[2024-10-28] MEDS: KCL 270 MEQ IV (12:19)
[2024-10-28] MEDS: NOVOLOG FLEXPEN-MODERATE RESISTANCE 1 UNITS SC (12:25)
[2024-10-28] MEDS: SUBLIMAZE 50 MCG IV ×2 (13:58→21:04)
--- NOTE | 2024-10-28 14:03 | W.PN.UPDATE ---
Update Note
Progress Note Update
CTSP urgently for code 9, patient more awake and then agitated and went into sustained monomorphic VT that broke spontaneously while defibrillator pads being placed. Lidocaine gtt rate increased to 2 mg/min. Restart Heparin gtt at previous rate,
Heparin gtt had been stopped after IABP removed yesterday. Cont aspirin 81 mg daily by tube. Lever Operator increasing sedation and considering additional IV diuresis. Potassium was low at 3.2 this morning and patient received 40 meq IV piggyback.
Recheck labs, ordered by me. Family updated in atrium. Critical care time 36 minutes.
[2024-10-28] MEDS: VERSED 2 MG IV (14:04)
--- NOTE | 2024-10-28 14:05 | W.PN.UPDATE ---
Update Note
Progress Note Update
Called down to see the patient at 1:48 PM as patient was becoming increasingly agitated with tachycardia and significant hypertension. Prior to this happening, sedation was halved in an attempt to do a spontaneous awakening trial and then SBT.
When I saw the patient, he was agitated with eyes opening and not following commands. Fentanyl + Versed given to him with improvement in heart rate + blood pressure. Lidocaine increased to 2 mg/min per cardiology who was present at bedside.
Patient never lost a pulse. Patient then calm down with resumption of sedation. Hold off on SAT/SBT until tomorrow. If possible, obtain imaging with CT head + CT chest/abdomen/pelvis given his recurrent fevers.
--- NOTE | 2024-10-28 14:14 | W.PN.UPDATE ---
Update Note
Progress Note Update
Code 9 called and ultimately canceled as patient developed sustained ventricular tachycardia but retained pulse. Upon arrival to the room, cardiology and software configuration specialist at the bedside. Resuming heparin drip, providing additional carvedilol and Lasix.
Lidocaine drip increased to 2 mg/min. Continue on telemetry
--- NOTE | 2024-10-28 16:00 | PTCARENOTE ---
Once sedation weaned down patient nodding head appropriately. attempting to speak around tube. wiggles toes and squeezes hands on command. starting panicking. HR 180s. SVT. pads applied. no shock required. patient broke on his own. BP sys 215. Rapid
called. Patient vomiting and requiring deep suctioning and resedation. sputum culture sent. will continue to monitor.
[2024-10-28] MEDS: ZOSYN 50 IV ×2 (16:10→19:39)
[2024-10-28 16:35] LABS: Blood Urea Nitrogen 20 mg/dl (9-20); Calcium 8.2 mg/dl (8.4-10.2); Carbon Dioxide 23 mmol/L (22-30); Chloride 111 mmol/L (98-107); Estimated Creatinine Clearance 63 ml/min; Glucose 147 mg/dl (70-99); Magnesium 1.9 mg/dl (1.6-2.3); Phosphorus 4.1 mg/dl (2.5-4.5); Potassium 3.9 mmol/L (3.5-5.1); Sodium 141 mmol/L (135-145); eGFR 58.01
[2024-10-28 18:24] LABS: Glucose - Point of Care 128 mg/dl (70-99)
[2024-10-28] MEDS: HEPARIN 25000 UNITS/250 ML IV (19:37)
[2024-10-28] MEDS: XYLOCAINE 2 GRAM 500 IV (19:38)
[2024-10-28] MEDS: CORDARONE 518 MG IV (20:37)
--- NOTE | 2024-10-28 21:00 | PTCARENOTE ---
1899: bedside report received from previous RN, assumed care of pt. pt in bed, intubated and sedated. fentanyl infusing @ 20 mcg, propofol gtt infusing @ 30 mcg. SR on monitor w PVCs, HR 80s. Lidocaine gtt infusing @ 2mg, Heparin gtt infusing @ 1300
units/kg/hr. bilateral radial and DP pulses present w doppler. and +2 edema throughout. edema noted to sclera and scrotum. pt on vent via ETT. vent set to A/C 25/480/5/40%. POX 93-94%. respiratory therapist at bedside, ETT cuff inflated, ETT
repositioned. mouth care completed. hypoactive BS present. NGT intact via R nare, placement confirmed by auscultation, minimal residual. hurt catheter intact, draining clear yellow urine. hurt care completed. RIJ TLC intact and patent. L radial
art line intact. skin CDI. R groin site dressing CDI, no evidence of bleeding or hematoma. pt washed, gown and linens changed. turning/repositioning patient Q2H and as needed. sacral foam dressing changed.
1999: orders received for Amio gtt - now infusing @ 1mg/min.
2099: pt drowsy, opens eyes spontaneously, follows simple commands. pt grimacing and nods head yes when asked if having pain. fentanyl bolus given, fent & prop gtts increased. fentanyl now infusing @ 50 mcg, propofol gtt now infusing @ 40 mcg.
[2024-10-28 21:03] LABS: APTT 51.2 Sec (23.4-35.0)
[2024-10-29] VITALS (29 sets, daily range): BP systolic 108–146; BP diastolic 55–85; BMI 30.3
--- NOTE | 2024-10-29 | PTCARENOTE ---
no acute changes, pt remains on sedation, Fent gtt @ 50mcg, Prop gtt @ 40mcg. pt wakes to verbal stimuli. remains on vent via ETT, vent settings unchanged, POX 96%. SR w occasional PVCs on monitor, HR 60s. Lido, Amio, and Heparin gtts maintained.
SBP 110s. UO adequate. skin CDI. turning/repositioning pt Q2H and as needed. pt resting between care.
[2024-10-29] MEDS: TYLENOL ORAL SOLUTION 650 MG TUBE ×3 (00:04→11:36)
[2024-10-29] MEDS: NOVOLOG FLEXPEN-MODERATE RESISTANCE SC ×3 (00:59→12:53)
[2024-10-29 01:00] LABS: Glucose - Point of Care 126 mg/dl (70-99)
[2024-10-29] MEDS: ZOSYN 50 IV ×4 (02:06→19:30)
[2024-10-29] MEDS: DIPRIVAN 100 IV ×3 (02:07→23:55)
[2024-10-29 03:57] LABS: B.E. 1.9 mmol/L; HCO3 25.1 mmol/L (21-28); Ionized Calcium 1.13 mMOL/L (1.15-1.33); O2 Saturation % 98.1 % (94-98); PCO2 33 mmHg (35-48); PO2 77 mmHg (83-108); pH 7.49 (7.35-7.45)
[2024-10-29 04:04] LABS: Hematocrit 26.4 % (39.0-52.0); Hemoglobin 9.1 g/dL (13.0-18.0); Mean Corp Hgb Conc. 34.5 g/dL (33.0-37.0); Mean Corpuscular Hgb 29.5 pg (27.0-31.0); Mean Corpuscular Volume 85.7 fL (80.0-94.0); Mean Platelet Volume 10.8 fL (7.4-10.4); Platelet Count 135 10^3/uL (130-400); Red Blood Cell Count 3.08 10^6/uL (4.70-6.10); Red Cell Dist. Width 15.2 % (11.5-14.5); White Blood Cell Count 7.4 10^3/uL (4.8-10.8)
[2024-10-29 04:18] LABS: APTT 69.1 Sec (23.4-35.0)
[2024-10-29 04:50] LABS: NT-proBNP 2770 pg/ml; Troponin I 0.619 ng/ml
[2024-10-29 05:10] LABS: Procalcitonin 1.34 ng/ml (0.0-0.25)
[2024-10-29 05:25] LABS: ALT (SGPT) 25 U/L (0-50); AST (SGOT) 34 U/L (17-59); Albumin 3.1 g/dl (3.5-5.0); Alkaline Phosphatase 51 U/L (38-126); Blood Urea Nitrogen 20 mg/dl (9-20); Calcium 7.8 mg/dl (8.4-10.2); Carbon Dioxide 23 mmol/L (22-30); Chloride 113 mmol/L (98-107); Estimated Creatinine Clearance 68 ml/min; Glucose 130 mg/dl (70-99); Magnesium 1.9 mg/dl (1.6-2.3); Phosphorus 3.6 mg/dl (2.5-4.5); Potassium 3.2 mmol/L (3.5-5.1); Sodium 142 mmol/L (135-145); Total Protein 5.6 g/dl (6.3-8.2); eGFR > 60.00
[2024-10-29 06:09] LABS: Glucose - Point of Care 119 mg/dl (70-99)
[2024-10-29] MEDS: KCL 100 IV ×2 (06:16→10:42)
[2024-10-29] MEDS: CALCIUM GLUCONATE 100 IV (06:16)
[2024-10-29] MEDS: MAGNESIUM SULFATE 102 GRAMS IV (06:25)
--- NOTE | 2024-10-29 07:22 | W.PN.HOSP.TC ---
Today's Communication/Plan
-
;/
Assessment / Plan
Assessment / Plan
Assessment/Plan
#STEMI [id number] cardiac arrest
-Initial rhythm V-fib status post shock
-Emergent cardiac catheterization, appears multivessel disease. Status post PCI in the past. Previous documentation had stenting to the LAD. Has refused AICD in the past
-CT surgery consulted. Cardiology following. s/p IABP
-On aspirin, statin, heparin
-Initial chest x-ray with pulmonary edema
-repeat chest x-ray New findings concerning for mild right upper lobe pneumonia. Stable findings concerning for moderate left lower lobe pneumonia.
-Completed TTM, currently rewarmed
-Trend lactate; improving
-Wean off sedation as tolerated
-Vent management per electroplating worker
-CT surgery involved; will initiate workup for CABG if patient achieves neurorecovery.
-per cardiology; Status post plain old balloon angioplasty of 3 serial up to 90% heavily calcified stenoses in the proximal, mid and distal RCA with KEYONA-3 flow restored into the distal vessel aborting the inferior ST elevation ND. Concomitant
significant left main stenosis and mid left circumflex stenosis noted.
-diuresis as needed
-SBT trial
-For CT chest/abd/pelvis
#Sepsis (fever on 10/23, leukocytosis)
-Could be secondary to postarrest, infarction
-MRSA negative. Antibiotics with Zosyn
-Check blood culture NGTD
-UA not suggestive of UTI
-Monitor temperature, follow fever curve
-Weaned off pressors
#Acute hypoxic respiratory failure secondary to pulmonary edema with cardiogenic shock
-Wean sedation as tolerated
-Management per cardiology, electroplating worker;
-Weaned off pressors
-IV lasix
#Hypocalcemia
#Hypokalemia
-Replete
#Transaminitis secondary to cardiogenic shock and post code
-Resolved
#Renal insufficiency
-Continue to monitor
-Maintain Singh, monitor urine output
#History of ELVIRA on CPAP
#History of hypertension
#Hyperlipidemia
#Diabetes mellitus
ISS,accuchecks
A1c 6.7
#morbid Obesity
Tube feeds with Jevity
CODE STATUS full code
DVT prophylaxis heparin
Anticipated Discharge: > 48 hours
Subjective/Interval History
-
seen at bedside, Intubated
Objective Data
-
Labs:
Laboratory Results
10/28/24 10/29/24 10/29/24
20:42 03:50 10:00
WBC 7.4
Hgb 9.1 L
Hct 26.4 L
Plt Count 135
APTT 51.2 H 69.1 H Pending
HCO3 25.1
Sodium 142
Potassium 3.2 L
Chloride 113 H
Carbon Dioxide 23
BUN 20
Creatinine 1.2
Glucose 130 H
Calcium 7.8 L
Total Bilirubin 1.0
AST 34
ALT 25
Alkaline Phosphatase 51
Vital Signs:
Vital Signs
Temp Pulse Resp BP Pulse Ox
99.0 F 71 18 168/75 99
10/29/24 06:00 10/29/24 06:00 10/29/24 06:00 10/28/24 11:46 10/29/24 06:04
I&O
10/28/24 10/29/24 10/30/24
06:59 06:59 06:59
Intake Total 2817.3 / 2817.3 2213.4 / 2213.4
Output Total 3895 / 3895 4040 / 4040
Balance -1077.7 / -1077.7 -1826.6 / -1826.6
Review of Systems
-
Unable to obtain full review of systems at this time due to: Patient Intubation
Physical Exam
-
General: Intubated
Respiratory: Rales
Cardiac: S1/S2
GI: Soft and Nondistended
Genito-urinary: Singh
Skin: Warm
Neuro: Sedated
--- NOTE | 2024-10-29 08:24 | W.PN.CARDCBS ---
Addendum entered and electronically signed by Frankie Westbrook DO 10/29/24 15:53:
I saw and examined the patient 8:30AM 10/29/2024
The Aircraft Design Engineer's note was reviewed and I agree with the note.
Comment:
Cath October 23 2024:
CORONARY FINDINGS
Dominance: Right
Left Main Trunk (LMT): The left main is a large-caliber vessel that gives off the left major descending artery and the left circumflex artery. The left main is severely calcified and hazy in appearance and diffusely disease with up to 70% stenosis.
Left Anterior Descending Artery (LAD): Large caliber vessel that gives off multiple small caliber diagonal branches as it courses along the anterior inter-ventricular groove before wrapping around the cardiac apex. There is mild diffuse
atherosclerotic plaque.
Left Circumflex Artery (LCx): The left circumflex artery is a medium caliber vessel which gives rise to 1 major obtuse marginal branch with moderate tortuosity in the midportion. Mid left circumflex just proximal to the takeoff of OM 1, proximal to
prior stent has heavily calcified 70 to 80% stenosis with OM1 appearing like a good bypass target.
Right Coronary Artery (RCA): The RCA is a large-caliber, dominant vessel that has diffuse severe calcified disease with 3 lesions up to 90% in the proximal, mid and distal vessel with a large thrombotic burden in the distal vessel. This is the
likely culprit for presenting ACS. POBA was performed as described below.
CONCLUSIONS
1. Successful Plain old balloon angioplasty (POBA) of 3 serial 90% stenosis in the proximal, mid and distal RCA with KEYONA-3 flow restored into the distal vessel.
2. Significantly elevated right and left-sided filling pressures with reduced cardiac output, consistent with cardiogenic shock and severe pulmonary hypertension.
3. Severe multivessel coronary artery disease with heavily calcified coronary arteries.
4. Successful placement of 50cc intra-aortic balloon pump.
RECOMMENDATIONS
1. Plan to continue daily baby aspirin via NG tube, IV unfractionated heparin drip, Integrilin drip along with high intensity statin.
2. Continue aggressive IV diuresis and mechanical ventilatory support.
3. Discussed with newcomer hostess in regards to TTM management to avoid hyperthermia
4. Aggressive management of cardiovascular risk factors.
5. Management of cardiogenic shock with intra-aortic balloon pump support and monitoring of lab work every 6 hours with pressors as warranted depending on hemodynamics.
6. Close monitoring for neurologic recovery with consideration for coronary artery bypass grafting if neurologic recovery is attained.
Plan:
No recurrent VT since sustained monomorphic VT event noted October 28 in PM.
Continue amiodarone drip at 0.5 mg/min
Reduced lidocaine drip to 1 mg/min with potential stopping lidocaine in the next 24 hours.
Continue to maintain potassium greater than 4 and magnesium greater than 2. Additional 40 mg KCl this a.m.
Ischemic cardiomyopathy with EF 25%.
Continue IV diuresis with careful attention to creatinine, daily weights and electrolytes. Electrolyte repletion as necessary.
Sedation being weaned.
Continue vent management as per newcomer hostess.
Continue pulmonary toilet. Continue antibiotics as per newcomer hostess.
Pending neurologic recovery, reevaluation by CT surgery for possible revascularization.
Patient is status post 12 RCA October 23, 2024 after presenting with VF arrest
Continue IV heparin
Continue aspirin via tube
The patient will ultimately also be considered for an ICD for secondary prevention given recurrent VT despite antiarrhythmic medication.
Reviewed with EP, some of his VT may be coming from scar formation from prior CAD/ischemic cardiomyopathy
Discussed with nursing.
Critical care time 38 minutes.
Original Note:
Today's Communication / Plan
-
Cont amiodarone gtt at 0.5 mg/min
Decrease lidocaine gtt to 1 mg/min and look to stop
Additional KCl 40 meq rider now and recheck BMP and magnesium at noon
Likely needs additional diuresis this afternoon, Lasix 40 mg IV given this AM
Impression / Plan
-
PCP: Dr. Dye
Primary Medical I D Sales: Dr. Lui
Assessment:
Presentation with VF arrest s/p shock x1 with ROSC 10/23/24
VDRF
Intubated in field 10/23/24
Cardiogenic shock
Chest pain
CAD
h/o AR and unknown vessel PCI 1994
s/p LAD PCI x2 2011
s/p Circ PCI 2013
s/p POBA RCA 10/23/24
ICM, EF 35-40% by echo 10/05/21 and then EF 30-35% by echo 10/24/24
HTN
HLD
DM2
Obesity
ELVIRA on CPAP
Hypokalemia
Cath 10/23/2024: Plain old balloon angioplasty of 3 serial up to 90% stenoses in the proximal, mid and distal RCA which was heavily calcified. Successful placement of 50 cc intra-aortic balloon pump and Waldron-Danial catheter via right common femoral
artery and vein, respectively. 1 shock for monomorphic VT during heart catheterization
ECHO 10/05/21: TDS, EF 35 to 40%, basal to mid inferior, inferolateral and basal septal akinesis, left atrial enlargement, mild MR
Echo 10/23/24: Limited bedside echo at time of [facility], very limited views but RV function appears to be preserved. LV systolic function appears close to baseline with EF of about 35%, no pericardial effusion
Echo 10/24/24: EF 30 to 35%, moderate global hypokinesis, technically difficult study but no clear significant valve disease.
Echo 10/28/24: EF 25%, global hypokinesis, moderate concentric LVH, compared to echo 10/24/2024 the EF had been 30 to 35% with IABP in place and is now 25% with IABP removed
Plan:
-Patient had aborted code 10/28/24 for sustained monomorphic VT in the setting of attempted sedation wean. Patient became increasingly agitated and vomited while sedation was being weaned and then more agitated followed by monomorphic VT that
broke spontaneously while defibrillator pads were being placed. Lidocaine gtt rate increased to 2 mg/min, heparin drip was restarted for possible ischemia driven VT. Mortician Supplies Sales Representative diuresed the patient and also started antibiotics for possible PNA.
No additional arrhythmia overnight, lidocaine gtt running at 2 mg/min and he was also started on amiodarone gtt overnight initially 1 mg/min and now running at 0.5 mg a minute.
-Check ECG to follow QTc, ordered by me
-Labs reviewed by me 10/29/2024, potassium 3.2, magnesium 1.9. Patient was given KCl rider 10/29/2024 at 0600, additional KCl rider 40 mEq over 4 hours via central line ordered by me. Repeat BMP and magnesium level at noon ordered by me.
-Heparin gtt restarted 10/28/2024 for possible ischemic contribution to VT in the setting of RCA POBA on 10/23/2024. Hgb was 9.8 on 10/28/2024 and Hgb is 9.1 on 10/29/2024. Repeat H&H ordered at noon by me
-Remains on aspirin 81 mg daily via tube
-Outpatient dose of Plavix was stopped on admission, last dose was 10/23/2024
-Troponin peaked at 5.02
-Patient is s/p POBA of 3 serial up to 90% heavily calcified stenoses in the proximal, mid and distal RCA with KEYONA-3 flow restored into the distal vessel aborting the inferior ST elevation AR. Concomitant significant left main stenosis and mid
left circumflex stenosis noted. CT surgery consulted and if patient achieves neurologic recovery then he can be evaluated for CABG
-BP 168/75 prior to morning dose of Coreg 3.125 mg BID
-LDL 62 and outpatient dose of Crestor 40 mg daily has been continued
-IABP successfully removed 10/27/24. Remains HD stable off pressors.
-EF 25% by echo 10/28/2024 without IABP
-Coreg as noted above
-Would consider adding losartan 25 mg daily, Cre stable at 1.2. Patient was taking ramipril 10 mg daily prior to admission
-Cre stable at 1.3 on labs reviewed by me 10/28/2024.
-proBNP 2770 on lab 10/29/2024 as reviewed by me. Patient ordered Lasix 40 mg IV daily and received additional Lasix 10/28/2024. Patient was not taking a diuretic prior to admission
Summary of admission thus far: Patient called 911 with chest pain and SOB 10/23/24 and then unresponsive on the phone with 911 operators and when paramedics arrived to find patient with agonal respirations and VF. Patient shocked x1 and then asystole
and given lidocaine bolus with ROSC. Patient intubated in the field. Patient brought to [facility] ER in SR with BP 145/87. ECG on arrival did not meet STEMI criteria. Patient taken to casting house laborer and had POBA of RCA lesion and IABP was placed for
cardiogenic shock. Case was referred to CT surgery service for evaluation for CABG. Patient admitted to CVICU and radial artery line placed along with central line. TTM protocol initiated 10/23/24 and patient rewarmed to normothermia by early AM
10/27/24. On 10/24/24 patient's Lidocaine gtt was stopped and patient started to have frequent PVCs and amiodarone gtt was started and then AIVR so amio gtt was stopped and Lidocaine gtt restarted and has been running since 10/24/24. Neurology following
and EEG waves slow due to sedation. Waldron Danial removed for bleeding 10/24/24. IABP removed 10/27/24. Right arterial femoral line removed 10/27/24. Patient increasingly agitated during attempted sedation wean 10/28/24 and vomited. Patient agitated and then
sustained monomorphic VT 10/28/24 that spontaneously converted to SR prior to shock while pads were being placed. Lidocaine gtt increased to 2 mg/min, heparin gtt restarted for possible ischemia driven component and sedation was increased back up;
patient was diuresed by newcomer hostess.
Progress Note - Medical I D Sales
Subjective
Date of Service: October 29, 2024
Intubated and sedated
Objective
Labs:
10/29/24 03:50
10/29/24 03:50
Labs
Hgb 9.1 g/dL (13.0-18.0) L 10/29/24 03:50
Hct 26.4 % (39.0-52.0) L 10/29/24 03:50
Plt Count 135 10^3/uL (130-400) 10/29/24 03:50
PT 15.2 Sec (11.4-14.6) H 10/26/24 05:07
INR 1.17 10/26/24 05:07
APTT 69.1 Sec (23.4-35.0) H 10/29/24 03:50
Sodium 142 mmol/L (135-145) 10/29/24 03:50
Potassium 3.2 mmol/L (3.5-5.1) L 10/29/24 03:50
BUN 20 mg/dl (9-20) 10/29/24 03:50
Creatinine 1.2 mg/dL (0.7-1.3) 10/29/24 03:50
Glucose 130 mg/dl (70-99) H 10/29/24 03:50
Troponins
10/28/24 10/29/24
20:42 03:50
Troponin I 0.750 H* 0.619 H*
Vital Signs and I&O:
Vital Signs
Temp Pulse Resp BP Pulse Ox
98.5 F 62 18 168/75 95
10/29/24 07:00 10/29/24 08:00 10/29/24 08:00 10/28/24 11:46 10/29/24 08:00
Vital Signs
Temp Pulse Resp BP Pulse Ox
98.5 F 62 18 168/75 95
10/29/24 07:00 10/29/24 08:00 10/29/24 08:00 10/28/24 11:46 10/29/24 08:00
Intake & Output
10/27/24 10/28/24 10/29/24 10/30/24
06:59 06:59 06:59 06:59
Intake Total 2951.9 / 3053.6 2817.3 / 2817.3 2213.4 / 2326.0 112.6 / 112.6
Output Total 2445 / 2650 3895 / 3895 4040 / 4165 125 / 125
Balance 506.9 / 403.6 -1077.7 / -1077.7 -1826.6 / -1839.0 -12.4 / -12.4
Physical Exam
Physical Exam
GEN: Intubated, sedated
LUNGS: Intubated and on the ventilator, coarse BS anterolaterally
CV: SR on tele. Reg, S1/S2, 1/6 syst LSB
ABD: ND
EXT: Right groin without hematoma or bleeding. +1 B/L hand and LE edema.
NEURO: Sedated
SKIN: No rash
--- NOTE | 2024-10-29 08:27 | W.PN.INTV ---
Today's Communication / Plan
Recommendations
Start Precedex today in an attempt to help wean off propofol + fentanyl
CT chest today shows pneumonia with evidence of small bilateral pleural effusions - continue antibiotics + diuresis
Amount of secretions has improved today; respiratory culture from yesterday is growing GNR � follow-up species/sensitivities
IABP removed 10/[address] surgery DIRECTOR SCRIPT
Continue with IV Lasix and maintain net negative fluid balance as tolerated
Strict I/O with daily weight
Defer surgical coronary revascularization to CT surgery - he is following commands but is slow to respond and remains significantly weak, although sedation still being titrated down/off
Continue ICU level of care for this critically ill patient
Assessment
-
Patient currently intubated, mechanically ventilated sedated. Reportedly patient is a 70-year-old gentleman with known history of coronary artery disease with previous PCI in the past, known ischemic cardiomyopathy with baseline EF 35 to 40%,
obstructive sleep apnea on CPAP, who called 911 for having chest pain and shortness of breath. While he was on the phone apparently he stopped talking and had a cardiac arrest. Once EMS arrived, patient was noted to be in ventricular fibrillation
and was shocked x 1, he also received epi and Afrin as well as lidocaine and had return of spontaneous circulation. He was intubated in the field and EKG was concerning for ST elevation in the inferior leads. Cardiology service evaluated the
patient in the emergency room and he was emergently taken to [facility] for further intervention. I initially saw the patient in the [facility] for persistent hypoxia despite being mechanically ventilated and later reevaluated again in CVICU.
#1. Inferior wall STEMI complicated by out of hospital Cardiac Arrest, initial rhythm V. Fib (10/23)
- S/p defibrillation x 1, ROSC achieved in the field. Estimated downtime reportedly around 15 minutes
- Patient emergently taken to [facility], s/p POBA x3 in the RCA - -> IABP placed --> removed on 10/27 with heparin drip stopped prior. CT surgery consulted for possible CABG --> following peripherally and will intervene depending on patient's
neurological recovery
- Known history of coronary artery disease, s/p PCI more than 10 years ago
- On ASA and crestor
- Continue lidocaine gtt
- CT head unremarkable, chest x-ray suggestive of pulmonary edema
- Rechecked CT head again this morning showing no acute intracranial abnormality
- Completed TTM, currently rewarmed -maintain core-temperature sensing temperature probe for at least 48 hours s/p reaching normothermia to ensure no fevers occur
- Was spiking fevers overnight from 10/27 - 10/28 and Unasyn changed back to Zosyn, and fevers have now improved
- Stop scheduled tylenol; continue prn tylenol and cooling blankets if needed
- Monitor renal and hepatic function
#2. Acute hypoxic respiratory failure requiring mechanical ventilator (intubated in the field)
- Due to pulmonary edema from cardiogenic shock
- Initially unable to rule out component of pneumonia especially given the retrocardiac opacification which was not seen on initial CXR from this admission
- 10/23, Patient emergently evaluated in [facility] for hypoxia, PEEP was increased up to 14, tidal volume 480 mL, patient breathing above the vent at around 30/min, peripheral saturation improved to 99%
- Responded well to diuretics
- Currently on volume assist mechanical ventilation, FiO2 40% PEEP of 5 with pulmonary mechanics significantly improved
- PE felt to be less likely with normal-appearing RV on echocardiogram. Patient anticoagulated with heparin
- TTM now complete -did not tolerate awakening trial on 10/28 as he became tachycardic with episode of SVT, hypertensive and very agitated
- Today, start Precedex in an effort to help wean down sedation with eventual SBT if he is stable
- CT chest obtained today showing bibasilar consolidations with small pleural effusions. This is likely due to pneumonia with heart failure; procal 1.34 today and proBNP 2770; continue ABx and diuresis
- Mild wheezing heard today (10/29) - start Duonebs
- Patient was having thick, yellow/neal secretions on 10/28 and respiratory culture sent. Now growing GNR. Follow-up species and sensitivities
#3. Acute on chronic HFrEF with Cardiogenic Shock - shock state now revolved (off levophed since AM of 10/27)
- IABP removed as of 10/27
- Keep MAP>65
- Monitor urine output with goal >0.5-1cc/kg/hr; continues on IV lasix; cardiology following
- Lactic acidosis resolved since 10/25
- Continue with 40 mg IV Lasix daily (since 10/25); given an extra dose of Lasix on 10/28
- Off stress dose steroids (s/p solu-cortef 10/24 - 10/25)
- Broad-spectrum antibiotics were started empirically with vanc/zosyn --> patient was changed to Unasyn on 10/27 however given that he has been spiking fevers, Unasyn changed back to Zosyn (10/28)
- IV vanco stopped due to negative MRSA swab
- Would plan for 10-14 days antibiotics given recent shock state with pneumonia
#4. Acute encephalopathy
- CT head negative. Patient waking up per RN but still not following commands; per the RN, the patient does get agitated when he is stimulated.
- CT head checked again today showing no acute intracranial pathology or interval change
- s/p TTM (rewarmed to normothermia overnight at 430AM on 10/27/2024)
- Neurology consulted - recs appreciated
#5. CKD.
- Good urine output, stable creatinine
- Strict I/O; trend sCr
#6. Fevers
- CT chest/abdomen/pelvis shows bibasilar pneumonia with small adjacent pleural effusions and also prominent gallbladder with multiple gallstones. --> Check RUQ abdominal ultrasound to assess for acute cholecystitis
Other medical diagnoses:
- h/o ELVIRA, on CPAP at home. Will resume CPAP once extubated
- HTN
- HLD. On statin
- DM, type II. s/p Insulin infusion; continue ISS and continue BG q6hr with goal BG 140-180
- Obesity
Critical care statement: A total of 37 minutes of critical care time was provided for this patient today. This includes management of unstable vital signs, evaluation of the patient at bedside, reviewing the patient's pertinent medical records
including radiographs, microbiology, laboratory evaluations, and discussion with primary team, consultants, pharmacy, nutrition, physical therapy, case management, charge nurse, critical care nursing, and respiratory therapy.
Data:
CT Head 10/23/2024: Unremarkable
CXR. 10/23/2024: Suggestive of Pulmonary edema
CXR 10/27/2024: There is slightly increased size of the left basilar opacity which likely represents a moderate pleural effusion with adjacent atelectasis, however pneumonia cannot be excluded. Stable appearance of the support lines and tubes.
CT chest/abdomen/pelvis 10/29/2024:
Although markedly limited without intravenous contrast and as a result of beam hardening artifact from bilateral upper extremities, bilateral lower lobe consolidations are seen with air bronchograms which could represent pneumonia and/or
subsegmental atelectasis with accompanying tiny bilateral pleural effusions.
Somewhat prominent gallbladder containing multiple stones. If there is a clinical concern for acute cholecystitis, suggest ultrasound for more complete evaluation.
No additional gross significant acute abnormal finding, evaluation markedly limited.
ECHO 09/2021: Top normal left ventricular chamber size. Moderately reduced left ventricular
systolic function. Left ventricular ejection fraction is 35-40% by visual
assessment with basal - mid inferior, inferolateral and basal septal akinesis.
Top normal left ventricular wall thickness.
Left atrial enlargement.
Mild mitral regurgitation.
Compared to previous echo from September 2017, there is no significant change
Technically difficult study, consider Definity for better evaluation.
[facility] 04/2013: 1: 2 vessel coronary artery disease as described, patent RCA and LAD stents, new severe midcircumflex lesion.
2: Moderate to severe left ventricular dysfunction, EF 30%
3: Successful complex 3.0/12 mm Xience V drug eluting stent to the mid circumflex.
Subjective Dataa
Subjective Data
Date of Service:
Date of Service: October 29, 2024
Chief Complaint: Supervisor Partial Denture Department Follow Up and Vent Management Follow Up
Subjective:
Patient seen and evaluated this AM at bedside. Remains intubated on AC/CMV at 20/480/40%/5, with PIP 28 cmH2O, VTe 479 cc and breathing at 20 breaths/min. Current heart rate 78, saturating 96% with BP via A-line 173/72, end-tidal CO2: 38.
Currently on fentanyl at 50 mcg/hr and propofol at 20 mcg/kg/min. Also lidocaine gtt lowered this morning from 2 mg/min to 1 and amiodarone drip started overnight, currently at 0.5 mg/min. Also remains on heparin drip. Patient is opening eyes and
following simple commands but is very slow to respond and frequently has an upwards gaze preference.
Review of Systems
General: Unobtainable - Sedation (And intubated)
Objective Data
Data Reviewed
Vital Signs / I&O / Oxygen:
Vital Signs
Temp Pulse Resp BP Pulse Ox
98.1 F 62 20 137/58 98
10/29/24 09:00 10/29/24 09:00 10/29/24 09:00 10/29/24 08:57 10/29/24 09:00
Intake and Output
10/28/24 10/29/24 10/30/24
06:59 06:59 06:59
Intake Total 2817.3 / 2817.3 2213.4 / 2326.0 352.4 / 352.4
Output Total 3895 / 3895 4040 / 4165 470 / 470
Balance -1077.7 / -1077.7 -1826.6 / -1839.0 -117.6 / -117.6
SaO2 [A/C] 92
SaO2 98
Physical Exam
General: Respiratory Distress (negative) and Comfortable
HEENT: Normocephalic, Anicteric and Other (ETT in place)
Cardiovascular: S1-S2 and Peripheral Edema (+1 lower extremity pitting edema bilaterally)
Respiratory: Wheeze (Mild expiratory), Rhonchi (negative), Non-Labored Respirations and ET Tube (Mechanical breath sounds heard bilaterally)
GI: Soft, Distended (Abdominal obesity), Non Tender and Normal Bowel Sounds
Neurology: Tremors (negative) and Other (Sedated although awakens to voice and follows simple commands; pupils 2 mm bilaterally and brisk; intact gag + corneal reflexes)
Skin: Warm, Dry, Cyanosis (negative) and Jaundice (negative)
Labs/Micro/Reports
Laboratory Results
10/28/24 10/29/24
20:42 03:50
APTT 51.2 H 69.1 H
pH 7.49 H
pCO2 33 L
pO2 77 L
HCO3 25.1
O2 Delivery Level
Microbiology
10/28/24 16:34 Endotracheal Gram Stain - Preliminary
10/23/24 17:24 Blood/Venous Blood Culture - Final
No Growth - Final Report
10/23/24 17:19 Blood/Venous Blood Culture - Final
No Growth - Final Report
10/25/24 18:13 Nose Nasal Screen MRSA (PCR) - Final
MRSA not detected - performed by PCR methodology.
[2024-10-29] MEDS: LASIX 40 MG IV (08:55)
[2024-10-29] MEDS: CRESTOR 40 MG TUBE (08:56)
[2024-10-29] MEDS: LOW STRENGTH ASPIRIN 81 MG TUBE (08:56)
[2024-10-29] MEDS: MAGNESIUM OXIDE 500 MG TUBE (08:56)
[2024-10-29] MEDS: COREG 3.125 MG TUBE ×2 (08:57→19:30)
[2024-10-29] MEDS: PROTONIX IV 40 MG IV (09:04)
[2024-10-29] MEDS: NSS (PRESERVATIVE FREE) 10 ML IV (09:05)
[2024-10-29] MEDS: MIRALAX TUBE (09:07)
--- NOTE | 2024-10-29 10:00 | PTCARENOTE ---
SBT started. moves all extremities. nodding head appropriately. tracks. following simple commands.
[2024-10-29 10:28] LABS: APTT 74.8 Sec (23.4-35.0)
[2024-10-29] MEDS: SUBLIMAZE 50 MCG IV (11:20)
[2024-10-29 11:23] LABS: Glucose - Point of Care 107 mg/dl (70-99)
--- NOTE | 2024-10-29 12:25 | CM ---
CM following for DC planning needs.
Pt. continues to be vented/sedated.
DC needs are uncertain at this time and will depend on medical progress/ functional status.
Will follow closely.
Have reviewed initial assessment. Pt. resides alone in a single level apartment w/ elevator access. Pt. is functionally indep. at baseline w/ ADLs, mobility.
[2024-10-29] MEDS: HEPARIN 25000 UNITS/250 ML IV (12:53)
[2024-10-29] MEDS: PRECEDEX 100 IV ×5 (13:50→23:55)
--- NOTE | 2024-10-29 14:00 | PTCARENOTE ---
taken dowm for CT scan of head, chest abd pelvis. tolerated procedure. will wean off prop with use of precedex to attempt SBT for potential extubation.
[2024-10-29] MEDS: DUONEB 3 ML INH ×2 (15:06→19:37)
--- NOTE | 2024-10-29 15:30 | PTCARENOTE ---
did not tolerate sedation wean. Attempting to climb out of bed. hit and kicking RN. Biting tube and thrashing around. fentanyl bolus given and restarted gtts as necessary. will continue to monitor. family updated bedside.
[2024-10-29] MEDS: SUBLIMAZE 100 IV (15:36)
[2024-10-29] MEDS: NOVOLOG FLEXPEN-MODERATE RESISTANCE 1 UNITS SC ×2 (17:37→23:56)
[2024-10-29] MEDS: XYLOCAINE 2 GRAM 500 IV (17:38)
[2024-10-29 17:39] LABS: Hemoglobin 9.6 g/dL (13.0-18.0)
[2024-10-29 17:47] LABS: APTT 69.4 Sec (23.4-35.0)
[2024-10-29 17:49] LABS: Glucose - Point of Care 164 mg/dl (70-99)
[2024-10-29 17:59] LABS: Blood Urea Nitrogen 20 mg/dl (9-20); Calcium 8.3 mg/dl (8.4-10.2); Carbon Dioxide 24 mmol/L (22-30); Chloride 108 mmol/L (98-107); Estimated Creatinine Clearance 62 ml/min; Glucose 168 mg/dl (70-99); Magnesium 2.1 mg/dl (1.6-2.3); Potassium 3.9 mmol/L (3.5-5.1); Sodium 139 mmol/L (135-145); eGFR 58.01
[2024-10-29] MEDS: CORDARONE 518 MG IV (18:05)
--- NOTE | 2024-10-29 18:25 | PTCARENOTE ---
Rec'd patient from CVICU around 1714. Patient intubated and sedated. Pupils equal and reactive; +2mm. NSR with pvcs on tele. Rate in the 60's. Trace anasarca. Palpable pulses. #7.5 ett, 25cm @ the lip. Vent settings: A/C 20/480/5/40%. Lung sounds
coarse/diminished throughout. Harsh, moist cough present. Large amount of thick, bloody secretions suctioned from ett. +BS. Jessica sump placed to LIS. Per previous RN, TFs on hold d/t vomiting episodes. Rectal trumpet in place for liquid stools.
Singh in place for critical I/O. Lidocaine/Amio/Heparin/Fentanyl/Propofol/Precedex gtts infusing through RIJ TLC. Repeat H&H, BMP and PTT sent. Heparin gtt titrated accordingly.
[2024-10-29] MEDS: ZYPREXA 5 MG TUBE (19:30)
--- NOTE | 2024-10-29 20:00 | PTCARENOTE ---
on assessment pt intubated and sedated, pupils 2 PERRLA sluggish, SR on the monitor with PVCs, 7.5 ETT 24 at the lip, AC 20/480/5/40%, rectal trumpet in place, TF on hold, R nare NGT to blu RODRIGUEZ for critical Is&Os, R IJ triple lumen, infusing hep,
lido, amio, dex, fen, and prop
[2024-10-29] MEDS: KCL 50 IV (21:10)
[2024-10-29 23:51] LABS: Glucose - Point of Care 162 mg/dl (70-99)
[2024-10-30] VITALS (55 sets, daily range): BP systolic 95–162; BP diastolic 46–85; BMI 30.2
--- NOTE | 2024-10-30 00:50 | PTCARENOTE ---
no changes from prior assessment, pt repositioned q2h, Kcl repleted per PLASTIC SURGERY SPECIALIST orders see MAR
[2024-10-30 01:20] LABS: APTT 68.2 Sec (23.4-35.0)
[2024-10-30] MEDS: PRECEDEX 100 IV ×7 (02:42→21:37)
[2024-10-30] MEDS: SUBLIMAZE 100 IV (02:42)
[2024-10-30] MEDS: HEPARIN 25000 UNITS/250 ML IV ×2 (02:43→16:42)
[2024-10-30] MEDS: ZOSYN 50 IV ×4 (02:51→19:16)
[2024-10-30 03:31] LABS: Hematocrit 28.8 % (39.0-52.0); Hemoglobin 9.9 g/dL (13.0-18.0); Mean Corp Hgb Conc. 34.4 g/dL (33.0-37.0); Mean Corpuscular Volume 84.5 fL (80.0-94.0); Platelet Count 178 10^3/uL (130-400); Red Blood Cell Count 3.41 10^6/uL (4.70-6.10); White Blood Cell Count 8.3 10^3/uL (4.8-10.8)
[2024-10-30 04:08] LABS: ALT (SGPT) 24 U/L (0-50); AST (SGOT) 33 U/L (17-59); Albumin 3.2 g/dl (3.5-5.0); Alkaline Phosphatase 50 U/L (38-126); Blood Urea Nitrogen 18 mg/dl (9-20); Calcium 8.2 mg/dl (8.4-10.2); Carbon Dioxide 21 mmol/L (22-30); Chloride 112 mmol/L (98-107); Direct Bilirubin 0.5 mg/dl (0.0-0.4); Estimated Creatinine Clearance 67 ml/min; Glucose 152 mg/dl (70-99); Phosphorus 2.9 mg/dl (2.5-4.5); Potassium 3.6 mmol/L (3.5-5.1); Sodium 141 mmol/L (135-145); Triglycerides 338 mg/dl (10-149); eGFR > 60.00
[2024-10-30 04:18] LABS: Segmented Neutrophils 59 % (42-75)
[2024-10-30 04:19] LABS: Absolute Neutrophils -Man Diff 4.8 10^3/uL (1.4-6.5); Anisocytosis 2+; Band Neutrophils 0 % (0-3); Eosinophils 6 % (0-6); Lymphocytes 29 % (20-51); Monocytes 4 % (2-9); Myelocytes 2 % (-); Normal RBC Morphology No; Platelets Checked Yes; Total Cells Counted 100
[2024-10-30 04:30] LABS: Nucleated Red Blood Cells 1 (-)
[2024-10-30 05:09] LABS: B.E. -1.9 mmol/L; HCO3 21.7 mmol/L (21-28); O2 Saturation % 87.8 % (94-98); PCO2 32 mmHg (35-48); pH 7.44 (7.35-7.45)
--- NOTE | 2024-10-30 05:27 | PTCARENOTE ---
weaning down on sedation per MD order, pt with increased coughing and desat of O2 with repositioning, respiratory at bedside to assess pt, pt now 95%
[2024-10-30 05:31] LABS: Glucose - Point of Care 157 mg/dl (70-99)
[2024-10-30] MEDS: NOVOLOG FLEXPEN-MODERATE RESISTANCE 1 UNITS SC ×3 (05:39→17:37)
[2024-10-30 05:40] LABS: PO2 53 mmHg (83-108)
[2024-10-30] MEDS: DIPRIVAN 100 IV (05:47)
--- NOTE | 2024-10-30 07:04 | W.PN.HOSP.TC ---
Today's Communication/Plan
-
;/
Assessment / Plan
Assessment / Plan
Assessment/Plan
#STEMI [id number] cardiac arrest
-Initial rhythm V-fib status post shock
-Emergent cardiac catheterization, appears multivessel disease. Status post PCI in the past. Previous documentation had stenting to the LAD. Has refused AICD in the past
-CT surgery consulted. Cardiology following. s/p IABP
-On aspirin, statin, heparin
-Initial chest x-ray with pulmonary edema
-repeat chest x-ray New findings concerning for mild right upper lobe pneumonia. Stable findings concerning for moderate left lower lobe pneumonia.
-Completed TTM, currently rewarmed
-Wean off sedation as tolerated
-Continue lidocaine gtt
-Vent management per pickle processor
-CT surgery involved; will initiate workup for CABG if patient achieves neurorecovery.
-per cardiology; Status post plain old balloon angioplasty of 3 serial up to 90% heavily calcified stenoses in the proximal, mid and distal RCA with KEYONA-3 flow restored into the distal vessel aborting the inferior ST elevation VA. Concomitant
significant left main stenosis and mid left circumflex stenosis noted.
-diuresis as needed
-SBT trial
-For CT chest/abd/pelvis
#Sepsis (fever on 10/23, leukocytosis)
-Could be secondary to postarrest, infarction
-MRSA negative. Antibiotics with Zosyn
-Check blood culture NGTD
-UA not suggestive of UTI
-Monitor temperature, follow fever curve
-Weaned off pressors
-respiratory culture growing gram-negative bacilli.
#Acute hypoxic respiratory failure secondary to pulmonary edema with cardiogenic shock
-Wean sedation as tolerated
-Management per cardiology, pickle processor;
-Weaned off pressors
-IV lasix. Responded well to diuretics
-Precedex, goal to wean down sedation and eventually SBT
-CT chest with bibasilar consolidations, small pleural effusions
#Hypocalcemia
#Hypokalemia
-Resolved with repletion
#Transaminitis secondary to cardiogenic shock and post code
-Monitor hepatic function
#Renal insufficiency
-Continue to monitor
-Maintain Singh, monitor urine output
#History of ELVIRA on CPAP
#History of hypertension
#Hyperlipidemia
#Diabetes mellitus
ISS,accuchecks
A1c 6.7
#morbid Obesity
Tube feeds with Jevity
CODE STATUS full code
DVT prophylaxis heparin
Anticipated Discharge: > 48 hours
Subjective/Interval History
-
Seen at bedside. Intubated and sedated
Objective Data
-
Labs:
Laboratory Results
10/30/24 10/30/24 10/30/24
00:07 03:15 05:00
WBC 8.3
Hgb 9.9 L
Hct 28.8 L
Plt Count 178 D
APTT 68.2 H
HCO3 21.7
Sodium 141
Potassium 3.6
Chloride 112 H
Carbon Dioxide 21 L
BUN 18
Creatinine 1.2
Glucose 152 H
Calcium 8.2 L
Total Bilirubin 1.0
AST 33
ALT 24
Alkaline Phosphatase 50
10/30/24
09:00
WBC
Hgb
Hct
Plt Count
APTT Pending
HCO3
Sodium
Potassium
Chloride
Carbon Dioxide
BUN
Creatinine
Glucose
Calcium
Total Bilirubin
AST
ALT
Alkaline Phosphatase
Vital Signs:
Vital Signs
Temp Pulse Resp BP Pulse Ox
100.4 F H 67 5 128/63 97
10/30/24 05:26 10/30/24 06:15 10/30/24 06:15 10/30/24 06:00 10/30/24 06:15
I&O
10/29/24 10/30/24 10/31/24
06:59 06:59 06:59
Intake Total 2213.4 / 2326.0 2595.0 / 2595.0
Output Total 4040 / 4165 5215 / 5215
Balance -1826.6 / -1839.0 -2620.0 / -2620.0
Review of Systems
-
Unable to obtain full review of systems at this time due to: Patient Intubation
Physical Exam
-
General: Intubated
Respiratory: Rales and Crackles
Cardiac: S1/S2
GI: Soft and Nondistended
Genito-urinary: Singh
Skin: Warm
Neuro: Sedated
[2024-10-30] MEDS: PROTONIX IV 40 MG IV (07:46)
[2024-10-30] MEDS: LOW STRENGTH ASPIRIN 81 MG TUBE (07:46)
[2024-10-30] MEDS: TYLENOL 650 MG TUBE ×2 (07:46→14:12)
[2024-10-30] MEDS: NSS (PRESERVATIVE FREE) 10 ML IV (07:46)
[2024-10-30] MEDS: CRESTOR 40 MG TUBE (07:46)
[2024-10-30] MEDS: ZYPREXA 5 MG TUBE ×2 (07:46→19:15)
[2024-10-30] MEDS: MIRALAX TUBE (07:47)
[2024-10-30] MEDS: LASIX 40 MG IV (07:47)
[2024-10-30] MEDS: COREG 3.125 MG TUBE ×2 (07:50→19:15)
[2024-10-30] MEDS: DUONEB 3 ML INH (07:51)
--- NOTE | 2024-10-30 08:10 | W.PN.INTV ---
Today's Communication / Plan
Recommendations
Family meeting today at 1PM
Continue Precedex and continue to wean off propofol and reduce sedation down to minimal amount required so we can attempt SBT today
CT chest on 10/28 showed bibasilar pneumonia with evidence of small bilateral pleural effusions - continue antibiotics + diuresis
Amount of secretions has improved; respiratory culture from 10/28 grew Klebsiella aerogenes
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
Continue with IV Lasix and maintain net negative fluid balance as tolerated
Strict I/O with daily weight
Defer surgical coronary revascularization to CT surgery - he is following commands but is slow to respond and remains significantly weak, although sedation still being titrated down/off
If patient too high risk for CT surgery then other option would be high risk PCI; defer this decision to interventional cardiology
Continue ICU level of care for this critically ill patient
Assessment
-
Patient currently intubated, mechanically ventilated sedated. Reportedly patient is a 70-year-old gentleman with known history of coronary artery disease with previous PCI in the past, known ischemic cardiomyopathy with baseline EF 35 to 40%,
obstructive sleep apnea on CPAP, who called 911 for having chest pain and shortness of breath. While he was on the phone apparently he stopped talking and had a cardiac arrest. Once EMS arrived, patient was noted to be in ventricular fibrillation
and was shocked x 1, he also received epi as well as lidocaine and had return of spontaneous circulation. He was intubated in the field and EKG was concerning for ST elevation in the inferior leads. Cardiology service evaluated the patient in the
emergency room and he was emergently taken to [facility] for further intervention. I initially saw the patient in the [facility] for persistent hypoxia despite being mechanically ventilated and later reevaluated again in CVICU.
#1. Inferior wall STEMI complicated by out of hospital Cardiac Arrest, initial rhythm V. Fib (10/23)
- S/p defibrillation x 1, ROSC achieved in the field. Estimated downtime reportedly around 15 minutes
- Patient emergently taken to [facility], s/p POBA x3 in the RCA - -> IABP placed --> removed on 10/27 with heparin drip stopped prior. CT surgery consulted for possible CABG --> following peripherally and will intervene depending on patient's
neurological recovery
- Known history of coronary artery disease, s/p PCI more than 10 years ago
- Left heart cath (10/23/2024) showed severe multivessel CAD with heavily calcified coronary arteries including in the left main coronary artery with up to 70% stenosis, 70-80% stenosis of the mid left circumflex just proximal to the takeoff of an
OM1, and 90% RCA stenosis from the proximal into the mid and distal vessel which underwent POBA x 3
- On ASA and crestor
- Continue lidocaine gtt and amiodarone gtt; monitor for AIVR
- CT head unremarkable, chest x-ray suggestive of pulmonary edema
- Rechecked CT head again AM of 10/28 that showed no acute intracranial abnormality
- Completed TTM, currently rewarmed
- Was spiking fevers overnight from 10/27 - 10/28 and Unasyn changed back to Zosyn, and fevers had improved, but now are back again, suspected to be drug fever from precedex
- continue prn tylenol and cooling blankets if needed
- Monitor renal and hepatic function
#2. Acute hypoxic respiratory failure requiring mechanical ventilator (intubated in the field)
- Due to pulmonary edema from cardiogenic shock
- Initially unable to rule out component of pneumonia especially given the retrocardiac opacification which was not seen on initial CXR from this admission
- 10/23, Patient emergently evaluated in [facility] for hypoxia, PEEP was increased up to 14, tidal volume 480 mL, patient breathing above the vent at around 30/min, peripheral saturation improved to 99%
- Responded well to diuretics, and remains on lasix 40mg IV daily
- Currently on volume assist mechanical ventilation, FiO2 40% PEEP of 5 with pulmonary mechanics significantly improved
- PE felt to be less likely with normal-appearing RV on echocardiogram. Patient anticoagulated with heparin
- TTM now complete -did not tolerate awakening trial on 10/28 as he became tachycardic with episode of SVT, hypertensive and very agitated
- Started Precedex on 10/28 in an effort to help wean down sedation with eventual SBT if he is stable
- CT chest obtained on 10/28 showed bibasilar consolidations with small pleural effusions. This is likely due to pneumonia with heart failure; procal 1.34 on 10/28 and proBNP 2770; continue ABx and diuresis
- Mild wheezing heard on 10/29 - started Duonebs
- Patient was having thick, yellow/neal secretions on 10/28 and respiratory culture grew Klebsiella aerogenes; continue Zosyn
#3. Acute on chronic HFrEF with Cardiogenic Shock - shock state now revolved (off levophed since AM of 10/27)
- IABP removed as of 10/27
- Keep MAP>65
- Monitor urine output with goal >0.5-1cc/kg/hr; continues on IV lasix; cardiology following
- Lactic acidosis resolved since 10/25
- Continue with 40 mg IV Lasix daily (since 10/25); given an extra dose of Lasix on 10/28
- Off stress dose steroids (s/p solu-cortef 10/24 - 10/25)
- Broad-spectrum antibiotics were started empirically with vanc/zosyn --> patient was changed to Unasyn on 10/27 however given that he has been spiking fevers, Unasyn changed back to Zosyn (10/28)
- IV vanco stopped due to negative MRSA swab
- Would plan for 10-14 days antibiotics given recent shock state with pneumonia
#4. Acute encephalopathy
- CT head negative. Patient waking up per RN but still not following commands; per the RN, the patient does get agitated when he is stimulated.
- CT head checked again today showing no acute intracranial pathology or interval change
- s/p TTM (rewarmed to normothermia overnight at 430AM on 10/27/2024)
- Neurology consulted - recs appreciated
- If patient continues to be slow to respond and continually encephalopathic, will consider MRI brain, however he is moving all 4 extremities hands have very low suspicion for CVA
#5. CKD.
- Good urine output, stable creatinine
- Strict I/O; trend sCr
#6. Fevers
- CT chest/abdomen/pelvis shows bibasilar pneumonia with small adjacent pleural effusions and also prominent gallbladder with multiple gallstones. --> RUQ abdominal US done on 10/29 shows cholelithiasis without evidence for acute cholecystitis
Other medical diagnoses:
- h/o ELVIRA, on CPAP at home. Will resume CPAP once extubated
- HTN
- HLD. On statin
- DM, type II. s/p Insulin infusion; continue ISS and continue BG q6hr with goal BG 140-180
- Obesity
Early nutrition - if pt not extubated today then will start tube feeds
Critical care statement: A total of 41 minutes of critical care time was provided for this patient today. This includes management of unstable vital signs, evaluation of the patient at bedside, reviewing the patient's pertinent medical records
including radiographs, microbiology, laboratory evaluations, and discussion with primary team, consultants, pharmacy, nutrition, physical therapy, case management, charge nurse, critical care nursing, and respiratory therapy.
Data:
CT Head 10/23/2024: Unremarkable
CXR. 10/23/2024: Suggestive of Pulmonary edema
CXR 10/27/2024: There is slightly increased size of the left basilar opacity which likely represents a moderate pleural effusion with adjacent atelectasis, however pneumonia cannot be excluded. Stable appearance of the support lines and tubes.
CT chest/abdomen/pelvis 10/29/2024:
Although markedly limited without intravenous contrast and as a result of beam hardening artifact from bilateral upper extremities, bilateral lower lobe consolidations are seen with air bronchograms which could represent pneumonia and/or
subsegmental atelectasis with accompanying tiny bilateral pleural effusions.
Somewhat prominent gallbladder containing multiple stones. If there is a clinical concern for acute cholecystitis, suggest ultrasound for more complete evaluation.
No additional gross significant acute abnormal finding, evaluation markedly limited.
ECHO 09/2021: Top normal left ventricular chamber size. Moderately reduced left ventricular
systolic function. Left ventricular ejection fraction is 35-40% by visual
assessment with basal - mid inferior, inferolateral and basal septal akinesis.
Top normal left ventricular wall thickness.
Left atrial enlargement.
Mild mitral regurgitation.
Compared to previous echo from September 2017, there is no significant change
Technically difficult study, consider Definity for better evaluation.
[facility] 04/2013: 1: 2 vessel coronary artery disease as described, patent RCA and LAD stents, new severe midcircumflex lesion.
2: Moderate to severe left ventricular dysfunction, EF 30%
3: Successful complex 3.0/12 mm Xience V drug eluting stent to the mid circumflex.
Subjective Dataa
Subjective Data
Date of Service:
Date of Service: October 30, 2024
Chief Complaint: Chief Chemist Follow Up and Vent Management Follow Up
Subjective:
Patient was seen and evaluated this morning. Opening eyes but minimally moving extremities. Not following commands this AM per RN, although he was following simple commands for me. He kept waving his hand and trying to pull out the ETT - able to
lift his head up off the pillow though.
Remains intubated on AC/CMV at 18/40/5/40% with PIP [id number], VTe 467 mL and breathing at 18 breaths/minute, saturating 94% with BP 104/51 and heart rate 67. Fentanyl at 25 mcg/hr, propofol at 5 mg/kg/min and Precedex at 1.5 mcg/kg/hr. End-tidal
CO2: 29. Desaturated overnight, requiring FiO2 to be raised to 60%. RN said this occurred during a turn and suspected that this could be due to mucous plugging or secretions. Currently on amiodarone drip at 0.5 mg/min, lidocaine drip at 1 mg/min
and heparin drip.
Review of Systems
General: Unobtainable - Sedation (Intubated)
Objective Data
Data Reviewed
Vital Signs / I&O / Oxygen:
Vital Signs
Temp Pulse Resp BP Pulse Ox
100.7 F H 67 18 104/50 93
10/30/24 07:00 10/30/24 09:30 10/30/24 09:15 10/30/24 09:30 10/30/24 09:51
Intake and Output
10/29/24 10/30/24 10/31/24
06:59 06:59 06:59
Intake Total 2213.4 / 2326.0 2595.0 / 2747.0 356.0 / 356.0
Output Total 4040 / 4165 5215 / 5320 395 / 395
Balance -1826.6 / -1839.0 -2620.0 / -2573.0 -39.0 / -39.0
SaO2 [A/C] 96
SaO2 93
Physical Exam
General: Respiratory Distress (negative) and Comfortable
HEENT: Normocephalic, Anicteric, Other (ETT in place) and Other (Thick neck)
Cardiovascular: S1-S2 and Peripheral Edema (+1 lower extremity pitting edema bilaterally)
Respiratory: Wheeze (negative), Crackles (bibasilar), Rhonchi (negative), Non-Labored Respirations, Stridor (negative) and ET Tube (Mechanical breath sounds heard bilaterally)
GI: Soft, Distended (Abdominal obesity), Non Tender and Normal Bowel Sounds
Neurology: Tremors (negative) and Other (Drowsy - follows simple commands; pupils 2 mm bilaterally and brisk; intact gag + corneal reflexes)
Skin: Warm, Dry, Cyanosis (negative) and Jaundice (negative)
Labs/Micro/Reports
Lab Data
10/30/24 03:15
10/30/24 03:15
Laboratory Results
10/29/24 10/29/24 10/30/24
09:58 17:25 00:07
APTT 74.8 H 69.4 H 68.2 H
pH
pCO2
pO2
HCO3
O2 Delivery Level
10/30/24
05:00
APTT
pH 7.44
pCO2 32 L
pO2 53 L*
HCO3 21.7
O2 Delivery Level
Microbiology
10/28/24 16:34 Endotracheal Respiratory Culture - Final
Klebsiella aerogenes
10/28/24 16:34 Endotracheal Gram Stain - Final
10/23/24 17:24 Blood/Venous Blood Culture - Final
No Growth - Final Report
10/23/24 17:19 Blood/Venous Blood Culture - Final
No Growth - Final Report
[2024-10-30] MEDS: KLOR-CON 40 MEQ TUBE (08:29)
--- NOTE | 2024-10-30 10:00 | PTCARENOTE ---
Rec'd care of patient at 0700. Patient sedated on Fentanyl/Propofol/Precedex. Sedation weaned for SAT. Pupils equal and reactive; +2mm. MAEx4. NSR with first degree avb and pvcs on tele. Amio/Lidocaine/Heparin gtts infusing as ordered. Repeat PTT
sent. +1 generalized anasarca. Palpable pulses. #7.5 ett, 25cm @ the lip. A/C 18/480/5/60%. Lung sounds coarse throughout. Diminished in b/l base. ETT suctioned for thick neal/blood tinged secretions. Hypo BS. NGT to LIS. Per Associate Trainer, clamp trial
in order to assess readiness to restart TFs. Rectal trumpet with small amount of liquid brown stool. Singh remains in for critical I/O. Lasix administered as ordered. Potassium repletion administered. Right facial bruising remains. 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 Fent/Prop/Precedex/Amio/Lidocaine/Heparin gtts infusing through RIJ TLC. See worklist for full assessment and care.
[2024-10-30 10:12] LABS: APTT 67.4 Sec (23.4-35.0)
[2024-10-30 12:31] LABS: Glucose - Point of Care 159 mg/dl (70-99)
--- NOTE | 2024-10-30 12:56 | PTCARENOTE ---
Patient placed on wean; settings 5/5 40%. Pulse ox 96%. Patient alert and making eye contact. Agitated, but following commands. Emotional support provided. Fent and Prop remain off; Precedex gtt infusing.
--- NOTE | 2024-10-30 14:16 | CM ---
Remains intubated, IV/Meds-precedex, lasix, fentanyl, AB, propofol. Discharge POC: TBD.
--- NOTE | 2024-10-30 14:54 | W.PN.UPDATE ---
Update Note
Progress Note Update
Family meeting held today with cardiology (NARESH Franklin), and multiple family members including the 4 sons, Damion, Tomas, Patrick and Vickey; also Vickey's girlfriend, Sonia, and [id number] Sally. Patient's son, Tomas, is the POA and all decisions can be
made through him.
We discussed the patient's clinical status including his extensive coronary artery disease with heavily calcified coronary arteries. Currently he remains too high risk for surgical revascularization. We discussed that we are trying to extubate him
however if we run into complications and are unable to extubate, ultimately the patient would not want tracheostomy. Family wishes to continue full medical care for now and see how the next coming days progress. All questions were answered.
--- NOTE | 2024-10-30 15:20 | PTCARENOTE ---
Patient resting comfortably. Precedex gtt weaned accordingly. ABG sent.
[2024-10-30 15:28] LABS: B.E. 0.5 mmol/L; HCO3 24.5 mmol/L (21-28); PCO2 36 mmHg (35-48); PO2 117 mmHg (83-108); pH 7.44 (7.35-7.45)
--- NOTE | 2024-10-30 16:59 | PTCARENOTE ---
Patient extubated at 1613. Placed on 6L nc. Pulse ox 97%. Systems reviewed. Patient alert and talking with staff. Hoarse voice. Reoriented. NSR on tele. Lung sounds coarse/diminished throughout. Moist cough. NGT remains clamped. Per Cooperative Education Director
order, place back to low intermittent suction at 2200. Rectal trumpet removed. Singh maintained. Complete bed bath performed. Family at bedside. Amio/Lidocaine/Precedex/Heparin infusing. Repeat PTT sent.
[2024-10-30 17:13] LABS: APTT 80.6 Sec (23.4-35.0)
--- NOTE | 2024-10-30 17:14 | W.PN.CARDCBS ---
Addendum entered and electronically signed by Jayro Franklin MD 10/31/24 08:06:
73-year-old man with PCI dating back to 1994, [id number] cardiac arrest October 23 with balloon angioplasty only to RCA, underwent targeted temperature protocol, intra-aortic balloon pump removed 10/27, EF 30-35% by echo October 2024. Had prolonged
episode of VT on lidocaine 1 mg/min 10/28, spontaneous conversion to normal sinus rhythm. Amiodarone added, lidocaine continued, then decreased yesterday. More VT yesterday during wean
PMH: PCI 1994, LAD 2011, circumflex 2013, ischemic cardiomyopathy EF 35-40% 2021, hypertension, hyperlipidemia, diabetes, obesity, obstructive sleep apnea
Current meds: Aspirin 81 mg a day, pantoprazole 40 mg IV daily, rosuvastatin 40 mg a day, IV lidocaine, furosemide 40 mg IV daily, MiraLAX 17 g daily, fentanyl, propofol, carvedilol 3.125 mg twice daily, Zosyn
96/46, pulse 67, respirations 18, 38.2, Intake and output -2.2 L, weight is 100.9 kg, essentially unchanged, he is much more awake and alert follows commands, indicates that he does not want additional treatment, even if he can be extubated shortly,
family coming in at 1 PM. Regular rate and wrist rhythm, distant heart tones, lungs are relatively clear, abdomen obese, mild edema, moves all extremities squeezes hands on command
White count is 8.3, hemoglobin is 9.9, platelets 178, PO2 is 53 on gas, BUN and creatinine are 18 and 1.2
Cardiac catheterization 10/23/2024: RA 23, wedge 36, up to 70% left main, mild LAD disease, 70 to 80% mid circumflex, 3 RCA lesions up to 90%, large thrombotic burden distal vessel, treated with POBA. I reviewed images, left main is difficult to
visualize.
Chest x-ray cardiomegaly, minimal infiltrate left base
Abdominal ultrasound cholelithiasis
Echo October 28: EF is 25% mild mitral regurgitation
ECG yesterday nonspecific ST and T changes
Impression:
See below as per Bibiana Lees. Reviewed in detail, and agree unless otherwise specified below.
Plan:
He continues with ventricular ectopy when stressed and when attempting to wean. This could relate to left main disease in which case, he would probably require very high risk percutaneous intervention while on the ventilator. His ejection fraction
has dropped to 25% which could be consistent with diffuse myocardial injury related to left main stenosis in the setting of hemodynamic stress.
If we were to push on I would add Plavix, continue attempts to optimize medical therapy and continue amiodarone.
He would eventually require an ICD.
He is not a surgical candidate but if additional episodes of VT during attempts to wean and if an aggressive approach were indicated I would ask interventional cardiology if they would consider cardiac catheterization and if indicated high risk left
main PCI.
However, he seems fairly determined at this point to withdraw care, which is reasonable. I was surprised the degree to which his mental status had improved. He was able to clearly communicate despite the fact that he was on a ventilator.
Will await family meeting.
Original Note:
Today's Communication / Plan
-
Stop lidocaine gtt
Cont amiodarone gtt
Impression / Plan
-
PCP: Dr. Dye
Primary Fire Truck Driver: Dr. Lui
Assessment:
Presentation with VF arrest s/p shock x1 with ROSC 10/23/24
VDRF
Intubated in field 10/23/24
Cardiogenic shock
Chest pain
CAD
h/o KS and unknown vessel PCI 1994
s/p LAD PCI x2 2011
s/p Circ PCI 2013
s/p POBA RCA 10/23/24
ICM, EF 35-40% by echo 10/05/21 and then EF 30-35% by echo 10/24/24
HTN
HLD
DM2
Obesity
ELVIRA on CPAP
Hypokalemia
Cath 10/23/2024: Plain old balloon angioplasty of 3 serial up to 90% stenoses in the proximal, mid and distal RCA which was heavily calcified. Successful placement of 50 cc intra-aortic balloon pump and [place]-Danial catheter via right common femoral
artery and vein, respectively. 1 shock for monomorphic VT during heart catheterization
ECHO 10/05/21: TDS, EF 35 to 40%, basal to mid inferior, inferolateral and basal septal akinesis, left atrial enlargement, mild MR
Echo 10/23/24: Limited bedside echo at time of [facility], very limited views but RV function appears to be preserved. LV systolic function appears close to baseline with EF of about 35%, no pericardial effusion
Echo 10/24/24: EF 30 to 35%, moderate global hypokinesis, technically difficult study but no clear significant valve disease.
Echo 10/28/24: EF 25%, global hypokinesis, moderate concentric LVH, compared to echo 10/24/2024 the EF had been 30 to 35% with IABP in place and is now 25% with IABP removed
Plan:
-Telemetry reviewed by me 10/30/2024, no additional VT.
-Patient remains intubated with less sedation.
-Lidocaine gtt running at 1 mg/min, amiodarone gtt running at 0.5 mg/min. Will stop Lidocaine gtt 10/30/24. Cont amiodarone gtt.
-Labs reviewed by ks 10/30/2024, potassium is 3.6, KCl 40 mEq given 10/30/2024 AM. Magnesium 2.0
-Heparin gtt restarted 10/28/2024 for possible ischemic contribution to VT in the setting of RCA POBA on 10/23/2024. H&H stable
-Remains on aspirin 81 mg daily via tube
-Outpatient dose of Plavix was stopped on admission, last dose was 10/23/2024
-Troponin peaked at 5.02
-Patient is s/p POBA of 3 serial up to 90% heavily calcified stenoses in the proximal, mid and distal RCA with KEYONA-3 flow restored into the distal vessel aborting the inferior ST elevation KS. Concomitant significant left main stenosis and mid
left circumflex stenosis noted. CT surgery consulted and if patient achieves neurologic recovery then he can be evaluated for CABG
-Outpatient dose of Coreg decreased to 3.125 mg BID
-LDL 62 and outpatient dose of Crestor 40 mg daily has been continued
-IABP successfully removed 10/27/24. Remains HD stable off pressors.
-EF 25% by echo 10/28/2024 without IABP
-Would consider adding losartan 25 mg daily, Cre stable at 1.2. Patient was taking ramipril 10 mg daily prior to admission
-Remains on Lasix 40 mg IV daily. Patient was not taking a diuretic prior to admission
Summary of admission thus far: Patient called 911 with chest pain and SOB 10/23/24 and then unresponsive on the phone with 911 operators and when paramedics arrived to find patient with agonal respirations and VF. Patient shocked x1 and then asystole
and given lidocaine bolus with ROSC. Patient intubated in the field. Patient brought to [facility] ER in SR with BP 145/87. ECG on arrival did not meet STEMI criteria. 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
cardiogenic shock. Case was referred to CT surgery service for evaluation for CABG. Patient admitted to CVICU and radial artery line placed along with central line. TTM protocol initiated 10/23/24 and patient rewarmed to normothermia by early AM
10/27/24. On 10/24/24 patient's Lidocaine gtt was stopped and patient started to have frequent PVCs and amiodarone gtt was started and then AIVR so amio gtt was stopped and Lidocaine gtt restarted and has been running since 10/24/24. Neurology following
and EEG waves slow due to sedation. [place] Danial removed for bleeding 10/24/24. IABP removed 10/27/24. Right arterial femoral line removed 10/27/24. Patient increasingly agitated during attempted sedation wean 10/28/24 and vomited. Patient agitated and then
sustained monomorphic VT 10/28/24 that spontaneously converted to SR prior to shock while pads were being placed. Lidocaine gtt increased to 2 mg/min, heparin gtt restarted for possible ischemia driven component and sedation was increased back up;
patient was diuresed by research librarian. Family meeting 10/30/2024, patient indicates he would not want tracheostomy and was able to clearly communicate that he does not wish to continue at an aggressive level of care, but still working to wean sedation
fully and for now we will continue as full code, patient's son is ARUN.
Progress Note - Fire Truck Driver
Subjective
Date of Service: October 30, 2024
More awake, he says he doesn't want tube
Objective
Labs:
10/30/24 03:15
10/30/24 03:15
Labs
Hgb 9.9 g/dL (13.0-18.0) L 10/30/24 03:15
Hct 28.8 % (39.0-52.0) L 10/30/24 03:15
Plt Count 178 10^3/uL (130-400) D 10/30/24 03:15
PT 15.2 Sec (11.4-14.6) H 10/26/24 05:07
INR 1.17 10/26/24 05:07
APTT 67.4 Sec (23.4-35.0) H 10/30/24 09:42
Sodium 141 mmol/L (135-145) 10/30/24 03:15
Potassium 3.6 mmol/L (3.5-5.1) 10/30/24 03:15
BUN 18 mg/dl (9-20) 10/30/24 03:15
Creatinine 1.2 mg/dL (0.7-1.3) 10/30/24 03:15
Glucose 152 mg/dl (70-99) H 10/30/24 03:15
Troponins
10/28/24 10/29/24
20:42 03:50
Troponin I 0.750 H* 0.619 H*
Vital Signs and I&O:
Vital Signs
Temp Pulse Resp BP Pulse Ox
100.0 F 67 20 126/62 97
10/30/24 15:00 10/30/24 17:00 10/30/24 15:35 10/30/24 17:00 10/30/24 17:00
Vital Signs
Temp Pulse Resp BP Pulse Ox
100.0 F 67 20 126/62 97
10/30/24 15:00 10/30/24 17:00 10/30/24 15:35 10/30/24 17:00 10/30/24 17:00
Intake & Output
10/28/24 10/29/24 10/30/24 10/31/24
06:59 06:59 06:59 06:59
Intake Total 2817.3 / 2817.3 2213.4 / 2326.0 2595.0 / 2747.0 1193.6 / 1193.6
Output Total 3895 / 3895 4040 / 4165 5215 / 5320 2069 / 2069
Balance -1077.7 / -1077.7 -1826.6 / -1839.0 -2620.0 / -2573.0 -876.4 / -876.4
Physical Exam
Physical Exam
GEN: Intubated
LUNGS: Intubated and on the ventilator, coarse BS anterolaterally
CV: SR on tele. Reg, S1/S2, 1/6 syst LSB
ABD: ND
EXT: +1 B/L hand and LE edema.
NEURO: No focal wekaness
SKIN: No rash
--- NOTE | 2024-10-30 17:41 | PTCARENOTE ---
Lidocaine drip discontinued per Cardiology.
[2024-10-30 17:48] LABS: Glucose - Point of Care 165 mg/dl (70-99)
--- NOTE | 2024-10-30 20:19 | PTCARENOTE ---
on assessment pt extubated on DEX, hep and amio gtt, pt drowsy but follows commands, pt AAOx2 forgetful with time, SR on the monitor, 5L NC 98%, R nare NGT, LIS to resume at 2200, hurt in place, bed alarm on and call black in reach
[2024-10-30] MEDS: SUBLIMAZE 25 MCG IV (20:47)
[2024-10-30] MEDS: DUONEB INH (20:55)
--- NOTE | 2024-10-30 21:09 | PTCARENOTE ---
pt became very physically and verbally agitated, pt removed pulse ox, NGT and attempted to get OOB, TRADE SHOW COORDINATOR at bedside to assess pt, DEX increased per order and pain meds given see MAR, pt alert to person and place but disoriented to time, bed alarm on
and call black in reach
[2024-10-30] MEDS: CORDARONE 518 MG IV (21:37)
[2024-10-30 23:00] LABS: Glucose - Point of Care 134 mg/dl (70-99)
[2024-10-30] MEDS: NOVOLOG FLEXPEN-MODERATE RESISTANCE SC (23:00)
[2024-10-30 23:09] LABS: APTT 90.6 Sec (23.4-35.0)
[2024-10-30] MEDS: DILAUDID 0.5 MG IV (23:50)
[2024-10-31] VITALS (38 sets, daily range): BP systolic 108–152; BP diastolic 55–87; BMI 30.4
[2024-10-31] MEDS: PRECEDEX 100 IV ×9 (00:20→22:37)
[2024-10-31] MEDS: OFIRMEV 100 IV ×3 (00:22→17:24)
[2024-10-31] MEDS: ZOSYN 50 IV ×4 (01:21→20:25)
--- NOTE | 2024-10-31 03:50 | PTCARENOTE ---
titrating up on DEX gtt per MD order, prn pain meds given see MAR, pt continues to be very physically and verbally aggressive, MANAGER MOUNTAIN aware, pt reoriented but remains angry and unable to redirect. pt states 'I will kick you in the head', four point
restraints applied per order.
[2024-10-31 04:13] LABS: Hematocrit 28.9 % (39.0-52.0); Hemoglobin 9.7 g/dL (13.0-18.0); Mean Corp Hgb Conc. 33.6 g/dL (33.0-37.0); Mean Corpuscular Volume 86.5 fL (80.0-94.0); Mean Platelet Volume 11.1 fL (7.4-10.4); Platelet Count 201 10^3/uL (130-400); Red Blood Cell Count 3.34 10^6/uL (4.70-6.10); Red Cell Dist. Width 14.7 % (11.5-14.5); White Blood Cell Count 8.1 10^3/uL (4.8-10.8)
[2024-10-31 04:53] LABS: Blood Urea Nitrogen 18 mg/dl (9-20); Calcium 8.4 mg/dl (8.4-10.2); Carbon Dioxide 27 mmol/L (22-30); Chloride 111 mmol/L (98-107); Estimated Creatinine Clearance 68 ml/min; Glucose 143 mg/dl (70-99); Magnesium 2.2 mg/dl (1.6-2.3); Potassium 3.8 mmol/L (3.5-5.1); Sodium 144 mmol/L (135-145); eGFR > 60.00
[2024-10-31] MEDS: HEPARIN 25000 UNITS/250 ML IV ×2 (05:01→19:13)
[2024-10-31] MEDS: DILAUDID 0.5 MG IV (05:16)
[2024-10-31] MEDS: NOVOLOG FLEXPEN-MODERATE RESISTANCE SC ×4 (05:45→23:59)
[2024-10-31 05:55] LABS: Glucose - Point of Care 81 mg/dl (70-99)
[2024-10-31 06:18] LABS: APTT 116.3 Sec (23.4-35.0)
--- NOTE | 2024-10-31 07:07 | W.PN.HOSP.TC ---
Today's Communication/Plan
-
;/
Assessment / Plan
Assessment / Plan
Assessment/Plan
#STEMI [id number] cardiac arrest
-Intubated in the field
-Initial rhythm V-fib status post shock
-Emergent cardiac catheterization, appears multivessel disease. Status post PCI in the past. Previous documentation had stenting to the LAD. Has refused AICD in the past
-On aspirin, statin, heparin
-extubated 10/30
-high risk for surgical revascularization given extensive coronary artery disease
-Goals of care discussion with family
-CT surgery consulted. Cardiology following
#Acute hypoxic respiratory failure secondary to pulmonary edema with cardiogenic shock
-Patient has responded well to diuretics
-Continue 40 mg IV daily Lasix.
-Consider GDMT therapy, continue carvedilol and ramipril
-CT C/A/P 10/29; Although markedly limited without intravenous contrast and as a result of beam hardening artifact from bilateral upper extremities, bilateral lower lobe consolidations are seen with air bronchograms which could represent pneumonia
and/or subsegmental atelectasis with accompanying tiny bilateral pleural effusions.
Somewhat prominent gallbladder containing multiple stones. If there is a clinical concern for acute cholecystitis, suggest ultrasound for more complete evaluation.
No additional gross significant acute abnormal finding, evaluation markedly limited.
-ECHO 10/28/2024: Left ventricle is mildly dilated. Severely reduced left ventricular systolic function. Left ventricular ejection fraction is 25% visually. Global hypokinesis. Moderate concentric left ventricular hypertrophy. Since echo 10/24/2024
which was reviewed, ejection fraction has decreased from 30-35% to 25% status post Impella removal.
#Sepsis (fever on 10/23, leukocytosis)
-Could be secondary to postarrest, infarction
-MRSA negative. Blood cultures negative, UA negative
-Continue antibiotics with Zosyn
-respiratory culture growing gram-negative bacilli.
#Hypokalemia
-Replete
#Transaminitis secondary to cardiogenic shock and post code
-Monitor hepatic function
#Renal insufficiency
-Continue to monitor
-Maintain Singh, monitor urine output
#History of ELVIRA on CPAP
#History of hypertension
#Hyperlipidemia
#Diabetes mellitus
ISS,accuchecks
A1c 6.7
#morbid Obesity
Tube feeds with Jevity
CODE STATUS full code
DVT prophylaxis heparin
Anticipated Discharge: > 48 hours
Subjective/Interval History
-
Patient extubated. Seen at bedside.
Objective Data
-
Labs:
Laboratory Results
10/30/24 10/31/24 10/31/24
22:44 03:42 05:44
WBC 8.1
Hgb 9.7 L
Hct 28.9 L
Plt Count 201
APTT 90.6 H 116.3 H
Sodium 144
Potassium 3.8
Chloride 111 H
Carbon Dioxide 27
BUN 18
Creatinine 1.2
Glucose 143 H
Calcium 8.4
10/31/24
12:30
WBC
Hgb
Hct
Plt Count
APTT Pending
Sodium
Potassium
Chloride
Carbon Dioxide
BUN
Creatinine
Glucose
Calcium
Vital Signs:
Vital Signs
Temp Pulse Resp BP Pulse Ox
99.3 F 63 49 145/69 96
10/31/24 05:04 10/31/24 06:00 10/31/24 06:00 10/31/24 06:00 10/31/24 06:00
I&O
10/30/24 10/31/24 11/01/24
06:59 06:59 06:59
Intake Total 2595.0 / 2747.0 2038.1 / 8.1
Output Total 5215 / 5320 4015 / 4015
Balance -2620.0 / -2573.0 -1975.9 / -
Review of Systems
-
All other systems: Reviewed and negative (Except as documented)
Physical Exam
-
General: Appears Chronically Ill
Respiratory: Rhonchi
Cardiac: Regular Rhythm and S1/S2
GI: Soft and Nondistended
Musculoskeletal: No Edema
Neuro: Awake, Alert and Oriented
--- NOTE | 2024-10-31 08:01 | W.PN.INTV ---
Today's Communication / Plan
Recommendations
Family meeting held yesterday and patient's family would like to continue full medical management and keep full code, however if he were to deteriorate, they know that Steven would never want to undergo tracheostomy or living in [facility] being
bedbound
Extubated on 10/30
Continue supplemental oxygen, weaning down to maintain SaO2 >90-94%
Continue Precedex and wean down to off over today/tomorrow
Continue zyprexa, raising dose if needed to help wean down precedex
CT chest on 10/28 showed bibasilar pneumonia with evidence of small bilateral pleural effusions - continue antibiotics + diuresis
Amount of secretions has improved; respiratory culture from 10/28 grew Klebsiella aerogenes - narrow Zosyn to rocephin; complete 10-14 days total of Abx
IABP removed 10/[address] surgery VP SOFTWARE ENGINEERING
Continue with IV Lasix and maintain net negative fluid balance as tolerated
Strict I/O with daily weight
Defer surgical coronary revascularization to CT surgery - he is following commands but is slow to respond and remains confused and easily agitated, sometimes aggressive
If patient too high risk for CT surgery then other option would be high risk PCI; defer this decision to interventional cardiology
Continue ICU level of care for this critically ill patient while we wean down Precedex drip
Assessment
-
Patient currently intubated, mechanically ventilated sedated. Reportedly patient is a 70-year-old gentleman with known history of coronary artery disease with previous PCI in the past, known ischemic cardiomyopathy with baseline EF 35 to 40%,
obstructive sleep apnea on CPAP, who called 911 for having chest pain and shortness of breath. While he was on the phone apparently he stopped talking and had a cardiac arrest. Once EMS arrived, patient was noted to be in ventricular fibrillation
and was shocked x 1, he also received epi as well as lidocaine and had return of spontaneous circulation. He was intubated in the field and EKG was concerning for ST elevation in the inferior leads. Cardiology service evaluated the patient in the
emergency room and he was emergently taken to Safety Investigator for further intervention. I initially saw the patient in the Safety Investigator for persistent hypoxia despite being mechanically ventilated and later reevaluated again in CVICU.
#1. Inferior wall STEMI complicated by out of hospital Cardiac Arrest, initial rhythm V. Fib (10/23)
- S/p defibrillation x 1, ROSC achieved in the field. Estimated downtime reportedly around 15 minutes
- Patient emergently taken to Safety Investigator, s/p POBA x3 in the RCA - -> IABP placed --> removed on 10/27 with heparin drip stopped prior. CT surgery consulted for possible CABG --> following peripherally and will intervene depending on patient's
neurological recovery
- Known history of coronary artery disease, s/p PCI more than 10 years ago
- Left heart cath (10/23/2024) showed severe multivessel CAD with heavily calcified coronary arteries including in the left main coronary artery with up to 70% stenosis, 70-80% stenosis of the mid left circumflex just proximal to the takeoff of an
OM1, and 90% RCA stenosis from the proximal into the mid and distal vessel which underwent POBA x 3
- On ASA and crestor
- Lidocaine gtt off since 10/30; he remains on amiodarone gtt; monitor for AIVR
- CT head unremarkable, chest x-ray suggestive of pulmonary edema
- Rechecked CT head again AM of 10/28 that showed no acute intracranial abnormality
- Completed TTM, currently rewarmed
- Was spiking fevers overnight from 10/27 - 10/28 and Unasyn changed back to Zosyn, and fevers had improved before recurring again on evening of 10/29 into 10/30 - -> suspected to be drug fever from precedex
- Continue to wean off Precedex as tolerated
- continue prn tylenol and cooling blankets if needed
- Monitor renal and hepatic function
#2. Acute hypoxic respiratory failure requiring mechanical ventilator (intubated in the field, extubated 10/30 in ICU)
- Due to pulmonary edema from cardiogenic shock
- Initially unable to rule out component of pneumonia especially given the retrocardiac opacification which was not seen on initial CXR from this admission
- 10/23, Patient emergently evaluated in Safety Investigator for hypoxia, PEEP was increased up to 14, tidal volume 480 mL, patient breathing above the vent at around 30/min, peripheral saturation improved to 99%
- Responded well to diuretics, and remains on lasix 40mg IV daily
- Patient was extubated successfully on 10/30, and is now on supplemental oxygen breathing comfortably
- Maintain SaO2 >90-94%
- PE felt to be less likely with normal-appearing RV on echocardiogram. Patient anticoagulated with heparin
- TTM now complete
- Started Precedex on 10/28 in an effort to help wean down sedation - -> he remains on Precedex and this should be continued to be weaned down until off; continue with PO Zyprexa; if unable to give PO meds, then transition to IM vs IV alternative
- CT chest obtained on 10/28 showed bibasilar consolidations with small pleural effusions. This is likely due to pneumonia with heart failure; procal 1.34 on 10/28 and proBNP 2770; continue ABx and diuresis
- Mild wheezing heard on 10/29 - continue Duonebs
- Patient was having thick, yellow/neal secretions on 10/28 and respiratory culture grew Klebsiella aerogenes; narrow ABx from Zosyn to rocephin
#3. Acute on chronic HFrEF with Cardiogenic Shock - shock state now revolved (off levophed since AM of 10/27)
- IABP removed as of 10/27
- Keep MAP>65
- Monitor urine output with goal >0.5-1cc/kg/hr; continues on IV lasix; cardiology following
- Lactic acidosis resolved since 10/25
- Continue with 40 mg IV Lasix daily (since 10/25); given an extra dose of Lasix on 10/28
- Off stress dose steroids (s/p solu-cortef 10/24 - 10/25)
- Broad-spectrum antibiotics were started empirically with vanc/zosyn --> patient was changed to Unasyn on 10/27 however given that he has been spiking fevers, Unasyn changed back to Zosyn (10/28)
- IV vanco stopped due to negative MRSA swab
- Narrow antibiotics today from Zosyn to Rocephin
- Would plan for 10-14 days antibiotics given recent shock state with pneumonia
#4. Acute encephalopathy
- CT head negative. Patient waking up per RN but still not following commands; per the RN, the patient does get agitated when he is stimulated.
- CT head checked again on 10/29 showing no acute intracranial pathology or interval change
- s/p TTM (rewarmed to normothermia overnight at 430AM on 10/27/2024)
- Neurology consulted - recs appreciated
- If patient continues to be slow to respond and continually encephalopathic, will consider MRI brain, however he is moving all 4 extremities and speaking albeit confused; I have very low suspicion for CVA
#5. CKD.
- Good urine output, stable creatinine
- Strict I/O; trend sCr
#6. Fevers
- CT chest/abdomen/pelvis shows bibasilar pneumonia with small adjacent pleural effusions and also prominent gallbladder with multiple gallstones. --> RUQ abdominal US done on 10/29 shows cholelithiasis without evidence for acute cholecystitis
Other medical diagnoses:
- h/o ELVIRA, on CPAP at home. Will try to resume CPAP now that he is extubated; he may not tolerate it however given his confusion
- HTN
- HLD. On statin
- DM, type II. s/p insulin infusion; continue ISS and continue BG q6hr with goal BG 140-180
- Obesity
Early nutrition - FUND RAISER following (recommend NPO as of 10/31)
Lines: R-IJ CVC - -> of note, patient pulled out his R�IJ CVC about 3 cm. Central line was not advanced back. It was stabilized, covered with new Tegaderm, taped, and his restraints were tightened. There is still blood flow from each of the 3
ports with no resistance upon flushing
Critical care statement: A total of 38 minutes of critical care time was provided for this patient today. This includes management of unstable vital signs, evaluation of the patient at bedside, reviewing the patient's pertinent medical records
including radiographs, microbiology, laboratory evaluations, and discussion with primary team, consultants, pharmacy, nutrition, physical therapy, case management, charge nurse, critical care nursing, and respiratory therapy.
Data:
CT Head 10/23/2024: Unremarkable
CXR. 10/23/2024: Suggestive of Pulmonary edema
CXR 10/27/2024: There is slightly increased size of the left basilar opacity which likely represents a moderate pleural effusion with adjacent atelectasis, however pneumonia cannot be excluded. Stable appearance of the support lines and tubes.
CT chest/abdomen/pelvis 10/29/2024:
Although markedly limited without intravenous contrast and as a result of beam hardening artifact from bilateral upper extremities, bilateral lower lobe consolidations are seen with air bronchograms which could represent pneumonia and/or
subsegmental atelectasis with accompanying tiny bilateral pleural effusions.
Somewhat prominent gallbladder containing multiple stones. If there is a clinical concern for acute cholecystitis, suggest ultrasound for more complete evaluation.
No additional gross significant acute abnormal finding, evaluation markedly limited.
ECHO 09/2021: Top normal left ventricular chamber size. Moderately reduced left ventricular
systolic function. Left ventricular ejection fraction is 35-40% by visual
assessment with basal - mid inferior, inferolateral and basal septal akinesis.
Top normal left ventricular wall thickness.
Left atrial enlargement.
Mild mitral regurgitation.
Compared to previous echo from September 2017, there is no significant change
Technically difficult study, consider Definity for better evaluation.
[facility] 04/2013: 1: 2 vessel coronary artery disease as described, patent RCA and LAD stents, new severe midcircumflex lesion.
2: Moderate to severe left ventricular dysfunction, EF 30%
3: Successful complex 3.0/12 mm Xience V drug eluting stent to the mid circumflex.
Subjective Dataa
Subjective Data
Date of Service:
Date of Service: October 31, 2024
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
Subjective:
Patient was extubated yesterday. This morning he remains on 2 L/min nasal cannula, saturating 98%. He is confused and aggressive at times, using foul language and expletives. Current heart rate 63 and BP 144/67.
Review of Systems
General: Other (Unobtainable due to patient's acute clinical status/confusion)
Objective Data
Data Reviewed
Vital Signs / I&O / Oxygen:
Vital Signs
Temp Pulse Resp BP Pulse Ox
98.2 F 66 20 126/63 99
10/31/24 07:22 10/31/24 09:40 10/31/24 08:26 10/31/24 09:40 10/31/24 08:30
Intake and Output
10/30/24 10/31/24 11/01/24
06:59 06:59 06:59
Intake Total 2595.0 / 2747.0 2038.1 / 2110.7 145.2 / 145.2
Output Total 5215 / 5320 4015 / 4165 200 / 200
Balance -2620.0 / -2573.0 -1976.9 / -2054.3 -54.8 / -54.8
SaO2 [CPAP] 98
SaO2 [A/C] 95
SaO2 99
Nasal Cannula flow liters per 2
minute
Physical Exam
General: Respiratory Distress (negative) and Comfortable
HEENT: Normocephalic, Anicteric and Other (Thick neck)
Cardiovascular: S1-S2 and Peripheral Edema (+1 lower extremity pitting edema bilaterally)
Respiratory: Wheeze (negative), Crackles (bibasilar), Rhonchi (negative), Non-Labored Respirations and Stridor (negative)
GI: Soft, Distended (Abdominal obesity), Non Tender and Normal Bowel Sounds
Neurology: Awake (Although drowsy at times, and confused) and Tremors (negative)
Skin: Warm, Dry, Cyanosis (negative) and Jaundice (negative)
Labs/Micro/Reports
Lab Data
10/31/24 03:42
10/31/24 03:42
Laboratory Results
10/30/24 10/30/24 10/30/24
09:42 15:18 16:48
APTT 67.4 H 80.6 H
pH 7.44
pCO2 36
pO2 117 H
HCO3 24.5
O2 Delivery Level Not Reportable
10/30/24 10/31/24
22:44 05:44
APTT 90.6 H 116.3 H
pH
pCO2
pO2
HCO3
O2 Delivery Level
Microbiology
10/28/24 16:34 Endotracheal Respiratory Culture - Final
Klebsiella aerogenes
10/28/24 16:34 Endotracheal Gram Stain - Final
10/23/24 17:24 Blood/Venous Blood Culture - Final
No Growth - Final Report
10/23/24 17:19 Blood/Venous Blood Culture - Final
No Growth - Final Report
--- NOTE | 2024-10-31 08:10 | PTCARENOTE ---
Received pt in 4 point soft wrist restraints. He is awake and confused. Insisting I call his son and the doctors 'to get me out of here'. He was not aware of the events of his hospitalization or where he was currently. He was reoriented multiple
times. Right IJ TL CVC with drips per worklist including Precedex. I reassured him that our goal is to restore him to his health prior to admission as quickly as possible but he still needed cardiac procedures. He will need reinforcement of the
plan. Moist productive cough. Gurgly voice quality at times. +BSX4. Incontinent of soft brown stool. Temperature sensing Singh secured and intact. Safe environment maintained. Aspiration precautions maintained. Will continue to monitor.
[2024-10-31] MEDS: DUONEB 3 ML INH ×2 (08:24→20:19)
--- NOTE | 2024-10-31 08:38 | PTCARENOTE ---
Clarified STAT CXR with Dr. Khan. Order cancelled.
[2024-10-31] MEDS: PROTONIX IV 40 MG IV (08:45)
[2024-10-31] MEDS: NSS (PRESERVATIVE FREE) 10 ML IV (08:45)
[2024-10-31] MEDS: KCL 270 MEQ IV (09:36)
[2024-10-31] MEDS: LASIX 40 MG IV (09:40)
--- NOTE | 2024-10-31 10:12 | PTCARENOTE ---
Dr. Lui @ the bedside. Pt remains forgetful. He asked for his while his son Damion was in the room. He did not remember his 2 years ago from a stroke and he became very upset and crying. Supportive care provided. Dr. Lui
provided Tomas's number ([phone]) for update on the plan of care.
--- NOTE | 2024-10-31 12:35 | PTCARENOTE ---
Notified by other RN that pt attempted to removed his right IJ TL CVC. Dr. Whipple notified. Dressing reapplied, and CXR obtained for placement.
--- NOTE | 2024-10-31 12:58 | W.PN.CARDCBS ---
Today's Communication / Plan
-
He is improving from a neurologic standpoint but remains agitated with poor memory
Consider eventual cardiology procedures if it continues to improve
Not an ideal candidate for stenting due to anatomy and not an ideal candidate for CABG given current mental status
Will continue IV heparin for now and hold Plavix
He will need an AICD prior to discharge
Continue IV Lasix for now
Continue Coreg and ramipril.
Eventual Aldactone and/or Farxiga/Jardiance
Discussed with primary service as well as nursing and rotary peel oven tender
Impression / Plan
-
PCP: Dr. Dye
Primary [facility]: Dr. Lui
Assessment:
Presentation with VF arrest s/p shock x1 with ROSC 10/23/24
Status post VDRF
Intubated in field 10/23/24, extubated 10/30/2024
Status post cardiogenic shock, status post intra-aortic balloon pump removal
Non-STEMI with peak troponin of 5
Change in mental status/possible anoxic encephalopathy
CAD
h/o MD and unknown vessel PCI 1994
s/p LAD PCI x2 2011
s/p Circ PCI 2013
s/p POBA RCA 10/23/24
ICM, EF 35-40% by echo 10/05/21,EF 30-35% by echo 10/24/24, 25% 10/28/2024
HTN
HLD
DM2
Obesity
ELVIRA on CPAP
Cath 10/23/2024: Plain old balloon angioplasty of 3 serial up to 90% stenoses in the proximal, mid and distal RCA which was heavily calcified. Successful placement of 50 cc intra-aortic balloon pump and [place]-Danial catheter via right common femoral
artery and vein, respectively. 1 shock for monomorphic VT during heart catheterization
ECHO 10/05/21: TDS, EF 35 to 40%, basal to mid inferior, inferolateral and basal septal akinesis, left atrial enlargement, mild MR
Echo 10/23/24: Limited bedside echo at time of [facility], very limited views but RV function appears to be preserved. LV systolic function appears close to baseline with EF of about 35%, no pericardial effusion
Echo 10/24/24: EF 30 to 35%, moderate global hypokinesis, technically difficult study but no clear significant valve disease.
Echo 10/28/24: EF 25%, global hypokinesis, moderate concentric LVH, compared to echo 10/24/2024 the EF had been 30 to 35% with IABP in place and is now 25% with IABP removed
Plan:
He is starting to wake up although is agitated at times with significant memory issues
He is agitated at times and wishes to be discharged
If he continues to recover from a neurologic standpoint will consider further cardiac procedures
Discussed with interventional cardiology and not felt to be an ideal candidate for intervention
Not likely a candidate for CABG currently given decreasing mental status but could be reconsidered as he improves
He will need an AICD in any event prior to discharge
He remains on IV heparin and aspirin
Outpatient Plavix remains on hold although may consider resuming at some point as not ideal bypass candidate
LDL 62 and outpatient dose of Crestor 40 mg daily has been continued
EF 25% by echo 10/28/2024 without IABP, continue carvedilol and ramipril
Might consider eventual Aldactone and/or Jardiance/Farxiga
Volume status is difficult but will continue Lasix 40 mg IV daily
Discussed with patient as well as nursing in detail. Discussed with patient's son Vickey at bedside. Left message with patient's son Tomas.
Critical care time 35 minutes
Summary of admission thus far: Patient called 911 with chest pain and SOB 10/23/24 and then unresponsive on the phone with 911 operators and when paramedics arrived to find patient with agonal respirations and VF. Patient shocked x1 and then asystole
and given lidocaine bolus with ROSC. Patient intubated in the field. Patient brought to [facility] ER in SR with BP 145/87. ECG on arrival did not meet STEMI criteria. Patient taken to irrigation laborer and had POBA of RCA lesion and IABP was placed for
cardiogenic shock. Case was referred to CT surgery service for evaluation for CABG. Patient admitted to CVICU and radial artery line placed along with central line. TTM protocol initiated 10/23/24 and patient rewarmed to normothermia by early AM
10/27/24. On 10/24/24 patient's Lidocaine gtt was stopped and patient started to have frequent PVCs and amiodarone gtt was started and then AIVR so amio gtt was stopped and Lidocaine gtt restarted and has been running since 10/24/24. Neurology following
and EEG waves slow due to sedation. [place] Danial removed for bleeding 10/24/24. IABP removed 10/27/24. Right arterial femoral line removed 10/27/24. Patient increasingly agitated during attempted sedation wean 10/28/24 and vomited. Patient agitated and then
sustained monomorphic VT 10/28/24 that spontaneously converted to SR prior to shock while pads were being placed. Lidocaine gtt increased to 2 mg/min, heparin gtt restarted for possible ischemia driven component and sedation was increased back up;
patient was diuresed by rotary peel oven tender. Family meeting 10/30/2024, patient indicates he would not want tracheostomy and was able to clearly communicate that he does not wish to continue at an aggressive level of care, but still working to wean sedation
fully and for now we will continue as full code, patient's son is POA.
Progress Note - [facility]
Subjective
Date of Service: October 31, 2024
No complaints. Agitated at times
Objective
Labs:
10/31/24 03:42
10/31/24 03:42
Labs
Hgb 9.7 g/dL (13.0-18.0) L 10/31/24 03:42
Hct 28.9 % (39.0-52.0) L 10/31/24 03:42
Plt Count 201 10^3/uL (130-400) 10/31/24 03:42
PT 15.2 Sec (11.4-14.6) H 10/26/24 05:07
INR 1.17 10/26/24 05:07
APTT 116.3 Sec (23.4-35.0) H 10/31/24 05:44
Sodium 144 mmol/L (135-145) 10/31/24 03:42
Potassium 3.8 mmol/L (3.5-5.1) 10/31/24 03:42
BUN 18 mg/dl (9-20) 10/31/24 03:42
Creatinine 1.2 mg/dL (0.7-1.3) 10/31/24 03:42
Glucose 143 mg/dl (70-99) H 10/31/24 03:42
Troponins
10/28/24 10/29/24
20:42 03:50
Troponin I 0.750 H* 0.619 H*
Vital Signs and I&O:
Vital Signs
Temp Pulse Resp BP Pulse Ox
99.5 F 67 15 112/58 93
10/31/24 12:00 10/31/24 10:00 10/31/24 10:00 10/31/24 10:00 10/31/24 10:00
Vital Signs
Temp Pulse Resp BP Pulse Ox
99.5 F 67 15 112/58 93
10/31/24 12:00 10/31/24 10:00 10/31/24 10:00 10/31/24 10:00 10/31/24 10:00
Intake & Output
10/29/24 10/30/24 10/31/24 11/01/24
06:59 06:59 06:59 06:59
Intake Total 2213.4 / 2326.0 2595.0 / 2747.0 2038.1 / 2110.7 407.9 / 407.9
Output Total 4040 / 4165 5215 / 5320 4015 / 4165 250 / 250
Balance -1826.6 / -1839.0 -2620.0 / -2573.0 -1976.9 / -2054.3 157.9 / 157.9
Physical Exam
Physical Exam
General: Well developed, well nourished in NAD.
Neck: Supple, no JVD, HJR, carotids +2 B/L, no bruits bilaterally.
Heart: Non displaced PMI, RRR, no murmurs, No S3, S4, no rubs.
Lungs: Scattered rhonchi
Skin: Ecchymosis over right eye
Extremities: No clubbing, cyanosis or edema bilaterally.
Neuro: Grossly nonfocal, awake, alert and oriented x3.
--- NOTE | 2024-10-31 13:23 | PTOTSP ---
Dysphagia Evaluation
Patient presents with signs concerning for oral/pharyngeal dysphagia and concern for aspiration with thin liquids likely related to prolonged NPO status s/p VDRF and encephalopathy s/p cardiac arrest with cooling. Instrumental testing not
appropriate at this time given current cognitive status.
Recommend:
1. NPO
2. Medications: essential medications in puree, crush if able
3. Oral care 3x daily
4. Aspiration Risk Hydration Protocol - sparing ice chips after oral care with direct nurse supervision, only if awake and alert
5. Dysphagia therapy at the acute care level to determine if/when able to initiate oral diet or if instrumental swallowing assessment warranted.
[2024-10-31 14:00] LABS: APTT 82.5 Sec (23.4-35.0)
--- NOTE | 2024-10-31 14:45 | PTCARENOTE ---
Confusion unchanged however more cooperative. Will continue to monitor. Safe environment maintained.
--- NOTE | 2024-10-31 16:19 | CM ---
IV/AB, IV/Lasix, extubated 10/30. Discharge POC: TBD.
[2024-10-31] MEDS: COREG TUBE (17:10)
[2024-10-31] MEDS: CRESTOR TUBE (17:11)
[2024-10-31] MEDS: LOW STRENGTH ASPIRIN TUBE (17:12)
[2024-10-31] MEDS: MIRALAX TUBE (17:12)
[2024-10-31] MEDS: ZYPREXA TUBE ×2 (17:13→20:48)
[2024-10-31 18:02] LABS: Glucose - Point of Care 126 mg/dl (70-99)
[2024-10-31] MEDS: COREG 3.125 MG TUBE (20:25)
[2024-10-31] MEDS: ZYPREXA 5 MG TUBE (21:08)
--- NOTE | 2024-10-31 21:47 | PTCARENOTE ---
Pt Aox3, forgetful at times, demanding and persistent at times but overall pleasant and cooperative. Pt able to follow simple commands, rolls with an assist of 1. Restraints remain on due to forgetfulness and pulling at equipment. Pt did well
swallowing meds crushed in apple sauce. Amiodarone, Precedex, and heparin infusing per orders. NSR on monitor, +1 anasarca. Positive pulses. Bruising to his right eye, right forehead and left tongue. SCDS, and [place] Boots on. Q2 turns with
pillows.
[2024-11-01] VITALS (28 sets, daily range): BP systolic 139–198; BP diastolic 62–94; PULSE 90–94; O2SAT 95; BMI 30.1
--- NOTE | 2024-11-01 | PTCARENOTE ---
Pt more Alert, titrating precedex down. Pt tried the BIpap for less than 10min and refused it after that. Education provided.
[2024-11-01 00:09] LABS: Glucose - Point of Care 130 mg/dl (70-99)
[2024-11-01 01:13] LABS: APTT 88.3 Sec (23.4-35.0)
[2024-11-01] MEDS: ZOSYN 50 IV (02:00)
[2024-11-01] MEDS: CORDARONE 518 MG IV (02:00)
[2024-11-01] MEDS: PRECEDEX 100 IV (03:55)
[2024-11-01 04:36] LABS: APTT 97.4 Sec (23.4-35.0)
[2024-11-01 04:50] LABS: Blood Urea Nitrogen 23 mg/dl (9-20); Calcium 8.5 mg/dl (8.4-10.2); Carbon Dioxide 23 mmol/L (22-30); Chloride 111 mmol/L (98-107); Estimated Creatinine Clearance 74 ml/min; Glucose 122 mg/dl (70-99); Magnesium 2.1 mg/dl (1.6-2.3); Potassium 3.4 mmol/L (3.5-5.1); Sodium 144 mmol/L (135-145); eGFR > 60.00
[2024-11-01] MEDS: KCL 270 MEQ IV ×3 (05:42→17:06)
[2024-11-01 06:17] LABS: Glucose - Point of Care 106 mg/dl (70-99)
[2024-11-01] MEDS: NOVOLOG FLEXPEN-MODERATE RESISTANCE SC (06:17)
--- NOTE | 2024-11-01 06:26 | PTCARENOTE ---
as of 6am Precedex off and Singh removed.
[2024-11-01] MEDS: HEPARIN 25000 UNITS/250 ML IV ×2 (06:38→21:03)
--- NOTE | 2024-11-01 07:34 | W.PN.HOSP.TC ---
Today's Communication/Plan
-
Escalate GDMT
Continue diuretic
Check AXR/CXR to assess for ileus
Hold tube feeds temporarily for now
Continue IV amiodarone and telemetry
Continue IV heparin drip
Cardiology to decide on CABG versus high risk left main PCI
Assessment / Plan
Assessment / Plan
#Acute on chronic HFrEF
#Quadruple-vessel CAD with left main stenosis
#OOH VF cardiac arrest due to inferior wall STEMI
-Presented with [id number] cardiac arrest, intubated in field; secondary to inferior wall STEMI
-Left heart catheter showed 4 vessel CAD with left main stenosis; s/p POBA x 3 to the RCA; LVEF 25% now
-Complicated by cardiogenic shock; s/p TTM, IABP, [place]-Danial, vasopressors (did not receive inotropes)
-Was started on IV heparin drip on which she remains, as well as aspirin and statin for obstructive CAD
-Was also started on IV Lasix for diuresis with significant net negative fluid balance for multiple days
-Resumed on GDMT with low-dose carvedilol, BIA inhibitor; hemodynamics are improving
-Remains somewhat hypervolemic this morning, I/O's mildly net negative, weight downtrending
Plan
-Increase ramipril to 10 mg, resume SGLT2i, continue carvedilol as prescribed
-Continue IV Lasix 40 daily; monitor BMP + I's and O's + weights
-Continue IV heparin drip, aspirin, high intensity statin
-Eventually will need CABG versus high risk PCI to Left main
-Will need AICD for secondary prevention
#Ventricular tachycardia
-Likely scar mediated; s/p IV lidocaine drip; had significant run of sustained VT here
-Was started on IV amiodarone drip on which she remains, has improved
-Has not had pulseless event since admission cardiac arrest
-Electrolytes persistently low on diuresis and requiring repletion
Plan
-Continue IV amiodarone drip with plan to transition to oral when tolerating
-Continue to monitor labs and replete electrolytes for K >4, mag >2
-Continue on telemetry, plan for AICD as above
#Ventilator associated pneumonia
#S/P VDRF from acute hypoxemic respiratory failure
-Developed fevers and lung infiltrates on x-ray; sputum culture growing Klebsiella aerogenes
-Seems to be improving, has since been weaned off of mechanical ventilator and supplemental O2
-Was on IV Zosyn for multiple days, transition to ceftriaxone on 10/31 after final sputum culture result
-Continue with pulmonary toileting, as needed bronchodilators, IV ceftriaxone (day 10 of antibiotics)
-Plan for 14 days max of antibiotics if he continues to improve
-Monitor on room air with SpO2 goal >90%
#Nausea and vomiting
-Had large episode of vomitus this morning, concern for ileus with systemic stress due to above issue
-Abdominal exam was fairly benign prior to the episode when I evaluated him
-Will order stat AXR and CXR to assess for ileus or signs of obstruction
-Continue with antiemetics as needed
-Hold feeding pending x-rays
#Acute metabolic encephalopathy
-Secondary to the above issues and prolonged intubation time
-Improving slowly with time postextubation though still has some confusion
-Continue to treat above issues, optimize natural lighting and provide delirium precaution
-Monitor MSE
#NIDDM
-A1c 6.7%; no known microvascular disease complications but does have CAD
-Home regimen includes metformin, Jardiance; also on statin and BIA inhibitor
-Home metformin held, transition to ISS with Accu-Cheks
-BG goal 140-180
#ELVIRA on CPAP
-Not associated with significant pulmonary hypertension, no TR or pHTN on recent echo
-Wears nightly CPAP, which has been ordered
-Encouraged ongoing weight loss after DC
#Primary hypertension
-Associated with LVH; Home meds include ramipril and carvedilol
-Blood pressure here initially soft though has improved with time, now hypertensive
-Escalating GDMT as above
Diet: Tube feeds with Osmolite 1.2, held pending abdomen x-ray
DVT prophylaxis: IV heparin drip
CODE STATUS: Full code
Anticipated Discharge: > 48 hours
Subjective/Interval History
-
Date of Service: November 01, 2024
Seen and examined at the bedside. No acute events reported overnight. AFVSS on RA
Renal function stable, I/O's near 0 ml the weight down by 1 kg. Later in morning developed large amount of vomitus. X-rays ordered to assess for ileus
Patient remains encephalopathic. Has discomfort with repositioning. Denies any other new complaints though ROS limited by encephalopathy
Objective Data
-
Labs:
Laboratory Results
10/31/24 11/01/24
21:26 04:14
APTT 88.3 H 97.4 H
Sodium 144
Potassium 3.4 L
Chloride 111 H
Carbon Dioxide 23
BUN 23 H
Creatinine 1.1
Glucose 122 H
Calcium 8.5
Vital Signs:
Vital Signs
Temp Pulse Resp BP Pulse Ox
98.9 F 69 14 149/63 96
11/01/24 07:00 11/01/24 04:30 11/01/24 04:30 11/01/24 04:00 11/01/24 04:30
I&O
10/31/24 11/01/24 11/02/24
06:59 06:59 06:59
Intake Total 2037.1 / 2109.7 2026.5 / 2026.
Output Total 4015 / 4165 2104
Balance -1976.9 / -2054.3 -77.5 / -77.5
Review of Systems
-
History Source: Patient
All other systems: Reviewed and negative
Physical Exam
-
General: Well Developed, No Apparent Distress and Obese
HEENT: Normocephalic, Atraumatic, Moist Mucous Membranes and Anicteric
Respiratory: Clear to Auscultation and Non Labored Respirations; Negative Accessory Resp Muscle Use
Cardiac: Regular Rhythm and S1/S2; Negative Murmur, Rub, JVD or Gallop
GI: Soft, Nontender, Normal Bowel Sounds (Hypoactive) and Distended
Musculoskeletal: No Clubbing, No Cyanosis and No Edema
Skin: Warm and Dry; Negative Rash
Neuro: Awake, Alert, Oriented and Nonfocal/Grossly Intact; Negative Tremors
Psych: Calm
Data Reviewed
-
Labs: Labs Reviewed by me and Discussed with Physician (Production Sound Mixer)
--- NOTE | 2024-11-01 07:45 | PTCARENOTE ---
Received pt awake and alert. Still unclear of all the events of his hospitalization. He was reoriented to the events. Bilateral soft wrist restraints intact. Right IJ TL CVC with Amiodarone and heparin drips. Right AC#20g protective catheter and
right FA#18 g catheter both flushed and patent. Good peripheral pulses, Trace L/E edema. Knee hi SCD's intact with foam filled boots. Lungs dim in the bases. Occasional moist productive cough that pt swallows. RA pulse ox 93%. He was encouraged to
rake a deep breath. He was informed that he had until 12 noon to urinate. He verbalized his understanding. Obese. +hyperactive BSX4. No BM. He has a poor appetite. Tongue with blue ecchymosis along the left side. Ecchymosis on his right forehead
above his eyebrow. [place] ecchymosis of his right eye. Right groin puncture site INCLUSION INTERN with resolving ecchymosis. He was informed of the plan of care for today. He verbalized his understanding but will require reinforcement. Safe environment
maintained.
[2024-11-01] MEDS: DUONEB 3 ML INH ×2 (08:13→20:24)
--- NOTE | 2024-11-01 08:15 | W.PN.INTV ---
Today's Communication / Plan
Recommendations
Extubated on 10/30, and now on room air, saturating 95% and breathing comfortably
Given his ileus with abdominal discomfort/fullness/distention with nausea/vomiting, insert NGT and placed onto low intermittent wall suction
Depending on NGT output overnight, can consider clamping NGT tomorrow and if BUGGY RUNNER passes him then he can start clear liquid diet; this will be an ongoing discussion
Continue zyprexa
Defer GDMT to cardiology
CT chest on 10/28 showed bibasilar pneumonia with evidence of small bilateral pleural effusions - continue antibiotics (complete 10-14 days total) + diuresis
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
Continue with IV Lasix and maintain net negative fluid balance as tolerated
Strict I/O with daily weight
Defer surgical coronary revascularization to CT surgery - he is now very close to his baseline
If patient too high risk for CT surgery then other option would be high risk PCI; defer this decision to interventional cardiology
Patient is stable for downgrade out of ICU to IMU. Given that he is on room air breathing comfortably and saturating 95%. No additional recommendations at this time from pulmonary service. Please call back with any questions - Would recommend to
continue trying CPAP at night however he did refuse last night. He had previously seen us in the office with last visit in April 2023 with YADI Fitzgerald. I will arrange for him to continue seeing us again in the office after discharge.
Assessment
-
Patient currently intubated, mechanically ventilated sedated. Reportedly patient is a 70-year-old gentleman with known history of coronary artery disease with previous PCI in the past, known ischemic cardiomyopathy with baseline EF 35 to 40%,
obstructive sleep apnea on CPAP, who called 911 for having chest pain and shortness of breath. While he was on the phone apparently he stopped talking and had a cardiac arrest. Once EMS arrived, patient was noted to be in ventricular fibrillation
and was shocked x 1, he also received epi as well as lidocaine and had return of spontaneous circulation. He was intubated in the field and EKG was concerning for ST elevation in the inferior leads. Cardiology service evaluated the patient in the
emergency room and he was emergently taken to [facility] for further intervention. I initially saw the patient in the [facility] for persistent hypoxia despite being mechanically ventilated and later reevaluated again in CVICU.
#1. Inferior wall STEMI complicated by out of hospital Cardiac Arrest, initial rhythm V. Fib (10/23)
- S/p defibrillation x 1, ROSC achieved in the field. Estimated downtime reportedly around 15 minutes
- Patient emergently taken to [facility], s/p POBA x3 in the RCA - -> IABP placed --> removed on 10/27 with heparin drip stopped prior. CT surgery consulted for possible CABG --> following peripherally and will intervene depending on patient's
neurological recovery
- Known history of coronary artery disease, s/p PCI more than 10 years ago
- Left heart cath (10/23/2024) showed severe multivessel CAD with heavily calcified coronary arteries including in the left main coronary artery with up to 70% stenosis, 70-80% stenosis of the mid left circumflex just proximal to the takeoff of an
OM1, and 90% RCA stenosis from the proximal into the mid and distal vessel which underwent POBA x 3
- On ASA and crestor
- Lidocaine gtt off since 10/30; he remains on amiodarone gtt; monitor for AIVR
- CT head unremarkable, chest x-ray suggestive of pulmonary edema
- Rechecked CT head again AM of 10/28 that showed no acute intracranial abnormality
- Completed TTM, currently rewarmed
- Was spiking fevers overnight from 10/27 - 10/28 and Unasyn changed back to Zosyn, and fevers had improved before recurring again on evening of 10/29 into 10/30 - -> suspected to be drug fever from precedex; he is continuing to occasionally spike fevers
- He is now been completely weaned off of Precedex gtt
- continue prn tylenol and cooling blankets if needed
- Monitor renal and hepatic function
#2. Acute hypoxic respiratory failure requiring mechanical ventilator (intubated in the field, extubated 10/30 in ICU)
- Due to pulmonary edema from cardiogenic shock - shock state now resolved
- Initially unable to rule out component of pneumonia especially given the retrocardiac opacification which was not seen on initial CXR from this admission
- 10/23, Patient emergently evaluated in [facility] for hypoxia, PEEP was increased up to 14, tidal volume 480 mL, patient breathing above the vent at around 30/min, peripheral saturation improved to 99%
- Responded well to diuretics, and remains on lasix 40mg IV daily
- Patient was extubated successfully on 10/30, and is now on supplemental oxygen breathing comfortably
- Maintain SaO2 >90-94%
- PE felt to be less likely with normal-appearing RV on echocardiogram. Patient anticoagulated with heparin
- TTM now complete
- Started Precedex on 10/28 in an effort to help wean down sedation - -> he remains on Precedex and this should be continued to be weaned down until off; continue with PO Zyprexa; if unable to give PO meds, then transition to IM vs IV alternative
- CT chest obtained on 10/28 showed bibasilar consolidations with small pleural effusions. This is likely due to pneumonia with heart failure; procal 1.34 on 10/28 and proBNP 2770; continue ABx and diuresis
- Mild wheezing heard on 10/29 - continue Duonebs
- Patient was having thick, yellow/neal secretions on 10/28 and respiratory culture grew Klebsiella aerogenes; on 10/31, Dr. Whipple narrowed ABx from Zosyn to rocephin
#3. Acute on chronic HFrEF with Cardiogenic Shock - shock state now revolved (off levophed since AM of 10/27)
- IABP removed as of 10/27
- Keep MAP>65
- Monitor urine output with goal >0.5-1cc/kg/hr; continues on IV lasix; cardiology following
- Lactic acidosis resolved since 10/25
- Continue with 40 mg IV Lasix daily (since 10/25); given an extra dose of Lasix on 10/28
- Off stress dose steroids (s/p solu-cortef 10/24 - 10/25)
- Broad-spectrum antibiotics were started empirically with vanc/zosyn --> patient was changed to Unasyn on 10/27 however given that he has been spiking fevers, Unasyn changed back to Zosyn (10/28)
- IV vanco stopped due to negative MRSA swab
- Narrowed antibiotics yesterday from Zosyn to Rocephin
- Would plan for 10-14 days antibiotics given recent shock state with pneumonia
#4. Acute encephalopathy
- CT head negative. Patient waking up per RN but still not following commands; per the RN, the patient does get agitated when he is stimulated.
- CT head checked again on 10/29 showing no acute intracranial pathology or interval change
- s/p TTM (rewarmed to normothermia overnight at 430AM on 10/27/2024)
- Neurology consulted - recs appreciated
- As of 11/01, he is much more calm, awake, no longer having significant confusion episodes or periods of aggression. Also has his memory back. No need for brain MRI at this time or EEG.
#5. CKD.
- Good urine output, stable creatinine
- Strict I/O; trend sCr
#6. Fevers
- CT chest/abdomen/pelvis shows bibasilar pneumonia with small adjacent pleural effusions and also prominent gallbladder with multiple gallstones. --> RUQ abdominal US done on 10/29 shows cholelithiasis without evidence for acute cholecystitis
Other medical diagnoses:
- h/o ELVIRA, on CPAP at home. CPAP was ordered and attempted last night but patient refused; occasionally check blood gas to assure pCO2 + pH remained stable
- HTN
- HLD. On statin
- DM, type II. s/p insulin infusion; continue ISS and continue BG q6hr with goal BG 140-180
- Obesity
Early nutrition - BUGGY RUNNER following (recommend NPO as of 10/31) -unfortunately patient is nausea/vomiting today and CXR/AXR shows ileus. Recommend to insert NGT in place and to low intermittent wall suction.; Can consider clamping NGT tomorrow and if
he has no more nausea and abdomen remains soft and not distended, can consider starting clear liquid diet tomorrow assuming BUGGY RUNNER clears him
Lines: R-IJ CVC - -> of note, on 10/31 the patient pulled out his R�IJ CVC about 3 cm. Central line was not advanced back. It was stabilized, covered with new Tegaderm, taped, and his restraints were tightened. There is still blood flow from each
of the 3 ports with no resistance upon flushing; given that he is much more calm and not aggressive anymore, restraints now able to be removed. Will defer this decision to nursing
Patient is stable for downgrade out of ICU to IMU. Given that he is on room air breathing comfortably and saturating 95%. No additional recommendations at this time from pulmonary service. Please call back with any questions. Would recommend to
continue trying CPAP at night however he did refuse last night. He had previously seen us in the office with last visit in April 2023 with YADI Fitzgerald. I will arrange for him to continue seeing us again in the office after discharge.
Data:
CT Head 10/23/2024: Unremarkable
CXR. 10/23/2024: Suggestive of Pulmonary edema
CXR 10/27/2024: There is slightly increased size of the left basilar opacity which likely represents a moderate pleural effusion with adjacent atelectasis, however pneumonia cannot be excluded. Stable appearance of the support lines and tubes.
CT chest/abdomen/pelvis 10/29/2024:
Although markedly limited without intravenous contrast and as a result of beam hardening artifact from bilateral upper extremities, bilateral lower lobe consolidations are seen with air bronchograms which could represent pneumonia and/or
subsegmental atelectasis with accompanying tiny bilateral pleural effusions.
Somewhat prominent gallbladder containing multiple stones. If there is a clinical concern for acute cholecystitis, suggest ultrasound for more complete evaluation.
No additional gross significant acute abnormal finding, evaluation markedly limited.
ECHO 09/2021: Top normal left ventricular chamber size. Moderately reduced left ventricular
systolic function. Left ventricular ejection fraction is 35-40% by visual
assessment with basal - mid inferior, inferolateral and basal septal akinesis.
Top normal left ventricular wall thickness.
Left atrial enlargement.
Mild mitral regurgitation.
Compared to previous echo from September 2017, there is no significant change
Technically difficult study, consider Definity for better evaluation.
[facility] 04/2013: 1: 2 vessel coronary artery disease as described, patent RCA and LAD stents, new severe midcircumflex lesion.
2: Moderate to severe left ventricular dysfunction, EF 30%
3: Successful complex 3.0/12 mm Xience V drug eluting stent to the mid circumflex.
Total time spent today was 58 minutes for this encounter. Time includes reviewing laboratory test/imaging results, reviewing pertinent medical records, obtaining and reviewing medical history, performing an appropriate exam, ordering medications,
tests and procedures. Time also includes documentation of this encounter, coordinating patient care and communicating with other healthcare professionals. Total time does not include separately billed tests performed on this date of service.
Subjective Dataa
Subjective Data
Date of Service:
Date of Service: November 01, 2024
Chief Complaint: Appian Developer Follow Up
Subjective:
Patient seen this morning. Nauseous, with abdominal discomfort. Remains on amiodarone at 0.5 mg/min. Spoke with the patient's family member, Sonia, and answered all of her questions. He denies feeling chest pain, or SOB. He was febrile
yesterday to 100.9 �F.
Review of Systems
General: Other (Negative unless mentioned above)
Objective Data
Data Reviewed
Vital Signs / I&O / Oxygen:
Vital Signs
Temp Pulse Resp BP Pulse Ox
100.5 F H 99 27 180/86 92
11/01/24 11:16 11/01/24 11:00 11/01/24 11:00 11/01/24 11:00 11/01/24 11:16
Intake and Output
10/31/24 11/01/2425
06:59 06:59 06:59
Intake Total 2037.1 / 2109.7 2026.5 / 2026.
Output Total 4015 / 4165 2104
Balance -1976.9 / -2054.3 -77.5 / -77.5
SaO2 [CPAP] 98
SaO2 [A/C] 95
SaO2 92
Nasal Cannula flow liters per 2
minute
Physical Exam
General: Respiratory Distress (negative) and Comfortable
HEENT: Normocephalic, Anicteric and Other (Thick neck)
Cardiovascular: S1-S2 and Peripheral Edema (+1 lower extremity pitting edema bilaterally)
Respiratory: Wheeze (negative), Crackles (bibasilar), Rhonchi (negative), Non-Labored Respirations and Stridor (negative)
GI: Soft, Distended (Abdominal obesity), Non Tender and Normal Bowel Sounds
Neurology: Awake, Alert, Tremors (negative) and Other (Drowsy/confused at times)
Skin: Warm, Dry, Cyanosis (negative) and Jaundice (negative)
Labs/Micro/Reports
Lab Data
10/31/24 03:42
11/01/24 04:14
Laboratory Results
10/31/24 10/31/24 11/01/24
13:32 21:26 04:14
APTT 82.5 H 88.3 H 97.4 H
Microbiology
10/28/24 16:34 Endotracheal Respiratory Culture - Final
Klebsiella aerogenes
10/28/24 16:34 Endotracheal Gram Stain - Final
--- NOTE | 2024-11-01 08:35 | W.PN.CARDCBS ---
Addendum entered and electronically signed by Andrei Roberts DO 11/01/24 11:08:
Spoke with son, Tomas, regarding patient's care and plan as outlined below.
Discussed care with nursing and primary service.
Addendum entered and electronically signed by Andrei Roberts DO 11/01/24 10:27:
I saw and examined the patient.
The Card Lacer Jacquard's note was reviewed and I agree with the note.
Comment:
Patient seen and examined. Patient with some confusion and agitation overnight and this morning. Patient on bedpan stating that he needs to move his bowels. Denies chest pain, shortness of breath.
GEN: Awake and alert. Oriented to place and situation
LUNGS: RA. No audible wheeze
CV: Regular rate and rhythm, no murmur or gallop; SB/SR with PVC on tele.
ABD: ND, mild tenderness
EXT: No edema B/L LE
NEURO: No focal weakness
SKIN: No rash
A/P as below
Overall very complex situation. Patient with known underlying coronary disease which may require additional revascularization but presented with VF arrest and intervention.
With improving mental status, would therefore appreciate reevaluation by CT surgical service/interventional cardiology input regarding possibility of revascularization/intervention for his known coronary disease.
Will continue to follow along, IV medications for now and reintroduce p.o. when able
Would reassess closer to discharge regarding ICD candidacy
Original Note:
Today's Communication / Plan
-
Consider switching to amiodarone PO today, he needs another swallow eval first
Updated CT surgery service about improved mental status although still impulsive
Precedex weaned
Impression / Plan
-
PCP: Dr. Dye
Primary Dairy Manufacturing Technologist: Dr. Lui
Assessment:
Presentation with VF arrest s/p shock x1 with ROSC 10/23/24
Status post VDRF
Intubated in field 10/23/24, extubated 10/30/2024
Status post cardiogenic shock
s/p intra-aortic balloon pump removal 10/27/24
Non-STEMI with peak troponin of 5
Change in mental status/possible anoxic encephalopathy
CAD
h/o IN and unknown vessel PCI 1994
s/p LAD PCI x2 2011
s/p Circ PCI 2013
s/p POBA RCA 10/23/24
ICM, EF 35-40% by echo 10/05/21,EF 30-35% by echo 10/24/24, 25% 10/28/2024
HTN
HLD
DM2
Obesity
ELVIRA on CPAP
Cath 10/23/2024: Plain old balloon angioplasty of 3 serial up to 90% stenoses in the proximal, mid and distal RCA which was heavily calcified. Successful placement of 50 cc intra-aortic balloon pump and Bancroft-Danial catheter via right common femoral
artery and vein, respectively. 1 shock for monomorphic VT during heart catheterization
ECHO 10/05/21: TDS, EF 35 to 40%, basal to mid inferior, inferolateral and basal septal akinesis, left atrial enlargement, mild MR
Echo 10/23/24: Limited bedside echo at time of [facility], very limited views but RV function appears to be preserved. LV systolic function appears close to baseline with EF of about 35%, no pericardial effusion
Echo 10/24/24: EF 30 to 35%, moderate global hypokinesis, technically difficult study but no clear significant valve disease.
Echo 10/28/24: EF 25%, global hypokinesis, moderate concentric LVH, compared to echo 10/24/2024 the EF had been 30 to 35% with IABP in place and is now 25% with IABP removed
Plan:
-Patient awake and alert. He knows he is in the hospital and had an [id number] cardiac arrest, but is confused as to timing on 11/01/2024. He is impulsive, but otherwise cooperative and no longer requiring restraints.
-Precedex was stopped and Singh catheter removed early 11/01/2024.
-Patient had previously declined ICD as an outpatient prior to this admission, but patient's son is POA and he along with his 4 brothers have opted to continue full CODE STATUS and full medical management and patient has been cooperative with this.
Patient with NSTEMI and peak troponin of 5 on admission. He had POBA of an RCA lesion 10/23/2024 and has significant residual CAD and was evaluated by CT surgery service for possible CABG. I reviewed the case with CT surgery PA on 11/01/2024 and
updated them as to the patient's markedly improved mental status and requested reevaluation for suitability for CABG.
-Patient initially treated with lidocaine gtt and then transitioned to amiodarone gtt 10/29/2024 and that remains running now. Will attempt to transition to amiodarone 400 mg PO TID on 11/01/2024
-Potassium 3.4 on 11/01/2024 and KCl 40 mEq rider given by technical assoc. Magnesium 2.1, labs reviewed by me 11/01/2024
-Telemetry reviewed by me, no recurrence of VT. ECG from 10/29/2024 reviewed by me and was SR with QTc 412 MS at that time, recheck ECG 11/01/2024, ordered by me.
-Remains on heparin gtt following recurrent VT on 10/28/2024 for possible ischemic contribution to VT. Hgb stable at 9.7
-Aspirin 81 mg daily ordered, but no dose given on 10/31/2024 as tube was no longer in place. As noted Precedex has been weaned and patient is awake and alert so will attempt PO dose on 11/01/2024
-Outpatient dose of Plavix was stopped on admission, last dose was 10/23/2024
-Outpatient dose of Coreg lowered to 3.125 mg BID due to hypotension earlier this admission
-LDL 62 and outpatient dose of Crestor 40 mg daily has been continued
-EF 25% by echo 10/28/2024 without IABP
-Coreg as noted above
-Outpatient dose of ramipril decreased to 5 mg daily
-Weight is down 15 lbs from admission with Lasix 40 mg IV daily. Patient was not taking a diuretic prior to admission
Summary of admission thus far: Patient called 911 with chest pain and SOB 10/23/24 and then unresponsive on the phone with 911 operators and when paramedics arrived to find patient with agonal respirations and VF. Patient shocked x1 and then asystole
and given lidocaine bolus with ROSC. Patient intubated in the field. Patient brought to [facility] ER in SR with BP 145/87. ECG on arrival did not meet STEMI criteria. Patient taken to cath lab radiological technologist and had POBA of RCA lesion and IABP was placed for
cardiogenic shock. Case was referred to CT surgery service for evaluation for CABG. Patient admitted to CVICU and radial artery line placed along with central line. TTM protocol initiated 10/23/24 and patient rewarmed to normothermia by early AM
10/27/24. On 10/24/24 patient's Lidocaine gtt was stopped and patient started to have frequent PVCs and amiodarone gtt was started and then AIVR so amio gtt was stopped and Lidocaine gtt restarted and has been running since 10/24/24. Neurology following
and EEG waves slow due to sedation. Bancroft Danial removed for bleeding 10/24/24. IABP removed 10/27/24. Right arterial femoral line removed 10/27/24. Patient increasingly agitated during attempted sedation wean 10/28/24 and vomited. Patient agitated and then
sustained monomorphic VT 10/28/24 that spontaneously converted to SR prior to shock while pads were being placed. Lidocaine gtt increased to 2 mg/min, heparin gtt restarted for possible ischemia driven component and sedation was increased back up;
patient was diuresed by technical assoc. Family meeting 10/30/2024, patient indicates he would not want tracheostomy and was able to clearly communicate that he does not wish to continue at an aggressive level of care, but still working to wean sedation
fully and for now we will continue as full code, patient's son is POA.
Progress Note - Dairy Manufacturing Technologist
Subjective
Date of Service: November 01, 2024
He feels like he has to move his bowels
Objective
Labs:
10/31/24 03:42
06/14/25 04:14
Labs
Hgb 9.7 g/dL (13.0-18.0) L 10/31/24 03:42
Hct 28.9 % (39.0-52.0) L 10/31/24 03:42
Plt Count 201 10^3/uL (130-400) 10/31/24 03:42
PT 15.2 Sec (11.4-14.6) H 10/26/24 05:07
INR 1.17 10/26/24 05:07
APTT 97.4 Sec (23.4-35.0) H 11/01/24 04:14
Sodium 144 mmol/L (135-145) 11/01/24 04:14
Potassium 3.4 mmol/L (3.5-5.1) L 11/01/24 04:14
BUN 23 mg/dl (9-20) H 11/01/24 04:14
Creatinine 1.1 mg/dL (0.7-1.3) 11/01/24 04:14
Glucose 122 mg/dl (70-99) H 11/01/24 04:14
Vital Signs and I&O:
Vital Signs
Temp Pulse Resp BP Pulse Ox
98.9 F 82 18 149/63 93
11/01/24 07:00 11/01/24 08:21 11/01/24 08:21 11/01/24 04:00 11/01/24 08:21
Vital Signs
Temp Pulse Resp BP Pulse Ox
98.9 F 82 18 149/63 93
11/01/24 07:00 11/01/24 08:21 11/01/24 08:21 11/01/24 04:00 11/01/24 08:21
Intake & Output
10/30/24 10/31/24 11/01/24 11/02/24
06:59 06:59 06:59 06:59
Intake Total 2595.0 / 2747.0 2038.1 / 2110.7 2026.5 / 2026.
Output Total 5215 / 5320 4015 / 4165 2104 / 2104
Balance -2620.0 / -2573.0 -1976.9 / -2054.3 -77.5 / -77.5
Physical Exam
Physical Exam
GEN: Awake and alert. Oriented to place and situation
LUNGS: RA. No audible wheeze
CV: SR on tele.
ABD: ND
EXT: No edema B/L LE
NEURO: No focal weakness
SKIN: No rash
[2024-11-01] MEDS: COREG 3.125 MG PO ×2 (10:01→21:07)
[2024-11-01] MEDS: FARXIGA 10 MG PO (10:01)
[2024-11-01] MEDS: CRESTOR 40 MG TUBE (10:01)
[2024-11-01] MEDS: NSS (PRESERVATIVE FREE) 10 ML IV (10:02)
[2024-11-01] MEDS: PROTONIX IV 40 MG IV (10:02)
[2024-11-01] MEDS: ALTACE 5 MG PO (10:02)
[2024-11-01] MEDS: LOW STRENGTH ASPIRIN 81 MG PO (10:02)
[2024-11-01] MEDS: LASIX 40 MG IV (10:02)
[2024-11-01] MEDS: ZYPREXA 5 MG PO ×2 (10:03→21:06)
[2024-11-01] MEDS: STERILE WATER FOR INJECTION 10 ML IV (10:03)
[2024-11-01] MEDS: ROCEPHIN 2000 MG IV (10:03)
--- NOTE | 2024-11-01 10:10 | PTCARENOTE ---
Med crushed in aplesauce. Pt immediately became nauseas, spit out the applesauce then proceeded to vomit a moderate amount of green bilious emesis. He did not ingest any of his morning medications.
--- NOTE | 2024-11-01 11:00 | PTCARENOTE ---
Left buttock/sciatic pain, Ice packs applied and Hydromorphone administered.
[2024-11-01] MEDS: DILAUDID 0.5 MG IV (11:07)
[2024-11-01] MEDS: MIRALAX PO (11:14)
[2024-11-01 12:17] LABS: Glucose - Point of Care 151 mg/dl (70-99)
[2024-11-01] MEDS: NOVOLOG FLEXPEN-MODERATE RESISTANCE 1 UNITS SC ×2 (12:53→17:22)
[2024-11-01] MEDS: LOW STRENGTH ASPIRIN TUBE (13:36)
[2024-11-01] MEDS: COREG TUBE (13:36)
[2024-11-01] MEDS: MIRALAX TUBE (13:43)
[2024-11-01] MEDS: ZYPREXA TUBE (13:43)
[2024-11-01] MEDS: REGLAN 10 MG IV (14:21)
[2024-11-01] MEDS: VALIUM INJECTION 2 MG IM (14:22)
[2024-11-01] MEDS: LIDOCAINE 4% PATCH 1 PATCH TOPICAL (14:25)
--- NOTE | 2024-11-01 16:00 | PTCARENOTE ---
OOB to the chair, 2 assist with walker. He c/o left sciatic pain. He used the bedside commode and expelled 175ml liquid brown stool and a large amount of gas. He tolerated it well. He was having difficulty straightening out his head and his head was
tilted to the right. Right nare Cortez sump secured 65cm and to LIWS. As of now 300ml's green bilious drainage in cannister. Safe environment maintained. Call black within reach and bedside table in front of him with tissues. He was instructed to
remain in the chair. Chair alarm on and functioning.
[2024-11-01] MEDS: TRANDATE 10 MG IV (17:05)
[2024-11-01 17:32] LABS: Glucose - Point of Care 175 mg/dl (70-99)
--- NOTE | 2024-11-01 19:08 | PTCARENOTE ---
Attempted to call Tomas @ [phone] to notify him that his father was going to be moved to [facility], and to provide an update of his afternoon.
--- NOTE | 2024-11-01 19:15 | PTCARENOTE ---
Tomas called the ICU and he is aware his father is being moved to [id number]. I also informed him of his relief after the gastric tube was inserted and that he was OOB to the chair.
--- NOTE | 2024-11-01 21:07 | PTCARENOTE ---
Pt Aox3, VSS, NSR/ST on monitor, c/o pain in left hip, lido patch in place will follow up with pain medication. NGT in right Nare @65 to LIS. 2Lit O2 as needed Sats 95%. Lung coarse anteriorly, diminished at the bases, moist productive cough.
Positive bowel sounds, denies nausea. SCDs on. pt able to make slight adjustments to his positioning.
--- NOTE | 2024-11-01 21:24 | PTCARENOTE ---
Pt received as transfer from ICU into 3341. AAOx3 but forgetful. Repeats questions over and over. Received with B/L soft limb wrist restraints on. Right nare [place] sump in place at 65cm to LIS draining greenish/brown liquid. Per TT'd with TANK TRUCK MILK RECEIVER
Cherri and Dr Velez ok to give pt Coreg and Zyprexa tonight through NGT. Meds given and NGT suction on hold at this time. Heparin gtt infusing at 18ml/hr. Amio gtt infusing at 16.7ml/hr. Pt c/o of left hip pain. BP 165/78 Afebrile. SR/PVCs on
CM rate 70's/100's. Prevalon boots on. Pt with moist productive cough. Rest of assessment as documented. Maintained on Q2hr turns. Will continue to monitor.
--- NOTE | 2024-11-01 22:37 | PTCARENOTE ---
Pt was agreeable to wear BIPAP after arriving to IMU. RT placed BIPAP but pt pulled it off and apart stating he didn't want to wear it anymore. Pt placed back on 2L NC for the night. RT notified. Will continue to monitor.
[2024-11-02] VITALS (37 sets, daily range): BP systolic 128–180; BP diastolic 63–120; PULSE 89; O2SAT 93; BMI 29.3
[2024-11-02 00:12] LABS: Glucose - Point of Care 176 mg/dl (70-99)
[2024-11-02] MEDS: DILAUDID 0.5 MG IV (00:17)
[2024-11-02 00:43] LABS: Glucose - Point of Care 184 mg/dl (70-99)
[2024-11-02] MEDS: NOVOLOG FLEXPEN-MODERATE RESISTANCE 1 UNITS SC ×3 (00:44→13:46)
[2024-11-02] MEDS: TRANDATE 10 MG IV (00:59)
--- NOTE | 2024-11-02 01:03 | PTCARENOTE ---
Pt had 9 beat VT broke on its own back to SR/PVCs. Asymptomatic. Continues on Amio gtt as ordered. SBP 170's-180. Keyona GRULLON TT'd and made aware. Order entered for Labetalol 10mg IV. Pt received med as ordered. Will continue to monitor.
[2024-11-02 02:27] LABS: Hematocrit 30.4 % (39.0-52.0); Hemoglobin 10.4 g/dL (13.0-18.0); Mean Corp Hgb Conc. 34.2 g/dL (33.0-37.0); Mean Corpuscular Hgb 29.1 pg (27.0-31.0); Mean Corpuscular Volume 84.9 fL (80.0-94.0); Mean Platelet Volume 10.5 fL (7.4-10.4); Platelet Count 391 10^3/uL (130-400); Red Blood Cell Count 3.58 10^6/uL (4.70-6.10); Red Cell Dist. Width 15.2 % (11.5-14.5); White Blood Cell Count 20.9 10^3/uL (4.8-10.8)
[2024-11-02 02:36] LABS: APTT 76.3 Sec (23.4-35.0)
[2024-11-02 03:26] LABS: Triglycerides 169 mg/dl (10-149)
[2024-11-02] MEDS: TYLENOL 650 MG TUBE (03:55)
[2024-11-02 06:37] LABS: Glucose - Point of Care 177 mg/dl (70-99)
[2024-11-02] MEDS: DUONEB 3 ML INH ×2 (07:50→19:12)
[2024-11-02] MEDS: ROCEPHIN 2000 MG IV (08:15)
[2024-11-02] MEDS: ALTACE 10 MG PO (08:16)
[2024-11-02] MEDS: CRESTOR 40 MG TUBE (08:16)
[2024-11-02] MEDS: FARXIGA 10 MG PO (08:16)
[2024-11-02] MEDS: LOW STRENGTH ASPIRIN 81 MG PO (08:16)
[2024-11-02] MEDS: ZYPREXA 5 MG PO ×2 (08:16→20:44)
[2024-11-02] MEDS: LIDOCAINE 4% PATCH 1 PATCH TOPICAL (08:17)
[2024-11-02] MEDS: MIRALAX 17 GRAMS PO (08:17)
[2024-11-02] MEDS: LASIX 40 MG IV (08:17)
[2024-11-02] MEDS: THERAGRAN 1 TABLET PO (08:18)
[2024-11-02] MEDS: PROTONIX IV 40 MG IV (08:18)
[2024-11-02] MEDS: NSS (PRESERVATIVE FREE) 10 ML IV (08:19)
[2024-11-02] MEDS: STERILE WATER FOR INJECTION 10 ML IV (08:35)
[2024-11-02] MEDS: COREG 12.5 MG PO ×2 (08:35→20:44)
[2024-11-02 08:50] LABS: Blood Urea Nitrogen 25 mg/dl (9-20); Calcium 9.2 mg/dl (8.4-10.2); Carbon Dioxide 16 mmol/L (22-30); Chloride 113 mmol/L (98-107); Estimated Creatinine Clearance 65 ml/min; Glucose 179 mg/dl (70-99); Potassium 4.1 mmol/L (3.5-5.1); Sodium 147 mmol/L (135-145); eGFR > 60.00
[2024-11-02] MEDS: COREG PO (08:53)
[2024-11-02] MEDS: CORDARONE 518 MG IV (08:54)
--- NOTE | 2024-11-02 09:30 | W.PN.CARDCBS ---
Today's Communication / Plan
-
Continue supportive care for ileus, resume oral medications when able
Reevaluation for possible revascularization or intervention with improvement/resolution of ileus
Impression / Plan
-
PCP: Dr. Dye
Primary Lamp Tester And Inspector: Dr. Lui
Assessment:
Presentation with VF arrest s/p shock x1 with ROSC 10/23/24
Status post VDRF
Intubated in field 10/23/24, extubated 10/30/2024
Status post cardiogenic shock
s/p intra-aortic balloon pump removal 10/27/24
Non-STEMI with peak troponin of 5
Change in mental status/possible anoxic encephalopathy
CAD
h/o IL and unknown vessel PCI 1994
s/p LAD PCI 2011
s/p Circ PCI 2013
s/p POBA RCA 10/23/24
ICM, EF 35-40% by echo 10/05/21,EF 30-35% by echo 10/24/24, 25% 10/28/2024
HTN
HLD
DM2
Obesity
ELVIRA on CPAP
Cath 10/23/2024: Plain old balloon angioplasty of 3 serial up to 90% stenoses in the proximal, mid and distal RCA which was heavily calcified. Successful placement of 50 cc intra-aortic balloon pump and Independence-Danial catheter via right common femoral
artery and vein, respectively. 1 shock for monomorphic VT during heart catheterization
ECHO 10/05/21: TDS, EF 35 to 40%, basal to mid inferior, inferolateral and basal septal akinesis, left atrial enlargement, mild MR
Echo 10/23/24: Limited bedside echo at time of [facility], very limited views but RV function appears to be preserved. LV systolic function appears close to baseline with EF of about 35%, no pericardial effusion
Echo 10/24/24: EF 30 to 35%, moderate global hypokinesis, technically difficult study but no clear significant valve disease.
Echo 10/28/24: EF 25%, global hypokinesis, moderate concentric LVH, compared to echo 10/24/2024 the EF had been 30 to 35% with IABP in place and is now 25% with IABP removed
Plan:
-Patient awake and alert. He knows he is in the hospital and had an [id number] cardiac arrest, but is confused as to timing on 11/01/2024. He is impulsive, but otherwise cooperative and no longer requiring restraints. 11/02/2024 patient A and O
x 3 however reports some hallucinations stating that he is seeing people that are not present
- Noted ileus on 11/01/2024, patient with NG tube in place currently; remains NPO
-Patient had previously declined ICD as an outpatient prior to this admission, but patient's son is POA and he along with his 4 brothers have opted to continue full CODE STATUS and full medical management and patient has been cooperative with this.
Patient with NSTEMI and peak troponin of 5 on admission. He had POBA of an RCA lesion 10/23/2024 and has significant residual CAD and was evaluated by CT surgery service for possible CABG. Bibiana Lees reviewed the case with CT surgery PA on 11/01/2024
and updated them as to the patient's markedly improved mental status and requested reevaluation for suitability for CABG. additionally, patient amenable to ICD if needed or deemed a candidate.
-Patient initially treated with lidocaine gtt and then transitioned to amiodarone gtt 10/29/2024 and that remains running now; IV amiodarone continued due to ileus; resume oral amiodarone 400 mg p.o. 3 times daily when able to take p.o.
-Potassium 3.4 on 11/01/2024 and KCl 40 mEq rider given by plate shear operator. Magnesium 2.1, labs reviewed by me 11/01/2024
-Telemetry reviewed by me, no recurrence of VT. ECG from 10/29/2024 reviewed by me and was SR with QTc 412 ms; repeat 11/01/2024 QT/QTc 366/467 (sinus rhythm with PVCs)
-Remains on heparin gtt following recurrent VT on 10/28/2024 for possible ischemic contribution to VT. Hgb stable at 9.7
-Aspirin 81 mg daily ordered, but no dose given on 10/31/2024 as tube was no longer in place; would resume when able and ileus resolves
-Outpatient dose of Plavix was stopped on admission, last dose was 10/23/2024
-Outpatient dose of Coreg lowered to 3.125 mg BID; this was resumed at 12.5 mg p.o. twice daily patient tolerating well; ramipril 10 mg daily and, again, remains NPO with NGT in place
-LDL 62 and outpatient dose of Crestor 40 mg daily has been continued
-EF 25% by echo 10/28/2024 without IABP
Summary of admission thus far: Patient called 911 with chest pain and SOB 10/23/24 and then unresponsive on the phone with 911 operators and when paramedics arrived to find patient with agonal respirations and VF. Patient shocked x1 and then asystole
and given lidocaine bolus with ROSC. Patient intubated in the field. Patient brought to [facility] in SR with BP 145/87. ECG on arrival did not meet STEMI criteria. Patient taken to labor standards director and had POBA of RCA lesion and IABP was placed for
cardiogenic shock. Case was referred to CT surgery service for evaluation for CABG. Patient admitted to CVICU and radial artery line placed along with central line. TTM protocol initiated 10/23/24 and patient rewarmed to normothermia by early AM
10/27/24. On 10/24/24 patient's Lidocaine gtt was stopped and patient started to have frequent PVCs and amiodarone gtt was started and then AIVR so amio gtt was stopped and Lidocaine gtt restarted and has been running since 10/24/24. Neurology following
and EEG waves slow due to sedation. Independence Danial removed for bleeding 10/24/24. IABP removed 10/27/24. Right arterial femoral line removed 10/27/24. Patient increasingly agitated during attempted sedation wean 10/28/24 and vomited. Patient agitated and then
sustained monomorphic VT 10/28/24 that spontaneously converted to SR prior to shock while pads were being placed. Lidocaine gtt increased to 2 mg/min, heparin gtt restarted for possible ischemia driven component and sedation was increased back up;
patient was diuresed by plate shear operator. Family meeting 10/30/2024, patient indicates he would not want tracheostomy and was able to clearly communicate that he does not wish to continue at an aggressive level of care, but still working to wean sedation
fully and for now we will continue as full code, patient's son is POSusy.
Progress Note - Lamp Tester And Inspector
Subjective
Date of Service: November 02, 2024
Patient seen and examined's morning. No acute events overnight. Patient resting comfortably in bed denying any complaints however is vocalizing that he sees people standing inside and outside of the room however there are no people in these areas.
Patient is alert and oriented x 3 with appropriate speech and cognition however there is concern for hallucinations. Patient febrile overnight with no leukocytosis however noting improved abdominal discomfort and no further episodes of nausea or
vomiting.
Objective
Labs:
11/02/24 02:11
11/02/24 02:11
Labs
Hgb 10.4 g/dL (13.0-18.0) L 11/02/24 02:11
Hct 30.4 % (39.0-52.0) L 11/02/24 02:11
Plt Count 391 10^3/uL (130-400) D 11/02/24 02:11
PT 15.2 Sec (11.4-14.6) H 10/26/24 05:07
INR 1.17 10/26/24 05:07
APTT 76.3 Sec (23.4-35.0) H 11/02/24 02:11
Sodium 147 mmol/L (135-145) H 11/02/24 02:11
Potassium 4.1 mmol/L (3.5-5.1) 11/02/24 02:11
BUN 25 mg/dl (9-20) H 11/02/24 02:11
Creatinine 1.1 mg/dL (0.7-1.3) 11/02/24 02:11
Glucose 179 mg/dl (70-99) H 11/02/24 02:11
Vital Signs and I&O:
Vital Signs
Temp Pulse Resp BP Pulse Ox
99.2 F 102 28 167/93 94
11/02/24 07:23 11/02/24 08:35 11/02/24 07:55 11/02/24 08:35 11/02/24 07:55
Vital Signs
Temp Pulse Resp BP Pulse Ox
99.2 F 102 28 167/93 94
11/02/24 07:23 11/02/24 08:35 11/02/24 07:55 11/02/24 08:35 11/02/24 07:55
Intake & Output
10/31/24 11/01/24 11/02/24 11/03/24
06:59 06:59 06:59 06:59
Intake Total 2038.1 / 2110.7 2027.5 / 2062.2 1169.9 / 1169.9
Output Total 4015 / 4165 5 / 2105 1874 / 187
Balance -1976.9 / -2054.3 -77.5 / -42.8 -705.1 / -705.1
Physical Exam
Physical Exam
GENERAL: no acute distress, in soft restraints
EYE: sclera anicteric
NECK: Supple, no JVD, no carotid bruit appreciated
ENT: normal nose, moist mucosal membranes; NGT in place
CARDIAC: Regular rate and rhythm, +S1/S2, no murmur, rubs, or gallops
CHEST/PULMONARY: Normal effort, clear breath sounds
ABDOMEN: Soft, without focal tenderness or distention
NEUROLOGICAL: Alert and oriented x3
SKIN: Warm and dry, no rash
PSYCH: Normal and appropriate interaction. Hallucinations
Telemetry shows sinus rhythm/sinus tachycardia, rare PVCs, NSVT
[2024-11-02] MEDS: HEPARIN 25000 UNITS/250 ML IV (11:13)
--- NOTE | 2024-11-02 11:15 | W.PN.HOSP.TC ---
Addendum entered and electronically signed by Tra Khan, DO 11/02/24 16:48:
sodium up to 149. remains NPO after failing TRIAGE REGISTERED NURSE eval today. Will start light 1/2NSS at 1 ml/kg and continue with lasix for natriuresis. Trend BMP. Once able to tolerate PO plan to hold IVF. Once tolerating CLD, consider withdrawing NGT and advancing
diet slowly
Original Note:
Today's Communication/Plan
-
Increase carvedilol
Clamp NGT and have TRIAGE REGISTERED NURSE eval
Start CLD if he passes TRIAGE REGISTERED NURSE eval
Continue IV Lasix and heparin
Check VBG
Day 04/03 of antibiotic
Assessment / Plan
Assessment / Plan
#Acute on chronic HFrEF
#Quadruple-vessel CAD with left main stenosis
#OOH VF cardiac arrest due to inferior wall STEMI
-Presented with [id number] cardiac arrest, intubated in field; secondary to inferior wall STEMI
-Left heart catheter showed 4 vessel CAD with left main stenosis; s/p POBA x 3 to the RCA; LVEF 25% now
-Complicated by cardiogenic shock; s/p TTM, IABP, Worden-Danial, vasopressors (did not receive inotropes)
-Was started on IV heparin drip on which she remains, as well as aspirin and statin for obstructive CAD
-Was also started on IV Lasix for diuresis with significant net negative fluid balance for multiple days
-Resumed on GDMT with low-dose carvedilol, BIA inhibitor; hemodynamics are improving
-Remains somewhat hypervolemic this morning, I/O's mildly net negative, weight downtrending
Plan
-Increase carvedilol to 12.5 mg twice daily, continue ACEi and SGLT2
-Continue IV Lasix 40 daily; monitor BMP + I's and O's + weights
-Continue IV heparin drip, aspirin, high intensity statin
-Eventually will need CABG versus high risk PCI to Left main
-Will need AICD for secondary prevention
#Ventricular tachycardia
-Likely scar mediated; s/p IV lidocaine drip; had significant run of sustained VT here
-Was started on IV amiodarone drip on which she remains, has improved
-Has not had pulseless event since admission cardiac arrest
-Electrolytes persistently low on diuresis and requiring repletion
Plan
-Continue IV amiodarone drip with plan to transition to oral when tolerating
-Continue to monitor labs and replete electrolytes for K >4, mag >2
-Continue on telemetry, plan for AICD as above
#Ventilator associated pneumonia
#S/P VDRF from acute hypoxemic respiratory failure
-Developed fevers and lung infiltrates on x-ray; sputum culture growing Klebsiella aerogenes
-Seems to be improving, has since been weaned off of mechanical ventilator and supplemental O2
-Was on IV Zosyn for multiple days, transition to ceftriaxone on 10/31 after final sputum culture result
-Continue with pulmonary toileting, as needed bronchodilators, IV ceftriaxone (day 11 of antibiotics)
-Plan for 14 days max of antibiotics if he continues to improve
-Monitor on room air with SpO2 goal >90%
#Ileus
#Hypernatremia
#NAGMA
-Developed ileus on 11/01, s/p NGT, had return of bowel status morning of 11/02
-Suspect hypernatremia and acidosis related to ileus and n.p.o. status
-Remains n.p.o. with NGT in place, will clamp and have TRIAGE REGISTERED NURSE eval
-If passes TRIAGE REGISTERED NURSE will start on CLD with NGT in place and consider removing if he tolerates
-If symptoms become recurrent we will have surgery consult
-Continue with antiemetics as needed
#Acute metabolic encephalopathy
-Secondary to the above issues and prolonged intubation time
-Improving slowly with time postextubation though still has some confusion
-Continue to treat above issues, optimize natural lighting and provide delirium precaution
-Monitor MSE
-Check VBG
#NIDDM
-A1c 6.7%; no known microvascular disease complications but does have CAD
-Home regimen includes metformin, Jardiance; also on statin and BIA inhibitor
-Home metformin held, transition to ISS with Accu-Cheks
-BG goal 140-180
#ELVIRA on CPAP
-Not associated with significant pulmonary hypertension, no TR or pHTN on recent echo
-Wears nightly CPAP, which has been ordered
-Encouraged ongoing weight loss after DC
#Primary hypertension
-Associated with LVH; Home meds include ramipril and carvedilol
-Blood pressure here initially soft though has improved with time, now hypertensive
-Escalating GDMT as above
Diet: NPO for now
DVT prophylaxis: IV heparin drip
CODE STATUS: Full code
Anticipated Discharge: > 48 hours
Subjective/Interval History
-
Date of Service: November 02, 2024
Seen and examined at the bedside. No acute events reported overnight. AFVSS this morning with heart rate near 100 and SBP near 160
Sodium 147 with bicarb 16. Started to pass stool and flatus this morning with NGT in place.
Remains encephalopathic today, unable to obtain full ROS though denies any symptoms
Objective Data
-
Labs:
Laboratory Results
11/02/24
02:11
WBC 20.9 H
Hgb 10.4 L
Hct 30.4 L
Plt Count 391 D
APTT 76.3 H
Sodium 147 H
Potassium 4.1
Chloride 113 H
Carbon Dioxide 16 L
BUN 25 H
Creatinine 1.1
Glucose 179 H
Calcium 9.2
Vital Signs:
Vital Signs
Temp Pulse Resp BP Pulse Ox
99.2 F 102 28 167/93 94
11/02/24 07:23 11/02/24 08:35 11/02/24 07:55 11/02/24 08:35 11/02/24 07:55
I&O
11/01/24 11/02/24 11/03/24
06:59 06:59 06:59
Intake Total 2026.5 / 2061.2 1169.9 / 1169.9
Output Total 2104 187 / 1874
Balance -77.5 / -42.8 -705.1 / -705.1
Review of Systems
-
Unable to obtain full review of systems at this time due to: Acuity
Physical Exam
-
General: Well Developed, No Apparent Distress and Obese
HEENT: Normocephalic, Moist Mucous Membranes and Anicteric
Respiratory: Clear to Auscultation and Non Labored Respirations; Negative Accessory Resp Muscle Use
Cardiac: Regular Rhythm, S1/S2 and Tachycardic; Negative Murmur, Rub, JVD or Gallop
GI: Soft, Nontender, Nondistended and Normal Bowel Sounds
Musculoskeletal: No Clubbing, No Cyanosis and No Edema
Skin: Warm and Dry; Negative Rash
Neuro: Awake, Alert, Oriented, Nonfocal/Grossly Intact and Central Nerve's Intact; Negative Tremors
Psych: Calm
Data Reviewed
-
Labs: Labs Reviewed by me, Discussed with Physician (Cardiology Physician Assistant) and Discussed with Patient
--- NOTE | 2024-11-02 12:18 | PTOTSP ---
Speech therapy
Per MD, would like to trial clear liquids to see if NG tube can be removed and pt placed on a diet.
Swallowing Function: Patient was positioned to an upright position in the bed. Patient was alert and oriented. SUBWAREHOUSE SUPERVISOR observed patient with several presentations of ice chips, thin via tsp, and thin via straw in which patient demonstrated immediate
reflexive wet coughing and throat clearning which increased with each trial. Patient's RR increased to 35 with thin via straw sip. Patient's Sp02 and RR returned to baseline after trials. Given patient's clinical presentation, recent intubation/
extubation, and medical hx, recommend NPO with ARHP (ice chips sparingly with supervisoin after oral care) and consideration of instrumental swallow study (FEES vs VSE); pending hospitalization.
Recommendations:
1) NPO
2) ARHP (ice chips sparingly with supervision after oral care)
3) Vigorous oral care
4) Consideration of instrumental swallow study
Plan: SUBWAREHOUSE SUPERVISOR will continue to follow; pending hospitalization.
[2024-11-02 12:23] LABS: Glucose - Point of Care 177 mg/dl (70-99)
[2024-11-02 12:33] LABS: Venous Blood Gas B.E. -1.2 mmol/L (-4 to +4); Venous Blood Gas HCO3 23.6 mmol/L (22-27); Venous Blood Gas pCO2 39 mmHg (35-48); Venous Blood Gas pH 7.39 (7.32-7.43); Venous Blood Gas pO2 57 mmHg (30-50)
--- NOTE | 2024-11-02 15:33 | PTCARENOTE ---
Assumed care of Pt at shift change; Pt resting comfortably in bed - b/l soft wrist restraints in place; AAO x 3, but confused and hallucinating at times. Can be agitated; R Lakeisha stephen sump in place to int suction; Meds given through NG tube;
Heparin gtts & Amiodirone infusing into R IJ; Denies pain; Will continue to monitor and assess.
[2024-11-02 16:37] LABS: Blood Urea Nitrogen 29 mg/dl (9-20); Carbon Dioxide 24 mmol/L (22-30); Chloride 113 mmol/L (98-107); Estimated Creatinine Clearance 55 ml/min; Glucose 176 mg/dl (70-99); Potassium 3.4 mmol/L (3.5-5.1); Sodium 149 mmol/L (135-145); eGFR 57.65
[2024-11-02] MEDS: KCL 270 MEQ IV ×2 (17:31→22:14)
[2024-11-02] MEDS: 0.45%NACL 1000 IV (17:31)
[2024-11-02] MEDS: NOVOLOG FLEXPEN-MODERATE RESISTANCE 300 UNITS SC (17:34)
[2024-11-02 17:45] LABS: Glucose - Point of Care 166 mg/dl (70-99)
--- NOTE | 2024-11-02 22:03 | PTCARENOTE ---
Caring for pt overnight. aaox3 but very confused, forgetful, hallucinating. NSR, remains RA. NGT in place, clamped. Amio & heparin running. IVF. Q2T. Denies pain. No assessment changes. Will monitor.
Pt had large loose BM, hyperactive BS.
[2024-11-03] VITALS (42 sets, daily range): BP systolic 106–175; BP diastolic 50–133; BMI 30.4
[2024-11-03] MEDS: NOVOLOG FLEXPEN-MODERATE RESISTANCE 1 UNITS SC ×3 (00:15→18:27)
[2024-11-03 00:32] LABS: Glucose - Point of Care 189 mg/dl (70-99)
[2024-11-03] MEDS: HEPARIN 25000 UNITS/250 ML IV ×2 (01:30→14:53)
[2024-11-03] MEDS: 0.45%NACL 1000 IV (02:45)
[2024-11-03 05:40] LABS: Glucose - Point of Care 182 mg/dl (70-99)
--- NOTE | 2024-11-03 06:15 | PTCARENOTE ---
Pt sustaining 140HR, BPs running high, no complaints of any pain per pt, WAREHOUSE RECORD CLERK made aware. Orders to give 8am coreg early. will monitor.
[2024-11-03] MEDS: COREG 12.5 MG PO ×2 (06:16→20:40)
[2024-11-03 06:20] LABS: % Basophils 0.3 % (0-2); % Immature Granulocytes 1.7 % (0-0.5); % Lymphocytes 7.9 % (20.5-51.1); % Monocytes 7.5 % (1.7-9.3); % Neutrophils 82.6 % (42.2-75.2); Absolute Basophils 0.1 10^3/uL (0-0.2); Absolute Immature Granulocytes 0.5 10^3/uL (0-0.05); Absolute Lymphocytes 2.2 10^3/uL (1.2-3.4); Absolute Monocytes 2.1 10^3/uL (0.1-0.6); Absolute Neutrophils 22.7 10^3/uL (1.4-6.5); Hematocrit 28.3 % (39.0-52.0); Hemoglobin 9.4 g/dL (13.0-18.0); Mean Corp Hgb Conc. 33.2 g/dL (33.0-37.0); Mean Corpuscular Hgb 28.8 pg (27.0-31.0); Mean Corpuscular Volume 86.8 fL (80.0-94.0); Mean Platelet Volume 10.7 fL (7.4-10.4); Nucleated Red Blood Cells % 0.1 % (-); Platelet Count 426 10^3/uL (130-400); Red Blood Cell Count 3.26 10^6/uL (4.70-6.10); Red Cell Dist. Width 15.8 % (11.5-14.5); White Blood Cell Count 27.5 10^3/uL (4.8-10.8)
[2024-11-03 06:36] LABS: Blood Urea Nitrogen 33 mg/dl (9-20); Calcium 8.8 mg/dl (8.4-10.2); Carbon Dioxide 22 mmol/L (22-30); Chloride 116 mmol/L (98-107); Estimated Creatinine Clearance 67 ml/min; Glucose 157 mg/dl (70-99); Magnesium 2.2 mg/dl (1.6-2.3); Potassium 3.6 mmol/L (3.5-5.1); Sodium 150 mmol/L (135-145); eGFR > 60.00
--- NOTE | 2024-11-03 07:00 | PTCARENOTE ---
K 3.6 this morning, doc made aware. michael aguilera ordered.
[2024-11-03] MEDS: DUONEB INH (07:41)
[2024-11-03] MEDS: KCL 270 MEQ IV (08:00)
--- NOTE | 2024-11-03 08:07 | PTCARENOTE ---
Around 0730 pt went into sustained VT, awake & talking. Never lost pulse. RR/Code 9 called. iv amio, amio gtt increased, hep gtt running, ivf, k & mg riders. Transferred to ICU, report given to RN.
--- NOTE | 2024-11-03 08:08 | W.PN.UPDATE ---
Update Note
Progress Note Update
CARDIAC SURGERY ATTENDING:
Mr. Steven Godoy suffered another episode of monomorphic, sustained VT this AM. He did not require CPR. His presentation, medial history, and surgical risk are summarized below.
I had a long conversation with the patient, 3 of his sons, and his 1 son's . We reviewed his hospital course, coronary pathology, VT episodes, and various potential treatment strategies. Given his significantly high operative morbidity and
mortality rates, I would advocate for potential complex PCI if deemed possible by interventional cardiology. If this is not possible, high risk surgery should be considered with the understanding that this patient's postoperative course will likely
be quite protracted. He will likely require mechanical circulatory assistance in his perioperative period. We discussed that given his recent VDRF, protracted ventilatory times and potential tracheostomy may be required. We also discussed that he
would likely require SNF/inpatient rehab post any cardiac surgical intervention. The patient was very clear that his primary focus is on quality of life issues. Although he previously refused AICD, he states that he would consent to this or any
other recommended intervention as long as it provided him a good quality of life post recovery.
I would strongly recommend transfer to a tertiary care facility for intervention whether it is high risk PCI or high risk surgical intervention given the predictable need for multiple periprocedural resources. The family is agreeable to transfer.
Thank you for the opportunity participate in the care of this kind gentleman. Please call with any questions or concerns
Daniel Martínez MD
[phone]
HOSPITAL COURSE:
10/23/2024: Presented to ED via EMS after [id number] VF arrest - ACLS, shocked, intubated. Unclear downtime (10-15min estimate) - inferior STEMI
10/23/2024: Taken emergentlly to catheterization laboratory - pt w/ monomorphic VT during attempted intervention. Balloon angioplasty of serial RCA stenoses performed w/ voodoo of KEYONA-3 flow, pt. w/ cardiogenic shock and severe pulmonary HTN.
IABP placed. Sig LM disease
10/23/2024: TTM protocol initiated CT-H obtained: no acute
10/24/2024: ECHOCARDIOGRAM: LVEF 30-35% with moderate global hypokinesis, on IABP, normal RV, no sig VHD; WBC elevated, lactate elevated. Started on broad-spectrum ABX
10/25/2024: Rewarming initiated.
10/26/2024: Pressor requirements decreasing, creat stable, remains on ventilator support
10/27/2024: Neuro: supportive care continued for anoxic encephalopathy w/ toxic metabolic encephalopath; IABP removed.
10/28/2024: Large amounts of thick secretions from ETT - respiratory cultures sent, broadened ABX, increased diuresis. Additional episode of prolonged monomorphic VT. ECHO: LVEF 25%
10/29/2024: CT-CAP: B/L lower lobe consolidations, PNA vs subsegmental atelectasis w/ tiny B/L effusions. SBTs initiated
10/30/2024: Hypoxemia overnight w/ FiO2 to 60% - VAP w/ SCx w/ Klebsiella aerogenes; following commands but slow to respond and significantly weak; family discussion (pt. would not want tracheostomy); continued ventricular ectopy. EXTUBATED (total
ventilator: 8 DAYS)
10/31/2024: Improving from neurologic perspective, but remains agitated w/ poor memory; ILEUS - TF held
11/01/2024: Large episode of vomiting; TF remain held.
11/02/2024: Failed COMPONENT ASSEMBLER SUPERVISOR, remains NPO
11/03/2024: Additional episode of monomorphic, sustained VT this AM, no CPR required
PMHx:
MVCAD w/ extensive prior PCI/stenting - [place] s/p PCI of unknown coronary in 1994, LAD 2011, LCx 2013, POBA RCA on 10/23/2024
Cath w/ 90% serial RCA lesions s/p POBA; 70% LM; 70-80% LCx
ICM w/ LVEF 25% on most recent echocardiogram (patient has refused AICD in past)
VF arrest w/ ACLS & shock - 10/23/2024
Recent ? anoxic encephalopathy - resolving
HTN
HLD
Obesity (BMI 30.4)
DM II
ELVIRA on CPAP
STS:
Operative MORTALITY 19.4%
Operative MORBIDITY 54.2%
--- NOTE | 2024-11-03 08:16 | W.PN.HOSP.TC ---
Addendum entered and electronically signed by Martha Sweeney MD 11/03/24 15:41:
I saw and evaluated the patient independently. I reviewed the resident�s note and agree with findings and plan as documented by Dr. Jerome.
GENERAL: well developed, well nourished, male in no apparent distress
HEENT: NC/AT--NGT
HEART: regular rate and rhythm, +S1, +S2
LUNGS : raspy breath sounds bilaterally
ABDOM: soft, nontender, nondistended, + bowel sounds but hypoactive
EXT: no cyanosis, clubbing, or edema
NEUROLOGIC: following commands but confused
Vtach code this AM--apprec cards--pt awake and talking--lidocaine drip started and continued amio drip--keeping potassium > 4 and magnesium > 2--CT surgery consulted and had meeting with family--plan for transfer to [place], accepting MD Dr. Medrano
Out of hospital VFib cardiac arrest due to inferior wall STEMI with Acute on chronic HFrEF--cath showed Quadruple-vessel CAD with left main stenosis, s/p POBA x 3 to the RCA; LVEF 25% with cardiogenic shock and balloon pump removed 10/27/24--
intubated in field--underwent targeted temp management--cont IV heparin drip, aspirin and statin for obstructive CAD--cont lasix for fluid balance--Resumed GDMT with low-dose carvedilol, BIA inhibitor; hemodynamics are improving--off pressors
Ventilator associated pneumonia--S/P VDRF from acute hypoxemic respiratory failure---Developed fevers and lung infiltrates on x-ray; sputum culture growing Klebsiella aerogenes with rising WBC--aranda culture--broaden abx to cover for
aspiration--either by starting zosyn or adding metronidazole--extubated 10/30/24
Ileus--Developed ileus on 11/01, s/p NGT, had return of bowel status morning of 11/02--Suspect hypernatremia and acidosis related to ileus and n.p.o. status--Remains n.p.o. with NGT in place
Hypervolemic hypernatremia---Free water deficit 3.2L---Initiated on D5W at lower rate given reduced EF, volume overload risk---Monitor BMP
Acute metabolic encephalopathy---Secondary to the above issues and prolonged intubation time--Improving slowly with time postextubation though still has some confusion--waas on precedex which has been weaned off
NIDDM--A1c 6.7%; no known microvascular disease complications but does have CAD---Home regimen includes metformin, Jardiance; also on statin and BIA inhibitor---Home metformin held, transition to ISS with Accu-Cheks--BG goal 140-180
ELVIRA on CPAP--Wears nightly CPAP, which has been ordered
Essential hypertension--Associated with LVH; Home meds include ramipril and carvedilol--Blood pressure here initially soft though has improved with time, now hypertensive
DVT proph-- IV heparin drip
CODE STATUS-- Full code
Total Critical Care Time 45 minutes. I was immediately available to the patient and staff. I personally examined, reviewed labs, diagnostic images/reports, interpretations, treatment plans, discussed patient care with other providers and family
or caregivers (if patient is unable to make decisions), entered orders as appropriate and documented the medical record.
Original Note:
Today's Communication/Plan
-
;/
Assessment / Plan
Assessment / Plan
Assessment/plan
#Acute on chronic HFrEF
#Quadruple-vessel CAD with left main stenosis
#OOH VF cardiac arrest due to inferior wall STEMI
#Ventricular tachycardia
-Presented with [id number] cardiac arrest, intubated in field; secondary to inferior wall STEMI
-Left heart catheter showed 4 vessel CAD with left main stenosis; s/p POBA x 3 to the RCA; LVEF 25% now
-Complicated by cardiogenic shock; s/p TTM, IABP, [place]-Danial, vasopressors (did not receive inotropes)
-Was started on IV heparin drip on which he remains, as well as aspirin and statin for obstructive CAD
-Was also started on IV Lasix for diuresis with significant net negative fluid balance for multiple days
-Resumed on GDMT with low-dose carvedilol, BIA inhibitor; hemodynamics are improving
-Episode of monomorphic V. tach today 11/03, no arrest, continue amnio drip, restarted on Lido gtt
-Discussion had with family by CT surgery
-Given complexity of case and high risk PCI, recommendation for transfer to tertiary care
#Ventilator associated pneumonia
#S/P VDRF from acute hypoxemic respiratory failure
-Developed fevers and lung infiltrates on x-ray; sputum culture growing Klebsiella aerogenes
-New leukocytosis today
-Obtain blood cultures today
-Check urinalysis
-has since been weaned off of mechanical ventilator and supplemental O2
-Was on IV Zosyn for multiple days, transition to ceftriaxone on 10/31 after final sputum culture result
-Continue with pulmonary toileting, as needed bronchodilators, IV ceftriaxone (day 12 of antibiotics)
-Consider broadening antibiotics if leukocytosis does not improve
#Ileus
-Developed ileus on 11/01, s/p NGT, had return of bowel status morning of 11/02
-Suspect hypernatremia and acidosis related to ileus and n.p.o. status
-Remains n.p.o. with NGT in place
-Abdominal exam improved today, no episode of diarrhea
-If symptoms become recurrent we will have surgery consult
-Continue with antiemetics as needed
#Hypervolemic hypernatremia
-Free water deficit 3.2L
-Initiated on D5W at lower rate given reduced EF, volume overload risk
-Monitor BMP
#Acute metabolic encephalopathy
-Secondary to the above issues and prolonged intubation time
-Improving slowly with time postextubation though still has some confusion
-Continue to treat above issues, optimize natural lighting and provide delirium precaution
-Monitor MSE
#NIDDM
-A1c 6.7%; no known microvascular disease complications but does have CAD
-Home regimen includes metformin, Jardiance; also on statin and BIA inhibitor
-Home metformin held, transition to ISS with Accu-Cheks
-BG goal 140-180
#ELVIRA on CPAP
-Not associated with significant pulmonary hypertension, no TR or pHTN on recent echo
-Wears nightly CPAP, which has been ordered
#Primary hypertension
-Associated with LVH; Home meds include ramipril and carvedilol
-Blood pressure here initially soft though has improved with time, now hypertensive
DVT prophylaxis: IV heparin drip
CODE STATUS: Full code
Anticipated Discharge: > 48 hours
Subjective/Interval History
-
Date of Service: November 03, 2024
Objective Data
-
Labs:
Laboratory Results
11/03/24 11/03/24 11/03/24
05:30 06:37 08:00
WBC 27.5 H
Hgb 9.4 L
Hct 28.3 L
Plt Count 426 H
APTT 77.0 H
Sodium 150 H Pending
Potassium 3.6 Pending
Chloride 116 H Pending
Carbon Dioxide 22 Pending
BUN 33 H Pending
Creatinine 1.2 Pending
Glucose 157 H Pending
Calcium 8.8 Pending
11/03/24 11/03/24 11/03/24
10:00 12:00 14:00
WBC
Hgb
Hct
Plt Count
APTT
Sodium Pending Pending Pending
Potassium Pending Pending Pending
Chloride Pending Pending Pending
Carbon Dioxide Pending Pending Pending
BUN Pending Pending Pending
Creatinine Pending Pending Pending
Glucose Pending Pending Pending
Calcium Pending Pending Pending
11/03/24 11/03/24
16:00 18:00
WBC
Hgb
Hct
Plt Count
APTT
Sodium Pending Pending
Potassium Pending Pending
Chloride Pending Pending
Carbon Dioxide Pending Pending
BUN Pending Pending
Creatinine Pending Pending
Glucose Pending Pending
Calcium Pending Pending
Vital Signs:
Vital Signs
Temp Pulse Resp BP Pulse Ox
98.2 F 98 25 138/86 99
11/03/24 07:00 11/03/24 08:00 11/03/24 08:00 11/03/24 07:44 11/03/24 08:00
I&O
11/02/24 11/03/24 11/04/24
06:59 06:59 06:59
Intake Total 1169.9 / 1169.9
Output Total 1875 / 1875 1050 / 1050
Balance -705.1 / -705.1 -1050 / -1050
Review of Systems
-
Unable to obtain full review of systems at this time due to: Acuity
Physical Exam
-
General: Comfortable and Obese
HEENT: Normocephalic
Respiratory: Crackles; Negative Accessory Resp Muscle Use
Cardiac: Regular Rhythm, S1/S2 and Tachycardic
GI: Soft, Nontender, Nondistended and Normal Bowel Sounds
Musculoskeletal: Edema, Right Lower Extrem and Edema, Left Lower Extrem
Neuro: Awake and Alert
Psych: Calm
[2024-11-03 08:23] LABS: Glucose - Point of Care 200 mg/dl (70-99)
--- NOTE | 2024-11-03 08:32 | W.PN.CARDCBS ---
Addendum entered and electronically signed by Junie Allen DO 11/03/24 14:56:
I saw and examined the patient.
The Mergers And Acquisitions Manager's note was reviewed and I agree with the note.
Comment: Patient was seen and examined just following recurrent sustained mostly monomorphic VT with intermittent runs of A-fib with RVR this morning while on IV amiodarone. Per nursing patient had some brief loss of consciousness at the beginning
of the event. No loss of pulse requiring CPR. No shock. EP colleague at bedside during event and lidocaine bolus 100 mg administered. Patient is currently awake and alert with confusion not at baseline per family. Nursing also notes some
hallucinations. He denies chest pain or pressure or shortness of breath. Blood pressure 138/86 mmHg, not on pressors or inotropes. Multidisciplinary discussions in progress regarding ultimate plan
GEN: No distress, awake, Ox2
HEENT:mmm. Right eye ecchymosis. Positive NG tube
LUNGS: Rhonchorous breath sounds bilaterally without wheezes
CV: Reg, S1/S2, 1/6 syst LSB no murmur. No rub
ABD: soft, hypoactive BS+, NT/ND
Plan:
Mr. Godoy is a 74-year-old gentleman with known ischemic cardiomyopathy status post DC in 1994 with PCI to unknown vessel and PCI to LAD and circumflex in 2011 in 2013. His LV systolic function by echocardiogram in September 2021 was 35-40%. He also has
a history of hypertension, hyperlipidemia, and type 2 diabetes mellitus as well as sleep apnea on CPAP. He is a lifelong non-smoker. Prior to this hospitalization he was active, living independently with family nearby. He is by his first
with whom he shares his 4 sons [she is a retired physician in the [employer] system] and from his second 2 years ago. He enjoys golfing and was exercising at the [facility] 3 days a week. Steven called 911 with chest pain and SOB
10/23/24 and was found unresponsive by paramedics with agonal respirations in VF status post shocked x 1 followed by asystole and given lidocaine bolus in the field with ROSC. Per chart, 'medics feel he had limited downtime '. Patient intubated in
the field. CT surgery consulted 10/23 for suitability for CABG, decision initially deferred awaiting clinical improvement and reevaluation of mental status.
Patient brought to [facility] ER in SR with BP 145/87. ECG on arrival did not meet STEMI criteria but he went urgently for [facility] cath 10/23/24 s/p POBA of RCA x3 and placement of IABP for cardiogenic shock. Peak troponin 5. TTM protocol initiated 10/23/24 and
patient rewarmed to normothermia by 4AM on 10/27/24. IABP removed 10/27/24. Neurology was consulted and followed along early during this hospitalization. EEG did not detect seizure activity but had generalized slowing Last CT of the head 10/29/2024
with no acute abnormality with small vessel ischemic changes. Patient was extubated on 10/30/2024.
10/24/2024: ECHOCARDIOGRAM: LVEF 30-35% with moderate global hypokinesis, on IABP, normal RV, no sig VHD. Limited 2D echocardiogram 10/28/2024 with severely reduced LV systolic function visually estimated 25% with global hypokinesis and moderate LVH.
Mild mitral regurgitation.
He is also being treated for aspiration and ventilator associated pneumonia with IV antibiotics. Hospital course has also been complicated by ileus requiring NG tube on 10/31/2024. Patient had an episode of vomiting on 11/01/2024 and failed speech
evaluation on the . He continues to be n.p.o. with NG tube which is currently clamped. Had a bowel movement on 11/02/2024. Last fever 615 2024-100.5, white blood cell count increased on 2024-20.9 from 8.1, today 27.5. Hemoglobin remains
9.4 to 10.4 g/dL. Platelets 426,000. Blood cultures redrawn this morning and pending. Endotracheal culture 10/28/2024 Klebsiella. Blood cultures and urine cultures 10/23/2024 no growth to date
Patient was placed on IV lidocaine drip on 10/23/24 which was stopped and transition to amiodarone gtt on 10/24. However due to frequent PVCs and AIVR, amiodarone was stopped and he was restarted on lidocaine at 1 mg/min on October 25; it was increased to
2 mg/mL in on October 28 for sustained monomorphic VT and reduced back to 1 mg/min on October 29. Amiodarone drip started on October 29 and lidocaine gtt was discontinued on October 30. This morning, 11/03, he had a rapid response for symptomatic recurrent
sustained monomorphic VT (~16 minutes) s/p Lido [id number] x1 and amio 150mg x1, converting briefly to atrial fibrillation (new) then SR/ST. Fortunately he did not require defibrillation and did not lose pulse or require pressors. He received a K
rider for potassium 3.6; he received a magnesium rider, Mag 2.2. Sodium 150 and started on D5W.
-Postevent EKG 11/03 normal sinus rhythm with heart rate 93 bpm. Nonspecific intraventricular block with LVH. Inferior infarct age undetermined. QTc 482 ms.
-Will continue IV amiodarone drip; IV lidocaine drip resumed
-Repeat CMP/magnesium.
-Remains on heparin gtt following recurrent VT on 10/28/2024 for possible ischemic contribution to VT. Hgb stable at 9.4 11/03/2024. Aspirin 81 mg daily
-Outpatient Plavix was stopped on admission, last dose was 10/23/2024
-GDMT: Coreg 12.5 mg p.o. twice daily, ramipril 10 mg daily. Started on xiga 11/01/2024
-LDL 62 and outpatient dose of Crestor 40 mg daily has been continued
Multidisciplinary discussions have taken place today with EP, CT surgery, interventional cardiology, furnace combustion tester and hospitalist service. Discussed case with interventional cardiology and reviewed films. Per interventional cardiology there are no
good options for percutaneous intervention. CT surgery mediastinum saw patient had long discussion with multiple family members at bedside. CT surgery recommendations for transfer to tertiary center for further determination whether there is a
high risk PCI option versus high risk surgical intervention.
-Patient's family including son Tomas and Sally are agreeable to transfer to [facility].
-Son Tomas is power of district attorney and case was reviewed with him and his Sally this morning 11/03/2024
-Discussed case with [facility] transfer center and Dr. Krys White. Patient was excepted by CVICU attending Dr. Medrano. Transfer initiated.
All team members and nursing staff as well as family updated throughout the day
Original Note:
Today's Communication / Plan
-
multidisciplinary discussions in progress regarding revascularization as well as EP management of recurrent ventricular tachycardia
From interventional cardiology standpoint, no additional PCI targets
Consideration for transfer to tertiary care center
Impression / Plan
-
PCP: Dr. Dye
Primary Can Stacker: Dr. Lui
Assessment:
Presentation with VF arrest s/p shock x1 with ROSC 10/23/24
MMVT 11/03/2024 - no arrest, on Amiodarone, restarted Lido gtt
Status post VDRF
Intubated in field 10/23/24, extubated 10/30/2024
Status post cardiogenic shock
s/p intra-aortic balloon pump removal 10/27/24
Non-STEMI with peak troponin of 5
Change in mental status/possible anoxic encephalopathy
CAD
h/o DC and unknown vessel PCI 1994
s/p LAD PCI 2011
s/p Circ PCI 2013
s/p POBA RCA 10/23/24
ICM, EF 35-40% by echo 10/05/21,EF 30-35% by echo 10/24/24, 25% 10/28/2024
HTN
HLD
DM2
Obesity
ELVIRA on CPAP
Cath 10/23/2024:
Left main severely calcified and diffusely diseased with up to 70% stenosis
LAD mild diffuse atherosclerotic plaque
Left circumflex: Mid left circumflex proximal takeoff of OM1 proximal to prior stent with heavily calcified 70 to 80% stenosis with OM 1 appearing to be a good bypass target
RCA: Severe calcific disease with 3 lesions up to 90% in the proximal, mid, and distal vessel with large thrombotic burden in distal vessel-status post POBA x 3 as above
Successful placement of 50 cc intra-aortic balloon pump and [place]-Danial catheter via right common femoral artery and vein, respectively. 1 shock for monomorphic VT during heart catheterization
ECHO 10/05/21: TDS, EF 35 to 40%, basal to mid inferior, inferolateral and basal septal akinesis, left atrial enlargement, mild MR
Echo 10/23/24: Limited bedside echo at time of [facility], very limited views but RV function appears to be preserved. LV systolic function appears close to baseline with EF of about 35%, no pericardial effusion
Echo 10/24/24: EF 30 to 35%, moderate global hypokinesis, technically difficult study but no clear significant valve disease.
Echo 10/28/24: EF 25%, global hypokinesis, moderate concentric LVH, compared to echo 10/24/2024 the EF had been 30 to 35% with IABP in place and is now 25% with IABP removed
Plan:
-s/p MMVT this morning 11/03/2024 with CODE 9 called, no loss of pulse, no CPR or shock required, rec'd Lidocaine bolus, remains on Amiodarone gtt. Converted to A-fib and then to sinus tachycardia. K=3.6-repleted with 40 meq IV , Mag=2.2 , Tm=652.
K started on D5W
-review of EKGs from code 9, wide complex tachycardia, regular rhythm, HR141 bpm,likely MMVT and alternating with atrial fibrillation
-Review of telemetry with monomorphic VT heart rates in 140s lasting approximately 16 minutes with intermittent runs of A-fib with RVR
-Telemetry currently normal sinus rhythm/sinus tachycardia
-A-fib appears new
--Patient with NSTEMI and peak troponin of 5 on admission. He had POBA of an RCA lesion 10/23/2024 and has significant residual CAD and was evaluated by CT surgery service for possible CABG. Case has been reviewed with CT surgery PA on 11/01/2024 and
updated them as to the patient's markedly improved mental status and requested reevaluation for suitability for CABG. additionally, patient amenable to ICD at that time if needed or deemed a candidate.
-Patient initially treated with lidocaine gtt following VF arrest on admission. He was then transitioned to amiodarone gtt 10/29/2024 and that remains running now; IV amiodarone continued due to ileus; resume oral amiodarone 400 mg p.o. 3 times
daily when able to take p.o.
-Patient with known Ischemic cardiomyopathy, and review of previous records there was consideration for reevaluation by CT surgery for possible revascularization pending neurologic recovery and also consideration for ICD for secondary prevention.
Multidisciplinary discussions have taken place with EP, CT surgery, interventional cardiology, and general cardiology.
- From EP standpoint, some of his VT thought to be coming from scar formation from prior CAD/ischemic cardiomyopathy.
-From interventional cardiology standpoint, status post cath 10/23/2024, there are no additional PCI targets
-CT surgery is re-evaluating patient this morning
-There is consideration for presenting his case to a tertiary care center.
-Son Tomas is power of district attorney and case was reviewed with him and his Sally this morning 11/03/2024
-Patient currently awake and alert but confused. Currently with soft restraints. 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 Also enjoyed golfing. He is a non-smoker and does not
drink alcohol.
Of note, pt had previously declined ICD as an outpatient prior to this admission
- Noted ileus on 11/01/2024, patient with NG tube in place currently, remains NPO, had BM 11/02/2024, failed SHELLFISH CHECKER eval 11/02/2024.
-Remains on heparin gtt following recurrent VT on 10/28/2024 for possible ischemic contribution to VT. Hgb stable at 9.4 11/03/2024
-Aspirin 81 mg daily
-Outpatient dose of Plavix was stopped on admission, last dose was 10/23/2024
-Outpatient dose of Coreg lowered to 3.125 mg BID; this was resumed at 12.5 mg p.o. twice daily patient tolerating well; ramipril 10 mg daily and, again, remains NPO with NGT in place
-started on Farxiga 11/01/2024
-LDL 62 and outpatient dose of Crestor 40 mg daily has been continued
-EF 25% by echo 10/28/2024 without IABP
Summary of admission thus far: Patient called 911 with chest pain and SOB 10/23/24 and then unresponsive on the phone with 911 operators and when paramedics arrived to find patient with agonal respirations and VF. Patient shocked x1 and then asystole
and given lidocaine bolus with ROSC. Patient intubated in the field. Patient brought to [facility] ER in SR with BP 145/87. ECG on arrival did not meet STEMI criteria. Patient taken to bobcat driver/labor and had POBA of RCA lesion and IABP was placed for
cardiogenic shock. Case was referred to CT surgery service for evaluation for CABG. Patient admitted to CVICU and radial artery line placed along with central line. TTM protocol initiated 10/23/24 and patient rewarmed to normothermia by early AM
10/27/24. On 10/24/24 patient's Lidocaine gtt was stopped and patient started to have frequent PVCs and amiodarone gtt was started and then AIVR so amio gtt was stopped and Lidocaine gtt restarted and has been running since 10/24/24. Neurology following
and EEG waves slow due to sedation. [place] Danial removed for bleeding 10/24/24. IABP removed 10/27/24. Right arterial femoral line removed 10/27/24. Patient increasingly agitated during attempted sedation wean 10/28/24 and vomited. Patient agitated and then
sustained monomorphic VT 10/28/24 that spontaneously converted to SR prior to shock while pads were being placed. Lidocaine gtt increased to 2 mg/min, heparin gtt restarted for possible ischemia driven component and sedation was increased back up;
patient was diuresed by furnace combustion tester. Family meeting 10/30/2024, patient indicates he would not want tracheostomy and was able to clearly communicate that he does not wish to continue at an aggressive level of care, but still working to wean sedation
fully and for now we will continue as full code, patient's son is ARUN.
Progress Note - Can Stacker
Subjective
Date of Service: November 03, 2024
-MMVT this morning, no loss of pulse, no CPR or shock required. Rec'd Lido bolus, K repleted, converted to afib, then NSR/ST
Objective
Labs:
11/03/24 05:30
Labs
Hgb 9.4 g/dL (13.0-18.0) L 11/03/24 05:30
Hct 28.3 % (39.0-52.0) L 11/03/24 05:30
Plt Count 426 10^3/uL (130-400) H 11/03/24 05:30
PT 15.2 Sec (11.4-14.6) H 10/26/24 05:07
INR 1.17 10/26/24 05:07
APTT 77.0 Sec (23.4-35.0) H 11/03/24 06:37
Sodium 150 mmol/L (135-145) H 11/03/24 05:30
Potassium 3.6 mmol/L (3.5-5.1) 11/03/24 05:30
BUN 33 mg/dl (9-20) H 11/03/24 05:30
Creatinine 1.2 mg/dL (0.7-1.3) 11/03/24 05:30
Glucose 157 mg/dl (70-99) H 11/03/24 05:30
Vital Signs and I&O:
Vital Signs
Temp Pulse Resp BP Pulse Ox
98.2 F 98 25 138/86 99
11/03/24 07:00 11/03/24 08:00 11/03/24 08:00 11/03/24 07:44 11/03/24 08:00
Vital Signs
Temp Pulse Resp BP Pulse Ox
98.2 F 98 25 138/86 99
11/03/24 07:00 11/03/24 08:00 11/03/24 08:00 11/03/24 07:44 11/03/24 08:00
Intake & Output
11/01/24 11/02/24 11/03/24 11/04/24
06:59 06:59 06:59 06:59
Intake Total 2026.5 / 2061.2 1169.9 / 1169.9
Output Total 2104 1875 / 187 1050 / 1050
Balance -77.5 / -42.8 -705.1 / -705.1 -1050 / -1050
Physical Exam
Physical Exam
GEN: No distress, awake, Ox2
HEENT: supple, anicteric, mmm
LUNGS: rhonchorous BS
CV: Reg, S1/S2, 1/6 syst LSB,
ABD: soft, hypoactive BS+, NT/ND
EXT: No edema
NEURO: Gross non-focal
SKIN: No rash
[2024-11-03] MEDS: D5W 1000 IV ×2 (08:42→20:45)
[2024-11-03] MEDS: NSS (PRESERVATIVE FREE) 10 ML IV (08:44)
[2024-11-03] MEDS: ROCEPHIN 2000 MG IV (08:44)
[2024-11-03] MEDS: PROTONIX IV 40 MG IV (08:44)
[2024-11-03] MEDS: STERILE WATER FOR INJECTION 10 ML IV (08:50)
--- NOTE | 2024-11-03 09:00 | PTCARENOTE ---
0830-Received pt to ICU via bed.Pt is awake and alert.Oriented to person and place only.Unsure of year or situation.+BA.Denies pain.conversation is rambling,occasionally confused.Pt noted to be having conversations with no one in the room.SR with
occasional PVC noted.Right IJ TLC intact with Heparin,Amiodarone and IVF as ordered.K rider and Calcium rider in progress.Magnesium was repleted earlier before transfer.Scattered rhonchi with decreased bibasilar noted.O2 2l NC.POX 100%[place]
intact,draining small amount bilious fluid.No BM.Voided kassidy urine via urinal.Right facial and chest bruising noted.Pt's son Tomas at bedside.Plan of care discussed.
[2024-11-03] MEDS: LOW STRENGTH ASPIRIN 81 MG PO (09:14)
[2024-11-03] MEDS: ZYPREXA 5 MG PO (09:14)
[2024-11-03] MEDS: FARXIGA 10 MG PO (09:14)
[2024-11-03] MEDS: THERAGRAN 1 TABLET PO (09:14)
[2024-11-03] MEDS: CRESTOR 40 MG TUBE (09:14)
[2024-11-03] MEDS: LASIX 40 MG IV (09:15)
[2024-11-03] MEDS: MIRALAX 17 GRAMS PO (09:16)
[2024-11-03] MEDS: LIDOCAINE 4% PATCH 1 PATCH TOPICAL (09:16)
[2024-11-03] MEDS: ALTACE 10 MG PO (09:46)
--- NOTE | 2024-11-03 10:15 | PTOTSP ---
Speech Language Pathology
Pt seen for dysphagia tx. NGT in place to suction. Seen with pieces of ice with no overt signs of aspiration. Also seen with sips of thin water with consistent delayed wet coughing. Pt is at a high risk for aspiration given prolonged intubation
and deconditioning. Discussion re: transfer to tertiary care center.
Recommend:
(1) NPO
(2) Oral care 4x/day with suctioning as needed
(3) Allow ice chips post oral care given supervision per Aspiration Risk Hydration Protocol (ARHP)
(4) Would recommend flexible endoscopic evaluation of swallowing (FEES); however, given likely transfer to tertiary care, would consider holding for further evaluation at next location pending timing of transfer
(5) [facility] PATCHER to continue to follow
--- NOTE | 2024-11-03 11:19 | W.PN.INTV ---
Addendum entered and electronically signed by Giovanny Bright MD 11/03/24 12:00:
Patient has now new leukocytosis.
Had a low-grade fever yesterday.
Does not appear toxic. Not hypotensive.
Appropriately treated with ceftriaxone for Klebsiella in the sputum.
Repeat urinalysis
Obtain blood cultures patient does have central lines
Abdominal exam has improved. Patient is NPO. Less likely aspiration. No diarrhea.
Will continue to follow closely-if fevers recur and patient leukocytosis does not improve we may need to broaden the spectrum of antibiotics again.
Original Note:
Today's Communication / Plan
Recommendations
Continue diuresis
Continue cardiac management
Transfer to tertiary [facility]-in progress per cardiology.
Start trickle tube feedings
Increase mobility as able
Amiodarone/lidocaine drip
Follow electrolytes
Free water flushes and IV fluids.
Incentive spirometry
Complete antibiotics 11/06/2024 for possible pneumonia
Continue nebulizer for secretion clearance
Incentive spirometry as able
Assessment
-
Patient currently intubated, mechanically ventilated sedated. Reportedly patient is a 70-year-old gentleman with known history of coronary artery disease with previous PCI in the past, known ischemic cardiomyopathy with baseline EF 35 to 40%,
obstructive sleep apnea on CPAP, who called 911 for having chest pain and shortness of breath. While he was on the phone apparently he stopped talking and had a cardiac arrest. Once EMS arrived, patient was noted to be in ventricular fibrillation
and was shocked x 1, he also received epi as well as lidocaine and had return of spontaneous circulation. He was intubated in the field and EKG was concerning for ST elevation in the inferior leads. Cardiology service evaluated the patient in the
emergency room and he was emergently taken to [facility] for further intervention. I initially saw the patient in the [facility] for persistent hypoxia despite being mechanically ventilated and later reevaluated again in CVICU.
-
Transferred back to ICU due to sustained ventricular tachycardia.11/03/2024
#1. Inferior wall STEMI complicated by out of hospital Cardiac Arrest, initial rhythm V. Fib (10/23)
- S/p defibrillation x 1, ROSC achieved in the field. Estimated downtime reportedly around 15 minutes
-- Completed TTM, currently rewarmed
- Patient emergently taken to [facility], s/p POBA x3 in the RCA - -> IABP placed --> removed on 10/27 with heparin drip stopped prior. CT surgery consulted for possible CABG --> evaluated and consider prohibitive risk at this point.
- Known history of coronary artery disease, s/p PCI more than 10 years ago
- Left heart cath (10/23/2024) showed severe multivessel CAD with heavily calcified coronary arteries including in the left main coronary artery with up to 70% stenosis, 70-80% stenosis of the mid left circumflex just proximal to the takeoff of an
OM1, and 90% RCA stenosis from the proximal into the mid and distal vessel which underwent POBA x 3
- On ASA and crestor
-Recurrent ventricular ktkjgublrjb-[id number]-back ICU 11/03/2024.
-Patient now more agreeable for ICD placement. Cardiology following
- Lidocaine gtt off since 10/30 back on 11/03/2024; he remains on amiodarone gtt.
- Cardiology following the patient. Case discussed. Working on transfer to [facility] for high risk PCI.
#2. Acute hypoxic respiratory failure requiring mechanical ventilator (intubated in the field, extubated 10/30 in ICU)
- Due to pulmonary edema from cardiogenic shock - shock state now resolved
- Initially unable to rule out component of pneumonia especially given the retrocardiac opacification which was not seen on initial CXR from this admission
- Patient was extubated successfully on 10/30, and is now on supplemental oxygen breathing comfortably
- Maintain SaO2 >90-94%
- CT chest obtained on 10/28 showed bibasilar consolidations with small pleural effusions. This is likely due to pneumonia with heart failure; procal 1.34 on 10/28 and proBNP 2770;
- Patient was having thick, yellow/neal secretions on 10/28 and respiratory culture grew Klebsiella aerogenes; on 10/31, Dr. Whipple narrowed ABx from Zosyn to rocephin
- continue ABx -to be completed on 11/06/2024 Ceftriaxone.
- continue Duonebs for now , secretion clearance.
#3. Acute on chronic HFrEF with Cardiogenic Shock - shock state now revolved (off levophed since AM of 10/27)
- IABP removed as of 10/27
- continues on IV lasix; cardiology following
- Lactic acidosis resolved since 10/25
- Continue with 40 mg IV Lasix daily
- Off stress dose steroids (s/p solu-cortef 10/24 - 10/25)
#4. Acute encephalopathy, mostly resolved.
- CT head negative. Patient waking up per RN but still not following commands; per the RN, the patient does get agitated when he is stimulated.
- CT head checked again on 10/29 showing no acute intracranial pathology or interval change
- s/p TTM (rewarmed to normothermia overnight at 430AM on 10/27/2024)
- Neurology consulted - recs appreciated
#5. CKD. baseline.
-Free water flushes, start trickle tube feedings.
- Good urine output, stable creatinine
- Hypernatremia noted-started on hypotonic fluids. Follow electrolytes serially.
- Strict I/O; trend sCr
Other medical diagnoses:
- h/o ELVIRA, on CPAP at home. CPAP was ordered and attempted last night but patient refused; occasionally check blood gas to assure pCO2 + pH remained stable
- HTN
- HLD. On statin
- DM, type II. s/p insulin infusion; continue ISS and continue BG q6hr with goal BG 140-180
- Obesity
Early nutrition -reevaluated by speech pathologist 2024. Unable to take orals. Start trickle tube feedings. Continue with reevaluations on the daily basis.
Physical therapy as able.
Critical care statement: A total of 37 minutes of critical care time was provided for this patient today. This includes management of unstable vital signs, evaluation of the patient at bedside, reviewing the patient's pertinent medical records
including ventilator settings, arterial blood gases, radiographs, microbiology, laboratory evaluations and discussion with primary team, critical care nursing, and respiratory therapy.

Data:
CT Head 10/23/2024: Unremarkable
CXR. 10/23/2024: Suggestive of Pulmonary edema
CXR 10/27/2024: There is slightly increased size of the left basilar opacity which likely represents a moderate pleural effusion with adjacent atelectasis, however pneumonia cannot be excluded. Stable appearance of the support lines and tubes.
Chest x-ray 11/01/2024: No acute cardiopulmonary process.
CT chest/abdomen/pelvis 10/29/2024:
Although markedly limited without intravenous contrast and as a result of beam hardening artifact from bilateral upper extremities, bilateral lower lobe consolidations are seen with air bronchograms which could represent pneumonia and/or
subsegmental atelectasis with accompanying tiny bilateral pleural effusions.
Somewhat prominent gallbladder containing multiple stones. If there is a clinical concern for acute cholecystitis, suggest ultrasound for more complete evaluation.
No additional gross significant acute abnormal finding, evaluation markedly limited.
ECHO 09/2021: Top normal left ventricular chamber size. Moderately reduced left ventricular
systolic function. Left ventricular ejection fraction is 35-40% by visual
assessment with basal - mid inferior, inferolateral and basal septal akinesis.
Top normal left ventricular wall thickness.
Left atrial enlargement.
Mild mitral regurgitation.
Compared to previous echo from September 2017, there is no significant change
Technically difficult study, consider Definity for better evaluation.
[facility] 04/2013: 1: 2 vessel coronary artery disease as described, patent RCA and LAD stents, new severe midcircumflex lesion.
2: Moderate to severe left ventricular dysfunction, EF 30%
3: Successful complex 3.0/12 mm Xience V drug eluting stent to the mid circumflex.
Subjective Dataa
Subjective Data
Date of Service:
Date of Service: November 03, 2024
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
Subjective:
Feels debilitated
NG tube in place
Failed speech evaluation
Denies chest pain
Review of Systems
Cardiopulmonary: Dyspnea, Dyspnea on Exertion and Cough
GI: Abdominal Pain (n) and Nausea (n)
Objective Data
Data Reviewed
Vital Signs / I&O / Oxygen:
Vital Signs
Temp Pulse Resp BP Pulse Ox
98.2 F 98 25 138/86 99
11/03/24 07:00 11/03/24 08:00 11/03/24 08:00 11/03/24 07:44 11/03/24 08:00
Intake and Output
11/02/24 11/03/24 11/04/24
06:59 06:59 06:59
Intake Total 1169.9 / 1169.9
Output Total 1875 / 1875 1050 / 1050
Balance -705.1 / -705.1 -1050 / -1050
SaO2 [CPAP] 98
SaO2 [A/C] 95
SaO2 99
Nasal Cannula flow liters per 2
minute
Physical Exam
General: Respiratory Distress (negative) and Comfortable
HEENT: Normocephalic, Anicteric and Other (Thick neck)
Cardiovascular: S1-S2 and Peripheral Edema (+1 lower extremity pitting edema bilaterally)
Respiratory: Wheeze (negative), Crackles (bibasilar), Rhonchi (negative), Non-Labored Respirations and Stridor (negative)
GI: Soft, Distended (Abdominal obesity), Non Tender and Normal Bowel Sounds
Neurology: Awake, Alert, Tremors (negative) and Other (Drowsy/confused at times)
Skin: Warm, Dry, Cyanosis (negative) and Jaundice (negative)
Labs/Micro/Reports
Lab Data
11/03/24 05:30
Laboratory Results
11/03/24
06:37
APTT 77.0 H
[2024-11-03] MEDS: CORDARONE 518 MG IV (11:27)
[2024-11-03 12:07] LABS: Glucose - Point of Care 202 mg/dl (70-99)
[2024-11-03] MEDS: XYLOCAINE 2 GRAM 500 IV (12:08)
[2024-11-03] MEDS: 0.45%NACL IV (12:09)
[2024-11-03] MEDS: NOVOLOG FLEXPEN-MODERATE RESISTANCE 3 UNITS SC (12:09)
--- NOTE | 2024-11-03 12:30 | PTCARENOTE ---
Pt assessed.No change in assessment noted.Lidocaine 2mg/mi initiated at 1208.
[2024-11-03 12:58] LABS: ALT (SGPT) 30 U/L (0-50); AST (SGOT) 122 U/L (17-59); Alkaline Phosphatase 68 U/L (38-126); Blood Urea Nitrogen 34 mg/dl (9-20); Calcium 9.8 mg/dl (8.4-10.2); Carbon Dioxide 23 mmol/L (22-30); Chloride 113 mmol/L (98-107); Estimated Creatinine Clearance 67 ml/min; Glucose 216 mg/dl (70-99); Magnesium 2.6 mg/dl (1.6-2.3); Potassium 3.9 mmol/L (3.5-5.1); Sodium 149 mmol/L (135-145); Total Bilirubin 0.9 mg/dl (0.2-1.3); Total Protein 7.7 g/dl (6.3-8.2); eGFR > 60.00
--- NOTE | 2024-11-03 14:27 | CM ---
Patient seen at bedside in ICU. CT surgery discussing options with family and plan is now for transfer to [facility] today via ground ambulance. CM will continue to follow for discharge planning needs.
Plan; transfer to [facility]
--- NOTE | 2024-11-03 15:04 | PTCARENOTE ---
Lidocaine decreased to 1mg/hr as ordered.
--- NOTE | 2024-11-03 16:00 | PTCARENOTE ---
Pt assessed.No change in assessment noted.Report given to Imani AGUILAR at [facility] Cardiac ICU # [phone].Pt scheduled to be transferred to [facility] at 2130.Pt made aware.
--- NOTE | 2024-11-03 17:14 | PTCARENOTE ---
Amiodarone decreased to 0.5 mg as per MD order.
--- NOTE | 2024-11-03 17:43 | PTCARENOTE ---
Pt's son Tomas @ [phone] was notified that his father will be transported around [address] room [facility], [address] [place] [address], [facility]. Imani AGUILAR @ [facility] was asked to call Tomas once he is settled for the plan of care.
[2024-11-03 18:12] LABS: Glucose - Point of Care 169 mg/dl (70-99)
[2024-11-03] MEDS: ZYPREXA PO (20:29)
[2024-11-03] MEDS: DUONEB 3 ML INH (20:32)
--- NOTE | 2024-11-03 22:44 | PTCARENOTE ---
Pt alert to self, mentation waxes and weans, drowsy at times. NSR w/ PVCs on monitor, +1 LE edema. Remains on Lidocaine, Amiodarone, Heparin and D5W per order/protocol. NGT right Nare at 65cm to LIS. Pt care transfer to [facility] transport team.
--- NOTE | 2024-11-04 14:34 | W.DCSUMMARY ---
Addendum entered and electronically signed by Martha Sweeney MD 11/04/24 15:35:
Read, reviewed, and agree. See same day progress note for additional details. Time spent coordinating care, DC planning, review of DC plan of care with resident, transition of care, review of records in EMR, med rec, consults, notes, d/w
consultants, nursing, family, and CM = 37 minutes
Actual date of discharge was 11/03/2024 to [facility]--accepting physician Dr. Medrano
Original Note:
Discharge Summary
Discharge Data
Date of Admission: 10/23/24
Date of Discharge: 11/04/24
-
Pending Results: No
Hospital Course
Brief Hospital course; This is a 74-year-old male with past medical history of ischemic cardiomyopathy s/p VT in 1994 with PCI to unknown vessels, PCI to LAD and circumflex in 2011 and 2013, hypertension, hyperlipidemia, type II DM, ELVIRA on CPAP who
presented to [facility] 10/23/2024 after 911 call for chest pain and shortness of breath. He was found unresponsive by paramedics with agonal respirations and V-fib and was shocked 1 time followed by asystole and was given lidocaine bolus in the
field. In addition he was intubated in the field. He was brought to the ER in sinus rhythm. He underwent an urgent left heart cath 10/23/2024 with results Successful Plain old balloon angioplasty (POBA) of 3 serial 90% stenosis in the proximal, mid
and distal RCA with KEYONA-3 flow restored into the distal vessel. Significantly elevated right and left-sided filling pressures with reduced cardiac output, consistent with cardiogenic shock and severe pulmonary hypertension. Severe multivessel
coronary artery disease with heavily calcified coronary arteries. Successful placement of 50cc intra-aortic balloon pump. He was initiated on TTM protocol 10/23/2024 and rewarmed to full normothermia by 10/27/2024. Neurology was consulted and he was
evaluated with CT head which showed no acute abnormality with small vessel ischemic changes. CT neurology was consulted for CABG workup and was noted at this will be initiated if patient achieved a neuro recovery. Patient was placed on IV
lidocaine drip on 10/23/2024 and transitioned to amiodarone gtt. on 10/24. On October 28, he had a sustained monomorphic V. tach. Patient was eventually extubated 10/30. Then 11/03 he had a rapid response for symptomatic recurrent sustained V. tach and
was given a lido bolus and amnio bolus converting briefly to atrial fibrillation, then to normal sinus rhythm. He did not require defibrillation and did not lose pulse either.
Patient was also treated for aspiration and ventilator assisted pneumonia with IV antibiotics. He developed fevers and lung infiltrates were seen on x-ray. Sputum cultures grew Klebsiella. He was on IV Zosyn for multiple days, transitioned to
ceftriaxone on 10/31. Throughout his hospital stay, blood cultures were negative.
Given his need for high risk surgery, multidisciplinary discussions were had with CT surgery, interventional cardiology, staff counsel and hospitalist service. In addition, CT surgery had a long conversation with the patient, 3 of his sons and a
decision was made to transfer patient to [facility]. Case was discussed with [facility] transfer center and was accepted by CVICU attending Dr. Medrano. He was transferred on 11/03/2024.
Procedures:
1. LEFT HEART CATHETERIZATION
Date of Procedure: October 23, 2024
Referring: [place] emergency department
PROCEDURES:
1. Coronary angiogram.
2. Moderate sedation.
3. Right heart catheterization with leaving Oblong-Danial catheter.
4. Placement of intra-aortic balloon plan.
5. Plain old balloon angioplasty (POBA) of 3 serial 90% stenosis in the proximal, mid and distal RCA with KEYONA-3 flow restored into the distal vessel.
6. CPR
INDICATION: Post VF cardiac arrest, ROSC obtained, concern for inferior ST elevation VT
ACCESS: Right radial artery, 6Fr. sheath, under US guidance.
HEMODYNAMICS : (mmHg)
RA (m) : 23
RV (s/d,m) : 70/15, 22
PA (s/d, m) : 70/38, 50
PCWP (m) : 36
PA saturation: 52.0% on PEEP of 8, FiO2 of 100%
AO saturation: 88.0% on PEEP of 8, FiO2 of 100%
Mean arterial pressure: 89 mmHg
Cardiac Output : 3.7 L/min
Cardiac Index : 1.7 L/min/m-2
Systemic vascular resistance: 1427 dsc^(-5)
Pulmonary vascular resistance: 4 arias unit
AO (s/d) : 107/67
CORONARY FINDINGS
Dominance: Right
Left Main Trunk (LMT): The left main is a large-caliber vessel that gives off the left major descending artery and the left circumflex artery. The left main is severely calcified and hazy in appearance and diffusely disease with up to 70% stenosis.
Left Anterior Descending Artery (LAD): Large caliber vessel that gives off multiple small caliber diagonal branches as it courses along the anterior inter-ventricular groove before wrapping around the cardiac apex. There is mild diffuse
atherosclerotic plaque.
Left Circumflex Artery (LCx): The left circumflex artery is a medium caliber vessel which gives rise to 1 major obtuse marginal branch with moderate tortuosity in the midportion. Mid left circumflex just proximal to the takeoff of OM 1, proximal to
prior stent has heavily calcified 70 to 80% stenosis with OM1 appearing like a good bypass target.
Right Coronary Artery (RCA): The RCA is a large-caliber, dominant vessel that has diffuse severe calcified disease with 3 lesions up to 90% in the proximal, mid and distal vessel with a large thrombotic burden in the distal vessel. This is the
likely culprit for presenting ACS. POBA was performed as described below.
CORONARY INTERVENTION: The right coronary artery was selectively engaged using a JR4 guide initially with additional heparin given to maintain a therapeutic ACT throughout the case. Given a high thrombotic burden lesion in the distal RCA thought to
be the culprit for presenting ACS, Integrilin boluses were also given. Patient suddenly went into monomorphic ventricular tachycardia warranting a 200 J biphasic shock with successful return of normal sinus rhythm. We initially attempted
navigating the diffusely diseased RCA with a 190 cm 0.014 run-through wire however we could not be on the mid RCA tortuosity. At this point we brought in a second 300 cm airline pilot 50 coronary wire and with some difficulty we were eventually able to
navigate into the RPL branch. We tried to deliver a 2.5 x 12 mm Euphora semicompliant balloon over this into the distal vessel and could not advance past the mid RCA tortuosity. We reattempted using a 6 [place] guide liner for support and despite
this we could not succeed and the guide liner could not be advanced past the obstructive proximal stenosis. We tried to bring in a fine cross microcatheter over the airline pilot 50 wire and the attempt to switch it out for a extra support wire however we
could not advance the microcatheter across the mid RCA tortuosity. At this point we decided to take everything out and put in a more supportive guide. We now brought in a 6 [place] AL 0.75 guide catheter to selectively engage the RCA providing
additional support. We navigated the RCA using a 300 cm airline pilot 50 wire through the fine cross microcatheter and were able to successfully parked the wire in the RPDA and were able to successfully cross with the microcatheter. At this point we
brought out the airline pilot 50 wire and introduced the extra-support wire into the RPDA. Over this we brought in a 6 [place] guide liner for additional support and reintroduced a 2.5 x 12 mm semicompliant balloon, initially performing plain old balloon
angioplasty to the proximal RCA stenosis which was 90% to allow for the guide liner to be brought in into the mid vessel for additional support. We were able to write the guideline over the balloon into the midportion and we dilated the mid RCA
with the same 2.5 x 12 mm Euphora semicompliant balloon at 14 carl with good expansion. Despite this we could not advance the 2.5 balloon into the distal RCA. Leaving the guide liner in the mid RCA we now brought in a 2.0 x 15 mm Euphora
semicompliant balloon and were able to navigate into the distal RCA performing serial balloon dilatations with full expansions at high pressures attaining KEYONA-3 flow into the distal vessel. However we could not further bring in any additional
equipment or larger balloons. At this time I had an offline discussion with my senior interventional partners as well as Dr. Amaury Briones from CT surgery and given KEYONA-3 flow was restored into the distal vessel with patient otherwise being
hemodynamically stable with concomitant severe left main stenosis, decision was made to abort any further attempts at PCI with overall plan being to optimize medications and mechanical support as warranted based on hemodynamics, await meaningful
neurologic recovery to then offer coronary artery bypass grafting with grafts to LAD, OM1, RPDA +/- RPL branches.
IABP PLACEMENT: Under fluoroscopic guidance after the 6 [place] right common femoral arterial access was upsized to 8 Ug[place] sheath, a 50 cc intra-aortic balloon pump was successfully placed at one-to-one with an augmented blood pressure of 117 mmHg.
SEDATION: 106 minutes of procedural sedation was utilized. IV Midazolam and IV Fentanyl were administered. An independent healthcare or medical was present to assist with and help manage the patient's level of consciousness and physiologic status.
RADIATION SUMMARY: Fluoro Time (min): 28.0, Dose (mGy): 1412.7, DAP (Gy.cm2) : 95.57
Closure Device: There were no immediate intra-procedural complications. The sheath was pulled in the quality lab assoc and a vascular-band applied to the right wrist for radial artery hemostasis using the patent hemostasis technique.
CONCLUSIONS
1. Successful Plain old balloon angioplasty (POBA) of 3 serial 90% stenosis in the proximal, mid and distal RCA with KEYONA-3 flow restored into the distal vessel.
2. Significantly elevated right and left-sided filling pressures with reduced cardiac output, consistent with cardiogenic shock and severe pulmonary hypertension.
3. Severe multivessel coronary artery disease with heavily calcified coronary arteries.
4. Successful placement of 50cc intra-aortic balloon pump.
RECOMMENDATIONS
1. Plan to continue daily baby aspirin via NG tube, IV unfractionated heparin drip, Integrilin drip along with high intensity statin.
2. Continue aggressive IV diuresis and mechanical ventilatory support.
3. Discussed with staff counsel in regards to TTM management to avoid hyperthermia
4. Aggressive management of cardiovascular risk factors.
5. Management of cardiogenic shock with intra-aortic balloon pump support and monitoring of lab work every 6 hours with pressors as warranted depending on hemodynamics.
6. Close monitoring for neurologic recovery with consideration for coronary artery bypass grafting if neurologic recovery is attained.
Data:
CT Head 10/23/2024: Unremarkable
CXR. 10/23/2024: Suggestive of Pulmonary edema
CXR 10/27/2024: There is slightly increased size of the left basilar opacity which likely represents a moderate pleural effusion with adjacent atelectasis, however pneumonia cannot be excluded. Stable appearance of the support lines and tubes.
Chest x-ray 11/01/2024: No acute cardiopulmonary process.
CT chest/abdomen/pelvis 10/29/2024:
Although markedly limited without intravenous contrast and as a result of beam hardening artifact from bilateral upper extremities, bilateral lower lobe consolidations are seen with air bronchograms which could represent pneumonia and/or
subsegmental atelectasis with accompanying tiny bilateral pleural effusions.
Somewhat prominent gallbladder containing multiple stones. If there is a clinical concern for acute cholecystitis, suggest ultrasound for more complete evaluation.
No additional gross significant acute abnormal finding, evaluation markedly limited.
Echocardiogram 10/28/2024
Left ventricle is mildly dilated. Severely reduced left ventricular systolic
function. Left ventricular ejection fraction is 25% visually. Global
hypokinesis. Moderate concentric left ventricular hypertrophy.
Since echo 10/24/2024 which was reviewed, ejection fraction has decreased from
30-35% to 25% status post Impella removal.
Echocardiogram 10/24/2024
Normal left ventricular chamber size. Moderately reduced left ventricular
systolic function. Left ventricular ejection fraction is 30-35% , on intra-
aortic balloon pump. Moderate global hypokinesis.
Normal right ventricular size. Normal right ventricular systolic function.
Normal pericardium without effusion.
Discharge Plan
-
Patient Disposition: Acute Care Hospital
Discharge Orders:
Discharge Patient (As Directed); Ordered 11/03/24
Ordered By: Arlen Jerome
Discharge Date and Time
Discharge Date/Time: 11/03/24 21:57
Print Language: IRISH
== END 2024-11-03 21:57 | disposition short-term general hospital (02) | DRG 270 ==
LOC: ICU 15:18
PROVIDERS: Clinical Nurse Specialist Acute Care; Internal Medicine; Internal Medicine Cardiovascular Disease; Internal Medicine Critical Care Medicine; Internal Medicine Interventional Cardiology; Nurse Practitioner Adult Health; Physician Assistant Medical; Radiology Diagnostic Radiology; Student in an Organized Health Care Education/Training Program; ADMITTING PHYSICIAN Student in an Organized Health Care Education/Training Program; ATTENDING PHYSICIAN Internal Medicine; CONSULT PHYSICIAN Internal Medicine; CONSULT PHYSICIAN Internal Medicine Cardiovascular Disease; CONSULT PHYSICIAN Psychiatry & Neurology Clinical Neurophysiology; CONSULT PHYSICIAN Thoracic Surgery (Cardiothoracic Vascular Surgery); EMERGENCY PHYSICIAN Emergency Medicine
PROC: 5A02210 Assistance with Cardiac Output using Balloon Pump, Continuous (ICD-10-PCS; 2024-10-23)
PROC: 4A023N8 Measurement of Cardiac Sampling and Pressure, Bilateral, Percutaneous Approach (ICD-10-PCS; 2024-10-23)
PROC: 02703ZZ Dilation of Coronary Artery, One Artery, Percutaneous Approach (ICD-10-PCS; 2024-10-23)
PROC: 02HQ32Z Insertion of Monitoring Device into Right Pulmonary Artery, Percutaneous Approach (ICD-10-PCS; 2024-10-23)
PROC: 03HY32Z Insertion of Monitoring Device into Upper Artery, Percutaneous Approach (ICD-10-PCS; 2024-10-23)
PROC: B2111ZZ Fluoroscopy of Multiple Coronary Arteries using Low Osmolar Contrast (ICD-10-PCS; 2024-10-23)
PROC: 0DH67UZ Insertion of Feeding Device into Stomach, Via Natural or Artificial Opening (ICD-10-PCS; 2024-10-23)
PROC: 4A133B1 Monitoring of Arterial Pressure, Peripheral, Percutaneous Approach (ICD-10-PCS; 2024-10-23)
PROC: 4A133B3 Monitoring of Arterial Pressure, Pulmonary, Percutaneous Approach (ICD-10-PCS; 2024-10-23)
PROC: 4A133J1 Monitoring of Arterial Pulse, Peripheral, Percutaneous Approach (ICD-10-PCS; 2024-10-23)
PROC: 5A1955Z Respiratory Ventilation, Greater than 96 Consecutive Hours (ICD-10-PCS; 2024-10-23)
PROC: 5A1221J Performance of Cardiac Output, Continuous, Automated (ICD-10-PCS; 2024-10-23)
PROC: 02HV33Z Insertion of Infusion Device into Superior Vena Cava, Percutaneous Approach (ICD-10-PCS; 2024-10-31)
PROC: 5A09357 Assistance with Respiratory Ventilation, Less than 24 Consecutive Hours, Continuous Positive Airway Pressure (ICD-10-PCS; 2024-11-01)
DX: I21.19 ST elevation (STEMI) myocardial infarction involving other coronary artery of inferior wall (principal); A41.9 Sepsis, unspecified organism; I46.2 Cardiac arrest due to underlying cardiac condition; I49.01 Ventricular fibrillation; I50.23 Acute on chronic systolic (congestive) heart failure; J96.01 Acute respiratory failure with hypoxia; R57.0 Cardiogenic shock; G92.8 Other toxic encephalopathy; J18.9 Pneumonia, unspecified organism; I47.29 Other ventricular tachycardia; G93.1 Anoxic brain damage, not elsewhere classified; Z99.11 Dependence on respirator [ventilator] status; E87.20 Acidosis, unspecified; J95.851 Ventilator associated pneumonia; I13.0 Hypertensive heart and chronic kidney disease with heart failure and stage 1 through stage 4 chronic kidney disease, or unspecified chronic kidney disease; K56.7 Ileus, unspecified; E87.0 Hyperosmolality and hypernatremia; R44.3 Hallucinations, unspecified; E11.9 Type 2 diabetes mellitus without complications; E78.00 Pure hypercholesterolemia, unspecified; I49.3 Ventricular premature depolarization; I45.10 Unspecified right bundle-branch block; J30.81 Allergic rhinitis due to animal (cat) (dog) hair and dander; I25.5 Ischemic cardiomyopathy; G47.33 Obstructive sleep apnea (adult) (pediatric); E66.01 Morbid (severe) obesity due to excess calories; I27.20 Pulmonary hypertension, unspecified; N18.31 Chronic kidney disease, stage 3a; I25.10 Atherosclerotic heart disease of native coronary artery without angina pectoris; E11.22 Type 2 diabetes mellitus with diabetic chronic kidney disease; E83.51 Hypocalcemia; E87.6 Hypokalemia; B96.1 Klebsiella pneumoniae [K. pneumoniae] as the cause of diseases classified elsewhere; Y84.8 Other medical procedures as the cause of abnormal reaction of the patient, or of later complication, without mention of misadventure at the time of the procedure; R74.01 Elevation of levels of liver transaminase levels; I25.2 Old myocardial infarction; Z78.1 Physical restraint status; Z95.5 Presence of coronary angioplasty implant and graft; Z79.82 Long term (current) use of aspirin; Z79.02 Long term (current) use of antithrombotics/antiplatelets; Z68.30 Body mass index [BMI] 30.0-30.9, adult; Z88.1 Allergy status to other antibiotic agents; Z79.84 Long term (current) use of oral hypoglycemic drugs
CPT/HCPCS: 93308; 31500; 33967; 36600; 43752; 70450; 71045; 71250; 74018; 74176; 76705; 80048; 80053; 80202; 81003; 81015; 82248; 82330; 82550; 82553; 82805; 82810; 82962; 83036; 83605; 83735; 83880; 84100; 84132; 84134; 84145; 84302; 84478; 84484; 85014; 85018; 85025; 85027; 85049; 85347; 85610; 85730; 87040; 87070; 87077; 87086; 87186; 87205; 87641; 92526; 92610; 92920; 93005; 93321; 93325; 93456; 94002; 94003; 94640; 95816; 96365; 96375; 96376; 97163; 97530; 99152; 99153; 99291; C1725; C1769; C1887; C1894; J1327; Q9950; Q9967

== ENCOUNTER 2024-11-24 23:12 | Emergency (ER) | payer MEDICARE, OTHER, SELFPAY ==
[2024-11-24 23:14] VITALS: BMI 29.9
[2024-11-24 23:17] VITALS: BP 153/80
[2024-11-24 23:48] LABS: Hematocrit 32.4 % (39.0-52.0); Hemoglobin 10.4 g/dL (13.0-18.0); Mean Corp Hgb Conc. 32.1 g/dL (33.0-37.0); Mean Corpuscular Volume 88.3 fL (80.0-94.0); Nucleated Red Blood Cells % 0 % (-); Platelet Count 312 10^3/uL (130-400); Red Cell Dist. Width 15.3 % (11.5-14.5)
[2024-11-25] VITALS: BP 125/71
[2024-11-25 00:03] LABS: INR 1.13; PT 14.8 Sec (11.4-14.6)
[2024-11-25 00:09] LABS: Troponin I 0.030 ng/ml
[2024-11-25 00:16] LABS: Blood Urea Nitrogen 16 mg/dl (9-20); Calcium 8.6 mg/dl (8.4-10.2); Carbon Dioxide 25 mmol/L (22-30); Chloride 105 mmol/L (98-107); Estimated Creatinine Clearance 74 ml/min; Glucose 124 mg/dl (70-99); Sodium 137 mmol/L (135-145); eGFR > 60.00
--- NOTE | 2024-11-25 00:37 | ED.GENMED ---
History of Present Illness
<Natividad Singh MD - Last Filed: 11/25/24 03:26>
General
Chief Complaint: Cardiac Symptoms
Source: patient
Time Seen by Provider: 11/25/24 00:19
History of Present Illness
History of Present Illness:
This patient is a 74-year-old male who presents to the emergency department complaints of what he describes as hiccups that have been on and off for the last 3 days. [place], as he was trying to go to sleep, he noted a bout of hiccups that again
recurred and he was brought to the emergency department. He states that he felt 'fine' all day today, is no longer on supplemental oxygen, has not been short of breath, and denies chest pain, nausea, vomiting. Of note, this is in contrast to the
PMR note from [facility] where it is described as patient having 'worsening shortness of breath and abdominal spasm'. Patient denies abdominal pain, nausea, vomiting, anorexia, fever, chills, cough, , rhinorrhea. He does have mild residual sore
throat from presumed intubation.
Past History
<Natividad Singh MD - Last Filed: 11/25/24 03:26>
Past History
ED Past Medical History: CAD, HTN, Hypercholesterolemia, NIDDM, [place] and Other
ED Past Surgical History: Cardiac and Other
Social History
Tobacco: Non-smoker
Alcohol: Occasional
Drug: None
Personal:
Living: with family
Employment: Employed
Family History
Family History: Hypertension and CAD
Phy Exam
<Natividad Singh MD - Last Filed: 11/25/24 03:26>
Physical Exam
Physical Exam:
GENERAL: Alert , in no apparent distress, hiccups noted somewhat regularly
EYE: pupils equal and reactive
NECK: Supple, no significant adenopathy.
ENT: o/p clr, mmm.
CARDIAC: Regular rate and rhythm .
LUNGS: Clear breath sounds bilaterally, no acute respiratory distress, no wheezes/rales/rhonchi
ABDOMEN: Soft, without focal tenderness, no r/g, no cvat
NEUROLOGICAL: Alert and oriented, no focal neuro deficits
SKIN: Warm and dry, dressing clean and intact over sternal incision which we elected to defer examination of given it was just evaluated
MUSCULOSKELETAL: No edema, well perfused.
PSYCH: Normal and appropriate interaction.
Course
<Natividad Singh MD - Last Filed: 11/25/24 03:26>
Orders/Labs/Results
Orders:
Orders
11/24/24 23:16
Electrocardiogram (*1) Urgent
Reason for Study: Chest Pain
Cardiac Monitoring- Treatment ONCE
EKG- Treatment ONCE
IV Insert/Care/Rem.- Treatment PRN
O2 Therapy [RESP] Urgent
Titrate/Wean O2 to maintain O2 sat greater than (%): 90
Special Instructions: Maintain sats >/=90%
Pulse Ox/spot Check [RESP] Urgent
Quantity: 1
Special Instructions: ON ROOM AIR
11/24/24 23:39
Basic Metabolic Panel Urgent
Comment: NO K
Complete Blood Count/With Diff Urgent
Prothrombin Time Urgent
Troponin I Urgent
11/25/24 00:36
CT Chest PE Study Urgent
Comment:
Reason For Exam: recent cabg, now tachy/hiccups
Abnormal Lab Results
11/24/24
23:39
WBC 11.8 H 10^3/uL
(4.8-10.8)
RBC 3.67 L 10^6/uL
(4.70-6.10)
Hgb 10.4 L g/dL
(13.0-18.0)
Hct 32.4 L %
(39.0-52.0)
MCHC 32.1 L g/dL
(33.0-37.0)
RDW 15.3 H %
(11.5-14.5)
Abs Immat Gran (auto) 0.1 H 10^3/uL
(0-0.05)
Absolute Neuts (auto) 8.3 H 10^3/uL
(1.4-6.5)
Absolute Monos (auto) 1.1 H 10^3/uL
(0.1-0.6)
Immature Gran % 0.6 H %
(0-0.5)
Lymphocytes % 17.6 L %
(20.5-51.1)
Monocytes % 9.5 H %
(1.7-9.3)
PT 14.8 H Sec
(11.4-14.6)
Glucose 124 H mg/dl
(70-99)
11/24/24 23:39
11/24/24 23:39
Vital Signs
Initial and Last Documented VS:
Initial Vital Signs
Temp Pulse Resp BP Pulse Ox
98.8 F 103 18 153/80 95
11/24/24 23:17 11/24/24 23:17 11/24/24 23:17 11/24/24 23:17 11/24/24 23:17
Last Documented Vital Signs
Temp Pulse Resp BP Pulse Ox
98.8 F 88 21 123/68 96
11/24/24 23:17 11/25/24 04:30 11/25/24 04:30 11/25/24 04:00 11/25/24 04:30
<Farzad Shearer, DO - Last Filed: 11/25/24 05:03>
Orders/Labs/Results
Orders:
Orders
11/24/24 23:16
Electrocardiogram (*1) Urgent
Reason for Study: Chest Pain
Cardiac Monitoring- Treatment ONCE
EKG- Treatment ONCE
IV Insert/Care/Rem.- Treatment PRN
O2 Therapy [RESP] Urgent
Titrate/Wean O2 to maintain O2 sat greater than (%): 90
Special Instructions: Maintain sats >/=90%
Pulse Ox/spot Check [RESP] Urgent
Quantity: 1
Special Instructions: ON ROOM AIR
11/24/24 23:39
Basic Metabolic Panel Urgent
Comment: NO K
Complete Blood Count/With Diff Urgent
Prothrombin Time Urgent
Troponin I Urgent
11/25/24 00:36
CT Chest PE Study Urgent
Comment:
Reason For Exam: recent cabg, now tachy/hiccups
Abnormal Lab Results
11/24/24
23:39
WBC 11.8 H 10^3/uL
(4.8-10.8)
RBC 3.67 L 10^6/uL
(4.70-6.10)
Hgb 10.4 L g/dL
(13.0-18.0)
Hct 32.4 L %
(39.0-52.0)
MCHC 32.1 L g/dL
(33.0-37.0)
RDW 15.3 H %
(11.5-14.5)
Abs Immat Gran (auto) 0.1 H 10^3/uL
(0-0.05)
Absolute Neuts (auto) 8.3 H 10^3/uL
(1.4-6.5)
Absolute Monos (auto) 1.1 H 10^3/uL
(0.1-0.6)
Immature Gran % 0.6 H %
(0-0.5)
Lymphocytes % 17.6 L %
(20.5-51.1)
Monocytes % 9.5 H %
(1.7-9.3)
PT 14.8 H Sec
(11.4-14.6)
Glucose 124 H mg/dl
(70-99)
11/24/24 23:39
11/24/24 23:39
Vital Signs
Initial and Last Documented VS:
Initial Vital Signs
Temp Pulse Resp BP Pulse Ox
98.8 F 103 18 153/80 95
11/24/24 23:17 11/24/24 23:17 11/24/24 23:17 11/24/24 23:17 11/24/24 23:17
Last Documented Vital Signs
Temp Pulse Resp BP Pulse Ox
98.8 F 88 21 123/68 96
11/24/24 23:17 11/25/24 04:30 11/25/24 04:30 11/25/24 04:00 11/25/24 04:30
<Natividad Singh MD - Last Filed: 11/25/24 03:26>
*Pulse Oximetry
SaO2: 93
Oxygen Mode of Delivery: Room air
<Farzad Shearer DO - Last Filed: 11/25/24 05:03>
*Pulse Oximetry
Patient hypoxic: no
*Critical Care Note
Total Time (30-74mins, 75-104mins- exclusive of procedures): Not Applicable
<Natividad Singh MD - Last Filed: 11/25/24 03:26>
Update Note
Update Note:
Patient presents to the Emergency Department with ___hiccups
Number and Complexity of Problems Addressed at the Encounter
� Chronic conditions affecting care:
� Acute Exacerbation and/or Progression of Chronic Illness:
� Differential Diagnosis includes: But not limited to postoperative side effect, diaphragmatic irritation from infection, PE, mass, etc.
Amount and/or Complexity of Data to be Reviewed and Analyzed
� I performed an independent evaluation of and my interpretation is:
EKG:
CT:
Xrays: X-ray done earlier today not in the emergency department noted to have a left lower lobe likely pneumonia
Laboratory Studies: Mild leukocytosis, anemia noted at 10.4, troponin at 0.03 which is markedly decreased from most recent October 29 at 0.619
Other:
� Review of other/old records reveals:
� Clinical information was obtained by an independent historian:
� Prescriptions/Medications Considered but not given:
� Further testing considered but not performed:
Risk of Complications and/or Morbidity or Mortality of Patient Management
� Social determinants of health affecting care:
� Discussion with other providers (PCP, Hospitalists, Consultants, etc):
� Escalation of care including admission/observation vs risk of discharge considered:323AM...awaiting ct, pt sleeping, vitals wnl, no hiccups noted. pending ct report, pt likely stable for d/c back to [place], will reconcile ?pna
on cxr via ct.
<Farzad Shearer, DO - Last Filed: 11/25/24 05:03>
Update Note
Update Note:
Patient presents to the Emergency Department with ___hiccups
Number and Complexity of Problems Addressed at the Encounter
� Chronic conditions affecting care:
� Acute Exacerbation and/or Progression of Chronic Illness:
� Differential Diagnosis includes: But not limited to postoperative side effect, diaphragmatic irritation from infection, PE, mass, etc.
Amount and/or Complexity of Data to be Reviewed and Analyzed
� I performed an independent evaluation of and my interpretation is:
EKG:
CT:
Xrays: X-ray done earlier today not in the emergency department noted to have a left lower lobe likely pneumonia
Laboratory Studies: Mild leukocytosis, anemia noted at 10.4, troponin at 0.03 which is markedly decreased from most recent October 29 at 0.619
Other:
� Review of other/old records reveals:
� Clinical information was obtained by an independent historian:
� Prescriptions/Medications Considered but not given:
� Further testing considered but not performed:
Risk of Complications and/or Morbidity or Mortality of Patient Management
� Social determinants of health affecting care:
� Discussion with other providers (PCP, Hospitalists, Consultants, etc):
� Escalation of care including admission/observation vs risk of discharge considered:323AM...awaiting ct, pt sleeping, vitals wnl, no hiccups noted. pending ct report, pt likely stable for d/c back to [place], will reconcile ?pna
on cxr via ct.
5 AM care of patient was transitioned earlier pending CT PE. CT shows no evidence of PE. It suggests atelectasis. The radiologist raised concern for persistent postsurgical air in the mediastinum 2 weeks after surgery. With this information, I
discussed the findings with the cardiothoracic surgeon Dr. Briones who indicated that there was no clinical relevance as long as the patient is nontoxic-appearing. On my exam, the patient is nontoxic-appearing and is requesting to go back to [place]
rehab.
ED Attending Note
<Natividad Singh MD - Last Filed: 11/25/24 03:26>
-
Portions of this chart may have been created with voice recognition software.� Occasional wrong word or��sound alike� substitutions may have occurred due to the inherent limitations of voice recognition software.
Discharge Plan
Departure
Patient Disposition: Acute Rehab Facility
Date of Disposition: 11/25/24
Time of Disposition: 05:03
Patient with high blood pressure during this ER visit?: Yes
Condition: Good
Discharge Problem:
Hiccups
Instructions: Hiccups, BLOOD PRESSURE
Prescriptions:
No Action
metformin 1,000 MG tablet
1,000 mg PO BID
Rx Instructions:
With meals
clopidogrel 75 MG tablet
75 mg PO DAILY
rosuvastatin [Crestor] 40 MG tablet
40 mg PO HS
aspirin 81 MG tablet,delayed release (DR/EC)
81 mg PO DAILY
Rx Instructions:
Wait until November 21
sennosides [senna] 8.6 mg Tablet
8.6 mg PO HS
acetaminophen 325 mg Tablet
650 mg PO Q6H PRN (Reason: Pain)
Rx Instructions:
Do not Exceed 4 grams in 24hrs
albuterol sulfate 2.5 mg /3 mL (0.083 %) Solution For Nebulization
2.5 mg INHALATION Q4H PRN (Reason: Wheezing)
polyethylene glycol 3350 [Miralax] 17 gram Powder In Packet
17 g PO DAILY
Rx Instructions:
Before bed time
melatonin 3 mg Tablet
3 mg PO HS
Rx Instructions:
1 tab by mouth at 20:00
famotidine 20 mg Tablet
20 mg PO DAILY
metoprolol succinate 25 mg Tablet Extended Release 24 Hr
25 mg PO HS
Rx Instructions:
Before bed time
lorazepam 1 mg Tablet
1 mg PO DAILY PRN (Reason: Anxiety)
ipratropium bromide 21 mcg (0.03 %) [place],Non-Aerosol
2 spray INTRANASAL BID
Rx Instructions:
2 sprays into both nostrils
oxycodone 5 mg Tablet
5 mg PO Q4H PRN (Reason: Mod- severe pain)
bisacodyl 5 mg Tablet
10 mg PO Daily PRN (Reason: Constipation)
valsartan 40 mg Tablet
20 mg PO Daily
Jardiance 10 mg Tablet
10 mg PO DAILY
Referrals:
UNKNOWN - PT DOES,NOT KNOW [Family Provider]
Activity Restrictions/Additional Instructions:
IF YOU DEVELOP CHEST PAIN, TROUBLE BREATHING, CONTINUED HICCUPS, FEVER, VOMITING, OR OTHER WORRISOME SIGNS, GO TO THE ER IMMEDIATELY!
Interventions
Interventions:
*Risk Screen - Suicide Last Done: 11/24/24 23:17
*General Assessment Last Done: 11/24/24 23:17
*Neglect/Abuse Screening Last Done: 11/24/24 23:17
ED- Pulmonary Assessment Last Done: 11/25/24 00:00
ED- Cardiac Assessment Last Done: 11/25/24 00:00
Discharge Date and Time
Print Language: SUDANESE
[2024-11-25 02:00] VITALS: BP 124/72
[2024-11-25 03:00] VITALS: BP 136/73
[2024-11-25 03:14] VITALS: BP 141/79
[2024-11-25 04:00] VITALS: BP 123/68
[2024-11-25 06:02] LABS: Glucose - Point of Care 121 mg/dl (70-99)
== END 2024-11-25 05:06 ==
LOC: EMR 23:12
PROVIDERS: EMERGENCY PHYSICIAN Emergency Medicine
DX: R06.6 Hiccough (principal); I25.10 Atherosclerotic heart disease of native coronary artery without angina pectoris; I10 Essential (primary) hypertension; E78.00 Pure hypercholesterolemia, unspecified; E11.9 Type 2 diabetes mellitus without complications; Z95.1 Presence of aortocoronary bypass graft
CPT/HCPCS: 99284; 71275; 80048; 80053; 82962; 84484; 85025; 85610; 93005; Q9967

== ENCOUNTER → 2024-12-05 07:58 | Outpatient (REF) | payer MEDICARE, OTHER, SELFPAY | LOC: WOUND 07:58 | PROVIDERS: ATTENDING PHYSICIAN Surgery; FAMILY PHYSICIAN Internal Medicine | DX: L89.153 Pressure ulcer of sacral region, stage 3 (principal); E11.9 Type 2 diabetes mellitus without complications; D50.0 Iron deficiency anemia secondary to blood loss (chronic); I25.10 Atherosclerotic heart disease of native coronary artery without angina pectoris; I25.2 Old myocardial infarction; I48.91 Unspecified atrial fibrillation; I42.9 Cardiomyopathy, unspecified; I70.0 Atherosclerosis of aorta; Z95.5 Presence of coronary angioplasty implant and graft | CPT/HCPCS: 99203 ==

== ENCOUNTER → 2024-12-12 11:16 | Outpatient (REF) | payer MEDICARE, OTHER, SELFPAY | LOC: WOUND 11:16 | PROVIDERS: ATTENDING PHYSICIAN Surgery; FAMILY PHYSICIAN Internal Medicine | DX: L89.153 Pressure ulcer of sacral region, stage 3 (principal); T81.31XA Disruption of external operation (surgical) wound, not elsewhere classified, initial encounter; S21.109A Unspecified open wound of unspecified front wall of thorax without penetration into thoracic cavity, initial encounter; E11.9 Type 2 diabetes mellitus without complications; D50.0 Iron deficiency anemia secondary to blood loss (chronic); I25.10 Atherosclerotic heart disease of native coronary artery without angina pectoris; I25.2 Old myocardial infarction; I48.91 Unspecified atrial fibrillation; I70.0 Atherosclerosis of aorta; I42.9 Cardiomyopathy, unspecified; Z95.5 Presence of coronary angioplasty implant and graft; Y83.8 Other surgical procedures as the cause of abnormal reaction of the patient, or of later complication, without mention of misadventure at the time of the procedure; X58.XXXA Exposure to other specified factors, initial encounter | CPT/HCPCS: 99213 ==

== ENCOUNTER → 2024-12-19 14:16 | Outpatient (REF) | payer MEDICARE, OTHER, SELFPAY | LOC: WOUND 14:16 | PROVIDERS: ATTENDING PHYSICIAN Surgery; FAMILY PHYSICIAN Internal Medicine | DX: L89.153 Pressure ulcer of sacral region, stage 3 (principal); T81.31XA Disruption of external operation (surgical) wound, not elsewhere classified, initial encounter; S21.109A Unspecified open wound of unspecified front wall of thorax without penetration into thoracic cavity, initial encounter; E11.9 Type 2 diabetes mellitus without complications; D50.0 Iron deficiency anemia secondary to blood loss (chronic); I25.10 Atherosclerotic heart disease of native coronary artery without angina pectoris; I25.2 Old myocardial infarction; I48.91 Unspecified atrial fibrillation; I42.9 Cardiomyopathy, unspecified; I70.0 Atherosclerosis of aorta; Z95.5 Presence of coronary angioplasty implant and graft; Y83.8 Other surgical procedures as the cause of abnormal reaction of the patient, or of later complication, without mention of misadventure at the time of the procedure; X58.XXXA Exposure to other specified factors, initial encounter | CPT/HCPCS: 99213 ==

== ENCOUNTER → 2024-12-26 14:03 | Outpatient (REF) | payer MEDICARE, OTHER, SELFPAY | LOC: WOUND 14:03 | PROVIDERS: ATTENDING PHYSICIAN Surgery; FAMILY PHYSICIAN Internal Medicine | DX: L89.153 Pressure ulcer of sacral region, stage 3 (principal); T81.31XA Disruption of external operation (surgical) wound, not elsewhere classified, initial encounter; Y83.8 Other surgical procedures as the cause of abnormal reaction of the patient, or of later complication, without mention of misadventure at the time of the procedure; E11.9 Type 2 diabetes mellitus without complications; D50.0 Iron deficiency anemia secondary to blood loss (chronic); I25.10 Atherosclerotic heart disease of native coronary artery without angina pectoris; I25.2 Old myocardial infarction; I48.91 Unspecified atrial fibrillation; I70.0 Atherosclerosis of aorta; I42.9 Cardiomyopathy, unspecified; Z95.5 Presence of coronary angioplasty implant and graft | CPT/HCPCS: 99214 ==

== ENCOUNTER → 2025-01-02 14:39 | Outpatient (REF) | payer MEDICARE, OTHER, SELFPAY | LOC: WOUND 14:39 | PROVIDERS: ATTENDING PHYSICIAN Surgery; FAMILY PHYSICIAN Internal Medicine | DX: L89.153 Pressure ulcer of sacral region, stage 3 (principal); T81.31XA Disruption of external operation (surgical) wound, not elsewhere classified, initial encounter; S21.109A Unspecified open wound of unspecified front wall of thorax without penetration into thoracic cavity, initial encounter; E11.9 Type 2 diabetes mellitus without complications; D50.0 Iron deficiency anemia secondary to blood loss (chronic); I25.10 Atherosclerotic heart disease of native coronary artery without angina pectoris; X58.XXXA Exposure to other specified factors, initial encounter; Y83.8 Other surgical procedures as the cause of abnormal reaction of the patient, or of later complication, without mention of misadventure at the time of the procedure | CPT/HCPCS: 99213 ==

== ENCOUNTER → 2025-01-13 14:09 | Outpatient (REF) | payer MEDICARE, OTHER, SELFPAY | LOC: WOUND 14:09 | PROVIDERS: ATTENDING PHYSICIAN Surgery; FAMILY PHYSICIAN Internal Medicine | DX: L89.153 Pressure ulcer of sacral region, stage 3 (principal); T81.31XA Disruption of external operation (surgical) wound, not elsewhere classified, initial encounter; S21.109A Unspecified open wound of unspecified front wall of thorax without penetration into thoracic cavity, initial encounter; E11.9 Type 2 diabetes mellitus without complications; D50.0 Iron deficiency anemia secondary to blood loss (chronic); I25.10 Atherosclerotic heart disease of native coronary artery without angina pectoris; I25.2 Old myocardial infarction; I48.91 Unspecified atrial fibrillation; I70.0 Atherosclerosis of aorta; I42.9 Cardiomyopathy, unspecified; Z95.5 Presence of coronary angioplasty implant and graft; Y83.8 Other surgical procedures as the cause of abnormal reaction of the patient, or of later complication, without mention of misadventure at the time of the procedure; X58.XXXA Exposure to other specified factors, initial encounter | CPT/HCPCS: 99213 ==

== ENCOUNTER → 2025-01-27 09:43 | Outpatient (REF) | payer MEDICARE, OTHER, SELFPAY | LOC: WOUND 09:43 | PROVIDERS: ATTENDING PHYSICIAN Surgery; FAMILY PHYSICIAN Internal Medicine | DX: L89.153 Pressure ulcer of sacral region, stage 3 (principal); T81.31XA Disruption of external operation (surgical) wound, not elsewhere classified, initial encounter; S21.109A Unspecified open wound of unspecified front wall of thorax without penetration into thoracic cavity, initial encounter; E11.9 Type 2 diabetes mellitus without complications; D50.0 Iron deficiency anemia secondary to blood loss (chronic); I25.10 Atherosclerotic heart disease of native coronary artery without angina pectoris; I25.2 Old myocardial infarction; I48.91 Unspecified atrial fibrillation; I70.0 Atherosclerosis of aorta; I42.9 Cardiomyopathy, unspecified; Z95.5 Presence of coronary angioplasty implant and graft; Y83.8 Other surgical procedures as the cause of abnormal reaction of the patient, or of later complication, without mention of misadventure at the time of the procedure; X58.XXXA Exposure to other specified factors, initial encounter | CPT/HCPCS: 99214 ==

== ENCOUNTER → 2025-02-06 14:36 | Outpatient (REF) | payer MEDICARE, OTHER, SELFPAY | LOC: WOUND 14:36 | PROVIDERS: ATTENDING PHYSICIAN Surgery; FAMILY PHYSICIAN Internal Medicine | DX: L89.153 Pressure ulcer of sacral region, stage 3 (principal); T81.31XA Disruption of external operation (surgical) wound, not elsewhere classified, initial encounter; S21.101A Unspecified open wound of right front wall of thorax without penetration into thoracic cavity, initial encounter; S21.102A Unspecified open wound of left front wall of thorax without penetration into thoracic cavity, initial encounter; Y83.8 Other surgical procedures as the cause of abnormal reaction of the patient, or of later complication, without mention of misadventure at the time of the procedure | CPT/HCPCS: 99213 ==

== ENCOUNTER → 2025-02-13 14:49 | Outpatient (REF) | payer MEDICARE, OTHER, SELFPAY | LOC: WOUND 14:49 | PROVIDERS: ATTENDING PHYSICIAN Surgery; FAMILY PHYSICIAN Internal Medicine | DX: T81.31XA Disruption of external operation (surgical) wound, not elsewhere classified, initial encounter (principal); D50.0 Iron deficiency anemia secondary to blood loss (chronic); I25.10 Atherosclerotic heart disease of native coronary artery without angina pectoris; I25.2 Old myocardial infarction; I48.91 Unspecified atrial fibrillation; I70.0 Atherosclerosis of aorta; I42.9 Cardiomyopathy, unspecified; Z95.5 Presence of coronary angioplasty implant and graft; Y83.8 Other surgical procedures as the cause of abnormal reaction of the patient, or of later complication, without mention of misadventure at the time of the procedure; E11.9 Type 2 diabetes mellitus without complications | CPT/HCPCS: 17250; 99213 ==

== ENCOUNTER → 2025-02-20 14:07 | Outpatient (REF) | payer MEDICARE, OTHER, SELFPAY | LOC: WOUND 14:07 | PROVIDERS: ATTENDING PHYSICIAN Surgery; FAMILY PHYSICIAN Internal Medicine | DX: T81.31XA Disruption of external operation (surgical) wound, not elsewhere classified, initial encounter (principal); S21.109A Unspecified open wound of unspecified front wall of thorax without penetration into thoracic cavity, initial encounter; E11.9 Type 2 diabetes mellitus without complications; D50.0 Iron deficiency anemia secondary to blood loss (chronic); I25.10 Atherosclerotic heart disease of native coronary artery without angina pectoris; I25.2 Old myocardial infarction; I48.91 Unspecified atrial fibrillation; I70.0 Atherosclerosis of aorta; I42.9 Cardiomyopathy, unspecified; Z95.5 Presence of coronary angioplasty implant and graft; Y83.8 Other surgical procedures as the cause of abnormal reaction of the patient, or of later complication, without mention of misadventure at the time of the procedure; X58.XXXA Exposure to other specified factors, initial encounter | CPT/HCPCS: 99212 ==

== ENCOUNTER → 2025-03-10 10:52 | Outpatient (REF) | payer MEDICARE, OTHER, SELFPAY | LOC: WOUND 10:52 | PROVIDERS: ATTENDING PHYSICIAN Surgery; FAMILY PHYSICIAN Internal Medicine | DX: T81.31XA Disruption of external operation (surgical) wound, not elsewhere classified, initial encounter (principal); Y83.8 Other surgical procedures as the cause of abnormal reaction of the patient, or of later complication, without mention of misadventure at the time of the procedure; E11.9 Type 2 diabetes mellitus without complications; D50.0 Iron deficiency anemia secondary to blood loss (chronic); I25.10 Atherosclerotic heart disease of native coronary artery without angina pectoris; I25.2 Old myocardial infarction; I48.91 Unspecified atrial fibrillation; I70.0 Atherosclerosis of aorta; I42.9 Cardiomyopathy, unspecified; Z95.5 Presence of coronary angioplasty implant and graft | CPT/HCPCS: 99213 ==

== ENCOUNTER → 2025-03-17 10:49 | Outpatient (REF) | payer MEDICARE, OTHER, SELFPAY | LOC: WOUND 10:49 | PROVIDERS: ATTENDING PHYSICIAN Surgery; FAMILY PHYSICIAN Internal Medicine | DX: T81.31XA Disruption of external operation (surgical) wound, not elsewhere classified, initial encounter (principal); S21.109A Unspecified open wound of unspecified front wall of thorax without penetration into thoracic cavity, initial encounter; E11.9 Type 2 diabetes mellitus without complications; D50.0 Iron deficiency anemia secondary to blood loss (chronic); I25.10 Atherosclerotic heart disease of native coronary artery without angina pectoris; I25.2 Old myocardial infarction; I48.91 Unspecified atrial fibrillation; I70.0 Atherosclerosis of aorta; I42.9 Cardiomyopathy, unspecified; Z95.5 Presence of coronary angioplasty implant and graft; Y83.8 Other surgical procedures as the cause of abnormal reaction of the patient, or of later complication, without mention of misadventure at the time of the procedure; X58.XXXA Exposure to other specified factors, initial encounter | CPT/HCPCS: 99213 ==

== ENCOUNTER → 2025-03-24 13:18 | Outpatient (REF) | payer MEDICARE, OTHER, SELFPAY | LOC: WOUND 13:18 | PROVIDERS: ATTENDING PHYSICIAN Surgery; FAMILY PHYSICIAN Internal Medicine | DX: T81.31XA Disruption of external operation (surgical) wound, not elsewhere classified, initial encounter (principal); S21.109A Unspecified open wound of unspecified front wall of thorax without penetration into thoracic cavity, initial encounter; E11.9 Type 2 diabetes mellitus without complications; D50.0 Iron deficiency anemia secondary to blood loss (chronic); I25.10 Atherosclerotic heart disease of native coronary artery without angina pectoris; I25.2 Old myocardial infarction; I48.91 Unspecified atrial fibrillation; I70.0 Atherosclerosis of aorta; I42.9 Cardiomyopathy, unspecified; Z95.5 Presence of coronary angioplasty implant and graft; Y83.8 Other surgical procedures as the cause of abnormal reaction of the patient, or of later complication, without mention of misadventure at the time of the procedure; X58.XXXA Exposure to other specified factors, initial encounter | CPT/HCPCS: 99213 ==

== ENCOUNTER → 2025-04-03 10:04 | Outpatient (REF) | payer MEDICARE, OTHER, SELFPAY | LOC: RAD 10:04 | PROVIDERS: ATTENDING PHYSICIAN Surgery; FAMILY PHYSICIAN Internal Medicine | DX: R05.9 Cough, unspecified (principal) | CPT/HCPCS: 71046; 99213 ==

== ENCOUNTER → 2025-04-08 09:21 | Outpatient (REF) | payer MEDICARE, OTHER, SELFPAY ==
[2025-04-08 10:10] LABS: Hematocrit 42.6 % (39.0-52.0); Hemoglobin 13.7 g/dL (13.0-18.0); Mean Corp Hgb Conc. 32.2 g/dL (33.0-37.0); Mean Corpuscular Volume 80.4 fL (80.0-94.0); Nucleated Red Blood Cells % 0 % (-); Platelet Count 271 10^3/uL (130-400); Red Cell Dist. Width 16.8 % (11.5-14.5)
[2025-04-08 10:35] LABS: ALT (SGPT) 15 U/L (0-50); AST (SGOT) 21 U/L (17-59); Albumin 5.0 g/dl (3.5-5.0); Alkaline Phosphatase 72 U/L (38-126); Blood Urea Nitrogen 26 mg/dl (9-20); Calcium 9.9 mg/dl (8.4-10.2); Carbon Dioxide 24 mmol/L (22-30); Chloride 100 mmol/L (98-107); Glucose 90 mg/dl (70-99); HDL Cholesterol 44 mg/dl; LDL Cholesterol, Calculated 57 mg/dl; Potassium 4.2 mmol/L (3.5-5.1); Sodium 138 mmol/L (135-145); Total Protein 9.1 g/dl (6.3-8.2); Very Low Density Lipoprotein 30 mg/dl (0-30); eGFR > 60.00
[2025-04-08 11:03] LABS: TSH 1.46 uIU/ml (0.47-4.68)
[2025-04-08 12:32] LABS: Glycohemoglobin (HgbA1c) 6.9 % (4.0-5.9)
[2025-04-08 16:10] LABS: Microalb - Urine Creatinine 113.000 mg/dl
[2025-04-08 17:24] LABS: Microalbumin, Random Urine > 57.0 mg/dl (0.6-1.7)
== END ==
LOC: REG 09:21
PROVIDERS: ATTENDING PHYSICIAN Internal Medicine; OTHER PHYSICIAN Internal Medicine Cardiovascular Disease
DX: R53.83 Other fatigue (principal); E11.9 Type 2 diabetes mellitus without complications; E78.2 Mixed hyperlipidemia; I25.5 Ischemic cardiomyopathy
CPT/HCPCS: 36415; 80053; 80061; 82043; 82570; 82784; 83036; 83516; 83880; 84439; 84443; 85025; 86231

== ENCOUNTER 2025-04-09 13:47 | Outpatient (REF) | payer MEDICARE, OTHER, SELFPAY | END 2025-04-09 23:59 | disposition home or self-care (01) | LOC: WOUND 13:47 | PROVIDERS: ATTENDING PHYSICIAN Surgery; FAMILY PHYSICIAN Internal Medicine | DX: T81.31XA Disruption of external operation (surgical) wound, not elsewhere classified, initial encounter (principal); S21.109A Unspecified open wound of unspecified front wall of thorax without penetration into thoracic cavity, initial encounter; E11.9 Type 2 diabetes mellitus without complications; D50.0 Iron deficiency anemia secondary to blood loss (chronic); I25.10 Atherosclerotic heart disease of native coronary artery without angina pectoris; I25.2 Old myocardial infarction; I48.91 Unspecified atrial fibrillation; I70.0 Atherosclerosis of aorta; Z95.5 Presence of coronary angioplasty implant and graft; I42.9 Cardiomyopathy, unspecified; Y83.8 Other surgical procedures as the cause of abnormal reaction of the patient, or of later complication, without mention of misadventure at the time of the procedure; X58.XXXA Exposure to other specified factors, initial encounter | CPT/HCPCS: 99213 ==

== ENCOUNTER 2025-04-27 11:15 | Outpatient (REF) | payer MEDICARE, OTHER, SELFPAY | END 2025-04-27 23:59 | disposition home or self-care (01) | LOC: WOUND 11:15 | PROVIDERS: ATTENDING PHYSICIAN Registered Nurse; FAMILY PHYSICIAN Internal Medicine | DX: T81.31XA Disruption of external operation (surgical) wound, not elsewhere classified, initial encounter (principal); E11.9 Type 2 diabetes mellitus without complications; Y83.8 Other surgical procedures as the cause of abnormal reaction of the patient, or of later complication, without mention of misadventure at the time of the procedure; D50.0 Iron deficiency anemia secondary to blood loss (chronic); I25.10 Atherosclerotic heart disease of native coronary artery without angina pectoris; I25.2 Old myocardial infarction; I48.91 Unspecified atrial fibrillation; I70.0 Atherosclerosis of aorta; I42.9 Cardiomyopathy, unspecified; Z95.5 Presence of coronary angioplasty implant and graft | CPT/HCPCS: 99213 ==

== ENCOUNTER → 2025-05-04 12:43 | Outpatient (REF) | payer MEDICARE, OTHER, SELFPAY ==
[2025-05-04 13:36] LABS: Hematocrit 41.9 % (39.0-52.0); Hemoglobin 13.1 g/dL (13.0-18.0); Mean Corp Hgb Conc. 31.3 g/dL (33.0-37.0); Mean Corpuscular Volume 81.8 fL (80.0-94.0); Nucleated Red Blood Cells % 0 % (-); Platelet Count 264 10^3/uL (130-400); Red Cell Dist. Width 17.7 % (11.5-14.5)
[2025-05-04 13:46] LABS: INR 1.24; PT 15.7 Sec (11.4-14.6)
[2025-05-04 14:39] LABS: ALT (SGPT) 23 U/L (0-50); AST (SGOT) 29 U/L (17-59); Albumin 4.6 g/dl (3.5-5.0); Alkaline Phosphatase 81 U/L (38-126); Blood Urea Nitrogen 28 mg/dl (9-20); Calcium 9.5 mg/dl (8.4-10.2); Carbon Dioxide 27 mmol/L (22-30); Chloride 103 mmol/L (98-107); Glucose 134 mg/dl (70-99); Magnesium 2.1 mg/dl (1.6-2.3); Potassium 3.8 mmol/L (3.5-5.1); Sodium 140 mmol/L (135-145); Total Protein 8.5 g/dl (6.3-8.2); eGFR 52.74
== END ==
LOC: SDSPAT 12:43
PROVIDERS: ATTENDING PHYSICIAN Internal Medicine Cardiovascular Disease; FAMILY PHYSICIAN Internal Medicine; OTHER PHYSICIAN Internal Medicine Cardiovascular Disease
DX: I47.20 Ventricular tachycardia, unspecified (principal)
CPT/HCPCS: 36415; 80053; 83735; 85025; 85610; 86850; 86900; 86901

== ENCOUNTER 2025-05-05 11:13 | Outpatient (REF) | payer MEDICARE, OTHER, SELFPAY | END 2025-05-05 23:59 | disposition home or self-care (01) | LOC: WOUND 11:13 | PROVIDERS: ATTENDING PHYSICIAN Registered Nurse; FAMILY PHYSICIAN Internal Medicine | DX: T81.31XA Disruption of external operation (surgical) wound, not elsewhere classified, initial encounter (principal); E11.9 Type 2 diabetes mellitus without complications; D50.0 Iron deficiency anemia secondary to blood loss (chronic); I25.10 Atherosclerotic heart disease of native coronary artery without angina pectoris; I25.2 Old myocardial infarction; I48.91 Unspecified atrial fibrillation; I70.0 Atherosclerosis of aorta; I42.9 Cardiomyopathy, unspecified; Z95.5 Presence of coronary angioplasty implant and graft; Y83.8 Other surgical procedures as the cause of abnormal reaction of the patient, or of later complication, without mention of misadventure at the time of the procedure | CPT/HCPCS: 99213 ==

== ENCOUNTER 2025-05-13 09:06 | Outpatient (REF) | payer MEDICARE, OTHER, SELFPAY | END 2025-05-13 23:59 | disposition home or self-care (01) | LOC: WOUND 09:06 | PROVIDERS: ATTENDING PHYSICIAN Registered Nurse | DX: T81.31XA Disruption of external operation (surgical) wound, not elsewhere classified, initial encounter (principal); Y83.8 Other surgical procedures as the cause of abnormal reaction of the patient, or of later complication, without mention of misadventure at the time of the procedure; E11.9 Type 2 diabetes mellitus without complications; D50.0 Iron deficiency anemia secondary to blood loss (chronic); I25.10 Atherosclerotic heart disease of native coronary artery without angina pectoris; I25.2 Old myocardial infarction; I48.91 Unspecified atrial fibrillation; I70.0 Atherosclerosis of aorta; I42.9 Cardiomyopathy, unspecified; Z95.5 Presence of coronary angioplasty implant and graft | CPT/HCPCS: 99213 ==

== ENCOUNTER 2025-05-18 16:28 | Outpatient (RCR) | payer MEDICARE, OTHER, SELFPAY ==
[2025-05-12 10:37] LABS: Glucose - Point of Care 111 mg/dl (70-99)
[2025-05-12 11:05] LABS: Glucose - Point of Care 99 mg/dl (70-99)
[2025-05-15 14:59] LABS: Glucose - Point of Care 130 mg/dl (70-99)
[2025-05-15 15:49] LABS: Glucose - Point of Care 116 mg/dl (70-99)
[2025-05-18 14:57] LABS: Glucose - Point of Care 138 mg/dl (70-99)
[2025-05-18 15:46] LABS: Glucose - Point of Care 111 mg/dl (70-99)
== END 2025-05-18 23:59 | disposition home or self-care (01) ==
LOC: CRHB 16:28
PROVIDERS: ATTENDING PHYSICIAN Internal Medicine Cardiovascular Disease
DX: I25.10 Atherosclerotic heart disease of native coronary artery without angina pectoris (principal); Z95.1 Presence of aortocoronary bypass graft
CPT/HCPCS: 82962; G0422; G0423

== ENCOUNTER 2025-05-19 09:07 | Outpatient (REF) | payer MEDICARE, OTHER, SELFPAY | END 2025-05-19 23:59 | disposition home or self-care (01) | LOC: WOUND 09:07 | PROVIDERS: ATTENDING PHYSICIAN Registered Nurse; FAMILY PHYSICIAN Internal Medicine | DX: T81.31XA Disruption of external operation (surgical) wound, not elsewhere classified, initial encounter (principal); S21.109A Unspecified open wound of unspecified front wall of thorax without penetration into thoracic cavity, initial encounter; E11.9 Type 2 diabetes mellitus without complications; D50.0 Iron deficiency anemia secondary to blood loss (chronic); I25.10 Atherosclerotic heart disease of native coronary artery without angina pectoris; I25.2 Old myocardial infarction; I48.91 Unspecified atrial fibrillation; I70.0 Atherosclerosis of aorta; I42.9 Cardiomyopathy, unspecified; Z95.5 Presence of coronary angioplasty implant and graft; Y83.8 Other surgical procedures as the cause of abnormal reaction of the patient, or of later complication, without mention of misadventure at the time of the procedure; X58.XXXA Exposure to other specified factors, initial encounter | CPT/HCPCS: 99213 ==